=== PATIENT | male | born 1970 | race Caucasian/White ===

== ENCOUNTER → 2025-06-23 | Outpatient (CLI) | payer OTHER, SELFPAY ==
[2025-06-23 12:43] LABS: Hematocrit 46.0 % (40-54); Hemoglobin 15.1 g/dL (13.0-16.5); Immature Granulocytes Count 0.120 X10^3/uL (0.0-0.0); Mean Corp Hgb Conc 32.8 g/dL (32-36); Mean Corpuscular Volume 91.1 fL (80-94); Mean Platelet Vol. 10.9 fl (6.2-12.0); NRBC Flagged by Analyzer 0 % (0-5); Platelet Count 228 K/mm3 (150-450); RBC Distribution Width CV 12.7 % (11.6-14.6); RBC Distribution Width SD 42.3 fl (35.1-43.9); Red Blood Count 5.05 M/mm3 (4.6-6.2); White Blood Count 11.9 K/mm3 (4.4-11.0)
[2025-06-23 13:34] LABS: Lipase 99 U/L (13-75)
[2025-06-23 13:47] LABS: AST(SGOT) 32 U/L (<=37); Alanine Aminotransfer ALT/SGPT 51 U/L (<=46); Albumin, Serum 4.6 g/dL (3.5-5.0); Alkaline Phosphatase 62 U/L (40-129); Anion Gap 11 (5-15); BUN 22 mg/dL (4-19); BUN/Creat Ratio 20.3 RATIO (10-20); Calcium,Total 9.7 mg/dL (7.6-11.0); Carbon Dioxide 24.7 mmol/L (21.0-32.0); Chloride 102 mmol/L (98-108); Globulin 3.1 g/dL (2.2-4.2); Glucose 94 mg/dL (70-99); Potassium 4.6 mmol/L (3.3-5.1)
== END | disposition home or self-care (01) ==
PROVIDERS: PCP Physician Assistant; Referring Provider Student in an Organized Health Care Education/Training Program; Visit Provider Student in an Organized Health Care Education/Training Program
DX: K58.9 Irritable bowel syndrome, unspecified (principal); R10.9 Unspecified abdominal pain; R19.5 Other fecal abnormalities
CPT/HCPCS: 36415; 80053; 83690; 83993; 85025; 87177; 87209; 87329; 87493; 87506

== ENCOUNTER → 2025-07-01 | Outpatient (CLI) | payer OTHER, SELFPAY ==
--- NOTE | 2025-07-01 10:27 | US_ITS ---
PROCEDURE: ABDOMEN LIMITED 07/01/2025 REASON FOR EXAM: RUQ PAIN TECHNIQUE: Procedure Code: USABDL Modality: US Procedure: ABDOMEN LIMITED COMPARISON: None FINDINGS: Liver: Diffusely echogenic suggesting fatty infiltration. Hepatomegaly. The liver measures 20.1 cm. There is a 1.4 cm x 1.5 cm by 1 cm septated cyst in the left lobe of the liver. Gallbladder: Surgically absent. Common bile duct: Normal measuring 1.8 mm . Pancreas: Normal Other: Visualized portions of the right kidney are unremarkable. No right upper quadrant ascites. US/Abdomen Limited IMPRESSION: Hepatomegaly and diffuse fatty infiltration of the liver. 1.4 cm x 1.5 cm 1 cm septated cyst in the left lobe of the liver. Reading Location: [id number]
== END | disposition home or self-care (01) ==
PROVIDERS: PCP Physician Assistant; Referring Provider Student in an Organized Health Care Education/Training Program; Visit Provider Student in an Organized Health Care Education/Training Program
DX: R10.9 Unspecified abdominal pain (principal)
CPT/HCPCS: 76705

== ENCOUNTER 2025-07-15 06:22 | Day surgery (SDC) | payer OTHER, SELFPAY ==
--- OUTSIDE RECORDS SUMMARY | 2025-07-15 06:25 | XMS RPT_ITS | CCD ---
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 portions of the right kidney are unremarkable. No right upper quadrant ascites. US/Abdomen Limited IMPRESSION: Hepatomegaly and diffuse fatty infiltration of the liver. 1.4 cm x 1.5 cm 1 cm septated cyst in the left lobe of the liver. Reading Location: [id number] CC: IMA Cagle; MIA Henriquez [employer] Forming Machine Operator: Signed Normal [facility] Absolute lymphocyte countOrd ered By: Shruthi Ureña on 06-23-2025 Lymphocytes Auto (Unsp spec) [#/Vol] 2.42 10*3/uL 0.83-4.51 [facility] Absolute neutrophil countOrd ered By: Shruthi Ureña on 06-23-2025 Neutrophils (Bld) [#/Vol] 6.6 10*3/uL 2.0-7.7 [facility] Anion gap in Serum or Plasma Ordered By: Shruthi Ureña on 06-23-2025 Anion gap [Moles/Vol] 11 mmol/L - [facility] Automated lymphocyte count a s percentage of total leukocytesOrdered By: Shruthi Ureña on 06-23-2025 Lymphocytes/100 WBC Auto (Unsp spec) 20.4 % - [facility] BUN/creatinine ratioOrdered By: Shruthi Ureña on 06-23-2025 Urea nitrogen/Creatinine [Mass ratio] 20.3 mg/mg High - [facility] Basophil percentageOrdered B y: Shruthi Ureña on 06-23-2025 Basophils/100 WBC (Bld) 0.6 % 0-1 [facility] Bilirubin, totalOrdered By: Shruthi Ureña on 06-23-2025 Bilirubin [Mass/Vol] 0.25 mg/dL 0.00-1.30 [facility] CBC W/Diff, Automatedon 06-08 Absolute Lymph 2.42 X10 3/uL Normal 0.83-4.51 [facility] Comment on above: Performed By: #### L 100.0100, L500.4050, L501.2450 #### [facility] [address] [place], [address] Absolute Neut 6.6 X10 3/uL Normal 2.0-7.7 [facility] Comment on above: Performed By: #### L 100.0100, L500.4050, L501.2450 #### [facility] [address] [place], [address] Basophils/100 WBC (Bld) 0.6 % Normal 0-1 [facility] Comment on above: Performed By: #### L 100.0100, L500.4050, L501.2450 #### [facility] [address] [place], [address] Eosinophils/100 WBC (Bld) 13.6 % High 0-5 [facility] Comment on above: Performed By: #### L 100.0100, L500.4050, L501.2450 #### [facility] [address] [place], [address] Erythrocyte distribution width (RBC) [Ratio] 12.7 % Normal 11.6-14.6 [facility] Comment on above: Performed By: #### L 100.0100, L500.4050, L501.2450 #### [facility] [address] [place], [address] Hematocrit (Bld) [Volume fraction] 46.0 % Normal 40-54 [facility] Comment on above: Performed By: #### L 100.0100, L500.4050, L501.2450 #### [facility] [address] [place], [address] Hemoglobin (Bld) [Mass/Vol] 15.1 g/dL Normal 13.0-16.5 [facility] Comment on above: Performed By: #### L 100.0100, L500.4050, L501.2450 #### [facility] [address] [place], [address] IG% 1.000 High 0.0-0.9 [facility] Comment on above: Result Comment: IG% - Immature Granulocytes (promyelocytes, myelocytes and metamyelocytes) > 1% indicates that a LEFT SHIFT is Present. Performed By: #### L 100.0100, L500.4050, L501.2450 #### [facility] [address] [place], [address] Lymphocytes/100 WBC (Bld) 20.4 % Normal 19-41 [facility] Comment on above: Performed By: #### L 100.0100, L500.4050, L501.2450 #### [facility] [address] [place], [address] MCH (RBC) [Entitic mass] 29.9 pg Normal 27.0-32.0 [facility] Comment on above: Performed By: #### L 100.0100, L500.4050, L501.2450 #### [facility] [address] [place], [address] MCHC (RBC) [Mass/Vol] 32.8 g/dL Normal 32-36 [facility] Comment on above: Performed By: #### L 100.0100, L500.4050, L501.2450 #### [facility] [address] [place], [address] MCV (RBC) [Entitic vol] 91.1 fL Normal 80-94 [facility] Comment on above: Performed By: #### L 100.0100, L500.4050, L501.2450 #### [facility] [address] [place], [address] Monocytes/100 WBC (Bld) 9.3 % Normal 0-10 [facility] Comment on above: Performed By: #### L 100.0100, L500.4050, L501.2450 #### [facility] [address] [place], [address] Neutrophils/100 WBC (Bld) 55.1 % Normal 47-70 [facility] Comment on above: Performed By: #### L 100.0100, L500.4050, L501.2450 #### [facility] [address] [place], [address] Nucleated RBC (Bld) [#/Vol] 0 10*3/uL Normal 0-5 [facility] Comment on above: Performed By: #### L 100.0100, L500.4050, L501.2450 #### [facility] [address] [place], [address] Platelet mean volume (Bld) [Entitic vol] 10.9 fL Normal 6.2-12.0 [facility] Comment on above: Performed By: #### L 100.0100, L500.4050, L501.2450 #### [facility] [address] [place], [address] Platelets (Bld) [#/Vol] 228 10*3/uL Normal 150-450 [facility] Comment on above: Performed By: #### L 100.0100, L500.4050, L501.2450 #### [facility] [address] [place], [address] RBC (Bld) [#/Vol] 5.05 10*6/uL Normal 4.6-6.2 [facility] Comment on above: Performed By: #### L 100.0100, L500.4050, L501.2450 #### [facility] [address] [place], [address] RDW SD 42.3 fl Normal 35.1-43.9 [facility] Comment on above: Performed By: #### L 100.0100, L500.4050, L501.2450 #### [facility] [address] [place], [address] WBC (Bld) [#/Vol] 11.9 10*3/uL High 4.4-11.0 [facility] Comment on above: Performed By: #### L 100.0100, L500.4050, L501.2450 #### [facility] [address] [place], [address] CDIFF (PCR)on 06-23-2025 CDIFF Pending [phone] NAP1-B1 Presumptive Negative *for epidemiolologic???use C. Diff PCR Negative- No toxigenic C. Diff Detected Normal [facility] Comment on above: Performed By: #### M 600.5000, M7400.3302, M100.637, M100.6796 #### [facility] [address] [place], [address] Carbon dioxide, total [Moles /volume] in Central venous bloodOrdered By: Shruthi Ureña on 06-23-2025 CO2 [Moles/Vol] 24.7 mmol/L 21.0-32.0 [facility] Chloride assayOrdered By: Joana Ureña on 06-23-2025 Chloride [Moles/Vol] 102 mmol/L 98-108 [facility] Clostridium difficile detect ion by polymerase chain reactionOrdered By: Shruthi Ureña on 06-23-2025 C. difficile DNA ROGERS+probe Ql (Unsp spec) [facility] Comprehensive Metabolic Prof ilon 06-23-2025 Albumin [Mass/Vol] 4.6 g/dL Normal 3.5-5.0 [facility] Comment on above: Performed By: #### L 100.0100, L500.4050, L5.2450 #### [facility] [address] [place], [address] Albumin/Globulin [Mass ratio] 1.5 {ratio} Normal 0.9-2.4 [facility] Comment on above: Performed By: #### L 100.0100, L500.4050, L501.2450 #### [facility] [address] [place], [address] ALK PHOS 62 U/L Normal 40-129 [facility] Comment on above: Performed By: #### L 100.0100, L500.4050, L501.2450 #### [facility] [address] [place], [address] ALT [Catalytic activity/Vol] 51 U/L High <=46 [facility] Comment on above: Performed By: #### L 100.0100, L500.4050, L501.2450 #### [facility] [address] [place], [address] AST [Catalytic activity/Vol] 32 U/L Normal <=37 [facility] Comment on above: Performed By: #### L 100.0100, L500.4050, L501.2450 #### [facility] [address] [place], [address] Bilirubin [Mass/Vol] 0.25 mg/dL Normal 0.00-1.30 [facility] Comment on above: Performed By: #### L 100.0100, L500.4050, L501.2450 #### [facility] [address] [place], [address] BUN/CRE 20.3 RATIO High 10-20 [facility] Comment on above: Performed By: #### L 100.0100, L500.4050, L501.2450 #### [facility] [address] [place], [address] Calcium [Mass/Vol] 9.7 mg/dL Normal 7.6-11.0 [facility] Comment on above: Performed By: #### L 100.0100, L500.4050, L501.2450 #### [facility] [address] [place], [address] Chloride [Moles/Vol] 102 mmol/L Normal 98-108 [facility] Comment on above: Performed By: #### L 100.0100, L500.4050, L501.2450 #### [facility] [address] [place], [address] CO2 [Moles/Vol] 24.7 mmol/L Normal 21.0-32.0 [facility] Comment on above: Performed By: #### L 100.0100, L500.4050, L501.2450 #### [facility] [address] [place], [address] Creatinine [Mass/Vol] 1.07 mg/dL Normal 0.70-1.20 [facility] Comment on above: Performed By: #### L 100.0100, L500.4050, L501.2450 #### [facility] [address] [place], [address] GAP 11 Normal 5-15 [facility] Comment on above: Performed By: #### L 100.0100, L500.4050, L501.2450 #### [facility] [address] [place], [address] GFR/1.73 sq M.predicted among non-blacks MDRD (S/P/Bld) [Vol rate/Area] 82 mL/min/{1.73_m2} Normal >60 [facility] Comment on above: Result Comment: mL/m in/1.73m2 CKD-EPI Creatinine Equation (2020) Performed By: #### L 100.0100, L500.4050, L501.2450 #### [facility] [address] [place], [address] Globulin (S) [Mass/Vol] 3.1 g/dL Normal 2.2-4.2 [facility] Comment on above: Performed By: #### L 100.0100, L500.4050, L501.2450 #### [facility] [address] [place], [address] Glucose [Mass/Vol] 94 mg/dL Normal 70-99 [facility] Comment on above: Performed By: #### L 100.0100, L500.4050, L501.2450 #### [facility] [address] [place], [address] Potassium [Moles/Vol] 4.6 mmol/L Normal 3.3-5.1 [facility] Comment on above: Result Comment: Hemo lysis present, Results??could be affected. ?? Performed By: #### L 100.0100, L500.4050, L501.2450 #### [facility] [address] [place], [address] Sodium [Moles/Vol] 138 mmol/L Normal 133-145 [facility] Comment on above: Performed By: #### L 100.0100, L500.4050, L501.2450 #### [facility] [address] [place], [address] T PROT 7.7 g/dL Normal 5.9-8.4 [facility] Comment on above: Performed By: #### L 100.0100, L500.4050, L501.2450 #### [facility] [address] [place], [address] Urea nitrogen [Mass/Vol] 22 mg/dL High 4-19 [facility] Comment on above: Performed By: #### L 100.0100, L500.4050, L501.2450 #### [facility] [address] [place], [address] ENTERIC PATHOGEN PANEL STOOL on 06-23-2025 EP PANEL Normal Reference Ran ge = Not Detected Nucleic acid amplification test method Not detected for Campylobacter group, Salmonella species, Shigella species, Vibrio Group, Yersinia enterocolitica, EHEC (Shiga Toxin 1, Shiga Toxin 2), Norovirus Gl/Gll, and Rotavirus A. Other common stool pathogens are not detected on this panel include: Aeromonas/Plesiomonas or parasites. Order testing for these organisms separately if suspected. This is an amplified DNA test which makes it both specific and sensitive. CAMPYLOBACTER Not Detected Norovirus Not Detected Rotavirus Not Detected Salmonella Not Detected Shiga Toxin Not Detected Shigella sp. Not Detected VIBRIO Not Detected Yersinia Not Detected Normal [facility] Comment on above: Performed By: #### M 600.5000, M7400.4432, M100.637, M100.6796 #### [facility] [address] [place], [address] Eosinophil percentageOrdered By: Shruthi Ureña on 06-23-2025 Eosinophils/100 WBC (Bld) 13.6 % High 0-5 [facility] Erythrocyte distribution wid th ratioOrdered By: Shruthi Ureña on 06-23-2025 Erythrocyte distribution width (RBC) [Ratio] 12.7 % 11.6-14.6 [facility] Erythrocyte distribution wid th standard deviationOrdered By: Shruthi Ureña on 06-23-2025 Erythrocyte distribution width (RBC) [Ratio] 42.3 fl 35.1-43.9 [facility] Gastroenterology Visit Repor ton 06-23-2025 Gastroenterology Visit Report [facility] [address] [place] [address] OFFICE VISIT Date of Service: 06/23/25 MR#: [id number] Acct: [id number] Name: PEGGY CHAND Rep #: [id number] : [id number] Provider: MIA Cagle Age/Sex: 54/M Location: [facility] [email or web address] Status: Signed Intake Intake Visit Reasons: Abd Pain Chief Complaint: Right upper quadrant pain Allergies No Known Allergies Allergy (Verified 06/23/25 11:38) Medications ???Medication ???Instructions ???Recorded ???Confirmed ???Type dicyclomine 10 mg capsule 10 mg PO BID #30 caps 06/23/25 Rx pantoprazole 40 mg tablet,delayed 40 mg PO QDAY #30 tabs 06/23/25 1 Rx release PFSH Family History Father Cancer Hypertension Respiratory disease Brother Diabetes Mother Diabetes Hypertension Social History Smoking Status: Never smoker alcohol intake: never substance use type: does not use what type of physical activity do you participate in: other details: crossfit frequency: 5-6 times per week HPI HPI Chief Complaint: Right upper quadrant pain Details: PEGGY CHAND, is a 54 M who presents to the office today for establishment. Patient with right upper quadrant pain worsening over the past 3 months. Patient is status postcholecystectomy about 3 to 4 years ago due to gallstone pancreatitis. Patient's pain is constant and dull. He is having nausea and heartburn. Oral intake does not seem to exacerbate his symptoms. Workup thus far has included blood work and CT abdomen pelvis. He did have a mildly elevated lipase in the 120s. Patient's pain feels similar to when he had gallstone pancreatitis. He denies alcohol consumption. He did start an vbrf-fvf-arlbzrh PPI but has not noticed much benefit. He had an EGD in the past and was diagnosed with H. pylori which was treated with antibiotics. Patient also admits to loose stools over the past 3 months. It is shortly after eating. Last colonoscopy was a few years ago with no abnormalities. He denies family history of colon cancer. ROS Const Constitutional: Positive for weight change (weight gain); No fatigue or fever(s) ENT ENT: No difficulty swallowing Gastro GI: Positive for abdominal pain, bloating, change in bowel habits, diarrhea, heartburn, excessive flatus and nausea/dyspepsia; No belching, change in stool character, coffee ground emesis, constipation, cramping, difficulty swallowing, feeling full early, incontinent of stools, Vomiting blood/hematemesis, Blood in stool, loose stools, Black,tarry stools, pain with swallowing, vomiting or other Musc Musculoskeletal: No joint pain Skin Skin: No yellowing of the eye or itchy eyes Psych Psychiatric: No anxiety and No depression Endo Endocrine: Positive for weight change (weight gain); No fatigue Aller/Imm Allergy/Immunologic: No itchy eyes Donavan/Lymp Hematologic/Lymphatic: No easy bleeding or easy bruising Exam Const General: cooperative, healthy appearing and comfortable Orientation: alert [facility] Head: normal to inspection Ears: hearing grossly normal bilaterally Eyes General: appearance normal, both eyes and all related structures Neck Neck: normal visual inspection Chest Chest palpation inspection: normal inspection of the chest Resp Effort Inspection: normal respiratory effort Cardio Rate: regular rate Rhythm: regular rhythm GI Inspection: normal to inspection Auscultation: normal bowel sounds Palpation: soft and nontender Assessment and Plan Assessment and Plan (1) Abdominal pain: Status: Acute Plan: Peggy is a 54-year-old male patient here today for evaluation due to 3 months of right upper quadrant pain, nausea, heartburn and loose bowel movements. Patient's pain is a right sided constant and dull. It is not worse with oral intake. He did start an cmqt-tld-maatqly PPI but has not noticed any relief. He is status post cholecystectomy 3 to 4 years ago due to gallstone pancreatitis. Workup thus far has consisted of blood work and CT abdomen pelvis. Lipase was mildly elevated in the 120s but no other abnormalities. Will repeat lipase, CMP and CBC. I have also ordered a right upper quadrant ultrasound to evaluate his biliary system. We may consider MRCP pending results. EGD ordered for evaluation of his upper GI tract to rule out gastritis or duodenitis. I have prescribed pantoprazole 40 mg daily. He will also trial dicyclomine for his abdominal pain. Last colonoscopy was a few years ago without abnormalities. Will order stool testing to rule out infection or inflammation in his colon. - EGD - Start pantoprazole 40 mg daily - Dicyclomine 10 mg as needed - Stool testing for infection or inflammatio (more content not included)... Normal [facility] Glomerular filtration rate ( GFR) estimation/1.73 sq m using serum, plasma, or whole bOrdered By: Shruthi Ureña on 06-23-2025 GFR/1.73 sq M.predicted among non-blacks MDRD (S/P/Bld) [Vol rate/Area] 82 mL/min/{1.73_m2} >60 [facility] Comment on above: mL/min/1.73m2 CKD-EP I Creatinine Equation (2020) Hematocrit Auto (Bld) [Volum e fraction]Ordered By: Shruthi Ureña on 06-23-2025 Hematocrit (Bld) [Volume fraction] 46.0 % 40-54 [facility] Hemoglobin measurementOrdere d By: Shruthi Ureña on 06-23-2025 Hemoglobin (Bld) [Mass/Vol] 15.1 g/dL 13.0-16.5 [facility] Immature granulocytes/100 WB C Auto (Bld)Ordered By: Shruthi Ureña on 06-23-2025 Immature granulocytes/100 WBC (Bld) 1.000 % High 0.0-0.9 [facility] Comment on above: IG% - Immature Granu locytes (promyelocytes, myelocytes and metamyelocytes) > 1% indicates that a LEFT SHIFT is Present. Laboratory - Chemistry and C hemistry - challengeOrdered By: Shruthi Ureña on 06-23-2025 AST [Catalytic activity/Vol] 32 U/L <38 [facility] Lipaseon 06-23-2025 Lipase [Catalytic activity/Vol] 99 U/L High 13-75 [facility] Comment on above: Result Comment: Remy chan note: LIPASE revised reference range effective 22. New Lipase methodology. Expected to produce lower values than the previous assay method. NEW Reference Range: 13 - 75 U/L Performed By: #### L 100.0100, L500.4050, L501.2450 #### [facility] [address] [place] [address], [id number] Lipase measurementOrdered By : Shruthi Ureña on 06-23-2025 Lipase [Catalytic activity/Vol] 99 U/L High 13-75 [facility] Comment on above: Please note:LIPASE r evised reference range effective 22. New Lipase methodology. Expected to produce lower values than the previous assay method. NEW Reference Range: 13 - 75 U/L MCV (mean corpuscular volume ) determinationOrdered By: Shruthi Ureña on 06-23-2025 MCV (RBC) [Entitic vol] 91.1 fL 80-94 [facility] Mean corpuscular hemoglobin (MCH) determinationOrdered By: Shruthi Ureña on 06-23-2025 MCH (RBC) [Entitic mass] 29.9 pg 27.0-32.0 [facility] Mean corpuscular hemoglobin concentration (MCHC) determinationOrdered By: Shruthi Ureña on 06-23-2025 MCHC (RBC) [Mass/Vol] 32.8 g/dL 32-36 [facility] Mean platelet volume determi nationOrdered By: Shruthi Ureña on 06-23-2025 Platelet mean volume (Bld) [Entitic vol] 10.9 fL 6.2-12.0 [facility] Monocyte percentageOrdered B y: Shruthi Ureña on 06-23-2025 Monocytes/100 WBC (Bld) 9.3 % 0-10 [facility] Neutrophil percentageOrdered By: Shruthi Ureña on 06-23-2025 Neutrophils/100 WBC (Bld) 55.1 % 47-70 [facility] Nucleated red blood cell per centageOrdered By: Shruthi Ureña on 06-23-2025 Nucleated RBC/100 WBC (Bld) [Ratio] 0 % 0-5 [facility] Platelet countOrdered By: Joana Ureña on 06-23-2025 Platelets (Bld) [#/Vol] 228 10*3/uL 150-450 [facility] Potassium measurement (mass/ volume)Ordered By: Shruthi Ureña on 06-23-2025 Potassium (Unsp spec) [Mass/Vol] 4.6 mmol/L 3.3-5.1 [facility] Comment on above: Hemolysis present, R esults could be affected. RBC Auto (Bld) [#/Vol]Ordere d By: Shruthi Ureña on 06-23-2025 RBC (Bld) [#/Vol] 5.05 10*6/uL 4.6-6.2 [facility] Serum creatinine measurement (mass/volume)Ordered By: Shruthi Ureña on 06-23-2025 Creatinine [Mass/Vol] 1.07 mg/dL 0.70-1.20 [facility] Serum globulin measurementOr dered By: Shruthi Ureña on 06-23-2025 Globulin (S) [Mass/Vol] 3.1 g/dL 2.2-4.2 [facility] Serum glucose measurement (m ass/volume)Ordered By: Shruthi Ureña on 06-23-2025 Glucose [Mass/Vol] 94 mg/dL 70-99 [facility] Serum or plasma alanine murry otransferase (ALT) measurementOrdered By: Shruthi Ureña on 06-23-2025 ALT [Catalytic activity/Vol] 51 U/L High <47 [facility] Serum or plasma albumin sneha urement (mass/volume)Ordered By: Shruthi Ureña on 06-23-2025 Albumin [Mass/Vol] 4.6 g/dL 3.5-5.0 [facility] Serum or plasma albumin/glob ulin mass ratioOrdered By: Shruthi Ureña on 06-23-2025 Albumin/Globulin [Mass ratio] 1.5 {ratio} 0.9-2.4 [facility] Serum or plasma alkaline elisabeth sphatase measurementOrdered By: Shruthi Ureña on 06-23-2025 ALP [Catalytic activity/Vol] 62 U/L 40-129 [facility] Serum or plasma calcium sneha urement (mass/volume)Ordered By: Shruthi Ureña on 06-23-2025 Calcium [Mass/Vol] 9.7 mg/dL 7.6-11.0 [facility] Serum or plasma urea nitroge n measurement (mass/volume)Ordered By: Shruthi Ureña on 06-23-2025 Urea nitrogen [Mass/Vol] 22 mg/dL High 4-19 [facility] Sodium levelOrdered By: Christian Ureña on 06-23-2025 Sodium [Moles/Vol] 138 mmol/L 133-145 [facility] Total proteinOrdered By: Samantha Ureña on 06-23-2025 Protein [Mass/Vol] 7.7 g/dL 5.9-8.4 [facility] White blood cell (WBC) count Ordered By: Shruthi Ureña on 06-23-2025 WBC (Bld) [#/Vol] 11.9 10*3/uL High 4.4-11.0 [facility] INSULINon 06-20-2025 INSULIN 19.5 uIU/mL High [email or web address] Comment on above: Result Comment: Refe rence Range < or = 18.4 Risk: Optimal < or = 18.4 Moderate NA High >18.4 Adult cardiovascular event risk category cut points (optimal, moderate, high) are based on Insulin Reference Interval studies performed at [facility] in 2021. Performed By: #### 5 61 #### [facility] [place] [address] Nut Roaster Helper: Estuardo Chilel MD AMYLASEon 06-18-2025 Amylase [Catalytic activity/Vol] 52 U/L Normal 21-101 [facility] Comment on above: Performed By: #### 6 399, 606, [id number], 243 #### [facility] [place] [address] [employer] Roaster Helper: Estuardo Chilel MD C-PEPTIDEon 06-18-2025 C-PEPTIDE 3.50 ng/mL Normal 0.80-3.85 [facility] Comment on above: Performed By: #### 6 399, 606, 00211, 243 #### [facility] [place] [address] [employer] Roaster Helper: Estuardo Chilel MD CBC (INCLUDES DIFF/PLT)on Basophils (Bld) [#/Vol] 0.101 10*3/uL Normal 0-200 [facility] Comment on above: Performed By: #### 6 399, 606, 16988, 243 #### [facility] [place] [address] [employer] Roaster Helper: Estuardo Chilel MD Basophils/100 WBC (Bld) 1.0 % Normal [facility] Comment on above: Performed By: #### 6 399, 606, 20148, 243 #### [facility] [place] [address] [employer] Roaster Helper: Estuardo Chilel MD Eosinophils (Bld) [#/Vol] 1.394 10*3/uL High 15-500 [facility] Comment on above: Performed By: #### 6 399, 606, 87295, 243 #### [facility] [place] [address] [employer] Roaster Helper: Estuardo Chilel MD Eosinophils/100 WBC (Bld) 13.8 % Normal [facility] Comment on above: Performed By: #### 6 399, 606, 69700, 243 #### [facility] [place] [address] [employer] Roaster Helper: Estuardo Chilel MD Erythrocyte distribution width (RBC) [Ratio] 13.2 % Normal 11.0-15.0 [facility] Comment on above: Performed By: #### 6 399, 606, 30991, 243 #### [facility] [place] [address] [employer] Roaster Helper: Estuardo Chilel MD Hematocrit (Bld) [Volume fraction] 47.6 % Normal 38.5-50.0 [facility] Comment on above: Performed By: #### 6 399, 606, 16518, 243 #### [facility] [place] [address] [employer] Roaster Helper: Estuardo Chilel MD Hemoglobin (Bld) [Mass/Vol] 15.5 g/dL Normal 13.2-17.1 [facility] Comment on above: Performed By: #### 6 399, 606, 30246, 243 #### [facility] [place] [address] [employer]: Estuardo Chilel MD Lymphocytes (Bld) [#/Vol] 2.02 10*3/uL Normal 850-3900 [facility] Comment on above: Performed By: #### 6 399, 606, 23616, 243 #### [facility] [place] [address] [employer]: Estuardo Chilel MD Lymphocytes/100 WBC (Bld) 20.0 % Normal [facility] Comment on above: Performed By: #### 6 399, 606, 37229, 243 #### [facility] [place] [address] [employer]: Estuardo Chilel MD MCH (RBC) [Entitic mass] 30.5 pg Normal 27.0-33.0 [facility] Comment on above: Performed By: #### 6 399, 606, 27083, 243 #### [facility] [place] [address] [employer]: Estuardo Chilel MD MCHC (RBC) [Mass/Vol] 32.6 g/dL Normal 32.0-36.[address] [facility] Comment on above: Result Comment: For adults, a slight decrease in the calculated MCHC value (in the range of 30 to 32 g/dL) is most likely not clinically significant; however, it should be interpreted with caution in correlation with other red cell parameters and the patient's clinical condition. Performed By: #### 6 399, 606, 89176, 243 #### [facility] [place] [address] [employer]: Estuardo Chilel MD MCV (RBC) [Entitic vol] 93.5 fL Normal 80.0-100.0 [facility] Comment on above: Performed By: #### 6 399, 606, 72038, 243 #### [facility] [place] [address] [employer]: Estuardo Chilel MD Monocytes (Bld) [#/Vol] 0.808 10*3/uL Normal 200-950 [facility] Comment on above: Performed By: #### 6 399, 606, 72791, 243 #### [facility] [place] [address] [employer]: Estuardo Chilel MD Monocytes/100 WBC (Bld) 8.0 % Normal [facility] Comment on above: Performed By: #### 6 399, 606, 34768, 243 #### [facility] [place] [address] [employer]: Estuardo Chilel MD Neutrophils (Bld) [#/Vol] 5.777 10*3/uL Normal 0355-1958 [facility] Comment on above: Performed By: #### 6 399, 606, 90039, 243 #### [facility] [place] [address] [employer]: Estuardo Chilel MD Neutrophils/100 WBC (Bld) 57.2 % Normal [facility] Comment on above: Performed By: #### 6 399, 606, 58084, 243 #### [facility] [place] [address] [employer]: Estuardo Chilel MD Platelet mean volume (Bld) [Entitic vol] 11.1 fL Normal 7.5-12.5 [facility] Comment on above: Performed By: #### 6 399, 606, 73574, 243 #### [facility] [place] [address] [employer]: Estuardo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 CERVICAL W/O CONTRAST [address] [address] Patient: PEGGY CHAND Phone#: : 1970 Age: 53 Gender: M Pt. Type: ER Account: [id number] Location: 052 Ordering: DR. TAWANNA GUADARRAMA Exam Date: 09/06/2024/17:41 Family Phys: EZEKIEL PATEL Charge Code: [id number] Physician: Bath Order #: [id number] Dose#: 14.5 mGy PROCEDURE: CT CERVICAL WITHOUT CONTRAST COMPARISON: None. INDICATIONS: Trauma. TECHNIQUE: Multi-planar CT images were created without intravenous contrast. All CT scans at this facility use dose modulation, iterative reconstruction, and/or weight-based dosing when appropriate to reduce radiation dose to as low as reasonably achievable. IV CONTRAST: No IV contrast used,0ml TOTAL DOSE: 14.5 CTDIvol(mGy) FINDINGS: CRANIOCERVICAL AREA: Normal foramen magnum with no Chiari malformation. PARASPINAL AREA: Normal with no visible mass. BONES: Vertebral bodies are maintained in height and alignment. No appreciable fracture or subluxation. There is attenuation of the CT beam at the lower cervical spine somewhat limiting the evaluation. Dens is intact. Lateral masses are symmetric. OTHER: Atherosclerotic calcifications of the carotid bifurcations. CERVICAL DISC LEVELS: C2-C3: No significant disc/facet abnormality, spinal stenosis, or foraminal stenosis. C3-C4: Disc height loss and uncovertebral hypertrophy contributes to moderate bilateral foraminal narrowing C4-C5: Disc height loss contributes to mild bilateral osseous foraminal narrowing C5-C6: Disc height loss contributes to mild bilateral osseous foraminal narrowing C6-C7: Disc height loss and uncovertebral hypertrophy contributes to moderate left osseous foraminal narrowing C7-T1: No significant disc/facet abnormality, spinal stenosis, or foraminal stenosis. CONCLUSION: 1. No acute osseous abnormality Continued Report - Page 2 of 2 Patient: PEGGY CHAND Phone#: : 1970 Age: 53 Gender: M Pt. Type: ER Account: [id number] Location: [facility] Ordering: DR. TAWANNA GUADARRAMA Exam Date: 09/06/2024/17:41 Family Phys: EZEKIEL PATEL Charge Code: [id number] Physician: Bath Order #: [id number] Dose#: 14.5 mGy 2. Multilevel degenerative changes resulting in varying degrees of osseous foraminal narrowing. Dictated by: Alysa Graham MD on 09/06/2024 at 17:54 Approved by: Alysa Graham MD on 09/06/2024 at 18:00 Normal [facility] CT CHEST W/CONTRASTon 2023 CT CHEST W/CONTRAST [place] [address] Patient: JAGRUTI PEGGY Nguyen Phone#: : 1970 Age: 53 Gender: M Pt. Type: ER Account: [id number] Location: 052 Ordering: DR. TAWANNA GUADARRAMA Exam Date: 09/06/2024/18:53 Family Phys: EZEKIEL PATEL Charge Code: [id number] Physician: Bath Order #: [id number] Dose#: 16.5 mGy PROCEDURE: CT CHEST WITH CONTRAST COMPARISON: [facility], CT, ABDOMEN W W/O CONRAST, 11/20/2021, 11:18. INDICATIONS: Chest pain. TECHNIQUE: After obtaining the patient's consent, CT images were obtained with non-ionic intravenous contrast material. All CT scans at this facility use dose modulation, iterative reconstruction, and/or weight based dosing when appropriate to reduce radiation dose to as low as reasonably achievable. IV CONTRAST: Omnipaque 350,65ml TOTAL DOSE: 16.5 CTDIvol(mGy) FINDINGS: Study somewhat limited by artifact from patient's arms at his side during the exam. LUNGS: Right upper lobe pulmonary nodule measuring 0.5 cm, series 3, image 23. VASCULATURE: Unremarkable in size CAROLINE: Normal. No mass or adenopathy. MEDIASTINUM: Normal. No mass or adenopathy. CARDIAC: Normal. No enlargement, pericardial thickening, or significant calcification. AORTA: No aortic aneurysm. PLEURA: Normal. No mass or effusion. CHEST WALL: Normal. No mass or axillary adenopathy. LIMITED ABDOMEN: Left renal parenchymal calcification measuring 1.4 x 1.2 cm, similar prior. Surgical clips in the gallbladder fossa. BONES: Mild degenerative changes of the thoracic spine with disc height loss and anterior osteophyte formation. No acute osseous abnormality. OTHER: Negative. CONCLUSION: 1. No acute pulmonary parenchymal abnormality. Continued Report - Page 2 of 2 Patient: PEGGY CHAND Phone#: : 1970 Age: 53 Gender: M Pt. Type: ER Account: [id number] Location: 052 Ordering: DR. TAWANNA GUADARRAMA Exam Date: 09/06/2024/18:53 Family Phys: EZEKIEL PATEL Charge Code: [id number] Physician: Bath Order #: [id number] Dose#: 16.5 mGy 2. Right upper lobe pulmonary nodule. 2017 guidelines from the Fleischner Society recommend for <6mm solid nodules: In low risk patients, no follow-up required. In high risk patients, optional CT in 12 months. Dictated by: Alysa Graham MD on 09/06/2024 at 19:05 Approved by: Alysa Graham MD on 09/06/2024 at 19:11 Normal [facility] Final Surgical Pathology Rep jeff 06-23-2024 Final Surgical Pathology Report . Pathology Reports Accession: Collected Date/Time: Received Date/Time: Pathologist: [id number] 06/21/2024 09:54 EDT 06/22/2024 07:34 EDT JACI SEGURA MD Final Surgical Pathology Report DIAGNOSIS: SIGMOID COLON POLYP: - TUBULAR ADENOMA COMMENT: [facility] [id number] CLINICAL INFORMATION: SCREENING Procedure: COLONOSCOPY SPECIMEN: A SIGMOID POLYP GROSS DESCRIPTION: All parts labelled with patient name and [id number] Received in formalin labeled "sigmoid polyp" is 1 chino-brown tissue fragment measuring 0.5 x 0.3 cm greatest dimension. TS-1 Tricia Cartwright, Grossing Stereo Equipment Repairer/ Dr. Thanh Fitch, Pathologist Performed by Tricia Cartwright MICROSCOPIC DESCRIPTION: The microscopic examination is performed, except in the case of Gross Only. Electronically Signed by Pathology Report verified by [facility] JACI SEGURA Sign out Date: 06/23/2024 15:19 Performing Lab: [facility], [address] [place] [address] Pathology Dept Disclaimer If ancillary studies were utilized, the following Laboratory Developed Test (LDT) disclaimer will apply: Under CLIA requirements, [facility] is qualified to perform high complexity testing. For all ancillary stains, positive and negative controls stain appropriately. Performance characteristics of immunohistochemical and chromogenic in-situ hybridization tests have been determined by [facility]. These tests are used for clinical purposes, They should not be regarded as investigational or for research. Normal [facility] Laboratory - Chemistry and C hemistry - challengeon 05-20-2024 Albumin [Mass/Vol] 4.8 g/dL Normal 3.6 - 5.1 g/dL [facility]. Albumin/Globulin [Mass ratio] 1.7 {ratio} Normal 1.0 - 2.5 [facility], [facility].; [facility]. ALP [Catalytic activity/Vol] 52 U/L Normal 35 - 144 U/L [facility], [facility].; [facility]. ALT [Catalytic activity/Vol] 29 U/L Normal 9 - 46 U/L [facility].; [facility]. AST [Catalytic activity/Vol] 21 U/L Normal 10 - 35 U/L [facility], [facility].; [facility]. Bilirubin [Mass/Vol] 0.4 mg/dL Normal 0.2 - 1 .2 mg/dL [facility].; [facility]. Calcium [Mass/Vol] 10.0 mg/dL Normal 8.6 - 10. 3 mg/dL [facility], [facility].; [facility]. Chloride [Moles/Vol] 104 mmol/L Normal 98 - 11 0 mmol/L [facility].; [employer], [facility]. Cholesterol [Mass/Vol] 208 mg/dL Abnormal [facility].; [facility]. Cholesterol in HDL [Mass/Vol] 45 mg/dL Normal [facility], [facility].; [facility] Cholesterol in LDL [Mass/Vol] 133 mg/dL Abnormal [facility], [facility].; [employer] [facility], [facility]. CO2 [Moles/Vol] 27 mmol/L Normal 20 - 32 mmol/L [facility].; [employer] [facility], [facility]. Creatinine [Mass/Vol] 0.93 mg/dL Normal 0.70 - 1.30 mg/dL [facility].; [employer] [facility], [facility]. GFR/1.73 sq M.predicted among non-blacks MDRD (S/P/Bld) [Vol rate/Area] 98 mL/min/{1.73_m2} Normal [facility], [facility].; [employer] [employer] Glucose [Mass/Vol] 98 mg/dL Normal 65 - 99 mg/dL [facility], [facility].; [facility]. Potassium [Moles/Vol] 4.6 mmol/L Normal 3.5 - 5.3 mmol/L [facility].; [employer]. Protein [Mass/Vol] 7.6 g/dL Normal 6.1 - 8.1 g/dL [facility].; [employer]. Sodium [Moles/Vol] 140 mmol/L Normal 135 - 146 mmol/L [facility].; [employer]. Triglyceride [Mass/Vol] 164 mg/dL Abnormal [facility]; [employer] [facility] Urea nitrogen [Mass/Vol] 20 mg/dL Normal 7 - 25 mg/dL [facility] [employer]. No Panel Informationon 05-20 BUN/CREATININE RATIO SEE NOTE: Normal 6 - 22 [facility] [employer]. CHOL/HDLC RATIO 4.6 Normal [facility]; [employer]. GLOBULIN 2.8 Normal 1.9 - 3.7 [facility].; [employer]. NON HDL CHOLESTEROL [address] [facility].; [employer]. PSA, TOTAL 1.11 ng/mL Normal [facility].; [employer]. Laboratory - Microbiology an d Antimicrobial susceptibilityon 12-12-2023 FLUAV Ag IA Ql (Throat) Negative Normal [facility].; [employer] [facility] SARS-CoV-2 (COVID-19) RNA ROGERS+probe Ql (Unsp spec) Negative Normal [facility].; [employer]. CNOVon 08-06-2023 CNOV Office Visit (NENEFS ) PEGGY CHAND ([id number]) 1970 M Date Time Provider Department 08/06/23 10:00 AM JEY BIRCH During your visit today, we recorded the following information about you: Temperature Pulse Respiration Blood pressure 97.8 degrees 57/minute 15/minute 123/88 Weight 111.6 kg Jey Birch MD 08/06/2023 10:49 AM Signed [facility] New Patient Evaluation Consulting Provider: Dr. Wisam Foster [facility] Consultation requested by Dr. Foster for an opinion regarding muscle twitches. 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 Not a smoker - rare alcohol Has had muscle twitches x 1 year Getting worse Muscles affected - forelegs - more calves Not in thighs hamstrings arms trunk muscles face Cramps - no Loss of muscle - no Weakness - no Balance agility - good - no falls Bladder function - N Arm function - N No Bulbar symptoms Forgetful at times Feels inside and can see also - both equal Bothering because when tries to sleep draws attention irritating but not painful Has had ankle issues R side on outside ligament and tendon issues Does crossfit - cardio and weight training Comes in shorts today came right from workout Has a half marathon planned 08/09 in [place] Numbers on fitness training are stable Video: Of R and L medial legs showing what appear to be fascics in medial calf and well as lower forelegs above ankle. They did blood tests: CK was high (235). Lytes B12 folate were okay. BROTHER HAS THE SAME THING showed same video to patient. "He does not see doctors" Neurological disease - son with Epilepsy - father has hand tremors - no formal diagnosis of major disease. General Examination: BP 123/88 Pulse (!) 57 Temp 36.6 ?C (97.8 ?F) (Temporal Artery) Resp 15 Wt 111.6 kg (246 lb) SpO2 99% He is alone. General appearance: Awake, alert, interactive, no acute distress, good nutritional status, normal development, well-groomed Skin: Rash: absent Pigmentation: absent HEENT: Head: normocephalic, no dysmorphism Eyes: LEFT ENOPHTHALMOS Oropharynx: normal Neck: Movements: free Lymphadenopathy: absent Extremities: Deformity/contracture: absent Distal pulses: present Edema: absent Trophic change: absent Spine: Deformity: absent Heart: Regular Lungs: N effort Abdomen: Soft, nontender Neurological Exam Mental Status Alert, fully oriented, attentive, with normal cognition, memory, speech and affect. Cranial Nerves Visual medeiros intact. Pupils 3mm. 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 No diplopia. 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 No nystagmus. Facial sensation intact. Face symmetric and strong. Palate and tongue normal. XI normal. Motor Examination and Coordination Neuromuscular Examination Axial Muscles Ptosis: R: none L: mild L Cesar EOM: L Cesar syndrome Face-eye closure: normal Face-mouth closure: normal Palatal movement: normal Tongue: normal Tongue atrophy: no Sternomastoids: R: n L: n Neck flexion: 5 Neck extension: 5 Head drop: no Scapular winging: absent Accessory respiratory: absent Extremity Muscles Upper Extremity Right Left Shoulder abduction 5 5 Elbow flexion 5 5 Elbow extension 5 5 Wrist extension 5 5 Finger flexion/electrician control equipment 5 5 Finger extension 5 5 First dorsal interosseous 5 5 Abductor digiti minimi 5 5 Abductor pollicis brevis 5 5 Lower Extremity Right Left Hip flexion 5 5 Knee flexion 5 5 Knee extension 5 5 Ankle plantarflexion 5 5 Ankle dorsiflexion 5 5 Extensor hallucis longus 5 5 Flexor digitorum longus 5 5 Atrophy: ABSENT Fasciculations: rare during encounter legs. Profuse on video he showed. No upper body fascics - undressed exam. Myotonia: absent Contractures: No Tone (Ann spasticity) UE: Right: A0=normal (none) Left: A0=normal (none) LE: Right: A0=normal (none) Left: A0=normal (none) DAMIAN: N Tremor: No Coordination: N Reflexes Deep tendon reflexes graded by MRC Deep Tendon Reflexes Right Left Biceps 2+ 2+ Triceps 2+ 2+ Brachioradialis 2+ 2+ Patellar 2+ 2+ Achilles 2+ 2+ (more content not included)... Normal [facility] Priscila 08-06-2023 CNPN Telephone ([facility]) PEGGY CHAND ([id number]) 1970 M Date Time Provider Department 08/06/23 JEY BIRCH [facility] During your visit today, we recorded the following information about you: Norma Rojo 08/06/2023 8:37 AM Signed Spoke with patients outside providers office, they will be faxing clinical information prior to the patient appt today. Meagan Carmen MA 08/06/2023 9:27 AM Signed We have not yet received any documents here at the [facility]. Patient is here in the office now. Our fax number is [phone]. Will continue to wait for documents. Maybe in Care Everywhere ? Thank you. Meagan Carmen MA 08/06/23 9:27 AM Meagan Carmen MA 08/06/2023 11:45 AM Signed Scanned in [employer] under scanned documents. Thank you. Meagan Carmen MA 08/06/23 11:45 AM Allergies As of Date: 08/06/2023 (No Known Allergies) Date Reviewed: 08/06/2023 Reviewed by: Meagan Carmen MA - Fully Assessed Reason for Visit: Patient Update [1234] Prescriptions as of 08/06/2023 - meloxicam (MOBIC) 15 mg tablet - PEPCID AC 10 MG TAB Take one(1) tablet every other day. Problem List As Of Date: 08/06/2023 (None) Encounter Status:Closed by NORMA ROJO on 08/06/23 Normal [facility] Laboratory - Chemistry and C hemistry - challengeon 07-07-2023 Albumin [Mass/Vol] 4.7 g/dL Normal 3.6 - 5.1 g/dL [facility]. Albumin/Globulin [Mass ratio] 1.8 {ratio} Normal 1.0 - 2.5 [facility].; [facility], [facility] ALP [Catalytic activity/Vol] 49 U/L Normal 35 - 144 U/L [facility].; [facility]. ALT [Catalytic activity/Vol] 28 U/L Normal 9 - 46 U/L [facility].; [facility], [facility]. AST [Catalytic activity/Vol] 23 U/L Normal 10 - 35 U/L [facility]. Bilirubin [Mass/Vol] 0.5 mg/dL Normal 0.2 - 1 .2 mg/dL [facility].; [facility]. Calcium [Mass/Vol] 10.0 mg/dL Normal 8.6 - 10. 3 mg/dL [facility].; [facility]. Chloride [Moles/Vol] 104 mmol/L Normal 98 - 11 0 mmol/L [facility].; [facility]. CO2 [Moles/Vol] 30 mmol/L Normal 20 - 32 mmol/L [facility].; [facility]. Cobalamin (Vitamin B12) [Mass/Vol] 547 pg/mL Normal 200 - 1100 pg/mL [facility].; [employer] [facility]. Creatinine [Mass/Vol] 0.99 mg/dL Normal 0.70 - 1.30 mg/dL [facility].; [place] [employer] [facility], [facility]. Ferritin [Mass/Vol] 216 ng/mL Normal 38 - 380 ng/mL [facility].; [place] [employer] [facility], [employer]. Folate [Mass/Vol] 23.1 ng/mL Normal [facility].; [facility]. GFR/1.73 sq M.predicted among non-blacks MDRD (S/P/Bld) [Vol rate/Area] 91 mL/min/{1.73_m2} Normal [facility], [facility].; [facility]. Glucose [Mass/Vol] 78 mg/dL Normal 65 - 99 mg/dL [facility].; [facility]. Magnesium [Mass/Vol] 2.1 mg/dL Normal 1.5 - 2 .5 mg/dL [facility].; [facility]. Potassium [Moles/Vol] 4.7 mmol/L Normal 3.5 - 5.3 mmol/L [facility].; [facility]. Protein [Mass/Vol] 7.3 g/dL Normal 6.1 - 8.1 g/dL [facility].; [facility]. Sodium [Moles/Vol] 141 mmol/L Normal 135 - 146 mmol/L [facility].; [facility] [employer], [facility]. Urea nitrogen [Mass/Vol] 26 mg/dL Abnormal 7 - 25 mg/dL [facility].; [employer], [facility]. Urea nitrogen/Creatinine [Mass ratio] 26 mg/mg Abnormal 6 - 22 [facility].; [employer], [employer]. Laboratory - Hematology and Cell countson 07-07-2023 Basophils (Bld) [#/Vol] 0.036 10*3/uL Normal 0 - 200 {cells/uL} [facility].; [employer] Basophils/100 WBC (Bld) 0.4 % Normal [facility].; [facility]. Eosinophils (Bld) [#/Vol] 0.267 10*3/uL Normal 15 - 500 {cells/uL} [facility].; [employer], [facility]. Eosinophils/100 WBC (Bld) 3.0 % Normal [facility].; [employer], [facility]. Erythrocyte distribution width (RBC) [Ratio] 12.3 % Normal 11.0 - 15.0 % [facility].; [employer] Hematocrit (Bld) [Volume fraction] 43.6 % Normal 38.5 - 50.0 % [facility].; [facility] Hemoglobin (Bld) [Mass/Vol] 15.2 g/dL Normal 13.2 - 17.1 g/dL [facility].; [employer], [facility]. Lymphocytes (Bld) [#/Vol] 1.691 10*3/uL Normal 850 - 3900 {cells/uL} [facility].; [employer], [employer]. Lymphocytes/100 WBC (Bld) 19.0 % Normal [facility].; [employer], [facility]. MCH (RBC) [Entitic mass] 31.5 pg Normal 27.0 - 33.0 pg [facility].; [employer], [facility]. MCHC (RBC) [Mass/Vol] 34.9 g/dL Normal 32.0 - 36.0 g/dL [facility].; [employer], [employer]. MCV (RBC) [Entitic vol] 90.5 fL Normal 80.0 - 100.0 fL [facility].; [employer], [employer]. Monocytes (Bld) [#/Vol] 0.837 10*3/uL Normal 200 - 950 {cells/uL} [employer], [facility].; [employer], [employer]. Monocytes/100 WBC (Bld) 9.4 % Normal [facility].; [place] [employer] [facility], [facility]. Neutrophils (Bld) [#/Vol] 6.07 10*3/uL Normal 1500 - 7800 {cells/uL} [employer], [facility].; [employer], [facility]. Neutrophils/100 WBC (Bld) 68.2 % Normal [facility] [employer] [facility].; [employer], [facility]. Platelet mean volume (Bld) [Entitic vol] 11.7 fL Normal 7.5 - 12.5 fL [employer], [employer].; [employer], [facility]. Platelets (Bld) [#/Vol] 190 10*3/uL Normal 140 - 400 [employer], [employer].; [employer] RBC (Bld) [#/Vol] 4.82 10*6/uL Normal 4.20 - 5.8 0 {Million/uL} [employer].; [facility]. WBC (Bld) [#/Vol] 8.9 10*3/uL Normal 3.8 - 10.8 [facility]; [facility] No Panel Informationon 07-07 CREATINE KINASE, TOTAL 235 U/L Abnormal 44 - 196 U/L [facility]; [facility] GLOBULIN 2.6 Normal 1.9 - 3.7 [facility] Laboratory - Chemistry and C hemistry - challengeon 01-16-2022 Albumin [Mass/Vol] 4.6 g/dL Normal 3.6 - 5.1 g/dL [facility].; [facility] Albumin/Globulin [Mass ratio] 1.7 {ratio} Normal 1.0 - 2.5 [facility]; [facility] ALP [Catalytic activity/Vol] 53 U/L Normal 35 - 144 U/L [facility]. ALT [Catalytic activity/Vol] 39 U/L Normal 9 - 46 U/L [facility].; [facility]. AST [Catalytic activity/Vol] 26 U/L Normal 10 - 35 U/L [facility].; [facility]. Bilirubin [Mass/Vol] 0.5 mg/dL Normal 0.2 - 1 .2 mg/dL [facility].; [facility] Calcium [Mass/Vol] 9.9 mg/dL Normal 8.6 - 10. 3 mg/dL [facility].; [facility]. Chloride [Moles/Vol] 104 mmol/L Normal 98 - 11 0 mmol/L [facility].; [facility]. Cholesterol [Mass/Vol] 194 mg/dL Normal [facility]; [facility] Cholesterol in HDL [Mass/Vol] 49 mg/dL Normal [facility].; [facility] Cholesterol in LDL [Mass/Vol] 120 mg/dL Abnormal [facility].; [facility] CO2 [Moles/Vol] 23 mmol/L Normal 20 - 32 mmol/L [facility].; [facility] Creatinine [Mass/Vol] 1.18 mg/dL Normal 0.70 - 1.33 mg/dL [facility].; [facility]. GFR/1.73 sq M.predicted among blacks MDRD (S/P/Bld) [Vol rate/Area] 82 mL/min/{1.73_m2} Normal [facility].; [facility] Glucose [Mass/Vol] 92 mg/dL Normal 65 - 99 mg/dL [facility].; [facility] Potassium [Moles/Vol] 4.8 mmol/L Normal 3.5 - 5.3 mmol/L [facility]; [facility] Protein [Mass/Vol] 7.3 g/dL Normal 6.1 - 8.1 g/dL [facility].; [facility] Sodium [Moles/Vol] 140 mmol/L Normal 135 - 146 mmol/L [facility]. Triglyceride [Mass/Vol] 134 mg/dL Normal H [facility]; [facility] Urea nitrogen [Mass/Vol] 16 mg/dL Normal 7 - 25 mg/dL [facility]; [employer] [facility], [facility] No Panel Informationon 01-16 BUN/CREATININE RATIO NOT APPLICABLE Normal 6 - 22 [facility]; [facility] CHOL/HDLC RATIO 4.0 Normal [facility]; [facility]. eGFR NON-AFR. RWANDAN 71 Normal [facility]; [employer], [facility] GLOBULIN 2.7 Normal 1.9 - 3.7 [facility] NON HDL CHOLESTEROL [address] [facility].; [employer] [facility] PSA, TOTAL 1.00 ng/mL Normal [facility].; [employer] [facility] TESTOSTERONE, TOTAL, [place] 477 ng/dL Normal 250 - 1100 ng/dL [employer]. TSH W/REFLEX TO FT4 2.04 {mIU/L} Normal 0.40 - 4 .50 {mIU/L} [employer] Laboratory - Cytologyon 12-07 Pathologist Cyto stain Nom (Cvx/Vag) [ID] SEE NOTE Normal [employer] No Panel Informationon 12-20 A DIAGNOSIS SEE NOTE Normal [employer].; [employer]. A GROSS DESCRIPTION SEE NOTE Normal [employer]. A MICRO DESCRIPTION SEE NOTE Normal [employer]. A PROCEDURE BIOPSY Normal [employer].; [employer]. A SOURCE SEE NOTE Normal [employer].; [employer]. CLINICAL INFORMATION SEE NOTE Normal [employer]. Final Surgical Pathology Rep [facility] 11-27-2021 Final Surgical Pathology Report . Pathology Reports Accession: Collected Date/Time: Received Date/Time: Pathologist: [id number] 11/23/2021 09:38 EDT 11/26/2021 09:38 EDT DO YOGESH COFFMAN Final Surgical Pathology Report DIAGNOSIS: GALLBLADDER - PATCHY MILD CHRONIC CHOLECYSTITIS. COMMENT: Miguel [id number] CLINICAL INFORMATION: PANCREATITIS SPECIMEN: A GALLBLADDER GROSS DESCRIPTION: A. Received in formalin, labeled with the patients name, Case #[id number], and gallbladder Dimensions-9.5 x 4 x 3.5 cm Cystic duct/pericystic duct lymph node-patent, no lymph nodes Serosal surface-green, smooth Luminal contents-dark green liquid bile and no calculi Mucosal surface-green stained, velvety Wall thickness-0.1 cm RS- 1 Dictated by MARYAM MEDINA MICROSCOPIC DESCRIPTION: Slides reviewed. Electronically Signed by Pathology Report verified by [facility] Electronically signed by YOGESH COFFMAN DO Sign out Date: 11/27/2021 13:26 Performing Lab: [facility], [address] [place] [id number] [place] [address] Normal [facility] ([place]) Coronavirus 2019on 0 COVID 19 Result ORDER DESK CLERK Normal Negative for COVID19 (SARS CoV2) by PCR. [facility] Comment on above: Result Comment: Nega tive for This test was developed and its performance characteristics determined by [facility] [place]. This test has been authorized by FDA under an Emergency Use Authorization (EUA). This test has been validated in accordance with the FDA's Guidance Document "Policy for Diagnostics Testing in Laboratories Certified to Perform High Complexity Testing under CLIA prior to Emergency use Authorization for Coronavirus Disease 2019 during the Public Health Emergency" issued on November 06, 2019. COVID19 (SARS This test was developed and its performance characteristics determined by [facility] [place]. This test has been authorized by FDA under an Emergency Use Authorization (EUA). This test has been validated in accordance with the FDA's Guidance Document "Policy for Diagnostics Testing in Laboratories Certified to Perform High Complexity Testing under CLIA prior to Emergency use Authorization for Coronavirus Disease 2019 during the Public Health Emergency" issued on November 06, 2019. CoV2) by PCR. This test was developed and its performance characteristics determined by [facility]ology [facility] Laboratory [facility] [place]. This test has been authorized by FDA under an Emergency Use Authorization (EUA). This test has been validated in accordance with the FDA's Guidance Document "Policy for Diagnostics Testing in Laboratories Certified to Perform High Complexity Testing under CLIA prior to Emergency use Authorization for Coronavirus Disease 2019 during the Public Health Emergency" issued on November 06, 2019. Coronavirus 2019on 0 COVID 19 Source ORDER DESK CLERK Normal [facility] Reference Lab Comment on above: Result Comment: Naso pharyngeal Corrected on 07/28 AT 1013: Previously reported as ORDER DESK CLERK Swab Corrected on 07/28 AT 1013: Previously reported as ORDER DESK CLERK Laboratory - Chemistry and C hemistry - challengeon 02-12-2019 Albumin [Mass/Vol] 4.6 g/dL Normal 3.6 - 5.1 g/dL [facility].; [employer] [facility] Albumin/Globulin [Mass ratio] 2.3 {ratio} Normal 1.0 - 2.5 [facility].; [employer] [facility] ALP [Catalytic activity/Vol] 48 U/L Normal 40 - 115 U/L [facility].; [facility]. ALT [Catalytic activity/Vol] 25 U/L Normal 9 - 46 U/L [facility].; [facility]. AST [Catalytic activity/Vol] 23 U/L Normal 10 - 40 U/L [facility].; [facility]. Bilirubin [Mass/Vol] 0.5 mg/dL Normal 0.2 - 1 .2 mg/dL [facility].; [facility]. Calcium [Mass/Vol] 9.8 mg/dL Normal 8.6 - 10. 3 mg/dL [facility].; [facility]. Chloride [Moles/Vol] 106 mmol/L Normal 98 - 11 0 mmol/L [facility].; [facility]. CO2 [Moles/Vol] 28 mmol/L Normal 20 - 32 mmol/L [facility].; [facility]. Creatinine [Mass/Vol] 1.11 mg/dL Normal 0.60 - 1.35 mg/dL [facility].; [facility]. GFR/1.73 sq M.predicted among blacks MDRD (S/P/Bld) [Vol rate/Area] 90 {ML/MIN/1.73M2} Normal [facility].; [facility]. GFR/1.73 sq M.predicted MDRD (S/P/Bld) [Vol rate/Area] 78 {ML/MIN/1.73M2} Normal [facility].; [employer] [facility] Globulin (S) [Mass/Vol] 2.1 g/dL Normal 1.9 - 3.7 g/dL [facility].; [facility]. Glucose [Mass/Vol] 93 mg/dL Normal 65 - 99 mg/dL [facility].; [employer] [facility] Potassium [Moles/Vol] 4.9 mmol/L Normal 3.5 - 5.3 mmol/L [facility].; [facility] Protein [Mass/Vol] 6.7 g/dL Normal 6.1 - 8.1 g/dL [facility].; [employer] [facility], [facility]. Sodium [Moles/Vol] 140 mmol/L Normal 135 - 146 mmol/L [facility].; [facility]. Urea nitrogen [Mass/Vol] 22 mg/dL Normal 7 - 25 mg/dL [facility].; [employer] [facility], [facility] Urea nitrogen/Creatinine [Mass ratio] 19.5 mg/mg Normal 6 - 22 [facility].; [employer] [facility]. Laboratory - Hematology and Cell countson 02-12-2019 Basophils (Bld) [#/Vol] 30 {Cells}/uL Normal 0 - 200 {Cells}/uL [facility].; [facility]. Basophils/100 WBC (Bld) 0.5 % Normal 0 - 1 % H [facility].; [employer] [facility], [facility] Eosinophils (Bld) [#/Vol] 110 {Cells}/uL Normal 15 - 500 {Cells}/uL [facility].; [employer], [employer]. Eosinophils/100 WBC (Bld) 1.8 % Normal 0 - 4 % [facility].; [employer], [employer]. Erythrocyte distribution width (RBC) [Ratio] 12.4 % Normal 11.0 - 15.0 % [facility].; [employer], [employer]. Hematocrit (Bld) [Volume fraction] 42.9 % Normal 38.5 - 50.0 % [facility].; [employer], [employer]. Hemoglobin (Bld) [Mass/Vol] 14.3 g/dL Normal 13.2 - 17.1 g/dL [facility].; [employer], [facility]. Lymphocytes (Bld) [#/Vol] 1260 {Cells}/uL Normal 850 - 3900 {Cells}/uL [employer] [facility], [employer]. Lymphocytes/100 WBC (Bld) 20.7 % Normal 12 - 47 % [employer], [employer].; [employer], [employer]. MCH (RBC) [Entitic mass] 29.8 pg Normal 27.0 - 33.0 PG [facility] [employer] [facility].; [employer]. MCHC (RBC) [Mass/Vol] 33.3 g/dL Normal 32.0 - 36.0 g/dL [facility] [employer] [place] [employer]. MCV (RBC) [Entitic vol] 89.4 fL Normal 80.0 - 100.0 fL [place] [employer].; [employer], [employer]. Monocytes (Bld) [#/Vol] 580 {Cells}/uL Normal 20 0 - 950 {Cells}/uL [facility] [employer], [employer]. Monocytes/100 WBC (Bld) 9.5 % Normal 4 - 12 % H [facility] [employer], [employer]. Neutrophils (Bld) [#/Vol] 4110 {Cells}/uL Normal 1500 - 7800 {Cells}/uL [facility] [employer].; [employer], [employer]. Neutrophils/100 WBC (Bld) 67.5 % Normal 40 - 75 % [place] [employer].; [employer]. Platelet mean volume (Bld) [Entitic vol] 13.0 fL Abnormal 7.5 - 12.5 fL [employer].; [employer], [employer]. Platelets (Bld) [#/Vol] 145 10*3/uL Normal 140 - 400 10*3/uL [employer].; [employer], [employer]. RBC (Bld) [#/Vol] 4.80 10*6/uL Normal 4.20 - 5.8 0 10*6/uL [place] [employer].; [employer]. WBC (Bld) [#/Vol] 6.1 10*3/uL Normal 3.8 - 10.8 10*3/uL [employer].; [employer], [employer]. Laboratory - Chemistry and C hemistry - challengeon 01-21-2018 Cholesterol [Mass/Vol] 156 mg/dL Normal 0 - 2 00 mg/dL [facility] [employer], [employer]. Cholesterol in HDL [Mass or moles/Vol] 51 mg/dL Normal 40 - 60 mg/dL [place] [employer], [employer]. Cholesterol in LDL [Mass/Vol] 87 mg/dL Normal 0 - 129 mg/dL [facility] [employer] [facility], [facility]. Cholesterol.total/Tiff sterol in HDL [Mass ratio] 3.1 {ratio} Normal 0.0 - 5.0 [facility].; [employer], [employer]. Glucose [Mass/Vol] 92 mg/dL Normal 74 - 106 mg/dL [facility].; [employer], [facility]. Lipid [address] PROFILE Normal [facility].; [facility]. Triglyceride [Mass/Vol] 88 mg/dL Normal 0 - 150 mg/dL [facility].; [employer], [facility]. Laboratory - Chemistry and C hemistry - challengeon 01-22-2017 Cholesterol [Mass/Vol] 156 mg/dL Normal 0 - 2 00 mg/dL [facility].; [employer], [facility]. Cholesterol in HDL [Mass or moles/Vol] 41 mg/dL Normal 40 - 60 mg/dL [facility].; [employer], [employer]. Cholesterol in LDL [Mass/Vol] 98 mg/dL Normal 0 - 129 mg/dL [facility].; [employer], [employer]. Cholesterol.total/Tiff sterol in HDL [Mass ratio] 3.8 {ratio} Normal 0.0 - 5.0 [facility].; [employer], [employer]. Glucose [Mass/Vol] 90 mg/dL Normal 74 - 106 mg/dL [facility].; [employer], [facility]. Lipid [address] panel [address] PROFILE Normal [facility].; [employer] [facility], [facility]. Triglyceride [Mass/Vol] 87 mg/dL Normal 0 - 150 mg/dL [facility].; [employer], [employer]. Laboratory - Chemistry and C hemistry - challengeon 08-08-2016 Albumin [Mass/Vol] 4.7 g/dL Normal 3.4 - 4.8 g/dL [facility].; [employer], [employer]. Albumin [Mass/Vol] 1.7 g/dL Abnormal 0.9 - 1.6 [facility].; [employer], [employer]. ALP [Catalytic activity/Vol] 52 U/L Normal 38 - 126 U/L [facility].; [facility]. ALT [Catalytic activity/Vol] 61 U/L Abnormal 10 - 40 U/L [facility].; [facility] Anion gap [Moles/Vol] 11 mmol/L Normal 10 - 2 0 mmol/L [facility].; [facility]. AST [Catalytic activity/Vol] 30 U/L Normal 13 - 39 U/L [facility]; [facility] Bilirubin [Mass/Vol] 0.3 mg/dL Normal 0.0 - 1 .5 mg/dL [facility]; [facility] Calcium [Mass/Vol] 9.8 mg/dL Normal 8.6 - 10. 2 mg/dL [facility]; [facility] Chloride [Moles/Vol] 102 mmol/L Normal 98 - 10 7 mmol/L [facility]; [facility] Cholesterol [Mass/Vol] 179 mg/dL Normal 0 - 2 00 mg/dL [facility]; [facility]. Cholesterol in HDL [Mass or moles/Vol] 37 mg/dL Abnormal 40 - 60 mg/dL [facility]; [facility]. Cholesterol in LDL [Mass/Vol] 105 mg/dL Normal 0 - 129 mg/dL [facility].; [facility] Cholesterol.total/Tiff sterol in HDL [Mass ratio] 4.8 {ratio} Normal 0.0 - 5.0 [facility]; [facility] CO2 [Moles/Vol] 31.0 mmol/L Normal 21.0 - 31.0 mmol/L [facility]; [facility]. Comprehensive metabolic 2000 panel CMP with eGFR Normal [facility]; [facility] Creatinine [Mass/Vol] 0.9 mg/dL Normal 0.7 - 1.3 mg/dL [facility]; [facility] GFR/1.73 sq M.predicted among blacks MDRD (S/P/Bld) [Vol rate/Area] mL/min/{1.73_m2} Normal 60 - 999 {ML/MINUTE} [facility].; [place] [employer] [facility]. GFR/1.73 sq M.predicted MDRD (S/P/Bld) [Vol rate/Area] mL/min/{1.73_m2} Normal 60 - 999 {ML/MINUTE} [facility].; [place] [employer] [facility]. Globulin (S) [Mass/Vol] 2.7 g/dL Normal 1.5 - 3.8 g/dL [facility].; [place] [employer] [facility], [facility] Glucose [Mass/Vol] 103 mg/dL Normal 74 - 106 mg/dL [facility].; [place] [employer]. Lipid 1996 panel LIPID PROFILE Normal [facility].; [place] [employer], [facility] Potassium [Moles/Vol] 5.1 mmol/L Normal 3.5 - 5.1 mmol/L [facility].; [place] [employer] [facility]. Prostate specific Ag [Mass/Vol] 0.8 ng/mL Normal 0.0 - 4.0 ng/mL [facility].; [place] [employer], [employer]. Protein [Mass/Vol] 7.4 g/dL Normal 6.4 - 8.3 g/dL [place] [employer] [facility].; [employer], [employer]. Sodium [Moles/Vol] 139 mmol/L Normal 136 - 145 mmol/L [facility].; [place] [employer], [employer]. Triglyceride [Mass/Vol] 185 mg/dL Abnormal 0 - 150 mg/dL [place] [employer] [facility].; [employer], [employer]. Urea nitrogen [Mass/Vol] 14 mg/dL Normal 6 - 20 mg/dL [place] [employer] [facility].; [employer], [employer]. Urea nitrogen/Creatinine [Mass ratio] 16 {ratio} Normal 0 - 30 {ratio} [place] [employer] [facility].; [employer], [employer]. No Panel Informationon 08-08 AGE 45 {years} Normal [place] [employer] [facility].; [employer] [facility] - Hematology and Cell countson 2015 HbA1c (Bld) [Mass fraction] 5.5 % Normal 4.6 - 7.1 % [facility].; [facility] Laboratory - Chemistry and C hemistry - challengeon 07-11-2015 Albumin [Mass/Vol] 4.4 g/dL Normal 3.4 - 4.8 g/dL [facility].; [facility], [facility] Albumin [Mass/Vol] 1.4 g/dL Normal 0.9 - 1.6 [facility].; [facility]. ALP [Catalytic activity/Vol] 46 U/L Normal 38 - 126 U/L [facility].; [facility]. ALT [Catalytic activity/Vol] 40 U/L Normal 10 - 40 U/L [facility].; [place] [employer] [facility], [facility]. Anion gap [Moles/Vol] 10 mmol/L Normal 10 - 2 0 mmol/L [facility].; [facility], [facility]. AST [Catalytic activity/Vol] 21 U/L Normal 13 - 39 U/L [facility].; [place] [employer] [facility]. Bilirubin [Mass/Vol] 0.5 mg/dL Normal 0.0 - 1 .5 mg/dL [facility].; [facility]. Calcium [Mass/Vol] 9.8 mg/dL Normal 8.6 - 10. 2 mg/dL [facility].; [place] [employer] [facility], [facility]. Chloride [Moles/Vol] 103 mmol/L Normal 98 - 10 7 mmol/L [facility].; [place] [employer] [facility], [facility]. Cholesterol [Mass/Vol] 162 mg/dL Normal 0 - 2 00 mg/dL [facility].; [facility]. Cholesterol in HDL [Mass or moles/Vol] 34 mg/dL Abnormal 40 - 60 mg/dL [facility].; [facility]. Cholesterol in LDL [Mass/Vol] 89 mg/dL Normal 0 - 129 mg/dL [facility].; [place] [employer] [facility]. Cholesterol.total/Tiff sterol in HDL [Mass ratio] 4.8 {ratio} Normal 0.0 - 5.0 [facility].; [facility]. CO2 [Moles/Vol] 27.0 mmol/L Normal 13.0 - 29.0 mmol/L [facility].; [facility] Cobalamin (Vitamin B12) [Mass/Vol] 396 pg/mL Normal 180 - 914 pg/mL [facility].; [facility], [facility] Comprehensive metabolic 2000 panel CMP with eGFR Normal [facility]; [facility] Creatinine [Mass/Vol] 0.9 mg/dL Normal 0.7 - 1.3 mg/dL [facility]; [facility], [facility] Folate (RBC) [Mass/Vol] 23.4 ng/mL Abnormal 3.5 - 20.0 ng/mL [facility]; [facility]. GFR/1.73 sq M.predicted among blacks MDRD (S/P/Bld) [Vol rate/Area] mL/min/{1.73_m2} Normal 60 - 999 {ML/MINUTE} [facility].; [facility]. GFR/1.73 sq M.predicted MDRD (S/P/Bld) [Vol rate/Area] mL/min/{1.73_m2} Normal 60 - 999 {ML/MINUTE} [facility].; [facility]. Globulin (S) [Mass/Vol] 3.1 g/dL Normal 1.5 - 3.8 g/dL [facility].; [facility]. Glucose [Mass/Vol] 96 mg/dL Normal 74 - 106 mg/dL [facility].; [facility]. Lipid [address] panel [address]IPID PROFILE Normal [facility].; [facility], [facility] Potassium [Moles/Vol] 4.0 mmol/L Normal 3.5 - 5.1 mmol/L [facility].; [facility], [facility] Prostate specific Ag [Mass/Vol] 0.7 ng/mL Normal 0.0 - 4.0 ng/mL [facility].; [facility], [facility] Protein [Mass/Vol] 7.5 g/dL Normal 6.4 - 8.3 g/dL [facility].; [facility] Sodium [Moles/Vol] 136 mmol/L Normal 136 - 145 mmol/L [facility]; [facility], [facility] Triglyceride [Mass/Vol] 194 mg/dL Abnormal 0 - 150 mg/dL [facility]; [facility] TSH Qn 2.13 m[IU]/L Normal 0.34 - 5.60 {uIU/ml} [facility]; [facility], [facility] Urea nitrogen [Mass/Vol] 16 mg/dL Normal 6 - 20 mg/dL [facility]; [facility], [facility] Urea nitrogen/Creatinine [Mass ratio] 18 {ratio} Normal 0 - 30 {ratio} [facility].; [facility], [facility] Laboratory - Hematology and Cell countson 07-11-2015 Basophils (Bld) [#/Vol] 0.10 {3/UL} Normal 0.00 - 0.10 {3/UL} [facility]; [facility] Basophils/100 WBC (Bld) 0.4 % Normal 0.0 - 2.0 % [facility]; [facility], [facility] CBC W Auto Differential panel (Bld) CBC Normal [facility]; [facility], [facility] Eosinophils (Bld) [#/Vol] 0.20 {3/UL} Normal 0.00 - 0.50 {3/UL} [facility].; [facility], [facility] Eosinophils/100 WBC (Bld) 1.7 % Normal 0.0 - 7.0 % [facility]; [facility], [facility] Erythrocyte distribution width (RBC) [Ratio] 12.9 % Normal 12.0 - 15.6 % [facility].; [facility], [facility] Hematocrit (Bld) [Volume fraction] 45.8 % Normal 40.0 - 52.0 % [facility].; [facility], [facility] Hemoglobin (Bld) [Mass/Vol] 15.2 g/dL Normal 13.0 - 17.5 g/dL [facility]; [employer], [facility]. Lymphocytes (Bld) [#/Vol] 2.20 {3/UL} Normal 0.80 - 2.80 {3/UL} [employer] Lymphocytes/100 WBC (Bld) 19.3 % Abnormal 20.0 - 45.0 % [place] [employer] MCH (RBC) [Entitic mass] 29 pg Normal 27 - 33 pg [place] [employer], [facility].; [employer] MCHC (RBC) [Mass/Vol] 33 {X10_3} Normal 32 - 3 6 {X10_3} [place] [employer] MCV (RBC) [Entitic vol] 87 fL Normal 81 - 98 fL [facility], [employer].; [employer], [facility]. Monocytes (Bld) [#/Vol] 1.00 {3/UL} Normal 0.20 - 1.00 {3/UL} [employer] Monocytes/100 WBC (Bld) 8.8 % Normal 0.0 - 10.0 % [employer], [employer].; [employer], [employer]. Morphology Jesus Manuel (Bld) [Interp] N/A Normal [place] [employer] [facility].; [employer] Neutrophils (Bld) [#/Vol] 7.80 {3/UL} Abnormal 1.50 - 7.10 {3/UL} [employer] Neutrophils/100 WBC (Bld) 69.8 % Normal 46.0 - 76.0 % [employer], [employer].; [employer] Platelet mean volume (Bld) [Entitic vol] 10.2 fL Normal 6.4 - 10.5 fL [employer], [employer].; [employer] Platelets (Bld) [#/Vol] 189 {3/UL} Normal 150 - 450 {3/UL} [employer] RBC (Bld) [#/Vol] 5.25 {6/UL} Normal 4.50 - 6.0 0 {6/UL} [place] [employer].; [employer]. WBC (Bld) [#/Vol] 11.2 {3/UL} Abnormal 4.5 - 10.8 {3/UL} [place] [employer].; [employer], [employer]. No Panel Informationon 07-11 AGE 44 {years} Normal [place] [employer].; [employer]. MANUAL DIFF N/A Normal [place] [employer].; [employer]. Laboratory - Chemistry and C hemistry - challengeon 07-06-2015 Glucose Glucometer (BldC) [Moles/Vol] 91 Normal 60 - 120 [place] [employer].; [employer]. Laboratory - Chemistry and C hemistry - challengeon 05-06-2014 Albumin [Mass/Vol] 4.7 g/dL Normal 3.4 - 4.8 g/dL [place] [employer].; [employer], [employer]. Albumin [Mass/Vol] 1.6 g/dL Normal 0.9 - 1.6 [place] [employer].; [employer]. ALP [Catalytic activity/Vol] 46 U/L Normal 38 - 126 U/L [place] [employer].; [employer], [employer]. ALT [Catalytic activity/Vol] 59 U/L Abnormal 10 - 40 U/L [place] [employer].; [employer], [employer]. AST [Catalytic activity/Vol] 28 U/L Normal 13 - 39 U/L [employer], [employer].; [employer], [employer]. Bilirubin [Mass/Vol] 0.6 mg/dL Normal 0.0 - 1 .5 mg/dL [place] [employer].; [employer], [employer]. Calcium [Mass/Vol] 9.9 mg/dL Normal 8.6 - 10. 2 mg/dL [employer], [employer].; [employer], [employer]. Chloride [Moles/Vol] 103 mmol/L Normal 98 - 10 7 mmol/L [place] [employer], [employer].; [employer], [employer]. Cholesterol [Mass/Vol] 181 mg/dL Normal 0 - 2 00 mg/dL [place] [employer].; [employer], [employer]. Cholesterol in HDL [Mass or moles/Vol] 32 mg/dL Abnormal 40 - 60 mg/dL [facility].; [facility] Cholesterol in LDL [Mass/Vol] 108 mg/dL Normal 0 - 129 mg/dL [facility].; [facility], [facility] Cholesterol.total/Tiff sterol in HDL [Mass ratio] 5.7 {ratio} Abnormal 0.0 - 5.0 [facility].; [facility] CO2 [Moles/Vol] 30.0 mmol/L Abnormal 13.0 - 29.0 mmol/L [facility].; [facility], [facility] Comprehensive metabolic 2000 panel CMP with eGFR Normal [facility]; [facility], [facility] Creatinine [Mass/Vol] 0.9 mg/dL Normal 0.7 - 1.3 mg/dL [facility].; [facility]. GFR/1.73 sq M.predicted among blacks MDRD (S/P/Bld) [Vol rate/Area] mL/min/{1.73_m2} Normal 60 - 999 {ML/MINUTE} [facility].; [facility]. GFR/1.73 sq M.predicted MDRD (S/P/Bld) [Vol rate/Area] mL/min/{1.73_m2} Normal 60 - 999 {ML/MINUTE} [facility].; [facility]. Globulin (S) [Mass/Vol] 3.0 g/dL Normal 1.5 - 3.8 g/dL [facility].; [facility]. Glucose [Mass/Vol] 83 mg/dL Normal 74 - 106 mg/dL [facility].; [facility]. Lipid 1996 panel LIPID PROFILE Normal [facility].; [facility]. Potassium [Moles/Vol] 4.2 mmol/L Normal 3.5 - 5.1 mmol/L [facility].; [facility] Prostate specific Ag [Mass/Vol] 0.7 ng/mL Normal 0.0 - 4.0 ng/mL [facility].; [facility] Protein [Mass/Vol] 7.7 g/dL Normal 6.4 - 8.3 g/dL [employer], [employer]. Sodium [Moles/Vol] 136 mmol/L Normal 136 - 145 mmol/L [place] [employer].; [employer], [employer]. Triglyceride [Mass/Vol] 205 mg/dL Abnormal 0 - 150 mg/dL [place] [employer].; [employer], [employer]. Urea nitrogen [Mass/Vol] 13 mg/dL Normal 6 - 20 mg/dL [place] [employer] [facility].; [employer], [employer]. Urea nitrogen/Creatinine [Mass ratio] 14 {ratio} Normal 0 - 30 {ratio} [employer], [employer]. No Panel Informationon 05-06 AGE 43 {years} Normal [employer].; [employer], [employer]. Laboratory - Chemistry and C hemistry - challengeon 04-28-2013 Calcium [Mass/Vol] 9.9 mg/dL Normal 8.6 - 10. 3 mg/dL [employer].; [employer], [employer]. Chloride [Moles/Vol] 103 mmol/L Normal 98 - 11 0 mmol/L [employer].; [employer], [employer]. Cholesterol [Mass/Vol] 198 mg/dL Normal 125 - 200 mg/dL [employer], [employer].; [employer], [employer]. Cholesterol in HDL [Mass/Vol] 38 mg/dL Abnormal [employer].; [employer]. Cholesterol in LDL [Mass/Vol] 105 mg/dL Normal [employer].; [employer], [employer]. Cholesterol non HDL [Mass/Vol] 160 mg/dL Abnormal [employer].; [employer], [employer]. Cholesterol.total/Tiff sterol in HDL [Mass ratio] 5.2 {ratio} Abnormal [employer].; [employer] CO2 [Moles/Vol] 26 mmol/L Normal 19 - 30 mmol/L [employer], [employer].; [employer], [employer]. Creatinine [Mass/Vol] 0.92 mg/dL Normal 0.60 - 1.35 mg/dL [facility].; [facility]. GFR/1.73 sq M.predicted among blacks MDRD (S/P/Bld) [Vol rate/Area] 118 {ML/MIN/1.73M2} Normal [facility].; [facility], [facility] GFR/1.73 sq M.predicted MDRD (S/P/Bld) [Vol rate/Area] 102 {ML/MIN/1.73M2} Normal [facility].; [facility], [facility] Glucose [Mass/Vol] 88 mg/dL Normal 65 - 99 mg/dL [facility].; [facility]. Potassium [Moles/Vol] 4.6 mmol/L Normal 3.5 - 5.3 mmol/L [facility]; [facility] Prostate specific Ag [Mass/Vol] 0.6 ng/mL Normal 0.0 - 4.0 ng/mL [facility]; [facility] Sodium [Moles/Vol] 137 mmol/L Normal 135 - 146 mmol/L [facility].; [facility] Triglyceride [Mass/Vol] 274 mg/dL Abnormal [facility]; [facility] Urea nitrogen [Mass/Vol] 15 mg/dL Normal 7 - 25 mg/dL [facility]; [facility] Urea nitrogen/Creatinine [Mass ratio] 16.0 mg/mg Normal 6 - 22 [facility]; [facility] Laboratory - Microbiology an d Antimicrobial susceptibilityon 04-28-2013 H. pylori IgG IA Ql Positive Abnormal [facility]; [place] [employer] [facility] Vital Signs Date Time Vital Sign Value Performing Clinician Facility 02-18-2025 09:56-0400 Body height 177.8 cm David Lopes LPN [facility]; [place] [employer] [facility] 02-18-2025 09:56-0400 Body mass index (BMI) [Ratio] 38.88 kg/m2 David Lopes LPN [facility]; [place] [employer] [facility] 02-18-2025 09:56-0400 Body surface area Derived from formula 2.38 m2 David Mosesalondra ESCAMILLA [facility].; [facility]. 02-18-2025 09:56-0400 Body weight 122.93 kg David Lopes ANDI [facility].; [facility]. 02-18-2025 09:56-0400 Diastolic blood pressure 70 mm[Hg] David Lopes ANDI [facility].; [facility]. Comment on above: Patient Position: Sitting; Cuff Location : Left Arm; Cuff Size: Standard 02-18-2025 09:56-0400 Heart rate 65 /min David Wallalondra ESCAMILLA [facility].; [employer] [facility], [facility]. Comment on above: Pattern: Regular 02-18-2025 09:56-0400 Systolic blood pressure 131 mm[Hg] David Mosesalondra ESCAMILLA [facility].; [employer] [facility], [employer]. Comment on above: Patient Position: Sitting; Cuff Location : Left Arm; Cuff Size: Standard 01-11-2025 13:00-0400 Body height 177.8 cm Geno Bah RN [facility].; [facility]. 01-11-2025 13:00-0400 Body mass index (BMI) [Ratio] 39.17 kg/m2 Geno Bah RN [facility] [employer] [facility]. 01-11-2025 13:00-0400 Body surface area Derived from formula 2.38 m2 Geno Bah RN [facility].; [employer] [facility], [employer]. 01-11-2025 13:00-0400 Body temperature 98.2 [degF] Geno Bah RN [facility].; [employer], [employer]. Comment on above: Method: Tympanic 01-11-2025 13:00-0400 Body weight 123.83 kg Geno Bah RN [facility] [employer], [employer]. 01-11-2025 13:00-0400 Diastolic blood pressure 77 mm[Hg] Geno Bah RN [facility].; [facility]. Comment on above: Patient Position: Sitting; Cuff Location : Left Arm; Cuff Size: Large 01-11-2025 13:00-0400 Heart rate 64 /min Geno Bah RN [facility].; [facility], [employer]. Comment on above: Pattern: Regular 01-11-2025 13:00-0400 Systolic blood pressure 116 mm[Hg] Geno Bah RN [facility].; [facility]. Comment on above: Patient Position: Sitting; Cuff Location : Left Arm; Cuff Size: Large 11-01-2024 08:56-0500 Body height 177.8 cm Kanchan Reese LPN [facility].; [facility]. 11-01-2024 08:56-0500 Body mass index (BMI) [Ratio] 39.31 kg/m2 Kanchan Reese LPN [facility].; [facility]. 11-01-2024 08:56-0500 Body surface area Derived from formula 2.39 m2 Kanchan Reese LPN [facility].; [facility]. 11-01-2024 08:56-0500 Body temperature 97.7 [degF] Kanchan Reese LPN [facility], [facility].; [place] [employer], [employer]. Comment on above: Method: Tympanic 11-01-2024 08:56-0500 Body weight 124.29 kg Kanchan Reese LPN [facility].; [facility]. 11-01-2024 08:56-0500 Diastolic blood pressure 5 mm[Hg] Kanchan Reese LPN [facility].; [place] [employer], [employer]. Comment on above: Patient Position: Sitting; Cuff Location : Left Arm; Cuff Size: Standard 11-01-2024 08:56-0500 Heart rate 73 /min Kanchan Reese LPN [facility].; [place] [employer], [employer]. Comment on above: Pattern: Regular 11-01-2024 08:56-0500 Inhaled oxygen concentration 21 % Kanchan Reese LPN [facility].; [facility]. Comment on above: Room air 11-01-2024 08:56-0500 SaO2% (BldA) [Mass fraction] 97 % Kanchan Reese LPN [facility].; [facility]. 11-01-2024 08:56-0500 Systolic blood pressure 122 mm[Hg] Kanchan Reese LPN [facility].; [facility] [employer]. Comment on above: Patient Position: Sitting; Cuff Location : Left Arm; Cuff Size: Standard 09-28-2024 08:48-0500 Diastolic blood pressure 84 mm[Hg] Kanchan Reese LPN [facility].; [place] [employer] [facility], [employer]. Comment on above: Patient Position: Sitting; Cuff Location : Left Arm; Cuff Size: Standard 09-28-2024 08:48-0500 Heart rate 67 /min Kanchan Reese LPN [facility].; [place] [employer], [employer]. Comment on above: Pattern: Regular 09-28-2024 08:48-0500 Systolic blood pressure 122 mm[Hg] Kanchan Reese LPN [facility].; [place] [employer] [facility], [employer]. Comment on above: Patient Position: Sitting; Cuff Location : Left Arm; Cuff Size: Standard 09-28-2024 08:47-0500 Body height 177.8 cm Kanchan Reese LPN [facility].; [facility]. 09-28-2024 08:47-0500 Body mass index (BMI) [Ratio] 38.31 kg/m2 Kanchan Reese LPN [facility].; [facility] 09-28-2024 08:47-0500 Body surface area Derived from formula 2.36 m2 Kanchan Reese LPN [facility].; [facility]. 09-28-2024 08:47-0500 Body temperature 96.4 [degF] [facility].; [employer], [employer]. Comment on above: Method: Tympanic 09-28-2024 08:47-0500 Body weight 121.11 kg Kanchan Reese LPN [facility].; [place] [facility], [facility]. 09-28-2024 08:47-0500 Diastolic blood pressure 94 mm[Hg] Kanchan Hugh ESCAMILLA [facility].; [employer]. Comment on above: Patient Position: Sitting; Cuff Location : Left Arm; Cuff Size: Standard 09-28-2024 08:47-0500 Heart rate 71 /min Kanchan Reese LPN [facility] [employer]. Comment on above: Pattern: Regular 09-28-2024 08:47-0500 Systolic blood pressure 146 mm[Hg] Kanchanhood Reese ANDI [facility].; [employer], [employer] Communications. Comment on above: Patient Position: Sitting; Cuff Location : Left Arm; Cuff Size: Standard 09-17-2024 10:45-0500 Body height 177.8 cm [facility], [facility] [place] [employer], [facility]. 09-17-2024 10:45-0500 Body mass index (BMI) [Ratio] 38.17 kg/m2 [facility], [facility].; [employer], [facility]. 09-17-2024 10:45-0500 Body surface area Derived from formula 2.36 m2 [facility], [facility].; [employer], [facility]. 09-17-2024 10:45-0500 Body weight 120.66 kg [facility], [facility].; [employer], [facility]. 09-17-2024 10:45-0500 Diastolic blood pressure 82 mm[Hg] [facility], [facility].; [employer]. Comment on above: Patient Position: Sitting; Cuff Location : Left Arm; Cuff Size: Standard 09-17-2024 10:45-0500 Heart rate 80 /min [facility], [facility].; [employer]. Comment on above: Pattern: Regular 09-17-2024 10:45-0500 Systolic blood pressure 131 mm[Hg] [facility], [facility].; [employer]. Comment on above: Patient Position: Sitting; Cuff Location : Left Arm; Cuff Size: Standard 09-07-2024 11:18-0500 Body height 177.8 cm David Lopes ANDI [facility] 09-07-2024 11:18-0500 Body mass index (BMI) [Ratio] 38.45 kg/m2 David Lopes PATCHING MACHINE OPERATOR [facility] 09-07-2024 11:18-0500 Body surface area Derived from formula 2.36 m2 Davidpernell Lopes PATCHING MACHINE OPERATOR [facility], [facility]. 09-07-2024 11:18-0500 Body weight 121.56 kg David Lopes [facility], [facility].; [facility], [facility]. 09-07-2024 11:18-0500 Diastolic blood pressure 71 mm[Hg] David Lopes [facility], [facility].; [employer] [facility] Comment on above: Patient Position: Sitting; Cuff Location : Left Arm; Cuff Size: Standard 09-07-2024 11:18-0500 Heart rate 60 /min David Lopes PATCHING MACHINE OPERATOR [facility], [facility].; [employer] [facility], [facility] Comment on above: Pattern: Regular 09-07-2024 11:18-0500 Systolic blood pressure 110 mm[Hg] David Lopes [facility], [facility].; [place] [employer] [facility] Comment on above: Patient Position: Sitting; Cuff Location : Left Arm; Cuff Size: Standard 05-20-2024 08:15-0400 Body height 177.8 cm Radha Matias PATCHING MACHINE OPERATOR [facility], [facility].; [facility] 05-20-2024 08:15-0400 Body mass index (BMI) [Ratio] 38.17 kg/m2 Radha Matias PATCHING MACHINE OPERATOR [facility], [facility].; [place] [employer] [facility], [facility]. 05-20-2024 08:15-0400 Body surface area Derived from formula 2.36 m2 Radha Matias PATCHING MACHINE OPERATOR [facility], [facility].; [place] [employer] [facility] 05-20-2024 08:15-0400 Body weight 120.66 kg Radha Matias [facility], [facility].; [place] [employer] [facility], [facility]. 05-20-2024 08:15-0400 Diastolic blood pressure 79 mm[Hg] Radha Matias PATCHING MACHINE OPERATOR [facility], [facility].; [facility], [employer]. Comment on above: Patient Position: Sitting; Cuff Location : Left Arm; Cuff Size: Standard 05-20-2024 08:15-0400 Heart rate 64 /min Radhamaxwell Matias PATCHING MACHINE OPERATOR [facility], [facility].; [employer], [employer]. Comment on above: Pattern: Regular 05-20-2024 08:15-0400 Systolic blood pressure 112 mm[Hg] Radha Florencio [facility], [facility].; [employer], [employer]. Comment on above: Patient Position: Sitting; Cuff Location : Left Arm; Cuff Size: Standard 12-12-2023 09:18-0400 Body height 177.8 cm Nellie Solis MA [facility], [facility].; [facility], [facility]. 12-12-2023 09:18-0400 Body mass index (BMI) [Ratio] 37.88 kg/m2 Nellie Solis MA [facility], [facility].; [facility], [facility]. 12-12-2023 09:18-0400 Body surface area Derived from formula 2.35 m2 Nellie Solis MA [facility], [facility].; [facility], [facility]. 12-12-2023 09:18-0400 Body temperature 97.2 [degF] Nellie Solis MA [facility], [facility].; [place] [employer] [facility], [employer]. Comment on above: Method: Tympanic 12-12-2023 09:18040 Body weight 119.75 kg Nellie Solis MA [facility], [facility].; [place] [employer] [facility] [employer]. 12-12-2023 09:18-0400 Diastolic blood pressure 98 mm[Hg] Nellie Solis MA [facility], [facility].; [place] [employer]. Comment on above: Patient Position: Sitting; Cuff Location : Left Arm; Cuff Size: Standard 12-12-2023 09:18-0400 Heart rate 64 /min Nellie Solis MA [facility], [facility].; [employer]. Comment on above: Pattern: Regular 12-12-2023 09:18-0400 Inhaled oxygen concentration 21 % Nellie Solis MA [facility].; [facility] Comment on above: Room air 12-12-2023 09:18-0400 SaO2% (BldA) [Mass fraction] 95 % Nellie Solis MA [facility] 12-12-2023 09:18-0400 Systolic blood pressure 143 mm[Hg] Nellie [facility]is [facility] Comment on above: Patient Position: Sitting; Cuff Location : Left Arm; Cuff Size: Standard 08-06-2023 09:45-0500 Body temperature 97.81 [degF] Jey Birch MD Work Phone: [facility] 08-06-2023 09:45-0500 Body weight 111.58 kg Jey Birch MD Work Phone: [facility] 08-06-2023 09:45-0500 Diastolic blood pressure 88 mm[Hg] Jey Birch MD Work Phone: [facility] 08-06-2023 09:45-0500 Heart rate 57 /min Jey Birch MD Work Phone: [facility] 08-06-2023 09:45-0500 Respiratory rate 15 /min Jey Birch MD Work Phone: [facility] 08-06-2023 09:45-0500 SaO2% (BldA) [Mass fraction] 99 % Jey Birch MD Work Phone: [facility] 08-06-2023 09:45-0500 Systolic blood pressure 123 mm[Hg] Jey Birch MD Work Phone: [facility] 07-07-2023 14:19-0400 Body height 177.8 cm Nellie Solis MA [facility], [facility].; [facility] 07-07-2023 14:19-0400 Body mass index (BMI) [Ratio] 35.3 kg/m2 Nellie Solis [facility]. 07-07-2023 14:19-0400 Body surface area Derived from formula 2.28 m2 Nellie Solis MA [facility], [facility].; [employer] [facility], [facility]. 07-07-2023 14:040 Body weight 111.59 kg Nellie Solis MA [facility], [facility].; [place] [employer] [facility] 07-07-2023 14:0400 Diastolic blood pressure 77 mm[Hg] Nellie Solis MA [facility], [facility].; [employer], [employer]. Comment on above: Patient Position: Sitting; Cuff Location : Left Arm; Cuff Size: Standard 07-07-2023 14:0400 Heart rate 71 /min Nellie Solis MA [facility], [facility].; [employer], [employer]. Comment on above: Pattern: Regular 07-07-2023 14:040 Systolic blood pressure 128 mm[Hg] Nellie Solis MA [facility] [employer], [employer]. Comment on above: Patient Position: Sitting; Cuff Location : Left Arm; Cuff Size: Standard 06-17-2023 13:18040 Body weight 112.49 kg David Lopes LPN [facility] [employer], [employer]. 06-17-2023 13:040 Diastolic blood pressure 49 mm[Hg] David Lopes LPN [facility], [facility].; [employer], [employer]. Comment on above: Patient Position: Sitting; Cuff Location : Left Arm; Cuff Size: Standard 06-17-2023 13:180400 Heart rate 70 /min David Lopes LPN [facility] [employer], [employer]. Comment on above: Pattern: Regular 06-17-2023 13:18-0400 Systolic blood pressure 94 mm[Hg] David Lopes LPN [facility] [employer], [employer]. Comment on above: Patient Position: Sitting; Cuff Location : Left Arm; Cuff Size: Standard 01-14-2023 13:34040 Body height 177.8 cm Kanchan Miller MA [facility] [employer], [employer]. 01-14-2023 13:34-0400 Body mass index (BMI) [Ratio] 32.57 kg/m2 Kanchan Miller MA [facility].; [facility]. 01-14-2023 13:34-0400 Body surface area Derived from formula 2.2 m2 Kanchan Miller MA [facility].; [facility], [facility]. 01-14-2023 13:34-0400 Body weight 102.97 kg Kanchan Miller MA [facility].; [facility]. 01-14-2023 13:34-0400 Diastolic blood pressure 64 mm[Hg] Kanchan Miller MA [facility].; [facility], [facility]. Comment on above: Patient Position: Sitting; Cuff Location : Left Arm; Cuff Size: Standard 01-14-2023 13:34-0400 Heart rate 71 /min Kanchan Miller MA [facility].; [facility], [facility]. Comment on above: Pattern: Regular 01-14-2023 13:34-0400 Systolic blood pressure 98 mm[Hg] Kanchan Miller MA [facility].; [facility], [facility]. Comment on above: Patient Position: Sitting; Cuff Location : Left Arm; Cuff Size: Standard 11-07-2022 15:45-0500 Body height 177.8 cm Kanchan Miller MA [facility].; [facility]. 11-07-2022 15:45-0500 Body mass index (BMI) [Ratio] 32.28 kg/m2 Kanchan Miller MA [facility].; [facility], [facility]. 11-07-2022 15:45-0500 Body surface area Derived from formula 2.19 m2 Kanchan Miller MA [facility].; [facility], [facility]. 11-07-2022 15:45-0500 Body temperature 98.7 [degF] Kanchna Miller MA [facility].; [facility], [facility]. Comment on above: Method: Tympanic 11-07-2022 15:45-0500 Body weight 102.06 kg Kanchan Miller MA [facility].; [facility], [facility]. 11-07-2022 15:45-0500 Diastolic blood pressure 84 mm[Hg] Kanchan Miller MA [facility].; [facility]. Comment on above: Patient Position: Sitting; Cuff Location : Left Arm; Cuff Size: Standard 11-07-2022 15:45-0500 Heart rate 67 /min Kanchan Miller MA [facility].; [facility]. Comment on above: Pattern: Regular 11-07-2022 15:45-0500 Inhaled oxygen concentration 21 % Kanchan Miller MA [facility].; [facility]. Comment on above: Room air 11-07-2022 15:45-0500 SaO2% (BldA) [Mass fraction] 95 % Kanchan Miller MA [facility].; [facility] 11-07-2022 15:45-0500 Systolic blood pressure 125 mm[Hg] Kanchan Miller MA [facility].; [facility]. Comment on above: Patient Position: Sitting; Cuff Location : Left Arm; Cuff Size: Standard 01-04-2022 10:16-040 Body height 177.8 cm [facility]. 01-04-2022 10:16-0400 Body mass index (BMI) [Ratio] 34.01 kg/m2 Madeline Jiménez [facility].; [place] [employer] [facility]. 01-04-2022 10:16-0400 Body surface area Derived from formula 2.24 m2 Madeline Jiménez LPN [facility].; [facility]. 01-04-2022 10:16-0400 Body temperature 99.1 [degF] Madeline Jiménez [facility].; [place] [employer] [facility]. Comment on above: Method: Tympanic 01-04-2022 10:16-0400 Body weight 107.5 kg Madeline Jiménez LPN [facility].; [facility]. 01-04-2022 10:16-0400 Diastolic blood pressure 89 mm[Hg] Madeline Jiménez LPN [facility].; [place] [employer] [facility]. Comment on above: Patient Position: Sitting; Cuff Location : Left Arm; Cuff Size: Standard 01-04-2022 10:16-0400 Heart rate 75 /min Madeline Jiménez LPN [facility], [facility].; [employer] [facility]. Comment on above: Pattern: Regular 01-04-2022 10:16-0400 Inhaled oxygen concentration 21 % Madeline Jiménez LPN [facility], [facility].; [employer]. Comment on above: Room air 01-04-2022 10:16-0400 SaO2% (BldA) [Mass fraction] 97 % Madeline Jiménez LPN [facility], [facility].; [employer], [employer]. 01-04-2022 10:16-0400 Systolic blood pressure 134 mm[Hg] Madeline Jiménez LPN [facility], [facility].; [employer]. Comment on above: Patient Position: Sitting; Cuff Location : Left Arm; Cuff Size: Standard 12-20-2021 09:02-0400 Body height 177.8 cm Carlyn Claudio LPN [facility], [facility].; [employer], [employer]. 12-20-2021 09:02-0400 Body mass index (BMI) [Ratio] 34.01 kg/m2 [facility], [facility].; [employer] [facility], [facility]. 12-20-2021 09:02-0400 Body surface area Derived from formula 2.24 m2 Carlyn Claudio LPN [facility], [facility].; [employer], [facility]. 12-20-2021 09:02-0400 Body weight 107.5 kg Carlyn Claudio LPN [facility], [facility].; [employer]. 12-20-2021 09:02-0400 Diastolic blood pressure 84 mm[Hg] Carlyn Claudio LPN [place] [employer] [facility], [facility].; [employer]. Comment on above: Patient Position: Sitting; Cuff Location : Left Arm; Cuff Size: Standard 12-20-2021 09:02-0400 Heart rate 71 /min Carlyn Claudio LPN [place] [employer] [facility], [employer].; [employer]. Comment on above: Pattern: Regular 12-20-2021 09:02-0400 Systolic blood pressure 132 mm[Hg] Carlyn Claudio LPN [facility].; [employer]. Comment on above: Patient Position: Sitting; Cuff Location : Left Arm; Cuff Size: Standard 12-17-2021 11:09-0400 Body height 177.8 cm Carlyn Brownlabach [facility] [employer]. 12-17-2021 11:09-0400 Body mass index (BMI) [Ratio] 34.44 kg/m2 Carlyn Brownlabach [facility], [employer].; [employer]. 12-17-2021 11:09-0400 Body surface area Derived from formula 2.26 m2 Carlyn Moon González [facility].; [employer]. 12-17-2021 11:09-0400 Body temperature 98.1 [degF] Carlyn Moon González [facility].; [employer]. Comment on above: Method: Tympanic 12-17-2021 11:09-0400 Body weight 108.86 kg Carlyn Brownlabach [facility].; [employer]. 12-17-2021 11:09-0400 Diastolic blood pressure 86 mm[Hg] Carlyn Brownlabach [facility].; [employer]. Comment on above: Patient Position: Sitting; Cuff Location : Left Arm; Cuff Size: Standard 12-17-2021 11:09-0400 Heart rate 69 /min Carlyn Moon González PATCHING MACHINE OPERATOR [facility], [facility].; [employer]. Comment on above: Pattern: Regular 12-17-2021 11:09-0400 Inhaled oxygen concentration 21 % Carlyn Red BrownGonzález [facility] [employer] [facility].; [employer]. Comment on above: Room air 12-17-2021 11:09-0400 SaO2% (BldA) [Mass fraction] 98 % Carlyn Claudio PATCHING MACHINE OPERATOR [place] [employer] [facility], [employer].; [employer]. 12-17-2021 11:09-0400 Systolic blood pressure 133 mm[Hg] Carlyn Claudio LPN [employer].; [employer]. Comment on above: Patient Position: Sitting; Cuff Location : Left Arm; Cuff Size: Standard 02-12-2019 07:20-0400 Body height 177.8 cm Geno Bah RN [place] [employer].; [employer]. 02-12-2019 07:20-0400 Body mass index (BMI) [Ratio] 30.56 kg/m2 Geno Bah RN [place] [employer].; [employer]. 02-12-2019 07:20-0400 Body surface area Derived from formula 2.14 m2 Geno Bah RN [employer].; [employer]. 02-12-2019 07:20-0400 Body weight 96.62 kg Geno Bah RN [place] [employer].; [employer]. 02-12-2019 07:20-0400 Diastolic blood pressure 75 mm[Hg] Geno Bah RN [employer].; [employer]. Comment on above: Patient Position: Sitting; Cuff Location : Right Arm; Cuff Size: Standard 02-12-2019 07:20-0400 Heart rate 63 /min Geno Bah RN [place] [employer].; [employer]. Comment on above: Pattern: Regular 02-12-2019 07:20-0400 Systolic blood pressure 112 mm[Hg] Geno Bah RN [place] [employer].; [employer]. Comment on above: Patient Position: Sitting; Cuff Location : Right Arm; Cuff Size: Standard 01-21-2018 08:03-0400 Body height 177.8 cm Carlyn Claudio LPN [employer].; [employer]. 01-21-2018 08:03-0400 Body mass index (BMI) [Ratio] 29.47 kg/m2 Carlyn Claudio LPN [employer].; [employer]. 01-21-2018 08:03-0400 Body surface area Derived from formula 2.11 m2 Carlyn Claudio LPN [employer].; [employer]. 01-21-2018 08:03-0400 Body weight 93.17 kg Carlyn Moon Gonz[facility]lez [facility].; [employer]. 01-21-2018 08:03-0400 Diastolic blood pressure 77 mm[Hg] Carlyn Moon González [employer]. Comment on above: Patient Position: Sitting; Cuff Location : Right Arm; Cuff Size: Standard 01-21-2018 08:03-0400 Heart rate 68 /min Carlyn Moon González [facility] Center[facility]ph[facility] Inc.; [employer]. Comment on above: Pattern: Regular 01-21-2018 08:03-0400 Systolic blood pressure 123 mm[Hg] Carlyn Moon González [facility].; [employer]. Comment on above: Patient Position: Sitting; Cuff Location : Right Arm; Cuff Size: Standard 10-22-2017 08:09-0500 Body height 177.8 cm Maryam Stratton MD Work Phone: [employer].; [employer] 10-22-2017 08:09-0500 Body mass index (BMI) [Ratio] 29.54 kg/m2 Maryam Stratton MD Work Phone: [employer].; [employer]. 10-22-2017 08:09-0500 Body surface area Derived from formula 2.11 m2 Maryam Stratton MD Work Phone: [employer].; [employer]. 10-22-2017 08:09-0500 Body weight 93.4 kg Maryam Stratton MD Work Phone: [employer].; [employer] 10-22-2017 08:09-0500 Diastolic blood pressure 64 mm[Hg] Maryam Stratton MD Work Phone: [employer].; [employer]. Comment on above: Patient Position: Sitting; Cuff Location : Left Arm; Cuff Size: Standard 10-22-2017 08:09-0500 Heart rate 72 /min Maryam Stratton MD Work Phone: [employer].; [employer]. Comment on above: Pattern: Regular 10-22-2017 08:09-0500 Systolic blood pressure 117 mm[Hg] Maryam Stratton MD Work Phone: [employer]. Comment on above: Patient Position: Sitting; Cuff Location : Left Arm; Cuff Size: Standard 09-22-2017 08:20-0500 Body height 177.8 cm Juanjo Robles (Scribe) [employer].; [employer]. 09-22-2017 08:20-0500 Body mass index (BMI) [Ratio] 29.56 kg/m2 Juanjonick Robles (Scribe) [employer].; [employer]. 09-22-2017 08:20-0500 Body surface area Derived from formula 2.11 m2 Juanjo Travis (Scribe) [employer].; [employer]. 09-22-2017 08:20-0500 Body temperature 97.8 [degF] Juanjonick Robles (Scribe) [employer].; [employer]. Comment on above: Method: Tympanic 09-22-2017 08:20-0500 Body weight 93.44 kg Juanjonick Robles (Scribe) [employer].; [employer]. 09-22-2017 08:20-0500 Diastolic blood pressure 70 mm[Hg] Juanjo Robles (Scribe) [employer].; [employer]. Comment on above: Patient Position: Sitting; Cuff Location : Left Arm; Cuff Size: Standard 09-22-2017 08:20-0500 Heart rate 59 /min Juanjonick Robles (Scribe) [employer].; [employer]. Comment on above: Pattern: Regular 09-22-2017 08:20-0500 Inhaled oxygen concentration 21 % Juanjo Travis (Scribe) [employer].; [employer]. Comment on above: Room air 09-22-2017 08:20-0500 SaO2% (BldA) [Mass fraction] 99 % Juanjo Travis (Berylibe) [facility] [employer]. 09-22-2017 08:20-0500 Systolic blood pressure 118 mm[Hg] Juanjo Robles (He) [facility], [employer]. Comment on above: Patient Position: Sitting; Cuff Location : Left Arm; Cuff Size: Standard 07-23-2017 09:03-0500 Body height 177.8 cm Carlyn Red Claudio PATCHING MACHINE OPERATOR [place] [employer] [facility] [employer]. 07-23-2017 09:03-0500 Body mass index (BMI) [Ratio] 28.27 kg/m2 Carlyn Red Gonz[facility]lez [facility].; [employer]. 07-23-2017 09:03-0500 Body surface area Derived from formula 2.07 m2 Carlyn Moon González PATCHING MACHINE OPERATOR [employer].; [employer]. 07-23-2017 09:03-0500 Body weight 89.36 kg Carlyn Red Claudio PATCHING MACHINE OPERATOR [employer].; [employer]. 07-23-2017 09:03-0500 Diastolic blood pressure 69 mm[Hg] Carlyn Red Claudio PATCHING MACHINE OPERATOR [employer].; [employer]. Comment on above: Patient Position: Sitting; Cuff Location : Left Arm; Cuff Size: Standard 07-23-2017 09:03-0500 Heart rate 57 /min Carlyn Claudio PATCHING MACHINE OPERATOR [employer].; [employer]. Comment on above: Pattern: Regular 07-23-2017 09:03-0500 Systolic blood pressure 116 mm[Hg] Carlyn Moon González PATCHING MACHINE OPERATOR [employer].; [employer]. Comment on above: Patient Position: Sitting; Cuff Location : Left Arm; Cuff Size: Standard 04-30-2017 09:07-0400 Body height 177.8 cm Carlyn Moon González PATCHING MACHINE OPERATOR [employer].; [employer]. 04-30-2017 09:07-0400 Body mass index (BMI) [Ratio] 29.24 kg/m2 Carlyn Moon González ESCAM[employer] [facility] [employer], [facility]. 04-30-2017 09:07-0400 Body surface area Derived from formula 2.1 m2 Calryn Moon González PATCHING MACHINE OPERATOR [facility] [employer] 04-30-2017 09:07-0400 Body weight 92.44 kg Carlyn Moon González [facility] [employer]. 04-30-2017 09:07-0400 Diastolic blood pressure 65 mm[Hg] Carlyn Moon González [employer] [place] [employer] [facility], [facility].; [employer], [employer]. Comment on above: Patient Position: Sitting; Cuff Location : Left Arm; Cuff Size: Standard 04-30-2017 09:07-0400 Heart rate 66 /min Carlyn Moon González ESCAMILLA [facility] [employer], [employer]. Comment on above: Pattern: Regular 04-30-2017 09:07-0400 Systolic blood pressure 109 mm[Hg] Carlyn Moon González [employer] [place] [employer] [facility].; [employer]. Comment on above: Patient Position: Sitting; Cuff Location : Left Arm; Cuff Size: Standard 04-08-2017 11:18-0400 Body height 177.8 cm Kelly Kristi Brina [employer] [place] [employer] [facility] [employer], [employer]. 04-08-2017 11:18-0400 Body mass index (BMI) [Ratio] 29.13 kg/m2 Kelly Kristi Bellersbaugh PATCHING MACHINE OPERATOR [place] [employer] [facility] [employer], [employer]. 04-08-2017 11:18-0400 Body surface area Derived from formula 2.1 m2 Kelly Kristi Mutersbaugh PATCHING MACHINE OPERATOR [employer] 04-08-2017 11:18-0400 Body weight 92.08 kg Kelly Kristi Mutersbaugh PATCHING MACHINE OPERATOR [employer]. 04-08-2017 11:18-0400 Diastolic blood pressure 69 mm[Hg] Kelly K Mutersbaugh PATCHING MACHINE OPERATOR [employer]. Comment on above: Patient Position: Sitting; Cuff Location : Left Arm; Cuff Size: Standard 04-08-2017 11:18-0400 Heart rate 65 /min Kelly Kristi Velascoaimeugh PATCHING MACHINE OPERATOR [employer]. Comment on above: Pattern: Regular 04-08-2017 11:18-0400 Systolic blood pressure 120 mm[Hg] Kelly Kristi Bellersbaugh PATCHING MACHINE OPERATOR [employer] [facility] [employer] Comment on above: Patient Position: Sitting; Cuff Location : Left Arm; Cuff Size: Standard 03-05-2017 08:06-0400 Body height 177.8 cm [facility]arlyn Moon [facility] [employer]. 03-05-2017 08:06-0400 Body mass index (BMI) [Ratio] 29.13 kg/m2 Carlyn Red Gonz[facility]lez [facility] [employer] 03-05-2017 08:06-0400 Body surface area Derived from formula 2.1 m2 Carlyn Red HubbardGonzález [facility], [employer]. 03-05-2017 08:06-0400 Body weight 92.08 kg Carlyn M [facility]lez [facility] [employer]. 03-05-2017 08:06-0400 Diastolic blood pressure 70 mm[Hg] Carlyn Moon González PATCHING MACHINE OPERATOR [employer]. Comment on above: Patient Position: Sitting; Cuff Location : Right Arm; Cuff Size: Standard 03-05-2017 08:06-0400 Heart rate 76 /min Carlyn Moon González PATCHING MACHINE OPERATOR [employer]. Comment on above: Pattern: Regular 03-05-2017 08:06-0400 Systolic blood pressure 114 mm[Hg] Carlyn Red BrownGonzález PATCHING MACHINE OPERATOR [employer]. Comment on above: Patient Position: Sitting; Cuff Location : Right Arm; Cuff Size: Standard 01-22-2017 08:53-0400 Body height 177.8 cm Carlyn Brownlabach [facility] [employer]. 01-22-2017 08:53-0400 Body mass index (BMI) [Ratio] 30.5 kg/m2 Carlyn Moon Gonz[facility]lez [facility].; [facility] 01-22-2017 08:53-0400 Body surface area Derived from formula 2.14 m2 Carlyn Red Claudio PATCHING MACHINE OPERATOR [employer] [facility] [employer] 01-22-2017 08:53-0400 Body weight 96.44 kg Carlyn Moon [facility]lez [facility] [employer]. 01-22-2017 08:53-0400 Diastolic blood pressure 72 mm[Hg] Carlyn Moon [facility]lez [facility] [employer]. Comment on above: Patient Position: Sitting; Cuff Location : Right Arm; Cuff Size: Standard 01-22-2017 08:53-0400 Heart rate 71 /min Carlyn Claudio LPN [employer]. Comment on above: Pattern: Regular 01-22-2017 08:53-0400 Systolic blood pressure 123 mm[Hg] Carlyn Red Claudio LPN [employer]. Comment on above: Patient Position: Sitting; Cuff Location : Right Arm; Cuff Size: Standard 12-11-2016 08:58-0400 Body height 177.8 cm Corinne Farr RN Work Phone: [employer] [facility] [employer] 12-11-2016 08:58-0400 Body mass index (BMI) [Ratio] 32.57 kg/m2 Corinne Farr RN Work Phone: [employer] 12-11-2016 08:58-0400 Body surface area Derived from formula 2.2 m2 Corinne Farr RN Work Phone: [employer]. 12-11-2016 08:58-0400 Body weight 102.97 kg Corinne Farr RN Work Phone: [employer]. 12-11-2016 08:58-0400 Diastolic blood pressure 74 mm[Hg] Corinne Farr RN Work Phone: [place] [employer] [facility]. Comment on above: Patient Position: Sitting; Cuff Location : Right Arm; Cuff Size: Large 12-11-2016 08:58-0400 Heart rate 58 /min Corinne Farr RN Work Phone: [place] [employer]. Comment on above: Pattern: Regular 12-11-2016 08:58-0400 Systolic blood pressure 119 mm[Hg] Corinne Farr RN Work Phone: [place] [employer]. Comment on above: Patient Position: Sitting; Cuff Location : Right Arm; Cuff Size: Large 11-13-2016 09:06-0500 Body height 177.8 cm Carlyn Claudio LPN [place] [employer] [facility], [employer] [facility] 11-13-2016 09:06-0500 Body mass index (BMI) [Ratio] 34.64 kg/m2 Carlyn Claudio LPN [place] [employer] [facility], [employer] 11-13-2016 09:06-0500 Body surface area Derived from formula 2.26 m2 Carlyn Claudio LPN [place] [employer] [facility], [employer] 11-13-2016 09:06-0500 Body temperature 98 [degF] Carlyn Claudio LPN [place] [employer] [facility]. Comment on above: Method: Tympanic 11-13-2016 09:06-0500 Body weight 109.5 kg Carlyn Claudio LPN [place] [employer] [facility], [employer].; [facility] 11-13-2016 09:06-0500 Diastolic blood pressure 72 mm[Hg] Carlyn Claudio LPN [place] [employer] [facility], [employer]. Comment on above: Patient Position: Sitting; Cuff Location : Left Arm; Cuff Size: Standard 11-13-2016 09:06-0500 Heart rate 64 /min Carlyn Claudio LPN [facility], Inc.; [employer] [facility]. Comment on above: Pattern: Regular 11-13-2016 09:06-0500 Systolic blood pressure 107 mm[Hg] Carlyn Claudio PATCHING MACHINE OPERATOR [facility], [employer]. Comment on above: Patient Position: Sitting; Cuff Location : Left Arm; Cuff Size: Standard 10-16-2016 10:54-0500 Body height 177.8 cm Carlyn Moon González [facility], Inc.; [employer] 10-16-2016 10:54-0500 Body mass index (BMI) [Ratio] 36.79 kg/m2 Carlyn Moon González [facility], Inc.; [employer] [facility] [employer]. 10-16-2016 10:54-0500 Body surface area Derived from formula 2.32 m2 Carlyn Moon González [facility] [facility], [employer]. 10-16-2016 10:54-0500 Body weight 116.3 kg Carlyn Brownlabach [facility].; [employer]. 10-16-2016 10:54-0500 Diastolic blood pressure 80 mm[Hg] Carlyn Claudio [facility], [employer]. Comment on above: Patient Position: Sitting; Cuff Location : Left Arm; Cuff Size: Standard 10-16-2016 10:54-0500 Heart rate 60 /min Carlyn Moon González PATCHING MACHINE OPERATOR [facility], [employer]. Comment on above: Pattern: Regular 10-16-2016 10:54-0500 Systolic blood pressure 131 mm[Hg] Carlyn Brownlabach PATCHING MACHINE OPERATOR [place] [employer] [facility] [employer]. Comment on above: Patient Position: Sitting; Cuff Location : Left Arm; Cuff Size: Standard 08-28-2016 10:57-0500 Body height 177.8 cm Elvia Merlos LPN [place] [employer] [facility], [employer]. 08-28-2016 10:57-0500 Body mass index (BMI) [Ratio] 41.28 kg/m2 Elvialenny Merlos LPN [facility], [facility].; [employer] [facility], [employer]. 08-28-2016 10:57-0500 Body surface area Derived from formula 2.44 m2 Elvia Merlos PATCHING MACHINE OPERATOR [facility], [facility].; [employer] 08-28-2016 10:57-0500 Body weight 130.5 kg Elvia Merlos PATCHING MACHINE OPERATOR [facility], Inc.; [employer]. 08-28-2016 10:57-0500 Diastolic blood pressure 87 mm[Hg] Elvia Merlos PATCHING MACHINE OPERATOR [facility], [facility].; [employer]. Comment on above: Patient Position: Sitting; Cuff Location : Right Arm; Cuff Size: Large 08-28-2016 10:57-0500 Heart rate 65 /min Elvia Merlos PATCHING MACHINE OPERATOR [facility], [facility].; [employer]. Comment on above: Pattern: Regular 08-28-2016 10:57-0500 Systolic blood pressure 131 mm[Hg] Elvia Merlos PATCHING MACHINE OPERATOR [facility], [employer].; [employer]. Comment on above: Patient Position: Sitting; Cuff Location : Right Arm; Cuff Size: Large 08-21-2016 11:03-0500 Body height 177.8 cm Maryam Stratton MD Work Phone: [employer]. 08-21-2016 11:03-0500 Body mass index (BMI) [Ratio] 41.73 kg/m2 Maryam Stratton MD Work Phone: [employer] [facility] [employer]. 08-21-2016 11:03-0500 Body surface area Derived from formula 2.45 m2 Maryam Stratton MD Work Phone: [employer]. 08-21-2016 11:03-0500 Body weight 131.91 kg Maryam Stratton MD Work Phone: [employer]. 08-21-2016 11:03-0500 Diastolic blood pressure 91 mm[Hg] Maryam Stratton MD Work Phone: [employer]. Comment on above: Patient Position: Sitting; Cuff Location : Right Arm; Cuff Size: Standard 08-21-2016 11:03-0500 Heart rate 61 /min Maryam Stratton MD Work Phone: [employer]. Comment on above: Pattern: Regular 08-21-2016 11:03-0500 Systolic blood pressure 143 mm[Hg] Maryam Stratton MD Work Phone: [employer]. Comment on above: Patient Position: Sitting; Cuff Location : Right Arm; Cuff Size: Standard 08-16-2016 08:55-0500 Body height 177.8 cm Geno Bah RN [employer]. 08-16-2016 08:55-0500 Body mass index (BMI) [Ratio] 41.61 kg/m2 Geno Bah RN [place] [employer]. 08-16-2016 08:55-0500 Body surface area Derived from formula 2.44 m2 Geno Bah RN [employer]. 08-16-2016 08:55-0500 Body weight 131.54 kg Geno Bah RN [employer]. 08-16-2016 08:55-0500 Diastolic blood pressure 81 mm[Hg] Geno Bah RN [employer]. Comment on above: Patient Position: Sitting; Cuff Location : Right Arm; Cuff Size: Large 08-16-2016 08:55-0500 Heart rate 75 /min Geno Bah RN [employer]. Comment on above: Pattern: Regular 08-16-2016 08:55-0500 Inhaled oxygen concentration 21 % Geno Bah RN [employer]. Comment on above: Room air 08-16-2016 08:55-0500 SaO2% (BldA) [Mass fraction] 95 % Geno Bah RN [employer]. 08-16-2016 08:55-0500 Systolic blood pressure 124 mm[Hg] Geno Bah RN [employer]. Comment on above: Patient Position: Sitting; Cuff Location : Right Arm; Cuff Size: Large 03-21-2016 13:31-0400 Body temperature 97 [degF] Luke Maynor PA-C Work Phone: [employer]. Comment on above: Method: Tympanic 03-21-2016 13:31-0400 Body weight 125.65 kg Luke Maynor PA-C Work Phone: [employer]. 03-21-2016 13:31-0400 Diastolic blood pressure 82 mm[Hg] Luke Maynor PA-C Work Phone: [employer]. Comment on above: Patient Position: Sitting; Cuff Location : Right Arm; Cuff Size: Standard 03-21-2016 13:31-0400 Heart rate 72 /min Luke Maynor PA-C Work Phone: [employer]. Comment on above: Pattern: Regular 03-21-2016 13:31-0400 Systolic blood pressure 128 mm[Hg] Luke Maynor PA-C Work Phone: [employer]. Comment on above: Patient Position: Sitting; Cuff Location : Right Arm; Cuff Size: Standard 2015 08:44-0500 Body height 177.8 cm Geno Bah RN [employer]. 2015 08:44-0500 Body mass index (BMI) [Ratio] 39.17 kg/m2 Geno Bah RN [employer]. 2015 08:44-0500 Body surface area Derived from formula 2.38 m2 Geno Bah RN [place] [employer] [facility] [employer]. 2015 08:44-0500 Body weight 123.83 kg Geno Bah RN [facility] [employer]. 2015 08:44-0500 Diastolic blood pressure 86 mm[Hg] Geno Bah RN [place] [employer]. Comment on above: Patient Position: Sitting; Cuff Location : Left Arm; Cuff Size: Large 2015 08:44-0500 Heart rate 71 /min Geno Bah RN [place] [employer]. Comment on above: Pattern: Regular 2015 08:44-0500 Systolic blood pressure 141 mm[Hg] Geno Bah RN [place] [employer]. Comment on above: Patient Position: Sitting; Cuff Location : Left Arm; Cuff Size: Large 08-15-2015 15:09-0500 Body height 177.8 cm [employer] PATCHING MACHINE OPERATOR Work Phone: [employer]. 08-15-2015 15:09-0500 Body mass index (BMI) [Ratio] 39.31 kg/m2 [employer] PATCHING MACHINE OPERATOR Work Phone: [employer]. 08-15-2015 15:09-0500 Body surface area Derived from formula 2.39 m2 [employer] PATCHING MACHINE OPERATOR Work Phone: [employer]. 08-15-2015 15:09-0500 Body weight 124.29 kg Trumaker PATCHING MACHINE OPERATOR Work Phone: [employer]. 08-15-2015 15:09-0500 Diastolic blood pressure 82 mm[Hg] [employer] PATCHING MACHINE OPERATOR Work Phone: [employer]. Comment on above: Patient Position: Sitting; Cuff Location : Left Arm; Cuff Size: Large 08-15-2015 15:09-0500 Heart rate 80 /min Charley Hardwick LPN Work Phone: [facility] [employer]. Comment on above: Pattern: Regular 08-15-2015 15:09-0500 Systolic blood pressure 132 mm[Hg] Charley Hardwick PATCHING MACHINE OPERATOR Work Phone: [place] [employer]. Comment on above: Patient Position: Sitting; Cuff Location : Left Arm; Cuff Size: Large 07-06-2015 11:50-0400 Body height 177.8 cm Carlyn Maddox MD Work Phone: [place] [employer]. 07-06-2015 11:50-0400 Body mass index (BMI) [Ratio] 39.6 kg/m2 Carlyn Maddox MD Work Phone: [place] [employer]. 07-06-2015 11:50-0400 Body surface area Derived from formula 2.39 m2 Carlyn Maddox MD Work Phone: [employer]. 07-06-2015 11:50-0400 Body temperature 97.8 [degF] Carlyn Maddox MD Work Phone: [employer]. Comment on above: Method: Tympanic 07-06-2015 11:50-0400 Body weight 125.19 kg Carlyn Maddox MD Work Phone: [employer]. 07-06-2015 11:50-0400 Diastolic blood pressure 95 mm[Hg] Carlyn Maddox MD Work Phone: [employer]. Comment on above: Patient Position: Sitting; Cuff Location : Right Arm; Cuff Size: Standard 07-06-2015 11:50-0400 Heart rate 66 /min Carlyn Maddox MD Work Phone: [employer]. Comment on above: Pattern: Regular 07-06-2015 11:50-0400 Systolic blood pressure 138 mm[Hg] Carlyn Maddox MD Work Phone: [employer]. Comment on above: Patient Position: Sitting; Cuff Location : Right Arm; Cuff Size: Standard 05-13-2014 09:50-0400 Body height 177.8 cm Corinne Farr RN Work Phone: [employer]. 05-13-2014 09:50-0400 Body mass index (BMI) [Ratio] 39.74 kg/m2 Corinne Farr RN Work Phone: [employer]. 05-13-2014 09:50-0400 Body surface area Derived from formula 2.4 m2 Corinne Farr RN Work Phone: [employer]. 05-13-2014 09:50-0400 Body weight 125.65 kg Corinne Farr RN Work Phone: [employer]. 05-13-2014 09:50-0400 Diastolic blood pressure 75 mm[Hg] Corinne Farr RN Work Phone: [employer]. Comment on above: Patient Position: Sitting; Cuff Location : Left Arm; Cuff Size: Large 05-13-2014 09:50-0400 Heart rate 78 /min Corinne Farr RN Work Phone: [employer]. Comment on above: Pattern: Regular 05-13-2014 09:50-0400 Systolic blood pressure 136 mm[Hg] Corinne Farr RN Work Phone: [employer]. Comment on above: Patient Position: Sitting; Cuff Location : Left Arm; Cuff Size: Large 02-02-2014 11:00-0400 Body weight 123.83 kg Luke Maynor PA-C Work Phone: [employer]. 02-02-2014 11:00-0400 Diastolic blood pressure 87 mm[Hg] Luke Maynor PA-C Work Phone: [employer]. Comment on above: Patient Position: Sitting; Cuff Location : Left Arm; Cuff Size: Large 02-02-2014 11:00-0400 Heart rate 75 /min Luke Maynor PA-C Work Phone: [employer]. Comment on above: Pattern: Regular 02-02-2014 11:00-0400 Systolic blood pressure 133 mm[Hg] Luke Maynor PA-C Work Phone: [employer]. Comment on above: Patient Position: Sitting; Cuff Location : Left Arm; Cuff Size: Large 10-22-2013 13:28-0500 Body height 177.8 cm Corinne Farr RN Work Phone: [employer]. 10-22-2013 13:28-0500 Body mass index (BMI) [Ratio] 39.17 kg/m2 Corinne Farr RN Work Phone: [employer]. 10-22-2013 13:28-0500 Body surface area Derived from formula 2.38 m2 Corinne Farr RN Work Phone: [employer]. 10-22-2013 13:28-0500 Body temperature 97 [degF] Corinne Farr RN Work Phone: [employer]. Comment on above: Method: Tympanic 10-22-2013 13:28-0500 Body weight 123.83 kg Corinne Farr RN Work Phone: [employer]. 10-22-2013 13:28-0500 Diastolic blood pressure 89 mm[Hg] Corinne Farr RN Work Phone: [place] [employer]. Comment on above: Patient Position: Sitting; Cuff Location : Left Arm; Cuff Size: Large 10-22-2013 13:28-0500 Heart rate 68 /min Corinne Farr RN Work Phone: [place] [employer]. Comment on above: Pattern: Regular 10-22-2013 13:28-0500 Systolic blood pressure 136 mm[Hg] Corinne Farr RN Work Phone: [employer]. Comment on above: Patient Position: Sitting; Cuff Location : Left Arm; Cuff Size: Large 10-04-2013 14:20-0500 Body height 177.8 cm Carlyn Maddox MD Work Phone: [employer]. 10-04-2013 14:20-0500 Body mass index (BMI) [Ratio] 38.74 kg/m2 Carlyn Maddox MD Work Phone: [employer] 10-04-2013 14:20-0500 Body surface area Derived from formula 2.37 m2 Carlyn Maddox MD Work Phone: [employer]. 10-04-2013 14:20-0500 Body temperature 97.8 [degF] Carlyn Maddox MD Work Phone: [employer]. Comment on above: Method: Tympanic 10-04-2013 14:20-0500 Body weight 122.47 kg Carlyn Maddox MD Work Phone: [employer]. 10-04-2013 14:20-0500 Diastolic blood pressure 82 mm[Hg] Carlyn Maddox MD Work Phone: [employer]. Comment on above: Patient Position: Sitting; Cuff Location : Left Arm; Cuff Size: Standard 10-04-2013 14:20-0500 Heart rate 73 /min Carlyn Maddox MD Work Phone: [facility] [employer]. Comment on above: Pattern: Regular 10-04-2013 14:20-0500 Systolic blood pressure 135 mm[Hg] Carlyn Maddox MD Work Phone: [place] [employer]. Comment on above: Patient Position: Sitting; Cuff Location : Left Arm; Cuff Size: Standard 06-23-2013 10:51-0400 Body height 177.8 cm Luke Maynor PA-C Work Phone: [employer]. 06-23-2013 10:51-0400 Body mass index (BMI) [Ratio] 38.31 kg/m2 Luke Maynor PA-C Work Phone: [employer] 06-23-2013 10:51-0400 Body surface area Derived from formula 2.36 m2 Luke Maynor PA-C Work Phone: [employer]. 06-23-2013 10:51-0400 Body weight 121.11 kg Luke Maynor PA-C Work Phone: [employer]. 06-23-2013 10:51-0400 Diastolic blood pressure 87 mm[Hg] Luke Maynor PA-C Work Phone: [employer]. Comment on above: Patient Position: Sitting; Cuff Location : Left Arm; Cuff Size: Large 06-23-2013 10:51-0400 Heart rate 65 /min Luke Maynor PA-C Work Phone: [employer]. Comment on above: Pattern: Regular 06-23-2013 10:51-0400 Systolic blood pressure 121 mm[Hg] Wisam Mcguire PA-C Work Phone: [employer]. Comment on above: Patient Position: Sitting; Cuff Location : Left Arm; Cuff Size: Large 06-01-2013 15:19-0400 Body height 177.8 cm Corinne Farr RN Work Phone: [employer] 04-30-2013 10:48-0400 Body height 177.8 cm Corinne Farr RN Work Phone: [employer]. 04-30-2013 10:48-0400 Body mass index (BMI) [Ratio] 38.6 kg/m2 Corinne Farr RN Work Phone: [employer]. 04-30-2013 10:48-0400 Body surface area Derived from formula 2.37 m2 Corinne Farr RN Work Phone: [employer]. 04-30-2013 10:48-0400 Body weight 122.02 kg Corinne Farr RN Work Phone: [employer]. 04-30-2013 10:48-0400 Diastolic blood pressure 82 mm[Hg] Corinne Farr RN Work Phone: [employer]. Comment on above: Patient Position: Sitting; Cuff Location : Right Arm; Cuff Size: Large 04-30-2013 10:48-0400 Heart rate 70 /min Corinne Farr RN Work Phone: [employer]. Comment on above: Pattern: Regular 04-30-2013 10:48-0400 Systolic blood pressure 116 mm[Hg] Corinne Farr RN Work Phone: [employer]. Comment on above: Patient Position: Sitting; Cuff Location : Right Arm; Cuff Size: Large Encounters Encounter Date Encounter Type Care Provider Facility Start: 07-20-2025 ambulatory Shruthi Contreras ty:[facility] Start: 07-15-2025 ambulatory Wisam Greenfieldi ty:[facility] Start: 07-01-2025 ambulatory Shruthi iNranjan Facili ty:[facility] Start: 06-23-2025 Patient encounter procedure Shruthi Ureña PA -Laboratory Work Phone: Start: 06-23-2025 End: 06-23-2025 Patient encounter procedure Shruthi BELLAMY -[facility] Work Phone: Start: 06-23-2025 End: 06-23-2025 ambulatory Wisam BELLAMY Work Phone: -[facility] Start: 06-23-2025 End: 06-23-2025 ambulatory Shruthi Ureña Facility:[facility] Start: 05-23-2025 ambulatory ZARINA PARito [facility] Start: 05-20-2025 End: 05-20-2025 ambulatory WISAM MCGUIRE Lui [facility] Start: 02-18-2025 End: 02-18-2025 Patient encounter status Wisam Mcguire PA-C Work Phone: [employer] [facility] [employer] Start: 02-18-2025 End: 02-18-2025 Periodic preventive med est patient 40-64yrs Wisam Mcguire PA-C Work Phone: [facility] Start: 01-11-2025 End: 01-11-2025 Office outpatient visit 15 minutes Wisam Mcguire PA-C Work Phone: [employer] Start: 01-11-2025 Review Wisam cooper PA-C Work Phone: [employer] [facility] Start: 11-01-2024 End: 11-01-2024 Office outpatient visit 15 minutes Luke Maynor PA-C Work Phone: [employer]. Start: 11-01-2024 Review Tankdina Mcdowell er PA-C Work Phone: [employer]. Start: 09-28-2024 End: 09-28-2024 Office outpatient visit 15 minutes Luke Maynor PA-C Work Phone: [employer]. Start: 09-28-2024 Evaluation and management of inpatient Luke Maynor PA-C Work Phone: [employer] Start: 09-17-2024 End: 09-17-2024 Office outpatient visit 15 minutes Luke Maynor PA-C Work Phone: [employer] Start: 09-09-2024 End: 09-09-2024 Telephone follow-up Wisam Maynor PA-C Work Phone: [employer] Start: 09-07-2024 End: 09-07-2024 Office outpatient visit 25 minutes Luke Maynor PA-C Work Phone: [employer]. Start: 09-06-2024 End: 09-06-2024 Emergency department patient visit [facility] Start: 06-21-2024 End: 06-21-2024 ambulatory [facility] Start: 05-20-2024 End: 05-20-2024 Patient encounter status Wisam Atkinsonetler PA-C Work Phone: [employer]; [employer]. Start: 05-20-2024 End: 05-20-2024 Periodic preventive med est patient 40-64yrs Ludina CosmeMaynor PA-C Work Phone: [employer] Start: 12-12-2023 End: 12-12-2023 Office outpatient visit 15 minutes Luke Maynor PA-C Work Phone: [employer] Start: 12-12-2023 Review Wisam Mcdowell er PA-C Work Phone: [employer]. Start: 09-05-2023 End: 09-06-2023 ambulatory JEY BIRCH Facility:[facility] Start: 08-06-2023 Telephone encounter Jey hansen MD Work Phone: Neurology Comment on above: Patient Update Start: 08-06-2023 End: 08-06-2023 ambulatory GINO SARGENTUTZMAN Facility:[facility] Start: 08-06-2023 End: 08-06-2023 Patient encounter procedure Jey Birch MD Work Phone: NEROLOGY Comment on above: Benign fasciculation s (Primary Dx); Cesar syndrome of left eye Start: 07-10-2023 End: 07-10-2023 Orders Wisam CosmeMaynor PA-C Work Phone: [employer] Start: 07-07-2023 End: 07-07-2023 Office outpatient visit 15 minutes Luke Maynor PA-C Work Phone: [facility] Start: 06-17-2023 End: 06-17-2023 Office outpatient visit 15 minutes Luke Maynor PA-C Work Phone: [employer]. Start: 01-14-2023 End: 01-14-2023 Procedure Luke Maynor PA-C Work Phone: [facility] Start: 11-07-2022 End: 11-07-2022 Office outpatient visit 15 minutes Luke Maynor PA-C Work Phone: [facility] Start: 04-09-2022 End: 04-09-2022 Telephone follow-up Luke Maynor PA-C Work Phone: [facility] Start: 01-16-2022 End: 01-16-2022 Orders Luke Maynor PA-C Work Phone: [facility]. Start: 01-07-2022 End: 01-07-2022 Orders Luke Maynor PA-C Work Phone: [facility]. Start: 01-04-2022 End: 01-04-2022 Office outpatient visit 15 minutes Luke Maynor PA-C Work Phone: [employer]. Start: 12-20-2021 End: 12-20-2021 Office outpatient visit 15 minutes Luke Maynor PA-C Work Phone: [facility]. Start: 12-17-2021 End: 12-17-2021 Office outpatient visit 15 minutes Luke Maynor PA-C Work Phone: [facility] Start: 05-18-2021 End: 05-18-2021 Patient encounter procedure Luke Maynor PA-C Work Phone: [facility]. Start: 02-12-2019 End: 02-12-2019 Office outpatient visit 15 minutes Luke Maynor PA-C Work Phone: [employer]. Start: 01-21-2018 End: 01-23-2018 Office outpatient visit 15 minutes Luke Maynor PA-C Work Phone: [facility]. Start: 01-21-2018 End: 01-23-2018 Patient encounter status Maryam Stratton MD Work Phone: [employer] Start: 12-15-2017 End: 12-15-2017 Medication Luke Maynor PA-C Work Phone: [facility]. Start: 10-22-2017 End: 10-23-2017 Office outpatient visit 15 minutes Luke Maynor PA-C Work Phone: [employer]. Start: 09-22-2017 End: 09-22-2017 Office outpatient visit 15 minutes Luke Maynor PA-C Work Phone: [facility]. Start: 07-23-2017 End: 07-24-2017 Patient encounter procedure Luke Maynor PA-C Work Phone: [facility]. Start: 04-30-2017 End: 05-01-2017 Office outpatient visit 15 minutes Luke Maynor PA-C Work Phone: [employer]. Start: 04-08-2017 End: 04-08-2017 Office outpatient visit 15 minutes Luke Maynor PA-C Work Phone: [employer]. Start: 03-05-2017 End: 03-05-2017 Office outpatient visit 15 minutes Luke Maynor PA-C Work Phone: [facility]. Start: 01-22-2017 End: 01-22-2017 Office outpatient visit 15 minutes Luke Maynor PA-C Work Phone: [facility]. Start: 12-11-2016 End: 12-12-2016 Patient encounter procedure Luke Maynor PA-C Work Phone: [employer]. Start: 11-13-2016 End: 11-13-2016 Office outpatient visit 15 minutes Luke Maynor PA-C Work Phone: [facility]. Start: 10-16-2016 End: 10-17-2016 Patient encounter procedure Luke Maynor PA-C Work Phone: [employer]. Start: 08-28-2016 End: 08-28-2016 Patient encounter procedure Luke Maynor PA-C Work Phone: [facility]. Start: 08-21-2016 End: 08-22-2016 Patient encounter procedure Luke Maynor PA-C Work Phone: [facility]. Start: 08-16-2016 End: 08-16-2016 Patient encounter procedure Luke Maynor PA-C Work Phone: [facility]. Start: 08-16-2016 End: 08-16-2016 Patient encounter status Luke Maynor PA-C Work Phone: [employer] [employer]. Work Phone: Start: 08-08-2016 End: 08-08-2016 Orders Luke Maynor PA-C Work Phone: [employer]. Start: 07-03-2016 End: 07-03-2016 Orders Luke Maynor PA-C Work Phone: [employer]. Start: 03-21-2016 End: 03-21-2016 Patient encounter procedure Luke Maynor PA-C Work Phone: [facility]. Start: 01-25-2016 End: 01-25-2016 Medication Luke Maynor PA-C Work Phone: [employer]. Start: 10-23-2015 End: 10-23-2015 Orders Luke Maynor PA-C Work Phone: [facility]. Start: 2015 End: 2015 Office outpatient visit 25 minutes Luke Maynor PA-C Work Phone: [employer]. Start: 10-05-2015 End: 10-05-2015 Historical Summary Luke Maynor PA-C Work Phone: [facility]. Start: 08-15-2015 End: 08-15-2015 Patient encounter status Luke Maynor PA-C Work Phone: [employer] [employer] Start: 08-15-2015 End: 08-15-2015 Periodic preventive med est patient 40-64yrs Luke Maynor PA-C Work Phone: [facility]. Start: 07-10-2015 End: 07-10-2015 Orders Luke Maynor PA-C Work Phone: [facility]. Start: 07-10-2015 End: 07-10-2015 Orders Luke Maynor PA-C Work Phone: [facility]. Start: 07-06-2015 End: 07-06-2015 Office outpatient visit 25 minutes Luke Maynor PA-C Work Phone: [facility]. Start: 06-29-2014 End: 06-29-2014 Nursing evaluation of patient and report Luke Maynor PA-C Work Phone: [facility]. Start: 05-13-2014 End: 05-13-2014 Patient encounter status Luke Maynor PA-C Work Phone: [employer] Start: 05-13-2014 End: 05-13-2014 Periodic preventive med est patient 40-64yrs Luke Maynor PA-C Work Phone: [facility]. Start: 05-12-2014 End: 05-12-2014 Historical Summary Luke Maynor PA-C Work Phone: [employer]. Start: 04-13-2014 End: 04-13-2014 Orders Luke Maynor PA-C Work Phone: [facility]. Start: 02-02-2014 End: 02-02-2014 Patient encounter procedure Luke Maynor PA-C Work Phone: [facility]. Start: 10-22-2013 End: 10-22-2013 Patient encounter procedure Luke Maynor PA-C Work Phone: [facility] Start: 10-04-2013 End: 10-04-2013 Patient encounter procedure Luke Maynor PA-C Work Phone: [facility] Start: 06-23-2013 End: 06-23-2013 Patient encounter procedure Wisam Leungler PA-C Work Phone: [facility]. Start: 06-01-2013 End: 06-01-2013 Patient encounter procedure Wisam Mcguire PA-C Work Phone: [facility] Start: 05-03-2013 End: 05-04-2013 Medication Tankdina Maynor PA-C Work Phone: [facility]. Start: 04-30-2013 End: 04-30-2013 Patient encounter procedure Wisam Leungler PA-C Work Phone: [facility]. Start: 04-30-2013 End: 04-30-2013 Patient encounter status Wisam Mcguire PA-C Work Phone: [facility]; [facility]. Start: 04-28-2013 End: 04-28-2013 Orders Wisam Maynor PA-C Work Phone: [facility] Start: 03-17-2013 End: 03-17-2013 Orders Wisam Mcguire PA-C Work Phone: [employer] Procedures Date Procedure Procedure Detail Performing Clinician Start: 06-23-2025 Clostridium difficile detection Wisam BELLAMY Work Phone: Start: 06-23-2025 Nucleic acid assay Wisam BELLAMY Work Phone: Start: 06-23-2025 Iadna-dna/rna gi pthgn multiplex probe tq 6-11 Wisam BELLAMY Work Phone: Start: 02-18-2025 End: 02-17-2025 Scr dep neg, no plan reqd Wisam gibbs PA-C Work Phone: Start: 01-11-2025 End: 01-11-2025 Dexamethasone sodium phos Myriam J Ott PA-C Work Phone: Start: 06-21-2024 End: 06-21-2024 Screening for malignant neoplasm of large intestine Radha Florencio ESCAMILLA Comment on above: Sigmoid polyp x1. Recommendation will be based off pathology report. Start: 05-20-2024 End: 05-20-2024 Depression screening Wisam BELLAMY[employer] Work Phone: Start: 05-20-2024 End: 05-20-2024 Scr dep neg, no plan reqd Wisam Fraser tler [employer] Work Phone: Start: 01-14-2023 End: 01-14-2023 Simple repair scalp/neck/ax/genit/trunk 2.5cm/< Wisam Corbett Maynor [employer] Partner Work Phone: Start: 12-20-2021 End: 12-20-2021 Exc b9 lesion mrgn xcp sk tg t/a/l 0.5 cm/< Wisam BELLAMYApp Partner Work Phone: Start: 09-22-2017 End: 09-22-2017 Body mass index documented Maryam Stratton MD Work Phone: Start: 08-08-2016 End: 08-08-2016 Lab findings surveillance Madeline Garza Comment on above: Results:. 103 in CMP Start: 08-08-2016 End: 08-08-2016 Lipid panel results documented & reviewed Madeline Jiménez LPN Comment on above: Abnormal. Trig-185, chol-179, HDL-37, LD L-105 Start: 08-08-2016 End: 08-08-2016 Prostate specific antigen measurement Madeline Jiménez LPN Comment on above: Normal. Results:. 0.8 Start: 03-21-2016 End: 03-21-2016 Chest x-ray Manuel aSpp MD Work Phone: Start: 03-21-2016 End: 03-21-2016 Destruction premalignant lesion 1st Manuel Sapp MD Work Phone: Start: 2015 End: 10-23-2015 Polysom 6/>yrs sleep 4/> addl judi attnd Carlyn Maddox MD Work Phone: Start: 08-15-2015 End: 01-09-2016 Pure tone audiometry air only Carlyn whitten MD Work Phone: Start: 07-10-2015 End: 07-15-2015 Myocardial spect multiple studies Carlyn Maddox MD Work Phone: Comment on above: patient has had recent episodes of atypi darrel chest pain; he also notes some lightheadedhess and did have one report of left arm pain; was seen in ER last week for same sx and had a negative evaluation Start: 07-09-2015 End: 07-09-2015 Echocardiography Maryam Stratton MD Work Phone: Comment on above: Normal. Start: 07-09-2015 End: 07-09-2015 exercise cardiolite stress test Maryam Stratton MD Work Phone: Comment on above: Normal. Start: 07-06-2015 End: 08-04-2015 Ecg routine ecg w/least 12 lds i&r only Carlyn Maddox MD Work Phone: Start: 02-02-2014 End: 02-04-2014 Ecg routine ecg w/least 12 lds i&r only Ezekiel Patel MD Work Phone: Start: 07-13-2013 End: 07-13-2013 Esophagogastroduodenoscopy Maryam Stratton MD Work Phone: Comment on above: esophagitis, hiatal hernia, gastric poly p (benign) Start: 07-13-2013 End: 07-13-2013 Screening for malignant neoplasm of large intestine Madeline Jiménez LPN Comment on above: Normal. negative colonoscopy Start: 06-01-2013 End: 06-01-2013 Dexamethasone sodium phos Carlyn Reece Work Phone: Start: 09-08-2010 End: 09-08-2010 Hernia repair Geno Bha RN Comment on above: ventral; hand inguinal hernia repair age 17 Plan of Treatment Date Care Activity Detail Author Start: 04-05-2032 Urine microalbumin profile DTaP,Tdap,Td Vaccine (4 - Td or Tdap) [facility] Start: 07-01-2025 Ultrasonography of abdomen Abdomen Limited [facility] Start: 07-01-2025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 Jey Birch MD ASSESSMENT Leg fasciculations calves and distal forelegs x 1 year more frequent now. Examination is benign without atrophy, weakness, or UMN change. He is physically very fit and does extensive Crossfit exercises. He has not seen any decline. Suspect benign fasciculations. Cannot exclude chronic lumbosacral radiculopathies. Reassured Interestingly, his brother has similar. Cesar syndrome, L side. Denies diplopia. PLAN EMG R side Results by Mychart or phone FU 1 year Discussed no practical medication to suppress fasciculations Jey Birch MD Encounter Diagnosis ICD-10-CM 1. 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 = Data Review Objective Current Outpatient Medications Medication Sig meloxicam (MOBIC) 15 mg tablet PEPCID AC 10 MG TAB Take one(1) tablet every other day. No current facility-administered medications for this visit. There is no problem list on file for this patient. No past medical history on file. No past surgical history on file. Social History Tobacco Use Smoking status: Never Smokeless tobacco: Former Types: Chew No family history on file. Review of Systems Lab and Test Review: General Medical Labs: Last 3 sets of CBC, CMP, Lipids, HBA1C, TSH No flowsheet data found.No flowsheet data found.No flowsheet data found.No flowsheet data found.No flowsheet data found. Common Neurology Labs: Last 3 sets of ESR, CRP, CK, Vitamin B12, MMA, Folate, Vitamin D, Copper No flowsheet data found.No flowsheet data found.No flowsheet data found.No flowsheet data found.No flowsheet data found.No flowsheet data found.No flowsheet data found.No flowsheet data found. Rheumatologic Labs: Last 3 sets of NORAH, SHABANA(including SSA and SSB), dsDNA, RF, CCP, ANCA, Cryoglobulin, C3, C4, Uric Acid No flowsheet data found.No flowsheet data found.No flowsheet data found.No flowsheet data found.No flowsheet data found.No flowsheet data found.No flowsheet data found.No flowsheet data found.No flowsheet data found.No flowsheet data found. Neuropathy Labs: Last 3 sets of Thiamine, Vitamin B6, Vitamin E, SPEP, DESTINY, Monoclonal Protein Analysis, [place]/Lambda, MAG/SGPG Ab, GM1, VEGF, Heavy Metals, Celiac Panel, SANDRITA, PTH No flowsheet data found.No flowsheet data found.No flowsheet data found.No flowsheet data found.No flowsheet data found.No flowsheet data found.No flowsheet data found.No flowsheet data found.No flowsheet data found.No flowsheet data found.No flowsheet data found.No flowsheet data found.No flowsheet data found.No flowsheet data found. Toxicology: Last 3 sets of Alcohol and Toxicology Screens No flowsheet data found.No flowsheet data found. Infection-Related Labs: Last 3 sets of Syphilis, HIV, Lyme Ab, Lyme Western Blot, Hepatitis Screen, TB Screen, HSV Ab, VZV Ab, JCV No flowsheet data found.No flowsheet data found.No flowsheet data found.No flowsheet data found.No flowsheet data found.No flowsheet data found.No flowsheet data found.No flowsheet data found. MRI Head/Brain - Last 2 Impressions No resulted procedures found. Recent EMG's No resulted procedures found. Recent Imaging and Surgeries No events since 08/06/23. Outside Data/Labs: Outside laboratory tests from 07/08/2023 reviewed -CBC normal -CMP creatinine 0.99 Ca 10.0 Mg 2.1 glucose 78 potassium 4.7 sodium 141 LFT normal -CK 235, slight elevated -Ferritin 216, folate 23.1, B12 547 CT foot 04/30/2023 CONCLUSION: 1. Findings consistent with tendinitis of the peroneus brevis and peroneus longus tendons. Possibility of calcific tendinitis of the peroneus longus is raised. Subjective Patient-Entered Data: NM Treatment and Fall Risk No flowsheet data found. PROMIS-10 No flowsheet data found. PHQ-9 No flowsheet data found.(0-4) minimal depression (5-9) mild depression (10-14) moderate depression (15-19) moderately severe depression (20-27) severe depression Sleep No flowsheet data found. No flowsheet data found. I spent a total of 45 minutes on the date of the service which included preparing to see the patient, [id number] patient care, completing clinical documentation, obtaining and/or reviewing separately obtained history, performing a medically appropriate examination, counseling and educating the patient/family/caregiver, ordering medications, tests, or procedures, communicating with other HCPs (not separately reported), independently interpreting results (not separately reported), communicating results to the patient/family/caregiver, and care coordination (not separately reported). Jey Birch MD documented in this encounter [facility] Evaluation note Diagnosis Benign fasciculations- Primary Abnormal involuntary movements Cesar syndrome of left eye [facility] Diagnosis Onset Date Resolution Status Admit Date Abdominal pain acute June 232024 11:24am Heartburn acute June 23, 2025 11:24am Loose stools acute June 11:24am Nausea acute June 23, 2025 11:24am [facility] Work Phone: Progress note Author Shruthi Ureña [facility] Note Date/Time June 23, 2025 1 2:14pm [facility] [address] [place] [address] OFFICE VISIT Date of Service: 06/23/25 MR#: [id number] Acct: [id number] Name: PEGGY CHAND Rep #: [id number] : 1970 Provider: MIA Cagle Age/Sex: 54/M Location: [facility] [email or web address] Status: Signed Intake Intake Visit Reasons: Abd Pain Chief Complaint: Right upper quadrant pain Allergies No Known Allergies Allergy (Verified 06/23/25 11:38) Medications ?Medication ?Instructions ?Recorded ?Confirmed ?Type dicyclomine 10 mg capsule 10 mg PO BID #30 caps 06/23/25 Rx pantoprazole 40 mg tablet,delayed 40 mg PO QDAY #30 ta bs 06/23/25 06/23/25 Rx release PFSH Family History Father Cancer Hypertension Respiratory disease Brother Diabetes Mother Diabetes Hypertension Social History Smoking Status: Never smoker alcohol intake: never substance use type: does not use what type of physical activity do you participate in: other details: crossfit frequency: 5-6 times per week HPI HPI Chief Complaint: Right upper quadrant pain Details: PEGGY CHAND, is a 54 M who presents to the office today for establishment. Patient with right upper quadrant pain worsening over the past 3 months. Patient is status postcholecystectomy about 3 to 4 years ago due to gallstone pancreatitis. Patient's pain is constant and dull. He is having nausea and heartburn. Oral intake does not seem to exacerbate his symptoms. Workup thus far has included blood work and CT abdomen pelvis. He did have a mildly elevated lipase in the 120s. Patient's pain feels similar to when he had gallstone pancreatitis. He denies alcohol consumption. He did start an obok-kla-uhtheue PPI but has not noticed much benefit. He had an EGD in the past and was diagnosed with H. pylori which was treated with antibiotics. Patient also admits to loose stools over the past 3 months. It is shortly aftereating. Last colonoscopy was a few years ago with no abnormalities. He denies family history of colon cancer. ROS Const Constitutional: Positive for weight change (weight gain); No fatigue or fever(s) ENT ENT: No difficulty swallowing Gastro GI: Positive for abdominal pain, bloating, change in bowel habits, diarrhea, heartburn, excessive flatus and nausea/dyspepsia; No belching, change in stool character, coffee ground emesis, constipation, cramping, difficulty swallowing, feeling full early, incontinent of stools, Vomiting blood/hematemesis, Blood in stool, loose stools, Black,tarry stools, pain with swallowing, vomiting or other Musc Musculoskeletal: No joint pain Skin Skin: No yellowing of the eye or itchy eyes Psych Psychiatric: No anxiety and No depression Endo Endocrine: Positive for weight change (weight gain); No fatigue Aller/Imm Allergy/Immunologic: No itchy eyes [place]/Lymp Hematologic/Lymphatic: No easy bleeding or easy bruising Exam Const General: cooperative, healthy appearing and comfortable Orientation: alert HENMO Head: normal to inspection Ears: hearing grossly normal bilaterally Eyes General: appearance normal, both eyes and all related structures Neck Neck: normal visual inspection Chest Chest palpation & inspection: normal inspection of the chest Resp Effort & Inspection: normal respiratory effort Cardio Rate: regular rate Rhythm: regular rhythm GI Inspection: normal to inspection Auscultation: normal bowel sounds Palpation: soft and nontender Assessment and Plan Assessment and Plan (1) Abdominal pain: Status: Acute Plan: Peggy is a 54-year-old male patient here today for evaluation due to 3 months of right upper quadrant pain, nausea, heartburn and loose bowel movements. Patient's pain is a right sided constant and dull. It is not worse with oral intake. He did start an nxxj-beu-ooghpks PPI but has not noticed any relief. He is status post cholecystectomy 3 to 4 years ago due to gallstone pancreatitis. Workup thus far has consisted of blood work and CT abdomen pelvis. Lipase was mildly elevated in the 120s but no other abnormalities. Will repeat lipase, CMP and CBC. I have also ordered a right upper quadrant ultrasound to evaluate his biliary system. We may consider MRCP pending results. EGD ordered for evaluation of his upper GI tract to rule out gastritisor duodenitis. I have prescribed pantoprazole 40 mg daily. He will also trial dicyclomine for his abdominal pain. Last colonoscopy was a few years ago without abnormalities. Will order stool testing to rule out infection or inflammation in his colon. - EGD - Start pantoprazole 40 mg daily - Dicyclomine 10 mg as needed - Stool testing for infection or inflammation - Right upper quadrant ultrasound - Consider MRCP - Follow-up after testing (2) Loose stools: Status: Acute (3) Heartburn: Status: Acute (4) Nausea: Status: Acute Orders: Orders Abdomen Limited Today R10.9 - Unspecified abdominal pain ENTERIC PATHOGEN PANEL STOOL Today K58.9 - Irritable bowel syndrome, unspecified, R10.9 - Unspecified abdominal pain, R19.5 - Other fecal abnormalities Ova and Parasites 8623 Today K58.9 - Irritable bowel syndrome, unspecified, R10.9 - Unspecified abdominal pain, R19.5 - Other fecal abnormalities Giardia Lamblia, Stool EIA Today R10.9 - Unspecified abdominal pain, R19.5 - Other fecal abnormalities Calprotectin, Stool Today R10.9 - Unspecified abdominal pain, R19.5 - Other fecal abnormalities CDIFF (PCR) Today R10.9 - Unspecified abdominal pain, R19.5 - Other fecal abnormalities Lipase Today R10.9 - Unspecified abdominal pain, R19.5 - Other fecal abnormalities Comprehensive Metabolic Profil Today R10.9 - Unspecified abdominal pain, R19.5 - Other fecal abnormalities CBC W/Diff, Automated Today R10.9 - Unspecified abdominal pain, R19.5 - Other fecal abnormalities Medications: New pantoprazole 40 mg PO QDAY 30 tabs 3RF dicyclomine 10 mg PO BID 30 caps 1RF Coding Level of Care Code Off vis,new,level 4 Diagnoses Abdominal pain R10.9 Loose stools R19.5 Heartburn R12 Nausea R11.0 Clinical Quality Measures Smoking Screening Smoking Status: Unknown if ever smoked 06/23/25 1234 <Electronically signed by Shruthi BELLAMY> Date _ Shruthi BELLAMY Cosigner Signature: Date (if applicable) CC: ~ [facility] [employer] Work Phone: Reason for referral (narrative)* Outpatient Procedure (Routine) - Authorized Specialty Diagnoses / Procedures Referred By Jorge A angel Referred To [facility] Diagnoses Benign fasciculations Procedures EMG(NEURO/NI) NERVE CONDUCTION STUDIES 9-10 STUDIES Jey Birch MD [id number] [place] [address] Neu[place] [address] Referral ID Status Reason Start Date Expiration Date Visits Requested Visits Authorized [id number] Authorized Auto-Generat ed Referral 3 08/06/2024 1 1 [facility] for referral (narrative)No reason for referral information [facility] Work Phone: Summary Purpose Family History No Family History Records Found Young's Esophagus Status:Active Comments:Fat her. Colon Polyps Status:Active Comments:Father. age 69 had tubular adenoma and family members were encouraged to be screened; just one polyp Coronary Artery Disease Status:Active Comments :Paternal Grandfather. Maternal Grandfather. Diabetes Mellitus Type II Status:Active Commen ts:Brother. Heart Valve Replacement Status:Active Comments :Mother. Hypertension Status:Active Comments:Mother. Father. Obesity Status:Active Comments:Father. Mother. Prostate Cancer Status:Active Comments:Materna l Uncle. metastatic, dx 55 yo Young's Esophagus Status:Active Comments:Fat her. Colon Polyps Status:Active Comments:Father. age 69 had tubular adenoma and family members were encouraged to be screened; just one polyp Coronary Artery Disease Status:Active Comments :Paternal Grandfather. Maternal Grandfather. Diabetes Mellitus Type II Status:Active Commen ts:Brother. Heart Valve Replacement Status:Active Comments :Mother. Hypertension Status:Active Comments:Mother. Father. Obesity Status:Active Comments:Father. Mother. Prostate Cancer Status:Active Comments:Materna l Uncle. metastatic, dx 55 yo Young's Esophagus Status:Active Comments:Fat her. Colon Polyps Status:Active Comments:Father. age 69 had tubular adenoma and family members were encouraged to be screened; just one polyp Coronary Artery Disease Status:Active Comments :Paternal Grandfather. Maternal Grandfather. Diabetes Mellitus Type II Status:Active Commen ts:Brother. Heart Valve Replacement Status:Active Comments :Mother. Hypertension Status:Active Comments:Mother. Father. Obesity Status:Active Comments:Father. Mother. Prostate Cancer Status:Active Comments:Materna l Uncle. metastatic, dx 55 yo Young's Esophagus Status:Active Comments:Fat her. Colon Polyps Status:Active Comments:Father. age 69 had tubular adenoma and family members were encouraged to be screened; just one polyp Coronary Artery Disease Status:Active Comments :Paternal Grandfather. Maternal Grandfather. Diabetes Mellitus Type II Status:Active Commen ts:Brother. Heart Valve Replacement Status:Active Comments :Mother. Hypertension Status:Active Comments:Mother. Father. Obesity Status:Active Comments:Father. Mother. Prostate Cancer Status:Active Comments:Materna l Uncle. metastatic, dx 55 yo Young's Esophagus Status:Active Comments:Fat her. Colon Polyps Status:Active Comments:Father. age 69 had tubular adenoma and family members were encouraged to be screened; just one polyp Coronary Artery Disease Status:Active Comments :Paternal Grandfather. Maternal Grandfather. Diabetes Mellitus Type II Status:Active Commen ts:Brother. Heart Valve Replacement Status:Active Comments :Mother. Hypertension Status:Active Comments:Mother. Father. Obesity Status:Active Comments:Father. Mother. Prostate Cancer Status:Active Comments:Materna l Uncle. metastatic, dx 55 yo Young's Esophagus Status:Active Comments:Fat her. Colon Polyps Status:Active Comments:Father. age 69 had tubular adenoma and family members were encouraged to be screened; just one polyp Coronary Artery Disease Status:Active Comments :Paternal Grandfather. Maternal Grandfather. Diabetes Mellitus Type II Status:Active Commen ts:Brother. Heart Valve Replacement Status:Active Comments :Mother. Hypertension Status:Active Comments:Mother. Father. Obesity Status:Active Comments:Father. Mother. Prostate Cancer Status:Active Comments:Materna l Uncle. metastatic, dx 55 yo Young's Esophagus Status:Active Comments:Fat her. Colon Polyps Status:Active Comments:Father. age 69 had tubular adenoma and family members were encouraged to be screened; just one polyp Coronary Artery Disease Status:Active Comments :Paternal Grandfather. Maternal Grandfather. Diabetes Mellitus Type II Status:Active Commen ts:Brother. Heart Valve Replacement Status:Active Comments :Mother. Hypertension Status:Active Comments:Mother. Father. Obesity Status:Active Comments:Father. Mother. Prostate Cancer Status:Active Comments:Materna l Uncle. metastatic, dx 55 yo Young's Esophagus Status:Active Comments:Fat her. Colon Polyps Status:Active Comments:Father. age 69 had tubular adenoma and family members were encouraged to be screened; just one polyp Coronary Artery Disease Status:Active Comments :Paternal Grandfather. Maternal Grandfather. Diabetes Mellitus Type II Status:Active Commen ts:Brother. Heart Valve Replacement Status:Active Comments :Mother. Hypertension Status:Active Comments:Mother. Father. Obesity Status:Active Comments:Father. Mother. Prostate Cancer Status:Active Comments:Materna l Uncle. metastatic, dx 55 yo Young's Esophagus Status:Active Comments:Fat her. Colon Polyps Status:Active Comments:Father. age 69 had tubular adenoma and family members were encouraged to be screened; just one polyp Coronary Artery Disease Status:Active Comments :Paternal Grandfather. Maternal Grandfather. Diabetes Mellitus Type II Status:Active Commen ts:Brother. Heart Valve Replacement Status:Active Comments :Mother. Hypertension Status:Active Comments:Mother. Father. Obesity Status:Active Comments:Father. Mother. Prostate Cancer Status:Active Comments:Materna l Uncle. metastatic, dx 55 yo Young's Esophagus Status:Active Comments:Fat her. Colon Polyps Status:Active Comments:Father. age 69 had tubular adenoma and family members were encouraged to be screened; just one polyp Coronary Artery Disease Status:Active Comments :Paternal Grandfather. Maternal Grandfather. Diabetes Mellitus Type II Status:Active Commen ts:Brother. Heart Valve Replacement Status:Active Comments :Mother. Hypertension Status:Active Comments:Mother. Father. Obesity Status:Active Comments:Father. Mother. Prostate Cancer Status:Active Comments:Materna l Uncle. metastatic, dx 55 yo Young's Esophagus Status:Active Comments:Fat her. Colon Polyps Status:Active Comments:Father. age 69 had tubular adenoma and family members were encouraged to be screened; just one polyp Coronary Artery Disease Status:Active Comments :Paternal Grandfather. Maternal Grandfather. Diabetes Mellitus Type II Status:Active Commen ts:Brother. Heart Valve Replacement Status:Active Comments :Mother. Hypertension Status:Active Comments:Mother. Father. Obesity Status:Active Comments:Father. Mother. Prostate Cancer Status:Active Comments:Materna l Uncle. metastatic, dx 55 yo Young's Esophagus Status:Active Comments:Fat her. Colon Polyps Status:Active Comments:Father. age 69 had tubular adenoma and family members were encouraged to be screened; just one polyp Coronary Artery Disease Status:Active Comments :Paternal Grandfather. Maternal Grandfather. Diabetes Mellitus Type II Status:Active Commen ts:Brother. Heart Valve Replacement Status:Active Comments :Mother. Hypertension Status:Active Comments:Mother. Father. Obesity Status:Active Comments:Father. Mother. Prostate Cancer Status:Active Comments:Materna l Uncle. metastatic, dx 55 yo Young's Esophagus Status:Active Comments:Fat her. Colon Polyps Status:Active Comments:Father. age 69 had tubular adenoma and family members were encouraged to be screened; just one polyp Coronary Artery Disease Status:Active Comments :Paternal Grandfather. Maternal Grandfather. Diabetes Mellitus Type II Status:Active Commen ts:Brother. Heart Valve Replacement Status:Active Comments :Mother. Hypertension Status:Active Comments:Mother. Father. Obesity Status:Active Comments:Father. Mother. Prostate Cancer Status:Active Comments:Materna l Uncle. metastatic, dx 55 yo Young's Esophagus Status:Active Comments:Fat her. Colon Polyps Status:Active Comments:Father. age 69 had tubular adenoma and family members were encouraged to be screened; just one polyp Coronary Artery Disease Status:Active Comments :Paternal Grandfather. Maternal Grandfather. Diabetes Mellitus Type II Status:Active Commen ts:Brother. Heart Valve Replacement Status:Active Comments :Mother. Hypertension Status:Active Comments:Mother. Father. Obesity Status:Active Comments:Father. Mother. Prostate Cancer Status:Active Comments:Materna l Uncle. metastatic, dx 55 yo Young's Esophagus Status:Active Comments:Fat her. Colon Polyps Status:Active Comments:Father. age 69 had tubular adenoma and family members were encouraged to be screened; just one polyp Coronary Artery Disease Status:Active Comments :Paternal Grandfather. Maternal Grandfather. Diabetes Mellitus Type II Status:Active Commen ts:Brother. Heart Valve Replacement Status:Active Comments :Mother. Hypertension Status:Active Comments:Mother. Father. Obesity Status:Active Comments:Father. Mother. Prostate Cancer Status:Active Comments:Materna l Uncle. metastatic, dx 55 yo Young's Esophagus Status:Active Comments:Fat her. Colon Polyps Status:Active Comments:Father. age 69 had tubular adenoma and family members were encouraged to be screened; just one polyp Coronary Artery Disease Status:Active Comments :Paternal Grandfather. Maternal Grandfather. Diabetes Mellitus Type II Status:Active Commen ts:Brother. Heart Valve Replacement Status:Active Comments :Mother. Hypertension Status:Active Comments:Mother. Father. Obesity Status:Active Comments:Father. Mother. Prostate Cancer Status:Active Comments:Materna l Uncle. metastatic, dx 55 yo Young's Esophagus Status:Active Comments:Fat her. Colon Polyps Status:Active Comments:Father. age 69 had tubular adenoma and family members were encouraged to be screened; just one polyp Coronary Artery Disease Status:Active Comments :Paternal Grandfather. Maternal Grandfather. Diabetes Mellitus Type II Status:Active Commen ts:Brother. Heart Valve Replacement Status:Active Comments :Mother. Hypertension Status:Active Comments:Mother. Father. Obesity Status:Active Comments:Father. Mother. Prostate Cancer Status:Active Comments:Materna l Uncle. metastatic, dx 55 yo Young's Esophagus Status:Active Comments:Fat her. Colon Polyps Status:Active Comments:Father. age 69 had tubular adenoma and family members were encouraged to be screened; just one polyp Coronary Artery Disease Status:Active Comments :Paternal Grandfather. Maternal Grandfather. Diabetes Mellitus Type II Status:Active Commen ts:Brother. Heart Valve Replacement Status:Active Comments :Mother. Hypertension Status:Active Comments:Mother. Father. Obesity Status:Active Comments:Father. Mother. Prostate Cancer Status:Active Comments:Materna l Uncle. metastatic, dx 55 yo Young's Esophagus Status:Active Comments:Fat her. Colon Polyps Status:Active Comments:Father. age 69 had tubular adenoma and family members were encouraged to be screened; just one polyp Coronary Artery Disease Status:Active Comments :Paternal Grandfather. Maternal Grandfather. Diabetes Mellitus Type II Status:Active Commen ts:Brother. Heart Valve Replacement Status:Active Comments :Mother. Hypertension Status:Active Comments:Mother. Father. Obesity Status:Active Comments:Father. Mother. Prostate Cancer Status:Active Comments:Materna marquez Uncle. metastatic, dx 55 yo Young's Esophagus Status:Active Comments:Fat her. Colon Polyps Status:Active Comments:Father. age 69 had tubular adenoma and family members were encouraged to be screened; just one polyp Coronary Artery Disease Status:Active Comments :Paternal Grandfather. Maternal Grandfather. Diabetes Mellitus Type II Status:Active Commen ts:Brother. Heart Valve Replacement Status:Active Comments :Mother. Hypertension Status:Active Comments:Mother. Father. Obesity Status:Active Comments:Father. Mother. Prostate Cancer Status:Active Comments:Materna l Uncle. metastatic, dx 55 yo Young's Esophagus Status:Active Comments:Fat her. Colon Polyps Status:Active Comments:Father. age 69 had tubular adenoma and family members were encouraged to be screened; just one polyp Coronary Artery Disease Status:Active Comments :Paternal Grandfather. Maternal Grandfather. Diabetes Mellitus Type II Status:Active Commen ts:Brother. Heart Valve Replacement Status:Active Comments :Mother. Hypertension Status:Active Comments:Mother. Father. Obesity Status:Active Comments:Father. Mother. Prostate Cancer Status:Active Comments:Materna l Uncle. metastatic, dx 55 yo Young's Esophagus Status:Active Comments:Fat her. Colon Polyps Status:Active Comments:Father. age 69 had tubular adenoma and family members were encouraged to be screened; just one polyp Coronary Artery Disease Status:Active Comments :Paternal Grandfather. Maternal Grandfather. Diabetes Mellitus Type II Status:Active Commen ts:Brother. Heart Valve Replacement Status:Active Comments :Mother. Hypertension Status:Active Comments:Mother. Father. Obesity Status:Active Comments:Father. Mother. Prostate Cancer Status:Active Comments:Materna l Uncle. metastatic, dx 55 yo Relationship Condition Age at Onset Recorded Date/T abraham father Malignant neoplasm Unknown Hypertension Unknown Disorder of respiratory system Unknown brother Diabetes mellitus Unknown mother Diabetes mellitus Unknown Advance Directives No Advanced Directives Records FoundNo Advanced Directives Records FoundNo Advanced Directives Records FoundNo Advanced Directives Records FoundNo Advanced Directives Records FoundNo Advanced Directives Records FoundNo Advanced Directives Records Found Chief Complaint and Reason for Visit Chief Complaint Admit Date Abd Pain June 23, 2025 1 1:24am INT LAB ORDERS June 23, 2025 1 2:25pm RUQ PAIN July 01, 2025 1 0:19am Reason for Visit Admit Date Abdominal pain June 23, 2025 1 1:24am Heartburn June 23, 2025 1 1:24am Loose stools June 23, 2025 1 1:24am Nausea June 23, 2025 1 1:24am Additional Source Comments (unrecognized sect ion and content) No Status Records FoundNo Status Records FoundNo Status Records FoundNo Status Records FoundNo Status Records FoundNo Status Records FoundNo Status Records Found INFORMATION SOURCE (unrecogn ized section and content) DATE CREATED AUTHOR 07/29/2020 [facility] DATE CREATED AUTHOR AUTHOR'S ORGANIZ ATION 11/28/2021 [facility] ([place]) DATE CREATED AUTHOR AUTHOR'S ORGANIZ ATION 09/09/2023 [facility] DATE CREATED AUTHOR AUTHOR'S ORGANIZ ATION 06/26/2024 [facility] DATE CREATED AUTHOR AUTHOR'S ORGANIZ ATION 05/24/2025 [facility] DATE CREATED AUTHOR AUTHOR'S ORGANIZ ATION 06/20/2025 [facility] DATE CREATED AUTHOR AUTHOR'S ORGANIZ ATION 07/14/2025 [facility] Source Comments (unrecognize d section and content) In the event this informatio n is protected by the Federal Confidentiality of Alcohol and Drug Abuse Patient Records regulations: The Federal rules restrict any use of the information to criminally investigate or prosecute any alcohol or drug abuse patient.[facility] the event this information is protected by the Federal Confidentiality of Alcohol and Drug Abuse Patient Records regulations: The Federal rules restrict any use of the information to criminally investigate or prosecute any alcohol or drug abuse patient.[facility] Reason for Visit (unrecogniz ed section and content) Reason Comments Patient Update Reason Comments Muscle Twitching Care Teams (unrecognized sec tion and content) Sales Correspondent Relationship Specialty Start Date End Date Gino Borja MD [phone] [address] PCP - General 07/26/04 Sales Correspondent Relationship Specialty Start Date End Date Gino Borja MD [address] [address] PCP - General 07/26/04 Team Status: Active Member Role/Relationship Status Dates MIA Henriquez Primary care physician Active Team Status: Inactive Member Role/Relationship Status Dates MIA Cagle Attending physician Active Start: June 23, 2025 End: June 23, 2025 Team Status: Active Member Role/Relationship Status Dates MIA Henriquez Primary care physician Active Start: June 23, 2025 MIA Cagle Attending physician Active Start: June 23, 2025 MIA Cagle Referring Provider Active Start: June 23, 2025 Team Status: Active Member Role/Relationship Status Dates MIA Henriquez Primary care physician Active Start: July 01, 2025 MIA Cagle Attending physician Active Start: July 01, 2025 MIA Cagle Referring Provider Active Start: July 01, 2025 Goals (unrecognized section and content) Goals may be documented in a n alternate section FOR RECORDS PERTAINING TO PATIENTS WHO ARE OR HAVE BEEN ENROLLED IN A CHEMICAL DEPENDENCY/SUBSTANCEABUSE PROGRAM, SOME INFORMATION MAY BE OMITTED. This clinical summary was aggregated from multiple sources. Caution should be exercised in using it in the provision of clinical care. This summary normalizes information from multiple sources, and as a consequence, information in this document may materially change the coding, format and clinical context of patient data. In addition, data may be omitted in some cases. CLINICAL DECISIONS SHOULD BE BASED ON THE PRIMARY CLINICAL RECORDS. [employer] provides no warranty or guarantee of the accuracy or completeness of information in this document.
--- NOTE | 2025-07-15 06:39 | HP.PCM_ITS ---
[facility] - General General Date of Admission: 07/15/25 Date of Service: 07/15/25 Chief Complaint: Right upper quadrant pain and nausea [facility] Narrative PEGGY CHAND, is a 54 M who presents [Chief Complaint: Right upper quadrant pain Patient with right upper quadrant pain worsening over the past 3 months. Patient is status postcholecystectomy about 3 to 4 years ago due to gallstone pancreatitis. Patient's pain is constant and dull. He is having nausea and heartburn. Oral intake does not seem to exacerbate his symptoms. Workup thus far has included blood work and CT abdomen pelvis. He did have a mildly elevated lipase in the 120s. Patient's pain feels similar to when he had gallstone pancreatitis. He denies alcohol consumption. He did start an [id number] PPI but has not noticed much benefit. He had an EGD in the past and was diagnosed with H. pylori which was treated with antibiotics. Patient also admits to loose stools over the past 3 months. It is shortly after eating. Last colonoscopy was a few years ago with no abnormalities. He denies family history of colon cancer. [facility] Medical History Fatty liver Non-smoker Home Medications Medication Instructions Recorded Last Taken Type NK 07/13/25 Unknown History Allergy/AdvReac Type Severity Reaction Status Date / Time No Known Allergies Allergy Verified 07/15/25 06:57 Family History Father Cancer Hypertension Respiratory disease Brother Diabetes Mother Diabetes Hypertension Surgical History History of colonoscopy History of esophagogastroduodenoscopy (EGD) History of tonsillectomy History of hernia repair History of cholecystectomy Social History Smoking Status: Never smoker alcohol intake: never substance use type: does not use what type of physical activity do you participate in: other details: crossfit frequency: 5-6 times per week ROS Constitutional Constitutional: Denies fatigue, fever(s), poor appetite, weight gain or weight loss Gastrointestinal Gastrointestinal: Denies belching, bloating, change in bowel habits, change in stool character, chewing difficulty, coffee ground emesis, constipation, cramping, diarrhea, dyspepsia, dysphagia, early satiety, excessive flatus, fecal incontinence, heartburn, hematemesis, hematochezia, hemorrhoids, loose stools, melena, nausea, odynophagia, rectal bleeding, tenesmus, vomiting or weight changes Physical Exam Const alert, oriented x3, no apparent distress and healthy appearing General Appearance: cooperative GI normal to inspection, nondistended, normoactive bowel sounds, soft to palpation, non-tender and non-distended Percussion: normal to percussion Rectal Exam: deferred Assessment & Plan Assessment/Plan (1) Nausea: (2) Heartburn: (3) Loose stools: (4) Abdominal pain: PLAN: Assessment and Plan Assessment and Plan (1) Abdominal pain: Status: Acute Plan: Peggy is a 54-year-old male patient here today for evaluation due to 3 months of right upper quadrant pain, nausea, heartburn and loose bowel movements. Patient's pain is a right sided constant and dull. It is not worse with oral intake. He did start an [id number] PPI but has not noticed any relief. He is status post cholecystectomy 3 to 4 years ago due to gallstone pancreatitis. Workup thus far has consisted of blood work and CT abdomen pelvis. Lipase was mildly elevated in the 120s but no other abnormalities. Will repeat lipase, CMP and CBC. I have also ordered a right upper quadrant ultrasound to evaluate his biliary system. We may consider MRCP pending results. EGD ordered for evaluation of his upper GI tract to rule out gastritis or duodenitis. I have prescribed pantoprazole 40 mg daily. He will also trial dicyclomine for his abdominal pain. Last colonoscopy was a few years ago without abnormalities. Will order stool testing to rule out infection or inflammation in his colon. - EGD - Start pantoprazole 40 mg daily - Dicyclomine 10 mg as needed - Stool testing for infection or inflammation - Right upper quadrant ultrasound - Consider MRCP - Follow-up after testing (2) Loose stools: Status: Acute (3) Heartburn: Status: Acute (4) Nausea: Status: Acute Orders: Orders Abdomen Limited Today R10.9 - Unspecified abdominal pain ENTERIC PATHOGEN PANEL STOOL Today K58.9 - Irritable bowel syndrome, unspecified, R10.9 - Unspecified abdominal pain, R19.5 - Other fecal abnormalities Ova and Parasites [id number] Today K58.9 - Irritable bowel syndrome, unspecified, R10.9 - Unspecified abdominal pain, R19.5 - Other fecal abnormalities Giardia Lamblia, Stool EIA Today R10.9 - Unspecified abdominal pain, R19.5 - Other fecal abnormalities Calprotectin, Stool Today R10.9 - Unspecified abdominal pain, R19.5 - Other fecal abnormalities CDIFF (PCR) Today R10.9 - Unspecified abdominal pain, R19.5 - Other fecal abnormalities Lipase Today R10.9 - Unspecified abdominal pain, R19.5 - Other fecal abnormalities Comprehensive Metabolic Profil Today R10.9 - Unspecified abdominal pain, R19.5 - Other fecal abnormalities CBC W/Diff, Automated Today R10.9 - Unspecified abdominal pain, R19.5 - Other fecal abnormalities Medications: ]
[2025-07-15] MEDS: Lactated Ringers 1,000 ML 15 ML IV (06:45)
[2025-07-15 06:57] VITALS: BP 147/93; PULSE 59; RESP 17; TEMP 36.4; O2SAT 96; BMI 38.7
--- NOTE | 2025-07-15 07:30 | EGD_PTH ---
PATIENT: PEGGY CHAND LOC: EN U#:[id number] AGE/SX: 54/M ROOM: RE07/15/[address]: Dr. Malik Bryson DO : 1970 BED: DIS: 07/15/2025 SPEC #: [id number] RECD: 07/15/25 08:13 STATUS: MINDY DARCY #: [id number] JEWEL: 07/15/25 07:[address]: Malik Bryson DEPT: SURGICAL PATHOLOGY RECD BY: Jose Christy ENTERED: 07/15/25 09:51 SP TYPE: EGD BIOPSY HARDY DR: MIA Henriquez Tissues: A - Duodenum, NOS B - Gastric mucous membrane Procedures: Immunohistochemical Stains Surgery Specimen Level IV HEADER OPERATION: EGD with biopsy PRE-OP DIAGNOSIS: Nausea, heartburn, loose stools, abdominal pain TISSUE SUBMITTED: A- Duodenum biopsy, B- Gastric body biopsy MICROSCOPIC DIAGNOSIS A. Duodenum, biopsy: - Liz gland hyperplasia. - Negative for increased intraepithelial lymphocytes. B. Gastric body, biopsy: - Oxyntic mucosa with features of reactive gastropathy. - IHC negative for H. pylori organisms. MICROSCOPIC DESCRIPTION Slides are reviewed. All matched controls reacted appropriately. These tests were developed and their performance characteristics determined by [facility]. They may not have been cleared or approved by the U.[place]. Food and Drug Administration. The FDA has determined that such clearance or approval is not necessary. The above immunohistochemical markers are viewed by the Pathologist. GROSS DESCRIPTION A. Received in fixative is one container labeled with the patient's name and designated "Duodenum biopsy." The specimen consists of two irregular fragments of chino tissue, each measuring 0.5 cm. The specimen is totally submitted in one cassette. B. Received in fixative is one container labeled with the patient's name and designated "Gastric body biopsy." The specimen consists of two irregular fragments of chino tissue that measure 0.6 and 0.8 cm. The specimen is totally submitted in one cassette. CA 07/15/2025 CPT:[id number]
--- NOTE | 2025-07-15 07:34 | PCM.PRE.AN2 ---
ASA Classification* ASA Classification ASA Classification: 2 Assessment & Plan Anesthesia* Anesthesia Assessment Anesthesia Assessment: Discussed sedation and/or anesthesia options, risks, benefits, and alternatives with patient/parents/legal guardian/POA. Questions invited. The patient/parents/legal guardian/POA seems to understand and agrees to proceed with anesthesia plan. Reviewed the physical assessment, medical history, allergy history and patient home medications list prior to surgery/procedure/anesthetic and documented any changes. Performed airway and anesthesia risk assessments. Anesthesia Type Anesthesia Type: MAC History Source History Obtained from:: Patient and Chart Anesthesia Focused Assessment* Temperature: 97.6 F Pulse Rate: 59 Blood Pressure: 147/93 Respiratory Rate: 17 Pulse Ox: 96 Oxygen Delivery Method: Room Air Airway Assessment Mouth opens: >3 cm Mallampati Score: IV Teeth Condition: Intact Neck Range of motion (ROM): Limited ROM (Slight Decrease) Labs Anesthesia Preop lab: CBC WBC, (4.4-11.0) 11.9 K/mm3 H 06/23/25, 12:30 RBC, (4.6-6.2) 5.05 M/mm3 06/23/25, 12:30 Hgb, (13.0-16.5) 15.1 g/dL 06/23/25, 12:30 Hct, (40-54) 46.0 % 06/23/25, 12:30 Plt Count, (150-450) 228 K/mm3 06/23/25, 12:30 CHEMISTRY Potassium, (3.3-5.1) 4.6 mmol/L 06/23/25, 12:30 Sodium, (133-145) 138 mmol/L 06/23/25, 12:30 BUN, (4-19) 22 mg/dL H 06/23/25, 12:30 Creatinine, (0.70-1.20) 1.07 mg/dL 06/23/25, 12:30 Glucose, (70-99) 94 mg/dL 06/23/25, 12:30 COAG Pre-Assessment Diagnosis/Proposed Procedure Planned Operative Procedure(s): EGD Anesthesia History Anesthesia History - marketing operations associate: Anesthesia History - marketing operations associate Hx Hospitalization No 07/13/25 08:42 Any Problems With Anesthesia No 07/13/25 08:42 Cholinesterase deficiency No 07/13/25 08:42 You/Your Family Experience No 07/13/25 08:42 fever (hyperthermia) with Relationship Recent Exposure to Contagious No 07/15/25 06:57 Disease Does patient have nerve No 07/13/25 08:42 stimulator Patient instructed to have device shut off --Does patient have Pacemaker No 07/15/25 06:57 or ICD? When Was Last Pacemaker Check QUESTION #4 FULL TEXT: You/Your Family Experience fever (hyperthermia) with Anesthesia Last Oral Intake Last Oral intake: Last Oral Intake NPO since 00:00 07/15/25 06:57 Meds taken in AM with sips of No 07/15/25 06:57 water? Meds patient instructed to take am of surgery PONV PONV - marketing operations associate: PONV - marketing operations associate Female No 07/13/25 08:42 HX of Motion Sickness No 07/13/25 08:42 HX of N/V After Surgery No 07/13/25 08:42 Non-Smoker Yes 07/13/25 08:42 Duration of Surgery greater No 07/13/25 08:42 than 60 minutes Number of Risk Factors 1 07/13/25 08:42 PONV Score Low Risk 07/13/25 08:42 Height & Weight Height & Weight: Anesthesia: Height & Weight Height 5 ft 10 in 07/15/25 06:57 Weight: 122.4 kg 07/15/25 06:57 Body Mass Index (BMI) 38.7 07/15/25 06:57 Respiratory Assessment Respiratory Assessment - marketing operations associate: Respiratory Tract Infection Hx - marketing operations associate Hx Respiratory Tract Infection No 07/13/25 08:42 STOP Sleep Apnea STOP Sleep Apnea - marketing operations associate: STOP Sleep Apnea - marketing operations associate Hx Hypertension No 07/13/25 08:42 Hx Sleep Apnea No 07/13/25 08:42 CPAP BIPAP Do you snore loudly (louder No 07/13/25 08:42 than talking or can be heard Do you often feel tired/ No 07/13/25 08:42 fatigued/ sleepy during daytime? Has anyone observed you stop No 07/13/25 08:42 breathing during sleep? STOP Results Negative 07/13/25 08:42 QUESTION #5 FULL TEXT : Do you snore loudly (louder than talking or can be heard through closed doors)? Tobacco Use History Tobacco Use History - marketing operations associate: Tobacco Use History - marketing operations associate Tobacco Use Smoking Status Never smoker 07/13/25 08:42 Hx Tobacco Use No 07/13/25 08:42 Years Smoking Packs Smoked per Day Smoking Cessation Date was within the last 15 years Hx Smoking Cessation Date Hx Smoking Cessation Counseling Hematologic Medial History Hematologic Hx - marketing operations associate: Hematologic Medical Hx - [employer] so[employer] architect Hx of Blood Transfusion No 07/13/25 08:42 Hx of Transfusion in last 3 No 07/13/25 08:42 Months Date of Last Transfusion (if within last 3 months) Ever experience any problems No 07/13/25 08:42 with transfusion(s)? Specify any problems Hx of Preganancy in last 3 N/A 07/13/25 08:42 Months Nurse Filling Out Transfusion NBUCHER 07/13/25 08:42 & Questions: Date: 07/13/25 07/13/25 08:42 Time: 08:43 07/13/25 08:42 Patient unable to answer at this time (ie. confused, unrespo /Reproduction History /Reproductive History - marketing operations associate: /Reproductive Hx- marketing operations associate Hx Now No 07/13/25 08:42 Gestational Age (in weeks): EDC: Hx Hx Para Hx Section SAB No 07/13/25 08:42 Does the father of the baby or his family experience fever w Father of the baby Malignant Hypertension history comment Active Medications Active Medications: Current Medications Generic Name Dose Route Start Last Admin Trade Name Freq PRN Reason Stop Dose Admin Lactated Ringer's 1,000 mls @ 15 mls/hr 07/15/25 06:45 07/15/25 06:45 IV 15 mls/hr .Q48H JULI Administration PFSH Medical History Fatty liver Non-smoker Home Medications Medication Instructions Recorded Last Taken Type NK 07/13/25 Unknown History Allergy/AdvReac Type Severity Reaction Status Date / Time No Known Allergies Allergy Verified 07/15/25 06:57 Family History Father Cancer Hypertension Respiratory disease Brother Diabetes Mother Diabetes Hypertension Surgical History History of colonoscopy History of esophagogastroduodenoscopy (EGD) History of tonsillectomy History of hernia repair History of cholecystectomy Social History Smoking Status: Never smoker alcohol intake: never substance use type: does not use what type of physical activity do you participate in: other details: crossfit frequency: 5-6 times per week Review of Systems (Anesthesia) ROS Narrative System reviewed and no additional complaints, except as documented.
[2025-07-15 07:38] VITALS: BP 147/93; PULSE 59; RESP 17; TEMP 36.4; O2SAT 96
--- NOTE | 2025-07-15 07:57 | OP.EGD_ITS ---
Patient Name: Cornelio Hutchison Procedure Date: 07/15/2025 7:35 AM Date of : 1970 Age: 54 Procedure: Upper GI endoscopy Indications: Epigastric abdominal pain, Abdominal pain in the right upper quadrant, Functional Dyspepsia Providers: Malik Bryson DO Referring MD: Lloyd Henriquez Medicines: Monitored Anesthesia Care Patient Profile: This is a 54 year old male. Refer to note in patient chart for documentation of history and physical. Patient has symptoms of acute abdominal cramping, acute right upper quadrant abdominal pain and acute dyspepsia. Complications: No immediate complications. Procedure: Pre-Anesthesia Assessment: - Prior to the procedure, a History and Physical was performed, and patient medications and allergies were reviewed. The patient is competent. The risks and benefits of the procedure and the sedation options and risks were discussed with the patient. All questions were answered and informed consent was obtained. Patient identification and proposed procedure were verified by the physician in the pre-procedure area. Mental Status Examination: alert and oriented. Airway Examination: normal oropharyngeal airway and neck mobility. Respiratory Examination: clear to auscultation. CV Examination: normal. Prophylactic Antibiotics: The patient does not require prophylactic antibiotics. Prior Anticoagulants: The patient has taken no anticoagulant or antiplatelet agents except for NSAID medication. ASA Grade Assessment: II - A patient with mild systemic disease. After reviewing the risks and benefits, the patient was deemed in satisfactory condition to undergo the procedure. The anesthesia plan was to use monitored anesthesia care (MAC). Immediately prior to administration of medications, the patient was re-assessed for adequacy to receive sedatives. The heart rate, respiratory rate, oxygen saturations, blood pressure, adequacy of pulmonary ventilation, and response to care were monitored throughout the procedure. The physical status of the patient was re-assessed after the procedure. After obtaining informed consent, the endoscope was passed under direct vision. Throughout the procedure, the patient's blood pressure, pulse, and oxygen saturations were monitored continuously. The gastroscope was introduced through the mouth, and advanced to the third part of the duodenum. Small bowel enteroscopy was deemed necessary. The upper GI endoscopy was accomplished without difficulty. The patient tolerated the procedure well. Scope In: 7:49:08 AM Scope Out: 7:52:59 AM Total Procedure Duration Time 0 hours 3 minutes 51 seconds Findings: The examined esophagus was normal. Patchy mildly erythematous mucosa without bleeding was found in the gastric body. Biopsies were taken with a cold forceps for histology. Biopsies were taken with a cold forceps for Helicobacter pylori testing. Verification of patient identification for the specimen was done. Estimated blood loss was minimal. Patchy mildly erythematous mucosa without active bleeding and with no stigmata of bleeding was found in the duodenal bulb. Impression: - Normal esophagus. - Erythematous mucosa in the gastric body. Biopsied. - Erythematous duodenopathy. Recommendation: - Discharge patient to home. - Resume previous diet. - Continue present medications. - Await pathology results. Procedure Code(s): --- Professional --- 44169, Small intestinal endoscopy, enteroscopy beyond second portion of duodenum, not including ileum; with biopsy, single or multiple CPT copyright 2021 [employer]. All rights reserved. The codes documented in this report are preliminary and upon warehouse operations manager review may be revised to meet current compliance requirements. Malik Bryson DO 07/15/2025 7:56:55 AM This report has been signed electronically. Number of Addenda: 0 Note Initiated On: 07/15/2025 7:35 AM
--- NOTE | 2025-07-15 07:57 | OP.PROVAT_ITS ---
07/15/2025 Lloyd Henriquez Re : Upper GI endoscopy procedure for Cornelio Hutchison Dear Steven This procedure was performed on Tuesday, July 15, 2025. My impressions and recommendations are as follows: Impressions : - Normal esophagus. - Erythematous mucosa in the gastric body. Biopsied. - Erythematous duodenopathy. Recommendations : - Discharge patient to home. - Resume previous diet. - Continue present medications. - Await pathology results. My findings are described in the full procedure note, which is enclosed. If I can be of further assistance, please feel free to contact me at . Sincerely, Malik Bryson, 07/15/2025 7:56:55 AM This report has been signed electronically.
[2025-07-15 08:00] VITALS: BP 133/101; BP 147/93; PULSE 75; RESP 16; TEMP 36.9; O2SAT 96
--- NOTE | 2025-07-15 08:04 | PCM.POST.ANE ---
Anesthesia: Postop Eval I Current Vital Signs Temperature: 98.4 F Pulse Rate: 77 Blood Pressure: 133/101 Respiratory Rate: 16 Pulse Ox: 97 Oxygen Delivery Method: Room Air Assessment Airway patent: Yes Spontaneous unlabored respirations: Yes Mental status: Awake nausea: No Vomiting: No Anesthesia Complication: No Fluid Hydration Crystalloid volume administer (ml): 400 Total IV fluid infused: 400 Progress Note Anesthesia document: Postop Eval 1 completed: Yes
[2025-07-15 08:05] VITALS: BP 128/84; BP 133/101; BP 147/93; PULSE 70; PULSE 77; RESP 16; TEMP 36.9; O2SAT 91; O2SAT 97
[2025-07-15 08:10] VITALS: BP 132/84; BP 147/93; PULSE 62; RESP 16; TEMP 36.4; O2SAT 93
[2025-07-15 08:15] VITALS: BP 147/93
--- NOTE | 2025-07-15 12:26 | PCM.POSTANE2 ---
Anesthesia Postop Eval I Sum Postop Eval Completion status Anesthesia document: Postop Eval 1 completed: Yes Anesthesia Postop Eval I Summary Anesthesia Postop Eval I Summary: Anesthesia Postop Eval I: Assessment Summary Airway patent Yes 07/15/25 08:05 [email or web address] Spontaneous unlabored Yes 07/15/25 08:05 [email or web address] respirations Mental status Awake 07/15/25 08:05 [email or web address] nausea No 07/15/25 08:05 [email or web address] Vomiting No 07/15/25 08:05 [email or web address] Anesthesia Postop Eval I: Fluid Summary Crystalloid volume administer 400 07/15/25 08:05 [email or web address] (ml) Colloids volume administered ( ml) Blood Product volume administered (ml) Total IV fluid infused 400 07/15/25 08:05 [email or web address] Anesthesia Postop Eval I: Summary Notes Anesthesia Complication No 07/15/25 08:05 [email or web address] Anesthesia Complication Comment: Post-operative progress note Anesthesia: Postop Eval II Evaluation Mental status: Awake Pain Level: 0 nausea: No Vomiting: No Complications Anesthesia Complication: No
== END 2025-07-15 08:34 | disposition home or self-care (01) ==
LOC: EN 06:22 → AC 06:24
PROVIDERS: PCP Physician Assistant; Referring Provider Physician Assistant; Visit Provider Internal Medicine Gastroenterology
DX: R10.11 Right upper quadrant pain (principal); R11.0 Nausea; R19.7 Diarrhea, unspecified; R12 Heartburn; Z90.49 Acquired absence of other specified parts of digestive tract; K31.89 Other diseases of stomach and duodenum
CPT/HCPCS: 44361; 88305; 88342; J2405

== ENCOUNTER → 2025-07-20 | Outpatient (CLI) | payer OTHER, SELFPAY ==
--- NOTE | 2025-07-20 11:08 | MRI_ITS ---
PROCEDURE: MRI ABD WITH AND W/O CONTRAST 07/20/2025 REASON FOR EXAM: SEPTATED LIVER CYST TECHNIQUE: Procedure Code: MRIABDWW Modality: MR Procedure: MRI ABD WITH AND W/O CONTRAST Multiplanar and multisequence images were obtained. CONTRAST: Clariscan VOLUME: 27 mL COMPARISON: Limited abdominal ultrasound, 07/01/2025. FINDINGS: Liver: There is loss of hepatic signal on the out of phase images consistent with fatty liver infiltration. The liver is mildly enlarged, measuring 16.4 cm in vertical dimension in the midclavicular line. There is a 16 x 8 mm subcapsular nodule in the medial segment of the left hepatic lobe, demonstrating signal characteristics consistent with a cyst. There is an 11 x 8 mm subcapsular nodule in the lateral segment of the left hepatic lobe, demonstrating signal characteristics consistent with a cyst. There is no contrast enhancement associated with either nodule. Biliary: The gallbladder is surgically absent. There is no intra or extrahepatic biliary ductal dilatation. Pancreas: Normal. Spleen: Normal. Adrenals: Normal. Kidneys: There is an 11 x 11 mm partially exophytic cortical nodule in the interpolar region of the left kidney. The nodule does not demonstrate contrast enhancement and demonstrates decreased signal on all pulse sequences. The nodule demonstrates an apparent central focus of increased signal on the ADC images. Peritoneum / Retroperitoneum: There are no abnormal intra or retroperitoneal masses or fluid collections. Lymph Nodes: There is no significant mesenteric or retroperitoneal lymphadenopathy. Major Vessels: No significant abnormality. Bones: There is heterogeneous signal in the visualized thoracolumbar spine not felt to be clinically significant. There are foci of fat signal in the T5, T11 and L1 vertebral bodies, consistent with benign hemangiomas. There is no abnormal vertebral contrast enhancement. MRI/MRI Abd WITH and W/O Contrast IMPRESSION: 1. Mildly enlarged fatty liver. 2. Nodules consistent with cysts in the medial and lateral segments of the lef t hepatic lobe. 3. Indeterminate cortical nodule in the interpolar cortex of the left kidney. 4. Other findings as noted. Recommendation: CT renal mass protocol attention left kidney. Reading Location: [place] [id number]
== END | disposition home or self-care (01) ==
LOC: OPMRI 11:07
PROVIDERS: PCP Physician Assistant; Referring Provider Student in an Organized Health Care Education/Training Program; Visit Provider Student in an Organized Health Care Education/Training Program
DX: K76.89 Other specified diseases of liver (principal)
CPT/HCPCS: 74183; A9575; A4216

== ENCOUNTER → 2025-08-02 | Outpatient (CLI) | payer OTHER, SELFPAY ==
--- NOTE | 2025-08-02 12:15 | CT_ITS ---
PROCEDURE: CT ABD/PELVIS W/WO CONTRAST 08/02/2025 REASON FOR EXAM: LIVER CYST TECHNIQUE: Procedure Code: [id number] Modality: CT Procedure: CT ABD/PELVIS W/WO CONTRAST Coronal and Sagittal reconstruction series were provided. CONTRAST: Isovue 370 VOLUME: 75 mL One or more dose reduction techniques were used (e.g., Automated exposure control, adjustment of the mA and/or kV according to patient size, use of iterative reconstruction technique. RADIATION DOSE SUMMARY: CTDlvol: 29.93 mGy DLP: 4452.25 mGycm COMPARISON: MRI abdomen and pelvis 07/20/2025. FINDINGS: Lung bases: Clear. Liver: Fatty infiltration of the liver. A 1x 0.8 cm simple cyst in the left hepatic lobe. Gallbladder: Cholecystectomy. No biliary dilation. Spleen: Unremarkable. Pancreas: Unremarkable. Adrenals: Unremarkable. Kidneys: Calcified cyst at the midpole of the left kidney. No hydronephrosis. No nephrolithiasis. Bladder: Unremarkable. Reproductive system: Unremarkable. Bowel: No bowel wall thickening. No bowel obstruction. Appendix: Unremarkable. Lymph nodes: No lymphadenopathy. Vasculature: No aneurysm. Peritoneum / Retroperitoneum: No free air or free fluid. Bones: No acute bony abnormalities. CT/CT Abd/Pelvis W/WO Contrast IMPRESSION: A 1 cm simple cyst in the left hepatic lobe. Liver steatosis. Otherwise, unre markable. Reading Location: [facility]
--- NOTE | 2025-08-02 12:15 | CT_ITS ---
PROCEDURE: CT chest with contrast 08/02/2025 REASON FOR EXAM: PULMONARY NODULE TECHNIQUE: Procedure Code: CTCHW Modality: CT Procedure: CHEST WITH CONTRAST Coronal and Sagittal reconstruction series were provided. CONTRAST: Isovue 370 VOLUME: 100 mL One or more dose reduction techniques were used (e.g., Automated exposure control, adjustment of the mA and/or kV according to patient size, use of iterative reconstruction technique). RADIATION DOSE SUMMARY: CTDlvol: 29.93 mGy DLP: 1680.32 mGycm COMPARISON: None FINDINGS: Lung windows show the lungs to be normally expanded. There is a noncalcified 3 mm right upper lobe nodule on axial image 37. There is a 4 mm noncalcified nodule in the left lower lobe on axial image 60. No organized infiltrate or effusion. Soft tissue windows show a normal-appearing thyroid gland. No suspicious axillary, mediastinal or perihilar adenopathy. The thoracic aorta tapers normally. No calcified coronary vessels are noted. Limited cuts of the upper abdomen show diffuse fatty infiltration of the liver without a discrete lesion. Bony structures show degenerative change CT/Chest WITH Contrast IMPRESSION: Coronary artery calcification (CAC) is is absent Noncalcified right upper lobe and left lower lobe nodules, six-month follow-up recommended to assess stability. No organized infiltrate or effusion No suspicious adenopathy Degenerative bony changes Reading Location: [place] [id number]
== END | disposition home or self-care (01) ==
LOC: CT 11:50
PROVIDERS: PCP Physician Assistant; Referring Provider Physician Assistant; Visit Provider Physician Assistant
DX: R91.1 Solitary pulmonary nodule (principal)
CPT/HCPCS: 71260; 74178; Q9967

== ENCOUNTER → 2025-08-05 | Outpatient (CLI) | payer OTHER, SELFPAY ==
--- OUTSIDE RECORDS SUMMARY | 2025-08-05 07:41 | XMS RPT_ITS | CCD ---
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 By: #### L 100.0100, L500.4050, L501.2450 #### [facility] [address] [place], [address] CDIFF (PCR)on 06-23-2025 CDIFF Pending [phone] [id number] Presumptive Negative *for epidemiolologic???use C. Diff PCR Negative- No toxigenic C. Diff Detected Normal [facility] Comment on above: Performed By: #### M 600.5000, M7400.3302, M100.637, M100.6796 #### [facility] [address] [place], [address] Carbon dioxide, total [Moles /volume] in Central venous bloodOrdered By: Shruthi Ureña on 06-23-2025 CO2 [Moles/Vol] 24.7 mmol/L 21.0-32.0 [facility] Chloride assayOrdered By: Joana Ureña on 06-23-2025 Chloride [Moles/Vol] 102 mmol/L 98-108 [facility] Clostridium difficile detect ion by polymerase chain reactionOrdered By: Shruthi Ureña on 06-23-2025 C. difficile DNA ROGERS+probe Ql (Unsp spec) [facility] Comprehensive Metabolic Prof ilon 06-23-2025 Albumin [Mass/Vol] 4.6 g/dL Normal 3.5-5.0 [facility] Comment on above: Performed By: #### L 100.0100, L500.4050, L501.2450 ####[facility] [address] [place], [address] Albumin/Globulin [Mass ratio] 1.5 {ratio} Normal 0.9-2.4 [facility] Comment on above: Performed By: #### L 100.0100, L500.4050, L501.2450 ####[facility] [address] [place], [address] ALK PHOS 62 U/L Normal 40-129 [facility] Comment on above: Performed By: #### L 100.0100, L500.4050, L501.2450 ####[facility] [address] [place], [address] ALT [Catalytic activity/Vol] 51 U/L High <=46 [facility] Comment on above: Performed By: #### L 100.0100, L500.4050, L501.2450 ####[facility] [address] [place], [address] AST [Catalytic activity/Vol] 32 U/L Normal <=37 [facility] Comment on above: Performed By: #### L 100.0100, L500.4050, L501.2450 ####[facility] [address] [place], [address] Bilirubin [Mass/Vol] 0.25 mg/dL Normal 0.00-1.30 [facility] Comment on above: Performed By: #### L 100.0100, L500.4050, L501.2450 ####[facility] [address] [place], [address] BUN/CRE 20.3 RATIO High 10-20 [facility] Comment on above: Performed By: #### L 100.0100, L500.4050, L501.2450 ####[facility] [address] [place], [address] Calcium [Mass/Vol] 9.7 mg/dL Normal 7.6-11.0 [facility] Comment on above: Performed By: #### L 100.0100, L500.4050, L501.2450 ####[facility] [address] [place], [address] Chloride [Moles/Vol] 102 mmol/L Normal 98-108 [facility] Comment on above: Performed By: #### L 100.0100, L500.4050, L501.2450 ####[facility] [address] [place], [address] CO2 [Moles/Vol] 24.7 mmol/L Normal 21.0-32.0 [facility] Comment on above: Performed By: #### L 100.0100, L500.4050, L501.2450 ####[facility] [address] [place], [address] Creatinine [Mass/Vol] 1.07 mg/dL Normal 0.70-1.20 [facility] Comment on above: Performed By: #### L 100.0100, L500.4050, L501.2450 ####[facility] [address] [place], [address] GAP 11 Normal 5-15 [facility] Comment on above: Performed By: #### L 100.0100, L500.4050, L501.2450 ####[facility] [address] [place], [address] GFR/1.73 sq M.predicted among non-blacks MDRD (S/P/Bld) [Vol rate/Area] 82 mL/min/{1.73_m2} Normal >60 [facility] Comment on above: Result Comment: mL/m in/1.73m2 CKD-EPI Creatinine Equation (2020) Performed By: #### L 100.0100, L500.4050, L501.2450 ####[facility] [address] [place], [address] Globulin (S) [Mass/Vol] 3.1 g/dL Normal 2.2-4.2 [facility] Comment on above: Performed By: #### L 100.0100, L500.4050, L501.2450 ####[facility] [address] [place], [address] Glucose [Mass/Vol] 94 mg/dL Normal 70-99 [facility] Comment on above: Performed By: #### L 100.0100, L500.4050, L501.2450 ####[facility] [address] [place], [address] Potassium [Moles/Vol] 4.6 mmol/L Normal 3.3-5.1 [facility] Comment on above: Result Comment: Hemo lysis present, Results??could be affected. ?? Performed By: #### L 100.0100, L500.4050, L501.2450 ####[facility] [address] [place], [address] Sodium [Moles/Vol] 138 mmol/L Normal 133-145 [facility] Comment on above: Performed By: #### L 100.0100, L500.4050, L501.2450 ####[facility] [address] [place], [address] T PROT 7.7 g/dL Normal 5.9-8.4 [facility] Comment on above: Performed By: #### L 100.0100, L500.4050, L501.2450 ####[facility] [address] [place], [address] Urea nitrogen [Mass/Vol] 22 mg/dL High 4-19 [facility] Comment on above: Performed By: #### L 100.0100, L500.4050, L501.2450 ####[facility] [address] [place], [address] ENTERIC PATHOGEN PANEL STOOL on 06-23-2025 EP [...] VIBRIO Not Detected Yersinia Not Detected Normal [facility] Comment on above: Performed By: #### M 600.5000, M7400.3302, M100.637, M100.6796 #### [facility] [address] [place], [address] Eosinophil percentageOrdered By: Shruthi Niranjan on 06-23-2025 Eosinophils/100 WBC (Bld) 13.6 % High 0-5 [facility] Erythrocyte distribution wid th ratioOrdered By: Shruthi Niranjan on 06-23-2025 Erythrocyte distribution width (RBC) [Ratio] 12.7 % 11.6-14.6 [facility] Erythrocyte distribution wid th standard deviationOrdered By: Shruthi Mcfaddensteveneloisa on 06-23-2025 Erythrocyte distribution width (RBC) [Ratio] 42.3 fl 35.1-43.9 [facility] Gastroenterology Visit Repor ton 06-23-2025 Gastroenterology Visit Report [facility] [address] [place] [address] OFFICE VISIT Date of Service: 06/23/25 MR#: [id number] Acct: [id number] Name: PEGGY CHAND Rep #: [id number] : [id number] Provider: MIA Cagle Age/Sex: 54/M [place] [facility] [place] Status: Signed Intake Intake Visit Reasons: Abd [...] denies alcohol consumption. He did start an sgts-hdf-yylvuez PPI but has not noticed much benefit. [...] cooperative, healthy appearing and comfortable Orientation: alert [facility] Head: normal to inspection Ears: [...] with oral intake. He did start an wezs-qpj-phvxojf PPI but has not noticed any relief. [...] or inflammatio (more content not included)... Normal [facility] Glomerular filtration rate ( GFR) estimation/1.73 sq m using serum, plasma, or whole bOrdered By: Shruthi Ureña on 06-23-2025 GFR/1.73 sq M.predicted among non-blacks MDRD (S/P/Bld) [Vol rate/Area] 82 mL/min/{1.73_m2} >60 [facility] Comment on above: mL/min/1.73m2 CKD-EP I Creatinine Equation (2020) Hematocrit Auto (Bld) [Volum e fraction]Ordered By: Shruthi Ureña on 06-23-2025 Hematocrit (Bld) [Volume fraction] 46.0 % 40-54 [facility] Hemoglobin measurementOrdere d By: Shruthi Ureña on 06-23-2025 Hemoglobin (Bld) [Mass/Vol] 15.1 g/dL 13.0-16.5 [facility] Immature granulocytes/100 WB C Auto (Bld)Ordered By: Shruthi Ureña on 06-23-2025 Immature granulocytes/100 WBC (Bld) 1.000 % High 0.0-0.9 [facility] Comment on above: IG% - Immature Granu locytes (promyelocytes, myelocytes and metamyelocytes) > 1% indicates that a LEFT SHIFT is Present. Laboratory - Chemistry and C hemistry - challengeOrdered By: Shruthi Ureña on 06-23-2025 AST [Catalytic activity/Vol] 32 U/L <38 [facility] Lipaseon 06-23-2025 Lipase [Catalytic activity/Vol] 99 U/L High 13-75 [facility] Comment on above: Result Comment: Remy chan note: LIPASE revised reference range effective 22. New Lipase methodology. Expected to produce lower values than the previous assay method. NEW Reference Range: 13 - 75 U/L Performed By: #### L 100.0100, L500.4050, L501.2450 #### [facility] [address] [place], [address] Lipase measurementOrdered By : Shruthi Ureña on 06-23-2025 Lipase [Catalytic activity/Vol] 99 U/L High 13-75 [facility] Comment on above: Please note:LIPASE r evised reference range effective 22. New Lipase methodology. Expected to produce lower values than the previous assay method. NEW Reference Range: 13 - 75 U/L MCV (mean corpuscular volume ) determinationOrdered By: Shruthi Ureña on 06-23-2025 MCV (RBC) [Entitic vol] 91.1 fL 80-94 [facility] Mean corpuscular hemoglobin (MCH) determinationOrdered By: Shruthi Ureña on 06-23-2025 MCH (RBC) [Entitic mass] 29.9 pg 27.0-32.0 [facility] Mean corpuscular hemoglobin concentration (MCHC) determinationOrdered By: Shruthi Ureña on 06-23-2025 MCHC (RBC) [Mass/Vol] 32.8 g/dL 32-36 [facility] Mean platelet volume determi nationOrdered By: Shruthi Ureña on 06-23-2025 Platelet mean volume (Bld) [Entitic vol] 10.9 fL 6.2-12.0 [facility] Monocyte percentageOrdered B y: Shruthi Ureña on 06-23-2025 Monocytes/100 WBC (Bld) 9.3 % 0-10 [facility] Neutrophil percentageOrdered By: Shruthi Ureña on 06-23-2025 Neutrophils/100 WBC (Bld) 55.1 % 47-70 [facility] Nucleated red blood cell per centageOrdered By: Shruthi Ureña on 06-23-2025 Nucleated RBC/100 WBC (Bld) [Ratio] 0 % 0-5 [facility] Platelet countOrdered By: Joana Ureña on 06-23-2025 Platelets (Bld) [#/Vol] 228 10*3/uL 150-450 [facility] Potassium measurement (mass/ volume)Ordered By: Shruthi Ureña on 06-23-2025 Potassium (Unsp spec) [Mass/Vol] 4.6 mmol/L 3.3-5.1 [facility] Comment on above: Hemolysis present, R esults could be affected. RBC Auto (Bld) [#/Vol]Ordere d By: Shruthi Ureña on 06-23-2025 RBC (Bld) [#/Vol] 5.05 10*6/uL 4.6-6.2 [facility] Serum creatinine measurement (mass/volume)Ordered By: Shruthi Ureña on 06-23-2025 Creatinine [Mass/Vol] 1.07 mg/dL 0.70-1.20 [facility] Serum globulin measurementOr dered By: Shruthi Ureña on 06-23-2025 Globulin (S) [Mass/Vol] 3.1 g/dL 2.2-4.2 [facility] Serum glucose measurement (m ass/volume)Ordered By: Shruthi Ureña on 06-23-2025 Glucose [Mass/Vol] 94 mg/dL 70-99 [facility] Serum or plasma alanine murry otransferase (ALT) measurementOrdered By: Shruthi Ureña on 06-23-2025 ALT [Catalytic activity/Vol] 51 U/L High <47 [facility] Serum or plasma albumin sneha urement (mass/volume)Ordered By: Shruthi Ureña on 06-23-2025 Albumin [Mass/Vol] 4.6 g/dL 3.5-5.0 [facility] Serum or plasma albumin/glob ulin mass ratioOrdered By: Shruthi Ureña on 06-23-2025 Albumin/Globulin [Mass ratio] 1.5 {ratio} 0.9-2.4 [facility] Serum or plasma alkaline elisabeth sphatase measurementOrdered By: Shruthi Ureña on 06-23-2025 ALP [Catalytic activity/Vol] 62 U/L 40-129 [facility] Serum or plasma calcium sneha urement (mass/volume)Ordered By: Shruthi Ureña on 06-23-2025 Calcium [Mass/Vol] 9.7 mg/dL 7.6-11.0 [facility] Serum or plasma urea nitroge n measurement (mass/volume)Ordered By: Shruthi Ureña on 06-23-2025 Urea nitrogen [Mass/Vol] 22 mg/dL High 4-19 [facility] Sodium levelOrdered By: Christian Ureña on 06-23-2025 Sodium [Moles/Vol] 138 mmol/L 133-145 [facility] Total proteinOrdered By: Samantha Ureña on 06-23-2025 Protein [Mass/Vol] 7.7 g/dL 5.9-8.4 [facility] White blood cell (WBC) count Ordered By: Shruthi Ureña on 06-23-2025 WBC (Bld) [#/Vol] 11.9 10*3/uL High 4.4-11.0 [facility] INSULINon 06-20-2025 INSULIN 19.5 uIU/mL High [facility] Comment on above: Result Comment: Refe rence Range < or = 18.4 Risk: Optimal < or = 18.4 Moderate NA High >18.4 Adult cardiovascular event risk category cut points (optimal, moderate, high) are based on Insulin Reference Interval studies performed at [facility] in 2021. Performed By: #### 5 61 #### [facility] [address], [address] [place] [phone] Pecan Picker: Estuardo Chilel MD AMYLASEon 06-18-2025 Amylase [Catalytic activity/Vol] 52 U/L Normal 21-101 [facility] Comment on above: Performed By: #### 6 399, 606, 41107, 243 #### [facility] [address], [address] [place] [id number] Pecan Picker: Estuardo Chilel MD C-PEPTIDEon 06-18-2025 C-PEPTIDE 3.50 ng/mL Normal 0.80-3.85 [facility] Comment on above: Performed By: #### 6 399, 606, 63648, 243 #### [facility] [place] [address] Pecan Picker: Estuardo Chilel MD CBC (INCLUDES DIFF/PLT)on Basophils (Bld) [#/Vol] 0.101 10*3/uL Normal 0-200 [facility] Comment on above: Performed By: #### 6 399, 606, [address]70, 243 #### [facility] [place] [address] Pecan Picker: Estuardo Chilel MD Basophils/100 WBC (Bld) 1.0 % Normal [facility] Comment on above: Performed By: #### 6 399, 606, 84624, 243 #### [facility] [place] [address] Pecan Picker: Estuardo Chilel MD Eosinophils (Bld) [#/Vol] 1.394 10*3/uL High 15-500 [facility] Comment on above: Performed By: #### 6 399, 606, [address]38[address], 243 #### [facility] [place] [address] Pecan Picker: Estuardo Chilel MD Eosinophils/100 WBC (Bld) 13.8 % Normal [facility] Comment on above: Performed By: #### 6 399, 606, 65547, 243 #### [facility] [place] [address] Pecan Picker: Estuardo Chilel MD Erythrocyte distribution width (RBC) [Ratio] 13.2 % Normal 11.0-15.0 [facility] Comment on above: Performed By: #### 6 399, 606, 13813, 243 #### [facility] [place] [address] Pecan Picker: Estuardo Chilel MD Hematocrit (Bld) [Volume fraction] 47.6 % Normal 38.5-50.0 [facility] Comment on above: Performed By: #### 6 399, 606, [address]200, 243 #### [facility] [place] [address] Pecan Picker: Estuardo Chilel MD Hemoglobin (Bld) [Mass/Vol] 15.5 g/dL Normal 13.2-17.1 [facility] Comment on above: Performed By: #### 6 399, 606, 59442, 243 #### [facility] [place] [address] Pecan Picker: Estuardo Chilel MD Lymphocytes (Bld) [#/Vol] 2.02 10*3/uL Normal 850-3900 [facility] Comment on above: Performed By: #### 6 399, 606, 57214, 243 #### [facility] [place] [address] Pecan Picker: Estuardo Chilel MD Lymphocytes/100 WBC (Bld) 20.0 % Normal [facility] Comment on above: Performed By: #### 6 399, 606, 41661, 243 #### [facility] [place] [address] Pecan Picker: Estuardo Chilel MD MCH (RBC) [Entitic mass] 30.5 pg Normal 27.0-33.0 [facility] Comment on above: Performed By: #### 6 399, 606, 13206, 243 #### [facility] [place] [address] Pecan Picker: Estuardo Chilel MD MCHC (RBC) [Mass/Vol] 32.6 g/dL Normal 32.0-36.[address] [facility] Comment on above: Result Comment: For adults, a slight decrease in the calculated MCHC value (in the range of 30 to 32 g/dL) is most likely not clinically significant; however, it should be interpreted with caution in correlation with other red cell parameters and the patient's clinical condition. Performed By: #### 6 399, 606, 02073, 243 #### [facility] [place] [address] Pecan Picker: Estuardo Chilel MD MCV (RBC) [Entitic vol] 93.5 fL Normal 80.0-100.0 [facility] Comment on above: Performed By: #### 6 399, 606, 81472, 243 #### [facility] [place] [address] Pecan Picker: Estuardo Chilel MD Monocytes (Bld) [#/Vol] 0.808 10*3/uL Normal 200-950 [facility] Comment on above: Performed By: #### 6 399, 606, 92192, 243 #### [facility] [place] [address] Pecan Picker: Estuardo Chilel MD Monocytes/100 WBC (Bld) 8.0 % Normal [facility] Comment on above: Performed By: #### 6 399, 606, 09689, 243 #### [facility] [place] [address] Pecan Picker: Estuardo Chilel MD Neutrophils (Bld) [#/Vol] 5.777 10*3/uL Normal 6248-9615 [facility] Comment on above: Performed By: #### 6 399, 606, 68664, 243 #### [facility] [place] [address] Pecan Picker: Estuardo Chilel MD Neutrophils/100 WBC (Bld) 57.2 % Normal [facility] Comment on above: Performed By: #### 6 399, 606, 38324, 243 #### [facility] [place] [address] Pecan Picker: Estuardo Chilel MD Platelet mean volume (Bld) [Entitic vol] 11.1 fL Normal 7.5-12.5 [facility] Comment on above: Performed By: #### 6 399, 606, 57859, 243 #### [facility] [place] [address] Pecan Picker: Estuardo Chilel MD Platelets (Bld) [#/Vol] 210 10*3/uL Normal 140-400 [facility] Comment on above: Performed By: #### 6 399, 606, 62636, 243 #### [facility] [place] [address] Pecan Picker: Estuardo Chilel MD RBC (Bld) [#/Vol] 5.09 10*6/uL Normal 4.20-5.80 [facility] Comment on above: Performed By: #### 6 399, 606, 95626, 243 #### [facility] [place] [address] Pecan Picker: Esturado Chilel MD WBC (Bld) [#/Vol] 10.1 10*3/uL Normal 3.8-10.8 [facility] Comment on above: Performed By: #### 6 399, 606, 06848, 243 #### [facility] [place] [address] Pecan Picker: Estuardo Chilel MD [facility] 06-18-2025 Albumin [Mass/Vol] 4.5 g/dL Normal 3.6-5.1 [facility] Comment on above: Performed By: #### 6 399, 606, 13536, 243 #### [facility] [place] [address] Pecan Picker: Estuardo Chilel MD Albumin/Globulin [Mass ratio] 1.7 {ratio} Normal 1.0-2.5 [facility] Comment on above: Performed By: #### 6 399, 606, 73346, 243 #### [facility] [place] [address] Pecan Picker: Estuardo Chilel MD ALP [Catalytic activity/Vol] 53 U/L Normal 35-144 [facility] Comment on above: Performed By: #### 6 399, 606, 18835, 243 #### [facility] of [address], [address] [place] [address] Pecan Picker: Estuardo Chilel MD ALT [Catalytic activity/Vol] 40 U/L Normal 9-46 [facility] Comment on above: Performed By: #### 6 399, 606, 17452, 243 #### [facility] of [address], [address] [place] [address] Pecan Picker: Estuardo Chilel MD AST [Catalytic activity/Vol] 24 U/L Normal 10-35 [facility] Comment on above: Performed By: #### 6 399, 606, 80290, 243 #### [facility] [place] [address] Pecan Picker: Estuardo Chilel MD Bilirubin [Mass/Vol] 0.4 mg/dL Normal 0.2-1.2 [facility] Comment on above: Performed By: #### 6 399, 606, 74006, 243 #### [facility] [place] [address] Pecan Picker: Estuardo Chilel MD BUN/CREATININE RATIO SEE NOTE: Normal 6-22 [facility] Comment on above: Result Comment: Not Reported: BUN and Creatinine are within reference range. Performed By: #### 6 399, 606, 69322, 243 #### [facility] [address], [address] [place] [address] Pecan Picker: Estuardo Chilel MD Calcium [Mass/Vol] 9.5 mg/dL Normal 8.6-10.3 [facility] Comment on above: Performed By: #### 6 399, 606, 89901, 243 #### [facility] [place] [address] Pecan Picker: Estuardo Chilel MD Chloride [Moles/Vol] 103 mmol/L Normal 98-110 [facility] Comment on above: Performed By: #### 6 399, 606, 65813, 243 #### [facility] of [address], [address] [place] [address] Pecan Picker: Estuardo Chilel MD CO2 [Moles/Vol] 26 mmol/L Normal 20-32 [facility] Comment on above: Performed By: #### 6 399, 606, 62788, 243 #### [facility] [place] [address] Pecan Picker: Estuardo Chilel MD Creatinine [Mass/Vol] 0.88 mg/dL Normal 0.70-1.[address] [facility] Comment on above: Performed By: #### 6 399, 606, 77625, 243 #### [facility] [place] [address] Pecan Picker: Estuardo Chilel MD GFR/1.73 sq M.predicted among non-blacks MDRD (S/P/Bld) [Vol rate/Area] 102 mL/min/{1.73_m2} Normal > OR = 60 [facility] Comment on above: Performed By: #### 6 399, 606, [address], 243 #### [facility] [place] [address] Pecan Picker: Estuardo Chilel MD Globulin (S) [Mass/Vol] 2.7 g/dL Normal 1.9-3.7 [facility] Comment on above: Performed By: #### 6 399, 606, 69071, 243 #### [facility] [place] [address] Pecan Picker: Estuardo Chilel MD Glucose [Mass/Vol] 98 mg/dL Normal 65-99 [facility] Comment on above: Result Comment: Fasting reference interval Performed By: #### 6 399, 606, 51512, 243 #### [facility] of [place] [address] Pecan Picker: Estuardo Chilel MD Potassium [Moles/Vol] 4.7 mmol/L Normal 3.5-5.[address] [facility] Comment on above: Performed By: #### 6 399, 606, 11410, 243 #### [facility] of [address], [address] [place] [address] Pecan Picker: Estuardo Chilel MD Protein [Mass/Vol] 7.2 g/dL Normal 6.1-8.1 [facility] Comment on above: Performed By: #### 6 399, 606, 76106, 243 #### [facility] of [address], [address] [place] [address] Pecan Picker: Estuardo Chilel MD Sodium [Moles/Vol] 137 mmol/L Normal 135-146 [facility] Comment on above: Performed By: #### 6 399, 606, 72702, 243 #### [facility] of [place] [address] Pecan Picker: Estuardo Chilel MD Urea nitrogen [Mass/Vol] 16 mg/dL Normal 7-25 [facility] Comment on above: Performed By: #### 6 399, 606, 56428, 243 #### [facility] [place] [address] Pecan Picker: Estuardo Chilel MD LIPASEon 06-18-2025 Lipase [Catalytic activity/Vol] 65 U/L High 7-60 [facility] Comment on above: Performed By: #### 6 399, 606, 83591, 243 #### [facility] of [place] [address] Pecan Picker: Estuardo Chilel MD CT ABDOMEN/PELVIS WO 05-20 CT ABDOMEN/PELVIS [place] [address] Patient: PEGGY CHAND Phone#: : 1970 Age: 54 Gender: M Pt. Type: Out Account: [id number] Location: [facility] Ordering: WISAM MCGUIRE Exam Date: 05/20/2025/13:08 Family Phys: Charge Code: 175857 Physician: [place] Order #: [id number] Dose#: 21.40 PROCEDURE: CT ABDOMEN/PELVIS WITHOUT CONTRAST COMPARISON: [facility], CT, ABDOMEN W W/O CONRAST, 11/20/2021, 11:18. [...] 54 Gender: M Pt. Type: Out Account: [id number] Location: 052 Ordering: WISAM MCGUIRE Exam Date: 05/20/2025/13:08 Family Phys: Charge Code: [id number] Physician: [place] Order #: [id number] Dose#: 21.40 CONCLUSION: 1. There is no evidence of acute abdominal or pelvic abnormality. Dictated by: Vivian Parra MD on 05/20/2025 at 14:32 Approved by: Vivian Parra MD on 05/20/2025 at 14:33 Normal [facility] AMYLASEon 05-18-2025 Amylase [Catalytic activity/Vol] 83 U/L Normal 21-101 [facility] Comment on above: Performed By: #### 6 399, 606, 05304, 243 #### [facility] of [place] [address] Pecan Picker: Estuardo Chilel MD CBC (INCLUDES DIFF/PLT)on Basophils (Bld) [#/Vol] 0.046 10*3/uL Normal 0-200 [facility] Comment on above: Performed By: #### 6 399, 606, 25172, 243 #### [facility] [place] [address] Pecan Picker: Estuardo Chilel MD Basophils/100 WBC (Bld) 0.4 % Normal [facility] Comment on above: Performed By: #### 6 399, 606, 13093, 243 #### [facility] [place] [address] Pecan Picker: Estuardo Chilel MD Eosinophils (Bld) [#/Vol] 0.125 10*3/uL Normal 15-500 [facility] Comment on above: Performed By: #### 6 399, 606, 70362, 243 #### [facility] [place] [address] Pecan Picker: Estuardo Chilel MD Eosinophils/100 WBC (Bld) 1.1 % Normal [facility] Comment on above: Performed By: #### 6 399, 606, 60385, 243 #### [facility] [place] [address] Pecan Picker: Estuardo Chilel MD Erythrocyte distribution width (RBC) [Ratio] 12.9 % Normal 11.0-15.0 [facility] Comment on above: Performed By: #### 6 399, 606, 84293, 243 #### [facility] of [address] [address] Pecan Picker: Esturado Chilel MD Hematocrit (Bld) [Volume fraction] 48.0 % Normal 38.5-50.0 [facility] Comment on above: Performed By: #### 6 399, 606, 75913, 243 #### [facility] [place] [address] Pecan Picker: Estuardo Chilel MD Hemoglobin (Bld) [Mass/Vol] 16.0 g/dL Normal 13.2-17.1 [facility] Comment on above: Performed By: #### 6 399, 606, 92935, 243 #### [facility] [place] [address] Pecan Picker: Estuardo Chilel MD Lymphocytes (Bld) [#/Vol] 2.394 10*3/uL Normal 850-3900 [facility] Comment on above: Performed By: #### 6 399, 606, 86502, 243 #### [facility] [place] [address] Pecan Picker: Estuardo Chilel MD Lymphocytes/100 WBC (Bld) 21.0 % Normal [facility] Comment on above: Performed By: #### 6 399, 606, 43920, 243 #### [facility] [place] [address] Pecan Picker: Estuardo Chilel MD MCH (RBC) [Entitic mass] 30.5 pg Normal 27.0-33.0 [facility] Comment on above: Performed By: #### 6 399, 606, 94843, 243 #### [facility] [place] [address] Pecan Picker: Estuardo Chilel MD MCHC (RBC) [Mass/Vol] 33.3 [...] condition. Performed By: #### 6 399, 606, 69108, 243 #### [facility] [place] [address] Pecan Picker: Estuardo Chilel MD MCV (RBC) [Entitic vol] 91.6 fL Normal 80.0-100.0 [facility] Comment on above: Performed By: #### 6 399, 606, 24166, 243 #### [facility] [place] [address] Pecan Picker: Estuardo Chilel MD Monocytes (Bld) [#/Vol] 1.14 10*3/uL High 200-950 [facility] Comment on above: Performed By: #### 6 399, 606, 22828, 243 #### [facility] [place] [address] Pecan Picker: Estuardo Chilel MD Monocytes/100 WBC (Bld) 10.0 % Normal [facility] Comment on above: Performed By: #### 6 399, 606, 83973, 243 #### [facility] [place] [address] Pecan Picker: Estuardo Chilel MD Neutrophils (Bld) [#/Vol] 7.695 10*3/uL Normal 0227-1494 [facility] Comment on above: Performed By: #### 6 399, 606, 25905, 243 #### [facility] [place] [address] Pecan Picker: Estuardo Chilel MD Neutrophils/100 WBC (Bld) 67.5 % Normal [facility] Comment on above: Performed By: #### 6 399, 606, 50641, 243 #### [facility] [place] [address] Pecan Picker: Estuardo Chilel MD Platelet mean volume (Bld) [Entitic vol] 12.1 fL Normal 7.5-12.5 [facility] Comment on above: Performed By: #### 6 399, 606, 70585, 243 #### [facility] [place] [address] Pecan Picker: Estuardo Chilel MD Platelets (Bld) [#/Vol] 248 10*3/uL Normal 140-400 [facility] Comment on above: Performed By: #### 6 399, 606, 55030, 243 #### [facility] [place] [address] Pecan Picker: Estuardo Chilel MD RBC (Bld) [#/Vol] 5.24 10*6/uL Normal 4.20-5.80 [facility] Comment on above: Performed By: #### 6 399, 606, 46579, 243 #### [facility] [place] [address] Pecan Picker: Estuardo Chilel MD WBC (Bld) [#/Vol] 11.4 10*3/uL High 3.8-10.8 [facility] Comment on above: Performed By: #### 6 399, 606, 24383, 243 #### [facility] [place] [address] Pecan Picker: Estuardo Chilel MD [facility] METABOLIC [facility] 05-18-2025 Albumin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 19:04 Normal [facility] CT CERVICAL W/O CONTRASTon 1 CT CERVICAL W/O CONTRAST [place] [address] Patient: PEGGY CHAND Phone#: : 1970 Age: 53 Gender: M Pt. Type: ER Account: [id number] Location: [facility] Ordering: DR. TAWANNA GUADARRAMA Exam Date: 09/06/2024/17:41 Family Phys: EZEKIEL PATEL Charge Code: [id number] Physician: [place] Order #: [id number] Dose#: 14.5 mGy PROCEDURE: CT CERVICAL WITHOUT [...] 53 Gender: M Pt. Type: ER Account: [id number] Location: 052 Ordering: DR. TAWANNA GUADARRAMA Exam Date: 09/06/2024/17:41 Family Phys: EZEKIEL PATEL Charge Code: [id number] Physician: [place] Order #: [id number] Dose#: 14.5 mGy 2. Multilevel degenerative changes resulting in varying degrees of osseous foraminal narrowing. Dictated by: Alysa Graham MD on 09/06/2024 at 17:54 Approved by: Alysa Graham MD on 09/06/2024 at 18:00 Normal [facility] CT CHEST W/CONTRASTon 2023 CT CHEST W/CONTRAST [place] [address] Patient: PEGGY CHAND Phone#: : 1970 Age: 53 Gender: M Pt. Type: ER Account: [id number] Location: 052 Ordering: DR. TAWANNA GUADARRAMA Exam Date: 09/06/2024/18:53 Family Phys: EZEKIEL PATEL Charge Code: [id number] Physician: [place] Order #: [id number] Dose#: 16.5 mGy PROCEDURE: CT CHEST WITH CONTRAST COMPARISON: [facility], CT, ABDOMEN W W/O CONRAST, 11/20/2021, 11:18. [...] 53 Gender: M Pt. Type: ER Account: [id number] Location: 052 Ordering: DR. TAWANNA GUADARRAMA Exam Date: 09/06/2024/18:53 Family Phys: EZEKIEL PATEL Charge Code: [id number] Physician: [place] Order #: [id number] Dose#: 16.5 mGy 2. Right upper lobe pulmonary nodule. 2017 guidelines from the Fleischner Society recommend for <6mm solid nodules: In low risk patients, no follow-up required. In high risk patients, optional CT in 12 months. Dictated by: Alysa Graham MD on 09/06/2024 at 19:05 Approved by: Alysa Graham MD on 09/06/2024 at 19:11 Normal [facility] Final Surgical Pathology Rep [facility] 06-23-2024 Final Surgical Pathology Report . Pathology Reports Accession: Collected Date/Time: Received Date/Time: Pathologist: [id number] 06/21/2024 09:54 EDT 06/22/2024 07:34 EDT JACI SEGURA MD Final Surgical Pathology Report DIAGNOSIS: SIGMOID COLON POLYP: - TUBULAR ADENOMA COMMENT: [facility] [id number] CLINICAL INFORMATION: SCREENING Procedure: COLONOSCOPY SPECIMEN: A SIGMOID POLYP GROSS DESCRIPTION: All parts labelled with patient name and [id number] Received in formalin labeled sigmoid polyp is 1 chino-brown tissue fragment measuring 0.5 x 0.3 cm greatest dimension. TS-1 Tricia Cartwright, Grossing Frame And Scrap Crusher/ Dr. Thanh Fitch, Pathologist Performed by Tricia Cartwright MICROSCOPIC DESCRIPTION: The microscopic examination is performed, except in the case of Gross Only. Electronically Signed by Pathology Report verified by [facility] JACI SEGURA Sign out Date: 06/23/2024 15:19 Performing Lab: [facility], [address] [place] [address] Pathology Dept Disclaimer If ancillary studies were utilized, the following Laboratory Developed Test (LDT) disclaimer will apply: Under CLIA requirements, [facility] is qualified to perform high complexity testing. For all ancillary stains, positive and negative controls stain appropriately. Performance characteristics of immunohistochemical and chromogenic in-situ hybridization tests have been determined by [facility]. These tests are used for clinical purposes, They should not be regarded as investigational or for research. Normal [facility] Laboratory - Chemistry and C hemistry - challengeon 05-20-2024 Albumin [Mass/Vol] 4.8 g/dL Normal 3.6 - 5.1 g/dL [employer]. Albumin/Globulin [Mass ratio] 1.7 {ratio} Normal 1.0 - 2.5 [employer], [employer]. ALP [Catalytic activity/Vol] 52 U/L Normal 35 - 144 U/L [employer]. ALT [Catalytic activity/Vol] 29 U/L Normal 9 - 46 U/L [employer], [employer]. AST [Catalytic activity/Vol] 21 U/L Normal 10 - 35 U/L [employer], [employer]. Bilirubin [Mass/Vol] 0.4 mg/dL Normal 0.2 - 1 .2 mg/dL [employer]. Calcium [Mass/Vol] 10.0 mg/dL Normal 8.6 - 10. 3 mg/dL [facility], [facility].; [facility], [facility]. Chloride [Moles/Vol] 104 mmol/L Normal 98 - 11 0 mmol/L [facility], [facility].; [employer] [employer] [facility] Cholesterol [Mass/Vol] 208 mg/dL Abnormal [facility], [facility] Cholesterol in HDL [Mass/Vol] 45 mg/dL Normal [facility], [facility].; [facility] Cholesterol in LDL [Mass/Vol] 133 mg/dL Abnormal [facility], [facility].; [employer] [facility], [facility]. CO2 [Moles/Vol] 27 mmol/L Normal 20 - 32 mmol/L [facility], [facility].; [employer] [facility], [facility]. Creatinine [Mass/Vol] 0.93 mg/dL Normal 0.70 - 1.30 mg/dL [facility], [facility].; [employer] [facility], [facility]. GFR/1.73 sq M.predicted among non-blacks MDRD (S/P/Bld) [Vol rate/Area] 98 mL/min/{1.73_m2} Normal [facility], [facility].; [employer] [facility] Glucose [Mass/Vol] 98 mg/dL Normal 65 - 99 mg/dL [facility], [facility].; [employer] [facility] Potassium [Moles/Vol] 4.6 mmol/L Normal 3.5 - 5.3 mmol/L [facility], [facility].; [employer] [facility] Protein [Mass/Vol] 7.6 g/dL Normal 6.1 - 8.1 g/dL [employer] [facility], [facility].; [place] [employer] Sodium [Moles/Vol] 140 mmol/L Normal 135 - 146 mmol/L [facility], [facility].; [place] [employer] Triglyceride [Mass/Vol] 164 mg/dL Abnormal [facility], [facility].; [place] [employer] Urea nitrogen [Mass/Vol] 20 mg/dL Normal 7 - 25 mg/dL [facility], [facility].; [place] [employer], [facility] No Panel Informationon 05-20 BUN/CREATININE RATIO SEE NOTE: Normal 6 - 22 [facility].; [facility]. CHOL/HDLC RATIO 4.6 Normal [facility].; [facility]. GLOBULIN 2.8 Normal 1.9 - 3.7 [facility]. NON HDL CHOLESTEROL 163 Abnormal [facility]; [facility]. PSA, TOTAL 1.11 ng/mL Normal [facility]; [facility]. Laboratory - Microbiology an d Antimicrobial susceptibilityon 12-12-2023 FLUAV Ag IA Ql (Throat) Negative Normal [facility]; [facility]. SARS-CoV-2 (COVID-19) RNA ROGERS+probe Ql (Unsp spec) Negative Normal [facility]; [facility]. CNOVon 08-06-2023 CNOV Office Visit (NENEFS ) PEGGY CHAND ([id number]) 1970 M Date Time Provider Department 08/06/23 10:00 AM JEY BIRCH During your visit today, we recorded the following information about you: Temperature Pulse Respiration Blood pressure 97.8 degrees 57/minute 15/minute 123/88 Weight 111.6 kg Jey Birch MD 08/06/2023 10:49 AM Signed [facility] New Patient Evaluation Consulting Provider: Dr. Wisam Foster [facility] Consultation requested by Dr. Foster for an opinion regarding muscle twitches. 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 No nystagmus. Facial sensation intact. Face [...] 5 5 Wrist extension 5 5 Finger flexion/child care attendant 5 5 Finger extension 5 5 First [...] 2+ 2+ (more content not included)... [facility]) PEGGY CHAND ([id number]) 1970 M Date Time Provider Department 08/06/23 JEY BIRCH [facility] During your visit today, we recorded the following information about you: Norma Rojo 08/06/2023 8:37 AM Signed Spoke with patients outside providers office, they will be faxing clinical information prior to the patient appt today. Meagan Carmen MA 08/06/2023 9:27 AM Signed We have not yet received any documents here at the [facility]. Patient is here in the office now. Our fax number is [phone]. Will continue to wait for documents. Maybe in Care Everywhere ? Thank you. Meagan Carmen MA 08/06/23 9:27 AM Meagan Carmen MA 08/06/2023 11:45 AM Signed Scanned in [employer] under scanned documents. Thank you. Meagan Carmen [...] Status:Closed by NORMA ROJO on 08/06/[address] [facility] Laboratory - Chemistry and C hemistry - challengeon 07-07-2023 Albumin [Mass/Vol] 4.7 g/dL Normal 3.6 - 5.1 g/dL [employer]. Albumin/Globulin [Mass ratio] 1.8 {ratio} Normal 1.0 - 2.5 [employer], [employer]. ALP [Catalytic activity/Vol] 49 U/L Normal 35 - 144 U/L [employer], [employer]. ALT [Catalytic activity/Vol] 28 U/L Normal 9 - 46 U/L [employer], [employer]. AST [Catalytic activity/Vol] 23 U/L Normal 10 - 35 U/L [employer] Bilirubin [Mass/Vol] 0.5 mg/dL Normal 0.2 - 1 .2 mg/dL [facility].; [facility], [facility]. Calcium [Mass/Vol] 10.0 mg/dL Normal 8.6 - 10. 3 mg/dL [facility], [facility].; [facility], [facility]. Chloride [Moles/Vol] 104 mmol/L Normal 98 - 11 0 mmol/L [facility].; [facility], [facility]. CO2 [Moles/Vol] 30 mmol/L Normal 20 - 32 mmol/L [facility].; [facility], [facility]. Cobalamin (Vitamin B12) [Mass/Vol] 547 pg/mL Normal 200 - 1100 pg/mL [facility].; [facility], [facility]. Creatinine [Mass/Vol] 0.99 mg/dL Normal 0.70 - 1.30 mg/dL [facility], [facility].; [facility], [facility]. Ferritin [Mass/Vol] 216 ng/mL Normal 38 - 380 ng/mL [facility].; [facility], [facility]. Folate [Mass/Vol] 23.1 ng/mL Normal [facility].; [facility], [facility]. GFR/1.73 sq M.predicted among non-blacks MDRD (S/P/Bld) [Vol rate/Area] 91 mL/min/{1.73_m2} Normal [facility], [facility].; [facility], [facility]. Glucose [Mass/Vol] 78 mg/dL Normal 65 - 99 mg/dL [facility].; [facility], [facility]. Magnesium [Mass/Vol] 2.1 mg/dL Normal 1.5 - 2 .5 mg/dL [facility], [facility].; [facility], [facility]. Potassium [Moles/Vol] 4.7 mmol/L Normal 3.5 - 5.3 mmol/L [facility], [facility].; [employer] [facility] Protein [Mass/Vol] 7.3 g/dL Normal 6.1 - 8.1 g/dL [facility], [facility].; [facility], [facility]. Sodium [Moles/Vol] 141 mmol/L Normal 135 - 146 mmol/L [facility].; [facility], [facility]. Urea nitrogen [Mass/Vol] 26 mg/dL Abnormal 7 - 25 mg/dL [facility].; [facility], [facility]. Urea nitrogen/Creatinine [Mass ratio] 26 mg/mg Abnormal 6 - 22 [facility], [facility].; [place] [employer] [facility], [facility]. Laboratory - Hematology and Cell countson 07-07-2023 Basophils (Bld) [#/Vol] 0.036 10*3/uL Normal 0 - 200 {cells/uL} [facility], [facility].; [facility], [facility]. Basophils/100 WBC (Bld) 0.4 % [facility].; [facility], [facility] Eosinophils (Bld) [#/Vol] 0.267 10*3/uL Normal 15 - 500 {cells/uL} [facility], [facility].; [place] [employer] [facility], [facility] Eosinophils/100 WBC (Bld) 3.0 % Normal [facility].; [place] [employer], [facility] Erythrocyte distribution width (RBC) [Ratio] 12.3 % Normal 11.0 - 15.0 % [facility], [facility].; [place] [employer] [facility], [facility]. Hematocrit (Bld) [Volume fraction] 43.6 % Normal 38.5 - 50.0 % [facility], [facility].; [place] [employer] [facility], [facility]. Hemoglobin (Bld) [Mass/Vol] 15.2 g/dL Normal 13.2 - 17.1 g/dL [facility], [facility].; [place] [employer] [facility], [facility]. Lymphocytes (Bld) [#/Vol] 1.691 10*3/uL Normal 850 - 3900 {cells/uL} [facility].; [place] [employer] [facility], [facility]. Lymphocytes/100 WBC (Bld) 19.0 % Normal [facility].; [place] [employer], [facility]. MCH (RBC) [Entitic mass] 31.5 pg Normal 27.0 - 33.0 pg [facility], [facility].; [place] [employer], [facility]. MCHC (RBC) [Mass/Vol] 34.9 g/dL Normal 32.0 - 36.0 g/dL [facility], [facility].; [facility], [facility]. MCV (RBC) [Entitic vol] 90.5 fL Normal 80.0 - 100.0 fL [facility], [facility].; [place] [employer] [facility], [facility]. Monocytes (Bld) [#/Vol] 0.837 10*3/uL Normal 200 - 950 {cells/uL} [facility], [facility].; [place] [employer], [employer]. Monocytes/100 WBC (Bld) 9.4 % Normal [facility].; [facility], [facility]. Neutrophils (Bld) [#/Vol] 6.07 10*3/uL Normal 1500 - 7800 {cells/uL} [facility], [facility].; [place] [employer], [facility]. Neutrophils/100 WBC (Bld) 68.2 % Normal [place] [employer] [facility].; [place] [employer], [employer] Platelet mean volume (Bld) [Entitic vol] 11.7 fL Normal 7.5 - 12.5 fL [facility], [facility].; [employer], [facility]. Platelets (Bld) [#/Vol] 190 10*3/uL Normal 140 - 400 [place] [employer] [facility].; [place] [employer], [employer]. RBC (Bld) [#/Vol] 4.82 10*6/uL Normal 4.20 - 5.8 0 {Million/uL} [place] [employer] [facility].; [place] [employer], [employer]. WBC (Bld) [#/Vol] 8.9 10*3/uL Normal 3.8 - 10.8 [place] [employer] [facility].; [employer] [facility] No Panel Informationon 07-07 CREATINE KINASE, TOTAL 235 U/L Abnormal 44 - 196 U/L [place] [employer] [facility].; [employer], [facility]. GLOBULIN 2.6 Normal 1.9 - 3.7 [place] [employer], [employer].; [employer], [employer]. Laboratory - Chemistry and C hemistry - challengeon 01-16-2022 Albumin [Mass/Vol] 4.6 g/dL Normal 3.6 - 5.1 g/dL [facility], [facility].; [employer], [employer]. Albumin/Globulin [Mass ratio] 1.7 {ratio} Normal 1.0 - 2.5 [place] [employer] [facility].; [facility], [facility]. ALP [Catalytic activity/Vol] 53 U/L Normal 35 - 144 U/L [facility], [facility].; [facility], [facility]. ALT [Catalytic activity/Vol] 39 U/L Normal 9 - 46 U/L [facility], [facility].; [facility], [facility]. AST [Catalytic activity/Vol] 26 U/L Normal 10 - 35 U/L [facility], [facility].; [facility], [facility] Bilirubin [Mass/Vol] 0.5 mg/dL Normal 0.2 - 1 .2 mg/dL [facility], [facility].; [facility], [facility]. Calcium [Mass/Vol] 9.9 mg/dL Normal 8.6 - 10. 3 mg/dL [facility], [facility].; [facility], [facility]. Chloride [Moles/Vol] 104 mmol/L Normal 98 - 11 0 mmol/L [facility], [facility].; [facility], [facility]. Cholesterol [Mass/Vol] 194 mg/dL Normal [facility], [facility] Cholesterol in HDL [Mass/Vol] 49 mg/dL Normal [facility], [facility].; [facility], [facility]. Cholesterol in LDL [Mass/Vol] 120 mg/dL Abnormal [facility], [facility].; [facility], [facility]. CO2 [Moles/Vol] 23 mmol/L Normal 20 - 32 mmol/L [facility], [facility].; [place] [employer] [facility], [facility]. Creatinine [Mass/Vol] 1.18 mg/dL Normal 0.70 - 1.33 mg/dL [facility], [facility].; [facility], [facility]. GFR/1.73 sq M.predicted among blacks MDRD (S/P/Bld) [Vol rate/Area] 82 mL/min/{1.73_m2} Normal [facility], [facility].; [place] [employer] [facility], [employer] Glucose [Mass/Vol] 92 mg/dL Normal 65 - 99 mg/dL [facility], [facility].; [place] [employer] [facility], [employer] Potassium [Moles/Vol] 4.8 mmol/L Normal 3.5 - 5.3 mmol/L [facility], [facility].; [facility], [facility]. Protein [Mass/Vol] 7.3 g/dL Normal 6.1 - 8.1 g/dL [facility]; [facility] Sodium [Moles/Vol] 140 mmol/L Normal 135 - 146 mmol/L [facility]; [facility] Triglyceride [Mass/Vol] 134 mg/dL Normal H [facility]; [facility] Urea nitrogen [Mass/Vol] 16 mg/dL Normal 7 - 25 mg/dL [facility]; [facility] No Panel Informationon 01-16 BUN/CREATININE RATIO NOT APPLICABLE Normal 6 - 22 [facility]; [facility] CHOL/HDLC RATIO 4.0 Normal [facility]; [facility] eGFR NON-AFR. BAHAMIAN 71 Normal [facility]; [facility] GLOBULIN 2.7 Normal 1.9 - 3.7 [facility]; [facility] NON HDL CHOLESTEROL 145 Abnormal [facility]; [place] [employer] [facility] PSA, TOTAL 1.00 ng/mL Normal [facility]; [place] [employer] [facility] TESTOSTERONE, TOTAL, MS 477 ng/dL Normal 250 - 1100 ng/dL [facility]; [place] [employer] [facility] TSH W/REFLEX TO FT4 2.04 {mIU/L} Normal 0.40 - 4 .50 {mIU/L} [facility]; [place] [employer] [facility] Laboratory - Cytologyon 12-07 Pathologist Cyto stain Nom (Cvx/Vag) [ID] SEE NOTE Normal [facility]; [place] [employer] [facility] No Panel Informationon 12-20 A DIAGNOSIS SEE NOTE Normal [facility]; [place] [employer] [facility] A GROSS DESCRIPTION SEE NOTE Normal [facility]; [place] [employer] [facility] A MICRO DESCRIPTION SEE NOTE Normal [facility]; [place] [employer] [facility] A PROCEDURE BIOPSY Normal [facility]; [place] [employer] [facility] A SOURCE SEE NOTE Normal [employer] CLINICAL INFORMATION SEE NOTE Normal [employer] [facility] Final Surgical Pathology Rep jeff 11-27-2021 Final Surgical Pathology Report . Pathology Reports Accession: Collected Date/Time: Received Date/Time: Pathologist: [id number] 11/23/2021 09:38 EDT 11/26/2021 09:38 EDT DO YOGESH COFFMAN Final Surgical Pathology Report DIAGNOSIS: GALLBLADDER - PATCHY MILD CHRONIC CHOLECYSTITIS. COMMENT: [id number] CLINICAL INFORMATION: PANCREATITIS SPECIMEN: A GALLBLADDER GROSS [...] Electronically Signed by Pathology Report verified by [facility] Electronically signed by YOGESH COFFMAN DO Sign out Date: 11/27/2021 13:26 Performing Lab: [facility], [address] [place] [address] ([place]) Coronavirus 2019 0 COVID 19 Result [employer] Normal Negative for COVID19 (SARS CoV2) by PCR. [facility] Comment on above: Result Comment: Nega tive for This test was developed and its performance characteristics determined by [facility]'s [facility] [place]. This test has been authorized by FDA under an Emergency Use Authorization (EUA). This test has been validated in accordance with the FDA's Guidance Document Policy for Diagnostics Testing in Laboratories Certified to Perform High Complexity Testing under CLIA prior to Emergency use Authorization for Coronavirus Disease 2019 during the Public Health Emergency issued on November 06, 2019. COVID19 (SARS This test was developed and its performance characteristics determined by [facility] [place]. This test has been authorized by FDA under an Emergency Use Authorization (EUA). This test has been validated in accordance with the FDA's Guidance Document Policy for Diagnostics Testing in Laboratories Certified to Perform High Complexity Testing under CLIA prior to Emergency use Authorization for Coronavirus Disease 2019 during the Public Health Emergency issued on November 06, 2019. CoV2) by PCR. This test was developed and its performance characteristics determined by [facility]'s [facility]ology and Laboratory Medicine [place]. This test has been authorized by FDA under an Emergency Use Authorization (EUA). This test has been validated in accordance with the FDA's Guidance Document Policy for Diagnostics Testing in Laboratories Certified to Perform High Complexity Testing under CLIA prior to Emergency use Authorization for Coronavirus Disease 2019 during the Public Health Emergency issued on November 06, 2019. Coronavirus 2019on 0 COVID 19 Source [employer] Normal [facility] Comment on above: Result Comment: Naso pharyngeal Corrected on 07/28 AT 1013: Previously reported as [employer] Swab Corrected on 07/28 AT 1013: Previously reported as [employer] Laboratory - Chemistry and C hemistry - challengeon 02-12-2019 Albumin [Mass/Vol] 4.6 g/dL Normal 3.6 - 5.1 g/dL [employer], [employer]. Albumin/Globulin [Mass ratio] 2.3 {ratio} Normal 1.0 - 2.5 [employer], [employer] ALP [Catalytic activity/Vol] 48 U/L Normal 40 - 115 U/L [employer], [employer].; [employer] ALT [Catalytic activity/Vol] 25 U/L Normal 9 - 46 U/L [employer], [employer].; [employer] AST [Catalytic activity/Vol] 23 U/L Normal 10 - 40 U/L [employer], [employer].; [employer], [employer]. Bilirubin [Mass/Vol] 0.5 mg/dL Normal 0.2 - 1 .2 mg/dL [employer], [employer].; [employer] Calcium [Mass/Vol] 9.8 mg/dL Normal 8.6 - 10. 3 mg/dL [employer], [employer].; [employer] Chloride [Moles/Vol] 106 mmol/L Normal 98 - 11 0 mmol/L [employer], [employer].; [employer], [employer]. CO2 [Moles/Vol] 28 mmol/L Normal 20 - 32 mmol/L [facility].; [place] [employer], [facility]. Creatinine [Mass/Vol] 1.11 mg/dL Normal 0.60 - 1.35 mg/dL [facility], [facility].; [place] [employer] [facility], [employer]. GFR/1.73 sq M.predicted among blacks MDRD (S/P/Bld) [Vol rate/Area] 90 {ML/MIN/1.73M2} Normal [facility], [facility].; [place] [employer] [facility], [facility]. GFR/1.73 sq M.predicted MDRD (S/P/Bld) [Vol rate/Area] 78 {ML/MIN/1.73M2} Normal [facility], [facility].; [place] [employer], [employer]. Globulin (S) [Mass/Vol] 2.1 g/dL Normal 1.9 - 3.7 g/dL [facility], [facility].; [place] [employer], [employer]. Glucose [Mass/Vol] 93 mg/dL Normal 65 - 99 mg/dL [facility], [facility].; [place] [employer], [employer]. Potassium [Moles/Vol] 4.9 mmol/L Normal 3.5 - 5.3 mmol/L [facility], [facility].; [employer], [employer]. Protein [Mass/Vol] 6.7 g/dL Normal 6.1 - 8.1 g/dL [facility], [facility].; [place] [employer], [facility]. Sodium [Moles/Vol] 140 mmol/L Normal 135 - 146 mmol/L [facility], [facility].; [place] [employer], [employer]. Urea nitrogen [Mass/Vol] 22 mg/dL Normal 7 - 25 mg/dL [facility], [facility].; [place] [employer], [facility]. Urea nitrogen/Creatinine [Mass ratio] 19.5 mg/mg Normal 6 - 22 [facility].; [place] [employer], [employer]. Laboratory - Hematology and Cell countson 02-12-2019 Basophils (Bld) [#/Vol] 30 {Cells}/uL Normal 0 - 200 {Cells}/uL [facility], [facility].; [place] [employer], [employer]. Basophils/100 WBC (Bld) 0.5 % Normal 0 - 1 % [facility].; [facility]. Eosinophils (Bld) [#/Vol] 110 {Cells}/uL Normal 15 - 500 {Cells}/uL [facility] [employer] [facility].; [place] [employer] [facility]. Eosinophils/100 WBC (Bld) 1.8 % Normal 0 - 4 % [facility].; [place] [employer], [facility]. Erythrocyte distribution width (RBC) [Ratio] 12.4 % Normal 11.0 - 15.0 % [facility] [employer] [facility].; [place] [employer] [facility]. Hematocrit (Bld) [Volume fraction] 42.9 % Normal 38.5 - 50.0 % [facility] [employer] [facility].; [place] [employer], [facility]. Hemoglobin (Bld) [Mass/Vol] 14.3 g/dL Normal 13.2 - 17.1 g/dL [facility].; [place] [employer], [facility]. Lymphocytes (Bld) [#/Vol] 1260 {Cells}/uL Normal 850 - 3900 {Cells}/uL [facility] [employer] [facility].; [place] [employer] [facility]. Lymphocytes/100 WBC (Bld) 20.7 % Normal 12 - 47 % [place] [employer] [facility].; [place] [employer], [facility]. MCH (RBC) [Entitic mass] 29.8 pg Normal 27.0 - 33.0 PG [place] [employer] [facility].; [place] [employer], [facility]. MCHC (RBC) [Mass/Vol] 33.3 g/dL Normal 32.0 - 36.0 g/dL [place] [employer] [facility].; [place] [employer], [facility]. MCV (RBC) [Entitic vol] 89.4 fL Normal 80.0 - 100.0 fL [place] [employer] [facility].; [employer], [facility]. Monocytes (Bld) [#/Vol] 580 {Cells}/uL Normal 20 0 - 950 {Cells}/uL [place] [employer] [place] [employer], [employer]. Monocytes/100 WBC (Bld) 9.5 % Normal 4 - 12 % [facility].; [place] [employer], [facility]. Neutrophils (Bld) [#/Vol] 4110 {Cells}/uL Normal 1500 - 7800 {Cells}/uL [place] [employer] [facility], [facility]. Neutrophils/100 WBC (Bld) 67.5 % Normal 40 - 75 % [facility].; [place] [employer] [facility], [facility]. Platelet mean volume (Bld) [Entitic vol] 13.0 fL Abnormal 7.5 - 12.5 fL [facility].; [facility], [facility]. Platelets (Bld) [#/Vol] 145 10*3/uL Normal 140 - 400 10*3/uL [facility].; [place] [employer] [facility], [facility]. RBC (Bld) [#/Vol] 4.80 10*6/uL Normal 4.20 - 5.8 0 10*6/uL [facility].; [place] [employer] [facility], [facility]. WBC (Bld) [#/Vol] 6.1 10*3/uL Normal 3.8 - 10.8 10*3/uL [facility], [facility].; [place] [employer], [facility]. Laboratory - Chemistry and C hemistry - challengeon 01-21-2018 Cholesterol [Mass/Vol] 156 mg/dL Normal 0 - 2 00 mg/dL [facility].; [place] [employer], [facility]. Cholesterol in HDL [Mass or moles/Vol] 51 mg/dL Normal 40 - 60 mg/dL [facility].; [place] [employer], [facility]. Cholesterol in LDL [Mass/Vol] 87 mg/dL Normal 0 - 129 mg/dL [facility], [facility].; [place] [employer], [facility]. Cholesterol.total/Tiff sterol in HDL [Mass ratio] 3.1 {ratio} Normal 0.0 - 5.0 [facility].; [place] [employer], [employer]. Glucose [Mass/Vol] 92 mg/dL Normal 74 - 106 mg/dL [facility], [facility].; [place] [employer], [facility]. Lipid 1996 panel LIPID PROFILE Normal [facility].; [place] [employer], [facility]. Triglyceride [Mass/Vol] 88 mg/dL Normal 0 - 150 mg/dL [facility], [facility].; [place] [employer], [facility]. Laboratory - Chemistry and C hemistry - challengeon 01-22-2017 Cholesterol [Mass/Vol] 156 mg/dL Normal 0 - 2 00 mg/dL [facility].; [facility], [facility]. Cholesterol in HDL [Mass or moles/Vol] 41 mg/dL Normal 40 - 60 mg/dL [facility].; [facility] Cholesterol in LDL [Mass/Vol] 98 mg/dL Normal 0 - 129 mg/dL [facility].; [facility], [facility] Cholesterol.total/Tiff sterol in HDL [Mass ratio] 3.8 {ratio} Normal 0.0 - 5.0 [facility].; [facility], [facility] Glucose [Mass/Vol] 90 mg/dL Normal 74 - 106 mg/dL [facility].; [facility] Lipid 1996 panel LIPID PROFILE Normal [facility]; [facility], [facility] Triglyceride [Mass/Vol] 87 mg/dL Normal 0 - 150 mg/dL [facility].; [facility], [facility] Laboratory - Chemistry and C hemistry - challengeon 08-08-2016 Albumin [Mass/Vol] 4.7 g/dL Normal 3.4 - 4.8 g/dL [facility].; [facility], [facility]. Albumin [Mass/Vol] 1.7 g/dL Abnormal 0.9 - 1.6 [facility].; [facility], [facility]. ALP [Catalytic activity/Vol] 52 U/L Normal 38 - 126 U/L [facility].; [facility], [facility]. ALT [Catalytic activity/Vol] 61 U/L Abnormal 10 - 40 U/L [facility].; [facility], [facility]. Anion gap [Moles/Vol] 11 mmol/L Normal 10 - 2 0 mmol/L [facility].; [facility], [facility]. AST [Catalytic activity/Vol] 30 U/L Normal 13 - 39 U/L [facility].; [facility], [facility]. Bilirubin [Mass/Vol] 0.3 mg/dL Normal 0.0 - 1 .5 mg/dL [facility], [facility].; [facility], [facility]. Calcium [Mass/Vol] 9.8 mg/dL Normal 8.6 - 10. 2 mg/dL [facility].; [facility], [employer] Chloride [Moles/Vol] 102 mmol/L Normal 98 - 10 7 mmol/L [facility].; [facility], [facility]. Cholesterol [Mass/Vol] 179 mg/dL Normal 0 - 2 00 mg/dL [facility], [facility]. Cholesterol in HDL [Mass or moles/Vol] 37 mg/dL Abnormal 40 - 60 mg/dL [facility], [facility] Cholesterol in LDL [Mass/Vol] 105 mg/dL Normal 0 - 129 mg/dL [facility], [facility] Cholesterol.total/Tiff sterol in HDL [Mass ratio] 4.8 {ratio} Normal 0.0 - 5.0 [facility]; [facility], [facility] CO2 [Moles/Vol] 31.0 mmol/L Normal 21.0 - 31.0 mmol/L [facility], [facility].; [facility], [facility] Comprehensive metabolic 2000 panel CMP with eGFR Normal [facility]; [facility], [facility] Creatinine [Mass/Vol] 0.9 mg/dL Normal 0.7 - 1.3 mg/dL [facility], [facility].; [facility], [facility]. GFR/1.73 sq M.predicted among blacks MDRD (S/P/Bld) [Vol rate/Area] mL/min/{1.73_m2} Normal 60 - 999 {ML/MINUTE} [facility], [facility].; [facility], [facility]. GFR/1.73 sq M.predicted MDRD (S/P/Bld) [Vol rate/Area] mL/min/{1.73_m2} Normal 60 - 999 {ML/MINUTE} [facility], [facility].; [facility], [facility]. Globulin (S) [Mass/Vol] 2.7 g/dL Normal 1.5 - 3.8 g/dL [facility], [facility].; [facility] Glucose [Mass/Vol] 103 mg/dL Normal 74 - 106 mg/dL [facility], [facility].; [facility], [facility] Lipid 1996 panel LIPID PROFILE Normal [facility], [facility].; [facility]. Potassium [Moles/Vol] 5.1 mmol/L Normal 3.5 - 5.1 mmol/L [facility].; [place] [employer] [facility] Prostate specific Ag [Mass/Vol] 0.8 ng/mL Normal 0.0 - 4.0 ng/mL [facility].; [place] [employer] [facility] Protein [Mass/Vol] 7.4 g/dL Normal 6.4 - 8.3 g/dL [facility].; [place] [employer] [facility]. Sodium [Moles/Vol] 139 mmol/L Normal 136 - 145 mmol/L [facility].; [place] [employer] [facility]. Triglyceride [Mass/Vol] 185 mg/dL Abnormal 0 - 150 mg/dL [facility].; [place] [employer] [facility]. Urea nitrogen [Mass/Vol] 14 mg/dL Normal 6 - 20 mg/dL [facility].; [place] [employer] Urea nitrogen/Creatinine [Mass ratio] 16 {ratio} Normal 0 - 30 {ratio} [place] [employer] [facility].; [employer]. No Panel Informationon 08-08 AGE 45 {years} Normal [place] [employer] [facility]; [employer] Laboratory - Hematology and Cell countson 2015 HbA1c (Bld) [Mass fraction] 5.5 % Normal 4.6 - 7.1 % [facility].; [employer] Laboratory - Chemistry and C hemistry - challengeon 07-11-2015 Albumin [Mass/Vol] 4.4 g/dL Normal 3.4 - 4.8 g/dL [facility].; [place] [employer], [facility]. Albumin [Mass/Vol] 1.4 g/dL Normal 0.9 - 1.6 [place] [employer] [facility].; [place] [employer]. ALP [Catalytic activity/Vol] 46 U/L Normal 38 - 126 U/L [facility].; [place] [employer], [employer]. ALT [Catalytic activity/Vol] 40 U/L Normal 10 - 40 U/L [facility].; [place] [employer] Anion gap [Moles/Vol] 10 mmol/L Normal 10 - 2 0 mmol/L [facility]. AST [Catalytic activity/Vol] 21 U/L Normal 13 - 39 U/L [facility]; [facility]. Bilirubin [Mass/Vol] 0.5 mg/dL Normal 0.0 - 1 .5 mg/dL [facility]; [facility] Calcium [Mass/Vol] 9.8 mg/dL Normal 8.6 - 10. 2 mg/dL [facility]; [facility] Chloride [Moles/Vol] 103 mmol/L Normal 98 - 10 7 mmol/L [facility]; [facility] Cholesterol [Mass/Vol] 162 mg/dL Normal 0 - 2 00 mg/dL [facility]; [facility]. Cholesterol in HDL [Mass or moles/Vol] 34 mg/dL Abnormal 40 - 60 mg/dL [facility]; [facility] Cholesterol in LDL [Mass/Vol] 89 mg/dL Normal 0 - 129 mg/dL [facility].; [facility], [facility] Cholesterol.total/Tiff sterol in HDL [Mass ratio] 4.8 {ratio} Normal 0.0 - 5.0 [facility]; [facility], [facility] CO2 [Moles/Vol] 27.0 mmol/L Normal 13.0 - 29.0 mmol/L [facility]; [facility], [facility] Cobalamin (Vitamin B12) [Mass/Vol] 396 pg/mL Normal 180 - 914 pg/mL [facility], [facility]. Comprehensive metabolic 2000 panel CMP with eGFR Normal [facility]; [facility], [facility] Creatinine [Mass/Vol] 0.9 mg/dL Normal 0.7 - 1.3 mg/dL [facility], [facility]. Folate (RBC) [Mass/Vol] 23.4 ng/mL Abnormal 3.5 - 20.0 ng/mL [facility], [facility] GFR/1.73 sq M.predicted among blacks MDRD (S/P/Bld) [Vol rate/Area] mL/min/{1.73_m2} Normal 60 - 999 {ML/MINUTE} [facility].; [facility], [facility]. GFR/1.73 sq M.predicted MDRD (S/P/Bld) [Vol rate/Area] mL/min/{1.73_m2} Normal 60 - 999 {ML/MINUTE} [facility], [facility].; [facility]. Globulin (S) [Mass/Vol] 3.1 g/dL Normal 1.5 - 3.8 g/dL [facility].; [facility], [facility] Glucose [Mass/Vol] 96 mg/dL Normal 74 - 106 mg/dL [facility].; [facility] Lipid 1996 panel LIPID PROFILE Normal [facility].; [facility], [facility] Potassium [Moles/Vol] 4.0 mmol/L Normal 3.5 - 5.1 mmol/L [facility].; [facility]. Prostate specific Ag [Mass/Vol] 0.7 ng/mL Normal 0.0 - 4.0 ng/mL [facility].; [facility], [facility]. Protein [Mass/Vol] 7.5 g/dL Normal 6.4 - 8.3 g/dL [facility], [facility].; [place] [employer] [facility], [facility]. Sodium [Moles/Vol] 136 mmol/L Normal 136 - 145 mmol/L [facility], [facility].; [facility], [facility]. Triglyceride [Mass/Vol] 194 mg/dL Abnormal 0 - 150 mg/dL [facility].; [place] [employer] [facility], [facility]. TSH Qn 2.13 m[IU]/L Normal 0.34 - 5.60 {uIU/ml} [facility].; [place] [employer] [facility], [facility]. Urea nitrogen [Mass/Vol] 16 mg/dL Normal 6 - 20 mg/dL [facility], [facility].; [place] [employer] [facility], [facility]. Urea nitrogen/Creatinine [Mass ratio] 18 {ratio} Normal 0 - 30 {ratio} [facility].; [place] [employer] [facility]. Laboratory - Hematology and Cell countson 07-11-2015 Basophils (Bld) [#/Vol] 0.10 {3/UL} Normal 0.00 - 0.10 {3/UL} [facility].; [place] [employer] [facility]. Basophils/100 WBC (Bld) 0.4 % Normal 0.0 - 2.0 % [facility], [facility].; [employer], [facility]. CBC W Auto Differential panel (Bld) CBC Normal [facility].; [place] [employer] [facility], [facility]. Eosinophils (Bld) [#/Vol] 0.20 {3/UL} Normal 0.00 - 0.50 {3/UL} [facility], [facility].; [place] [employer], [facility]. Eosinophils/100 WBC (Bld) 1.7 % Normal 0.0 - 7.0 % [facility].; [employer], [facility]. Erythrocyte distribution width (RBC) [Ratio] 12.9 % Normal 12.0 - 15.6 % [facility].; [employer], [facility]. Hematocrit (Bld) [Volume fraction] 45.8 % Normal 40.0 - 52.0 % [place] [employer] [facility].; [employer], [facility]. Hemoglobin (Bld) [Mass/Vol] 15.2 g/dL Normal 13.0 - 17.5 g/dL [place] [employer] [facility].; [place] [employer], [facility]. Lymphocytes (Bld) [#/Vol] 2.20 {3/UL} Normal 0.80 - 2.80 {3/UL} [place] [employer], [facility].; [employer], [facility]. Lymphocytes/100 WBC (Bld) 19.3 % Abnormal 20.0 - 45.0 % [place] [employer] [facility].; [employer], [facility]. MCH (RBC) [Entitic mass] 29 pg Normal 27 - 33 pg [place] [employer] [facility].; [employer] MCHC (RBC) [Mass/Vol] 33 {X10_3} Normal 32 - 3 6 {X10_3} [place] [employer], [facility].; [employer] MCV (RBC) [Entitic vol] 87 fL Normal 81 - 98 [facility]L [facility].; [employer], [employer]. Monocytes (Bld) [#/Vol] 1.00 {3/UL} Normal 0.20 - 1.00 {3/UL} [employer].; [employer]. Monocytes/100 WBC (Bld) 8.8 % Normal 0.0 - 10.0 % [employer].; [employer]. Morphology Jesus Manuel (Bld) [Interp] N/A Normal [employer].; [employer]. Neutrophils (Bld) [#/Vol] 7.80 {3/UL} Abnormal 1.50 - 7.10 {3/UL} [employer].; [employer]. Neutrophils/100 WBC (Bld) 69.8 % Normal 46.0 - 76.0 % [employer].; [employer]. Platelet mean volume (Bld) [Entitic vol] 10.2 fL Normal 6.4 - 10.5 fL [employer].; [employer], [employer]. Platelets (Bld) [#/Vol] 189 {3/UL} Normal 150 - 450 {3/UL} [employer].; [employer]. RBC (Bld) [#/Vol] 5.25 {6/UL} Normal 4.50 - 6.0 0 {6/UL} [employer].; [employer]. WBC (Bld) [#/Vol] 11.2 {3/UL} Abnormal 4.5 - 10.8 {3/UL} [employer].; [employer]. No Panel Informationon 07-11 AGE 44 {years} Normal [employer].; [employer]. MANUAL DIFF N/A Normal [employer].; [employer]. Laboratory - Chemistry and C hemistry - challengeon 07-06-2015 Glucose Glucometer (BldC) [Moles/Vol] 91 Normal 60 - 120 [employer].; [employer]. Laboratory - Chemistry and C hemistry - challengeon 05-06-2014 Albumin [Mass/Vol] 4.7 g/dL Normal 3.4 - 4.8 g/dL [facility], [facility]. Albumin [Mass/Vol] 1.6 g/dL Normal 0.9 - 1.6 [facility], [facility]. ALP [Catalytic activity/Vol] 46 U/L Normal 38 - 126 U/L [facility], [facility]. ALT [Catalytic activity/Vol] 59 U/L Abnormal 10 - 40 U/L [facility], [facility]. AST [Catalytic activity/Vol] 28 U/L Normal 13 - 39 U/L [facility].; [facility], [facility]. Bilirubin [Mass/Vol] 0.6 mg/dL Normal 0.0 - 1 .5 mg/dL [facility]; [facility], [facility]. Calcium [Mass/Vol] 9.9 mg/dL Normal 8.6 - 10. 2 mg/dL [facility]; [facility], [facility]. Chloride [Moles/Vol] 103 mmol/L Normal 98 - 10 7 mmol/L [facility], [facility]. Cholesterol [Mass/Vol] 181 mg/dL Normal 0 - 2 00 mg/dL [facility]; [facility], [facility]. Cholesterol in HDL [Mass or moles/Vol] 32 mg/dL Abnormal 40 - 60 mg/dL [facility], [facility]. Cholesterol in LDL [Mass/Vol] 108 mg/dL Normal 0 - 129 mg/dL [facility], [facility]. Cholesterol.total/Tiff sterol in HDL [Mass ratio] 5.7 {ratio} Abnormal 0.0 - 5.0 [facility].; [facility], [facility] CO2 [Moles/Vol] 30.0 mmol/L Abnormal 13.0 - 29.0 mmol/L [facility], [facility]. Comprehensive metabolic 2000 panel CMP with eGFR Normal [facility]; [facility], [facility] Creatinine [Mass/Vol] 0.9 mg/dL Normal 0.7 - 1.3 mg/dL [facility]; [facility] [employer]. GFR/1.73 sq M.predicted among blacks MDRD (S/P/Bld) [Vol rate/Area] mL/min/{1.73_m2} Normal 60 - 999 {ML/MINUTE} [facility].; [place] [employer] [facility], [facility]. GFR/1.73 sq M.predicted MDRD (S/P/Bld) [Vol rate/Area] mL/min/{1.73_m2} Normal 60 - 999 {ML/MINUTE} [facility].; [place] [employer], [employer]. Globulin (S) [Mass/Vol] 3.0 g/dL Normal 1.5 - 3.8 g/dL [facility].; [place] [employer], [employer]. Glucose [Mass/Vol] 83 mg/dL Normal 74 - 106 mg/dL [facility].; [employer], [employer]. Lipid 1996 panel LIPID PROFILE Normal [facility].; [place] [employer] [facility] Potassium [Moles/Vol] 4.2 mmol/L Normal 3.5 - 5.1 mmol/L [facility].; [place] [employer], [facility]. Prostate specific Ag [Mass/Vol] 0.7 ng/mL Normal 0.0 - 4.0 ng/mL [place] [employer] [facility].; [place] [employer], [employer]. Protein [Mass/Vol] 7.7 g/dL Normal 6.4 - 8.3 g/dL [place] [employer] [facility], [facility].; [employer], [employer]. Sodium [Moles/Vol] 136 mmol/L Normal 136 - 145 mmol/L [facility].; [place] [employer], [employer]. Triglyceride [Mass/Vol] 205 mg/dL Abnormal 0 - 150 mg/dL [facility].; [employer], [employer]. Urea nitrogen [Mass/Vol] 13 mg/dL Normal 6 - 20 mg/dL [place] [employer] [facility].; [employer] Urea nitrogen/Creatinine [Mass ratio] 14 {ratio} Normal 0 - 30 {ratio} [place] [employer] [facility].; [place] [employer], [employer]. No Panel Informationon 05-06 AGE 43 {years} Normal [place] [employer] [facility].; [place] [employer]. Laboratory - Chemistry and C hemistry - challengeon 04-28-2013 Calcium [Mass/Vol] 9.9 mg/dL Normal 8.6 - 10. 3 mg/dL [facility], [facility].; [place] [employer] [facility], [employer]. Chloride [Moles/Vol] 103 mmol/L Normal 98 - 11 0 mmol/L [facility], [facility].; [place] [employer] Cholesterol [Mass/Vol] 198 mg/dL Normal 125 - 200 mg/dL [facility].; [place] [employer] Cholesterol in HDL [Mass/Vol] 38 mg/dL Abnormal [place] [employer], [facility].; [place] [employer], [employer]. Cholesterol in LDL [Mass/Vol] 105 mg/dL Normal [place] [employer] [facility].; [place] [employer], [employer]. Cholesterol non HDL [Mass/Vol] 160 mg/dL Abnormal [place] [employer] [facility], [facility].; [place] [employer], [employer]. Cholesterol.total/Tiff sterol in HDL [Mass ratio] 5.2 {ratio} Abnormal [place] [employer] [facility].; [place] [employer] CO2 [Moles/Vol] 26 mmol/L Normal 19 - 30 mmol/L [place] [employer], [facility].; [employer], [employer]. Creatinine [Mass/Vol] 0.92 mg/dL Normal 0.60 - 1.35 mg/dL [place] [employer] [facility], [facility].; [place] [employer] GFR/1.73 sq M.predicted among blacks MDRD (S/P/Bld) [Vol rate/Area] 118 {ML/MIN/1.73M2} Normal [place] [employer], [facility].; [place] [employer] GFR/1.73 sq M.predicted MDRD (S/P/Bld) [Vol rate/Area] 102 {ML/MIN/1.73M2} Normal [employer] Glucose [Mass/Vol] 88 mg/dL Normal 65 - 99 mg/dL [place] [employer], [facility].; [employer] Potassium [Moles/Vol] 4.6 mmol/L Normal 3.5 - 5.3 mmol/L [place] [employer] [facility], [facility].; [employer] Prostate specific Ag [Mass/Vol] 0.6 ng/mL Normal 0.0 - 4.0 ng/mL [facility]; [facility] Sodium [Moles/Vol] 137 mmol/L Normal 135 - 146 mmol/L [facility]; [facility] Triglyceride [Mass/Vol] 274 mg/dL Abnormal [facility]; [facility] Urea nitrogen [Mass/Vol] 15 mg/dL Normal 7 - 25 mg/dL [facility]; [facility] Urea nitrogen/Creatinine [Mass ratio] 16.0 mg/mg Normal 6 - 22 [facility]; [facility] Laboratory - Microbiology an d Antimicrobial susceptibilityon 04-28-2013 H. pylori IgG IA Ql Positive Abnormal [facility]; [facility], [facility] Vital Signs Date Time Vital Sign Value Performing Clinician Facility 02-18-2025 09:56-0400 Body height 177.8 cm David Lopes LPN [facility]; [facility] 02-18-2025 09:56-0400 Body mass index (BMI) [Ratio] 38.88 kg/m2 David Lopes LPN [facility]; [facility] 02-18-2025 09:56-0400 Body surface area Derived from formula 2.38 m2 David Lopes LPN [facility]; [facility] 02-18-2025 09:56-0400 Body weight 122.93 kg David Lopes LPN [facility] 02-18-2025 09:56-0400 Diastolic blood pressure 70 mm[Hg] David Lopes LPN [facility]. Comment on above: Patient Position: Sitting; Cuff Location : Left Arm; Cuff Size: Standard 02-18-2025 09:56-0400 Heart rate 65 /min David Lopes LPN [facility]; [facility], [facility]. Comment on above: Pattern: Regular 02-18-2025 09:56-0400 Systolic blood pressure 131 mm[Hg] David Lopes LPN [facility].; [employer] [facility]. Comment on above: Patient Position: Sitting; Cuff Location : Left Arm; Cuff Size: Standard 01-11-2025 13:00-0400 Body height 177.8 cm Geno Bah RN [facility].; [employer]. 01-11-2025 13:00-0400 Body mass index (BMI) [Ratio] 39.17 kg/m2 Geno Bah RN [facility].; [employer]. 01-11-2025 13:00-0400 Body surface area Derived from formula 2.38 m2 Geno Bah RN [facility].; [place] [employer] [facility]. 01-11-2025 13:00-0400 Body temperature 98.2 [degF] Geno Bah RN [facility].; [employer]. Comment on above: Method: Tympanic 01-11-2025 13:00-0400 Body weight 123.83 kg Geno Bah RN [facility].; [employer]. 01-11-2025 13:00-0400 Diastolic blood pressure 77 mm[Hg] Geno Bah RN [facility].; [employer]. Comment on above: Patient Position: Sitting; Cuff Location : Left Arm; Cuff Size: Large 01-11-2025 13:00-0400 Heart rate 64 /min Geno Bah RN [facility].; [employer]. Comment on above: Pattern: Regular 01-11-2025 13:00-0400 Systolic blood pressure 116 mm[Hg] Geno Bah RN [place] [employer] [facility].; [employer]. Comment on above: Patient Position: Sitting; Cuff Location : Left Arm; Cuff Size: Large 11-01-2024 08:56-0500 Body height 177.8 cm Kanchan Reese LPN [facility].; [employer]. 11-01-2024 08:56-0500 Body mass index (BMI) [Ratio] 39.31 kg/m2 Kanchan Reese LPN [facility], [facility].; [facility], [facility]. 11-01-2024 08:56-0500 Body surface area Derived from formula 2.39 m2 Kanchan Reese LPN [facility].; [facility] [employer] 11-01-2024 08:56-0500 Body temperature 97.7 [degF] Kanchan Reese LPN [facility].; [facility], [facility]. Comment on above: Method: Tympanic 11-01-2024 08:56-0500 Body weight 124.29 kg Kanchan Reese LPN [facility], [facility].; [facility], [facility]. 11-01-2024 08:56-0500 Diastolic blood pressure 5 mm[Hg] Kanchan Reese LPN [facility].; [facility], [facility]. Comment on above: Patient Position: Sitting; Cuff Location : Left Arm; Cuff Size: Standard 11-01-2024 08:56-0500 Heart rate 73 /min Kanchan Reese LPN [facility].; [facility], [facility]. Comment on above: Pattern: Regular 11-01-2024 08:56-0500 Inhaled oxygen concentration 21 % Kanchan Reese LPN [facility], [facility].; [facility], [facility]. Comment on above: Room air 11-01-2024 08:56-0500 SaO2% (BldA) [Mass fraction] 97 % Kanchan Reese LPN [facility], [facility].; [facility], [facility]. 11-01-2024 08:56-0500 Systolic blood pressure 122 mm[Hg] Kanchan Reese LPN [facility].; [facility], [facility]. Comment on above: Patient Position: Sitting; Cuff Location : Left Arm; Cuff Size: Standard 09-28-2024 08:48-0500 Diastolic blood pressure 84 mm[Hg] Kanchan Reese LPN [facility], [facility].; [facility], [facility]. Comment on above: Patient Position: Sitting; Cuff Location : Left Arm; Cuff Size: Standard 09-28-2024 08:48-0500 Heart rate 67 /min Kanchan Reese LPN [facility], [facility].; [facility], [facility]. Comment on above: Pattern: Regular 09-28-2024 08:48-0500 Systolic blood pressure 122 mm[Hg] Kanchan Reese LPN [facility], [facility].; [facility], [employer]. Comment on above: Patient Position: Sitting; Cuff Location : Left Arm; Cuff Size: Standard 09-28-2024 08:47-0500 Body height 177.8 cm Kanchan Reese LPN [facility], [facility].; [facility], [facility]. 09-28-2024 08:47-0500 Body mass index (BMI) [Ratio] 38.31 kg/m2 Kanchan Reese LPN [facility], [facility].; [facility], [facility]. 09-28-2024 08:47-0500 Body surface area Derived from formula 2.36 m2 Kanchan Reese LPN [facility], [facility].; [place] [employer] [facility], [facility]. 09-28-2024 08:47-0500 Body temperature 96.4 [degF] Kanchan Reese LPN [facility], [facility].; [place] [employer] [facility], [employer]. Comment on above: Method: Tympanic 09-28-2024 08:47-0500 Body weight 121.11 kg Kanchan Reese LPN [facility], [facility].; [facility], [facility]. 09-28-2024 08:47-0500 Diastolic blood pressure 94 mm[Hg] Kanchan Reese LPN [facility], [facility].; [employer], [employer]. Comment on above: Patient Position: Sitting; Cuff Location : Left Arm; Cuff Size: Standard 09-28-2024 08:47-0500 Heart rate 71 /min Kanchan Reese LPN [facility], [facility].; [place] [employer], [employer]. Comment on above: Pattern: Regular 09-28-2024 08:47-0500 Systolic blood pressure 146 mm[Hg] Kanchan Reese LPN [facility], [facility].; [place] [employer], [employer]. Comment on above: Patient Position: Sitting; Cuff Location : Left Arm; Cuff Size: Standard 09-17-2024 10:45-0500 Body height 177.8 cm Debbie Dickey [facility], [facility].; [facility], [facility]. 09-17-2024 10:45-0500 Body mass index (BMI) [Ratio] 38.17 kg/m2 Debbie Noble [facility], [facility].; [employer] [facility], [facility] 09-17-2024 10:45-0500 Body surface area Derived from formula 2.36 m2 Debbie Njolivia [facility], [facility] [employer] [facility], [facility] 09-17-2024 10:45-0500 Body weight 120.66 kg [facility].; [employer], [facility]. 09-17-2024 10:45-0500 Diastolic blood pressure 82 mm[Hg] [facility], [facility].; [employer], [employer]. Comment on above: Patient Position: Sitting; Cuff Location : Left Arm; Cuff Size: Standard 09-17-2024 10:45-0500 Heart rate 80 /min [facility], [facility].; [employer]. Comment on above: Pattern: Regular 09-17-2024 10:45-0500 Systolic blood pressure 131 mm[Hg] [facility], [facility].; [employer]. Comment on above: Patient Position: Sitting; Cuff Location : Left Arm; Cuff Size: Standard 09-07-2024 11:18-0500 Body height 177.8 cm David Lopes LPN [facility], [facility] [employer], [employer]. 09-07-2024 11:18-0500 Body mass index (BMI) [Ratio] 38.45 kg/m2 David Lopes LPN [facility], [facility].; [employer], [employer]. 09-07-2024 11:18-0500 Body surface area Derived from formula 2.36 m2 David Lopes LPN [facility], [facility].; [employer], [employer]. 09-07-2024 11:18-0500 Body weight 121.56 kg David Lopes LPN [facility], [facility] [employer], [employer]. 09-07-2024 11:18-0500 Diastolic blood pressure 71 mm[Hg] David Lopes LPN [facility], [facility] [employer]. Comment on above: Patient Position: Sitting; Cuff Location : Left Arm; Cuff Size: Standard 09-07-2024 11:18-0500 Heart rate 60 /min David Lopes LPN [facility], [facility].; [facility], [employer]. Comment on above: Pattern: Regular 09-07-2024 11:18-0500 Systolic blood pressure 110 mm[Hg] David Moses [facility], [facility].; [place] [employer] [facility] Comment on above: Patient Position: Sitting; Cuff Location : Left Arm; Cuff Size: Standard 05-20-2024 08:15-0400 Body height 177.8 cm Radha Matias [facility], [facility].; [facility], [facility]. 05-20-2024 08:15-0400 Body mass index (BMI) [Ratio] 38.17 kg/m2 Radha Matias DENTAL INSURANCE COORDINATOR [facility], [facility].; [place] [employer] [facility], [facility]. 05-20-2024 08:15-0400 Body surface area Derived from formula 2.36 m2 [facility], [facility].; [facility], [facility]. 05-20-2024 08:15-0400 Body weight 120.66 kg Radha Matias [facility], [facility].; [place] [employer] [facility], [facility]. 05-20-2024 08:15-0400 Diastolic blood pressure 79 mm[Hg] Radhamaxwell Matias DENTAL INSURANCE COORDINATOR [facility], [facility].; [employer] [facility], [employer]. Comment on above: Patient Position: Sitting; Cuff Location : Left Arm; Cuff Size: Standard 05-20-2024 08:15-0400 Heart rate 64 /min Radha Matias DENTAL INSURANCE COORDINATOR [facility], [facility].; [place] [employer], [employer]. Comment on above: Pattern: Regular 05-20-2024 08:15-0400 Systolic blood pressure 112 mm[Hg] [facility], [facility].; [place] [employer] [facility], [employer]. Comment on above: Patient Position: Sitting; Cuff Location : Left Arm; Cuff Size: Standard 12-12-2023 09:18-0400 Body height 177.8 cm Nellie Solis MA [facility], [facility].; [place] [employer] [facility], [facility]. 12-12-2023 09:18-0400 Body mass index (BMI) [Ratio] 37.88 kg/m2 Nellie Solis MA [facility].; [facility]. 12-12-2023 09:18-0400 Body surface area Derived from formula 2.35 m2 Nellie Solis MA [facility].; [facility]. 12-12-2023 09:18-0400 Body temperature 97.2 [degF] Nellie Solis MA [facility].; [facility]. Comment on above: Method: Tympanic 12-12-2023 09:18040 Body weight 119.75 kg Nellie Solis MA [facility].; [facility]. 12-12-2023 09:18-0400 Diastolic blood pressure 98 mm[Hg] Nellie Solis MA [facility].; [facility] Comment on above: Patient Position: Sitting; Cuff Location : Left Arm; Cuff Size: Standard 12-12-2023 09:18-0400 Heart rate 64 /min Nellie Solis [facility].; [facility]. Comment on above: Pattern: Regular 12-12-2023 09:18-0400 Inhaled oxygen concentration 21 % Nellie Solis MA [facility]; [facility]. Comment on above: Room air 12-12-2023 09:18-0400 SaO2% (BldA) [Mass fraction] 95 % Nellie Solis MA [facility].; [facility]. 12-12-2023 09:18-0400 Systolic blood pressure 143 mm[Hg] Nellie Solis MA [facility].; [facility]. Comment on above: Patient Position: Sitting; Cuff Location : Left Arm; Cuff Size: Standard 08-06-2023 09:45-0500 Body temperature 97.81 [degF] Jey Birch MD Work Phone: [facility] 08-06-2023 09:45-0500 Body weight 111.58 kg Jey Birch MD Work Phone: [facility] 08-06-2023 09:45-0500 Diastolic blood pressure 88 mm[Hg] Jey Birch MD Work Phone: [facility] 08-06-2023 09:45-0500 Heart rate 57 /min Jey Birch MD Work Phone: [facility] 08-06-2023 09:45-0500 Respiratory rate 15 /min Jey Birch MD Work Phone: [facility] 08-06-2023 09:45-0500 SaO2% (BldA) [Mass fraction] 99 % Jey Birch MD Work Phone: [facility] 08-06-2023 09:45-0500 Systolic blood pressure 123 mm[Hg] Jey iBrch MD Work Phone: [facility] 07-07-2023 14:19-0400 Body height 177.8 cm Nellie Solis MA [facility], [facility].; [employer] [facility], [facility]. 07-07-2023 14:19-0400 Body mass index (BMI) [Ratio] 35.3 kg/m2 Nellie Solis MA [facility], [facility].; [employer] [facility], [facility]. 07-07-2023 14:19-0400 Body surface area Derived from formula 2.28 m2 Nellie Solis MA [facility], [facility].; [employer] [facility], [facility]. 07-07-2023 14:190400 Body weight 111.59 kg Nellie Solis MA [facility], [facility].; [employer], [facility]. 07-07-2023 14:19-0400 Diastolic blood pressure 77 mm[Hg] Nellie Solis MA [facility], [facility].; [employer] [facility], [employer]. Comment on above: Patient Position: Sitting; Cuff Location : Left Arm; Cuff Size: Standard 07-07-2023 14:19-0400 Heart rate 71 /min Nellie Solis MA [facility], [facility].; [employer], [employer]. Comment on above: Pattern: Regular 07-07-2023 14:19-0400 Systolic blood pressure 128 mm[Hg] Nellie Solis MA [facility], [facility].; [facility], [facility]. Comment on above: Patient Position: Sitting; Cuff Location : Left Arm; Cuff Size: Standard 06-17-2023 13:18-0400 Body weight 112.49 kg David Lopes ANDI [facility], [facility].; [place] [employer] [facility], [facility] 06-17-2023 13:18-0400 Diastolic blood pressure 49 mm[Hg] David Lopes ANDI [facility], [facility].; [place] [employer] [facility], [employer]. Comment on above: Patient Position: Sitting; Cuff Location : Left Arm; Cuff Size: Standard 06-17-2023 13:18-0400 Heart rate 70 /min David Lopes DENTAL INSURANCE COORDINATOR [facility], [facility].; [place] [employer] [facility], [employer]. Comment on above: Pattern: Regular 06-17-2023 13:18-0400 Systolic blood pressure 94 mm[Hg] David Lopes ANDI [facility], [facility].; [place] [employer] [facility], [employer]. Comment on above: Patient Position: Sitting; Cuff Location : Left Arm; Cuff Size: Standard 01-14-2023 13:34-0400 Body height 177.8 cm Kanchan Miller MA [facility], [facility].; [facility], [facility]. 01-14-2023 13:34-0400 Body mass index (BMI) [Ratio] 32.57 kg/m2 Kanchan Miller MA [facility], [facility].; [place] [employer] [facility], [facility]. 01-14-2023 13:34-0400 Body surface area Derived from formula 2.2 m2 Kanchan Miller MA [facility], [facility].; [facility], [facility]. 01-14-2023 13:34-0400 Body weight 102.97 kg Kanchan Miller MA [facility], [facility].; [place] [employer] [facility], [facility]. 01-14-2023 13:34-0400 Diastolic blood pressure 64 mm[Hg] Kanchan Miller MA [facility], [facility].; [place] [employer] [facility], [facility]. Comment on above: Patient Position: Sitting; Cuff Location : Left Arm; Cuff Size: Standard 01-14-2023 13:34-0400 Heart rate 71 /min Kanchan Miller MA [facility], [facility].; [place] [employer] [facility], [employer]. Comment on above: Pattern: Regular 01-14-2023 13:34-0400 Systolic blood pressure 98 mm[Hg] Kanchan Miller [facility].; [facility]. Comment on above: Patient Position: Sitting; Cuff Location : Left Arm; Cuff Size: Standard 11-07-2022 15:45-0500 Body height 177.8 cm Kanchan Miller MA [facility].; [facility]. 11-07-2022 15:45-0500 Body mass index (BMI) [Ratio] 32.28 kg/m2 Kanchan Miller MA [facility].; [facility]. 11-07-2022 15:45-0500 Body surface area Derived from formula 2.19 m2 Kanchan Miller MA [facility].; [facility]. 11-07-2022 15:45-0500 Body temperature 98.7 [degF] Kan[facility].; [place] [employer]. Comment on above: Method: Tympanic 11-07-2022 15:45-0500 Body weight 102.06 kg Kanchan Miller MA [facility].; [place] [employer]. 11-07-2022 15:45-0500 Diastolic blood pressure 84 mm[Hg] Kanchan Miller MA [facility].; [place] [employer]. Comment on above: Patient Position: Sitting; Cuff Location : Left Arm; Cuff Size: Standard 11-07-2022 15:45-0500 Heart rate 67 /min Kanchan Miller MA [facility].; [place] [employer]. Comment on above: Pattern: Regular 11-07-2022 15:45-0500 Inhaled oxygen concentration 21 % Kanchan Miller MA [facility].; [place] [employer]. Comment on above: Room air 11-07-2022 15:45-0500 SaO2% (BldA) [Mass fraction] 95 % Kanchan Miller MA [facility].; [place] [employer]. 11-07-2022 15:45-0500 Systolic blood pressure 125 mm[Hg] Kanchan [facility] [place] [employer]. Comment on above: Patient Position: Sitting; Cuff Location : Left Arm; Cuff Size: Standard 01-04-2022 10:16040 Body height 177.8 cm [facility]. 01-04-2022 10:16-0400 Body mass index (BMI) [Ratio] 34.01 kg/m2 Madeline Jiménez [facility].; [place] [employer] [facility]. 01-04-2022 10:160400 Body surface area Derived from formula 2.24 m2 Madeline Jiménez LPN [facility].; [place] [employer] [facility]. 01-04-2022 10:16040 Body temperature 99.1 [degF] Madeline Jiménez [facility].; [employer]. Comment on above: Method: Tympanic 01-04-2022 10:16040 Body weight 107.5 kg Madeline [facility].; [place] [employer] [facility]. 01-04-2022 10:16-0400 Diastolic blood pressure 89 mm[Hg] Madeline Jiménez [facility].; [employer] [facility]. Comment on above: Patient Position: Sitting; Cuff Location : Left Arm; Cuff Size: Standard 01-04-2022 10:16040 Heart rate 75 /min Madeline [facility].; [employer]. Comment on above: Pattern: Regular 01-04-2022 10:160400 Inhaled oxygen concentration 21 % Madeline [facility].; [employer]. Comment on above: Room air 01-04-2022 10:16-0400 SaO2% (BldA) [Mass fraction] 97 % Madeline Jiménez [facility].; [place] [employer] [facility]. 01-04-2022 10:16-0400 Systolic blood pressure 134 mm[Hg] Madeline Jiménez LPN [facility].; [employer]. Comment on above: Patient Position: Sitting; Cuff Location : Left Arm; Cuff Size: Standard 12-20-2021 09:02-0400 Body height 177.8 cm Carlyn Claudio [facility] [employer] [facility]. 12-20-2021 09:02-0400 Body mass index (BMI) [Ratio] 34.01 kg/m2 Carlyn Claudio [facility].; [place] [employer] [facility], [facility]. 12-20-2021 09:02-0400 Body surface area Derived from formula 2.24 m2 Carlyn Brownlabach [facility] [employer] [facility].; [employer] [facility]. 12-20-2021 09:02-0400 Body weight 107.5 kg Carlyn Claudio [facility], [facility].; [employer] [facility]. 12-20-2021 09:02-0400 Diastolic blood pressure 84 mm[Hg] Carlyn Claudio [facility] [employer]. Comment on above: Patient Position: Sitting; Cuff Location : Left Arm; Cuff Size: Standard 12-20-2021 09:02-0400 Heart rate 71 /min Carlyn Claudio [facility] [employer]. Comment on above: Pattern: Regular 12-20-2021 09:02-0400 Systolic blood pressure 132 mm[Hg] Carlyn Claudio [facility], [facility].; [employer]. Comment on above: Patient Position: Sitting; Cuff Location : Left Arm; Cuff Size: Standard 12-17-2021 11:09-0400 Body height 177.8 cm Carlyn Hubbardach [facility].; [employer]. 12-17-2021 11:09-0400 Body mass index (BMI) [Ratio] 34.44 kg/m2 Carlyn Claudio [facility] [employer] [facility].; [employer]. 12-17-2021 11:09-0400 Body surface area Derived from formula 2.26 m2 Carlyn Brownlabach [facility] [employer] [facility], [facility].; [employer]. 12-17-2021 11:09-0400 Body temperature 98.1 [degF] Carlynfranklyn Claudio LPN [facility], [employer].; [employer]. Comment on above: Method: Tympanic 12-17-2021 11:090400 Body weight 108.86 kg Carlyn Claudio LPN [facility], [facility] [employer] 12-17-2021 11:09-0400 Diastolic blood pressure 86 mm[Hg] Carlyn Claudio LPN [facility], [facility].; [employer]. Comment on above: Patient Position: Sitting; Cuff Location : Left Arm; Cuff Size: Standard 12-17-2021 11:090400 Heart rate 69 /min Carlyn Claudio LPN [facility], [facility] [employer]. Comment on above: Pattern: Regular 12-17-2021 11:090400 Inhaled oxygen concentration 21 % Carlyn Claudio LPN [facility], [facility] [employer]. Comment on above: Room air 12-17-2021 11:090400 SaO2% (BldA) [Mass fraction] 98 % Carlyn Claudio LPN [facility], [facility].; [employer]. 12-17-2021 11:09-0400 Systolic blood pressure 133 mm[Hg] Carlyn Claudio LPN [facility], [employer].; [employer]. Comment on above: Patient Position: Sitting; Cuff Location : Left Arm; Cuff Size: Standard 02-12-2019 07:20-0400 Body height 177.8 cm Geno Bah RN [facility].; [employer]. 02-12-2019 07:20-0400 Body mass index (BMI) [Ratio] 30.56 kg/m2 Geno Bah RN [place] [employer] [facility].; [employer]. 02-12-2019 07:20-0400 Body surface area Derived from formula 2.14 m2 Geno Bah RN [place] [employer] [facility].; [employer]. 02-12-2019 07:20-0400 Body weight 96.62 kg Geno Bah RN [place] [employer] [facility].; [employer]. 02-12-2019 07:20-0400 Diastolic blood pressure 75 mm[Hg] Geno Bah RN [place] [employer] [facility].; [employer]. Comment on above: Patient Position: Sitting; Cuff Location : Right Arm; Cuff Size: Standard 02-12-2019 07:20-0400 Heart rate 63 /min Geno Bah RN [facility].; [employer]. Comment on above: Pattern: Regular 02-12-2019 07:20-0400 Systolic blood pressure 112 mm[Hg] Geno Bah RN [place] [employer].; [employer]. Comment on above: Patient Position: Sitting; Cuff Location : Right Arm; Cuff Size: Standard 01-21-2018 08:03-0400 Body height 177.8 cm Carlyn Claudio LPN [place] [employer] [employer] [facility], Inc.; [employer]. 01-21-2018 08:03-0400 Body mass index (BMI) [Ratio] 29.47 kg/m2 Carlyn Claudio LPN [place] [employer] [facility].; [employer]. 01-21-2018 08:03-0400 Body surface area Derived from formula 2.11 m2 Carlyn Claudio LPN [place] [employer] [facility], [employer]. 01-21-2018 08:03-0400 Body weight 93.17 kg Carlyn Claudio LPN [place] [facility] [employer] [facility], [employer].; [employer]. 01-21-2018 08:03-0400 Diastolic blood pressure 77 mm[Hg] Carlyn Claudio LPN [place] [facility] [employer] [facility].; [employer]. Comment on above: Patient Position: Sitting; Cuff Location : Right Arm; Cuff Size: Standard 01-21-2018 08:03-0400 Heart rate 68 /min Carlyn Claudio LPN [place] [facility] [employer] [facility].; [employer]. Comment on above: Pattern: Regular 01-21-2018 08:03-0400 Systolic blood pressure 123 mm[Hg] Carlyn Claudio LPN [place] [employer]. Comment on above: Patient Position: Sitting; Cuff Location : Right Arm; Cuff Size: Standard 10-22-2017 08:09-0500 Body height 177.8 cm Maryam Stratton MD Work Phone: [employer]; [employer]. 10-22-2017 08:09-0500 Body mass index (BMI) [Ratio] 29.54 kg/m2 Maryam Stratton MD Work Phone: [employer]; [employer]. 10-22-2017 08:09-0500 Body surface area Derived from formula 2.11 m2 Maryam Stratton MD Work Phone: [employer]; [employer]. 10-22-2017 08:09-0500 Body weight 93.4 kg Maryam Stratton MD Work Phone: [employer]; [employer]. 10-22-2017 08:09-0500 Diastolic blood pressure 64 mm[Hg] Maryam Stratton MD Work Phone: [employer]; [employer]. Comment on above: Patient Position: Sitting; Cuff Location : Left Arm; Cuff Size: Standard 10-22-2017 08:09-0500 Heart rate 72 /min Maryam Stratton MD Work Phone: [employer]; [employer]. Comment on above: Pattern: Regular 10-22-2017 08:09-0500 Systolic blood pressure 117 mm[Hg] Maryam Stratton MD Work Phone: [employer].; [employer]. Comment on above: Patient Position: Sitting; Cuff Location : Left Arm; Cuff Size: Standard 09-22-2017 08:20-0500 Body height 177.8 cm Juanjo Velasquez) [employer].; [employer]. 09-22-2017 08:20-0500 Body mass index (BMI) [Ratio] 29.56 kg/m2 Juanjo Velasquez) [employer]. 09-22-2017 08:20-0500 Body surface area Derived from formula 2.11 m2 Juanjonick Robles (Scribe) [facility] [employer]. 09-22-2017 08:20-0500 Body temperature 97.8 [degF] Juanjonick Robles (Scribe) [facility].; [employer]. Comment on above: Method: Tympanic 09-22-2017 08:20-0500 Body weight 93.44 kg Juanjonick Robles (Scribe) [facility].; [employer]. 09-22-2017 08:20-0500 Diastolic blood pressure 70 mm[Hg] Juanjonick Robles (Scribe) [facility].; [employer]. Comment on above: Patient Position: Sitting; Cuff Location : Left Arm; Cuff Size: Standard 09-22-2017 08:20-0500 Heart rate 59 /min Juanjo Travis ([employer]) [facility].; [employer]. Comment on above: Pattern: Regular 09-22-2017 08:20-0500 Inhaled oxygen concentration 21 % [facility] ([employer]) [place] [facility] [employer] [facility].; [employer]. Comment on above: Room air 09-22-2017 08:20-0500 SaO2% (BldA) [Mass fraction] 99 % [facility] ([employer]) [facility].; [employer]. 09-22-2017 08:20-0500 Systolic blood pressure 118 mm[Hg] Juanjonick Robles (Scribe) [place] [facility] [employer] [facility].; [employer]. Comment on above: Patient Position: Sitting; Cuff Location : Left Arm; Cuff Size: Standard 07-23-2017 09:03-0500 Body height 177.8 cm Carlyn Claudio LPN [place] [facility] [employer] [facility].; [employer]. 07-23-2017 09:03-0500 Body mass index (BMI) [Ratio] 28.27 kg/m2 Carlyn Claudio LPN [place] [employer]. 07-23-2017 09:03-0500 Body surface area Derived from formula 2.07 m2 Carlyn Claudio LPN [employer] 07-23-2017 09:03-0500 Body weight 89.36 kg Carlyn Claudio DENTAL INSURANCE COORDINATOR [employer] 07-23-2017 09:03-0500 Diastolic blood pressure 69 mm[Hg] Carlyn Hubbardach DENTAL INSURANCE COORDINATOR [employer] Comment on above: Patient Position: Sitting; Cuff Location : Left Arm; Cuff Size: Standard 07-23-2017 09:03-0500 Heart rate 57 /min Carlyn Hubbardach DENTAL INSURANCE COORDINATOR [employer] Comment on above: Pattern: Regular 07-23-2017 09:03-0500 Systolic blood pressure 116 mm[Hg] Carlyn Hubbardach DENTAL INSURANCE COORDINATOR [employer] Comment on above: Patient Position: Sitting; Cuff Location : Left Arm; Cuff Size: Standard 04-30-2017 09:07-0400 Body height 177.8 cm Carlyn Claudio DENTAL INSURANCE COORDINATOR [employer] 04-30-2017 09:07-0400 Body mass index (BMI) [Ratio] 29.24 kg/m2 [facility] [employer] 04-30-2017 09:07-0400 Body surface area Derived from formula 2.1 m2 Carlyn Brownlabach DENTAL INSURANCE COORDINATOR [employer] 04-30-2017 09:07-0400 Body weight 92.44 kg Carlyn Claudio DENTAL INSURANCE COORDINATOR [employer], [employer].; [employer], [employer]. 04-30-2017 09:07-0400 Diastolic blood pressure 65 mm[Hg] Carlyn Hubbardach DENTAL INSURANCE COORDINATOR [employer] Comment on above: Patient Position: Sitting; Cuff Location : Left Arm; Cuff Size: Standard 04-30-2017 09:07-0400 Heart rate 66 /min Carlyn Brownlabach DENTAL INSURANCE COORDINATOR [employer]. Comment on above: Pattern: Regular 04-30-2017 09:07-0400 Systolic blood pressure 109 mm[Hg] Carlyn Red Claudio LPN [employer], [employer]. Comment on above: Patient Position: Sitting; Cuff Location : Left Arm; Cuff Size: Standard 04-08-2017 11:18-0400 Body height 177.8 cm Kelly K Mutersbaugh DENTAL INSURANCE COORDINATOR [employer]. 04-08-2017 11:18-0400 Body mass index (BMI) [Ratio] 29.13 kg/m2 Kelly K Mutersbaugh DENTAL INSURANCE COORDINATOR [employer], [employer].; [employer]. 04-08-2017 11:18-0400 Body surface area Derived from formula 2.1 m2 Kelly K Mutersbaugh DENTAL INSURANCE COORDINATOR [employer], [employer].; [employer]ials, [employer]. 04-08-2017 11:18-0400 Body weight 92.08 kg Kelly K Mutersbaugh DENTAL INSURANCE COORDINATOR [employer], [employer].; [employer]. 04-08-2017 11:18-0400 Diastolic blood pressure 69 mm[Hg] Kelly K Mutersbaugh DENTAL INSURANCE COORDINATOR [employer], [employer].; [employer]. Comment on above: Patient Position: Sitting; Cuff Location : Left Arm; Cuff Size: Standard 04-08-2017 11:18-0400 Heart rate 65 /min Kelly K Mutersbaugh DENTAL INSURANCE COORDINATOR [employer], [employer].; [employer]. Comment on above: Pattern: Regular 04-08-2017 11:18-0400 Systolic blood pressure 120 mm[Hg] Kelly K Mutersbaugh DENTAL INSURANCE COORDINATOR [employer], [employer].; [employer]. Comment on above: Patient Position: Sitting; Cuff Location : Left Arm; Cuff Size: Standard 03-05-2017 08:06-0400 Body height 177.8 cm Carlyn Claudio LPN [employer], [employer].; [employer]. 03-05-2017 08:06-0400 Body mass index (BMI) [Ratio] 29.13 kg/m2 Carlyn Claudio DENTAL INSURANCE COORDINATOR [employer].; [employer]. 03-05-2017 08:06-0400 Body surface area Derived from formula 2.1 m2 Carlyn Brownlabach [facility], Inc.; [employer], [employer] 03-05-2017 08:06-0400 Body weight 92.08 kg Carlyn Claudio DENTAL INSURANCE COORDINATOR [facility], Inc.; [employer], [employer]. 03-05-2017 08:06-0400 Diastolic blood pressure 70 mm[Hg] Carlyn Claudio [facility] [employer] [facility].; [employer]. Comment on above: Patient Position: Sitting; Cuff Location : Right Arm; Cuff Size: Standard 03-05-2017 08:06-0400 Heart rate 76 /min Carlyn Hubbardach [facility] [employer] [facility], Inc.; [employer] Comment on above: Pattern: Regular 03-05-2017 08:06-0400 Systolic blood pressure 114 mm[Hg] Carlyn Claudio DENTAL INSURANCE COORDINATOR [place] [employer] [facility], Inc.; [employer]. Comment on above: Patient Position: Sitting; Cuff Location : Right Arm; Cuff Size: Standard 01-22-2017 08:53-0400 Body height 177.8 cm Carlyn Claudio DENTAL INSURANCE COORDINATOR [place] [employer] [facility], Inc.; [employer], [employer] 01-22-2017 08:53-0400 Body mass index (BMI) [Ratio] 30.5 kg/m2 Carlyn Brownlabach DENTAL INSURANCE COORDINATOR [place] [employer] [facility], Inc.; [employer], [employer] 01-22-2017 08:53-0400 Body surface area Derived from formula 2.14 m2 Carlyn Hubbardach DENTAL INSURANCE COORDINATOR [place] [employer] [facility], Inc.; [employer], [employer]. 01-22-2017 08:53-0400 Body weight 96.44 kg Carlyn Claudio [facility] [employer], [employer].; [employer]. 01-22-2017 08:53-0400 Diastolic blood pressure 72 mm[Hg] Carlyn Claudio DENTAL INSURANCE COORDINATOR [place] [employer]. Comment on above: Patient Position: Sitting; Cuff Location : Right Arm; Cuff Size: Standard 01-22-2017 08:53-0400 Heart rate 71 /min Carlyn Claudio LPN [employer]. Comment on above: Pattern: Regular 01-22-2017 08:53-0400 Systolic blood pressure 123 mm[Hg] Carlyn M González ESCAMILLA [employer] Comment on above: Patient Position: Sitting; Cuff Location : Right Arm; Cuff Size: Standard 12-11-2016 08:58-0400 Body height 177.8 cm Corinne Farr RN Work Phone: [employer].; [employer]. 12-11-2016 08:58-0400 Body mass index (BMI) [Ratio] 32.57 kg/m2 Corinne Farr RN Work Phone: [employer].; [employer] 12-11-2016 08:58-0400 Body surface area Derived from formula 2.2 m2 Corinne Farr RN Work Phone: [employer].; [employer] 12-11-2016 08:58-0400 Body weight 102.97 kg Corinne Farr RN Work Phone: [employer].; [employer] 12-11-2016 08:58-0400 Diastolic blood pressure 74 mm[Hg] Corinne Farr RN Work Phone: [employer].; [employer]. Comment on above: Patient Position: Sitting; Cuff Location : Right Arm; Cuff Size: Large 12-11-2016 08:58-0400 Heart rate 58 /min Corinne Farr RN Work Phone: [employer].; [employer]. Comment on above: Pattern: Regular 12-11-2016 08:58-0400 Systolic blood pressure 119 mm[Hg] Corinne Farr RN Work Phone: [employer].; [employer]. Comment on above: Patient Position: Sitting; Cuff Location : Right Arm; Cuff Size: Large 11-13-2016 09:06-0500 Body height 177.8 cm Carlyn Claudio [facility], Inc.; [employer]. 11-13-2016 09:06-0500 Body mass index (BMI) [Ratio] 34.64 kg/m2 Carlyn Claudio [facility], Inc.; [employer] 11-13-2016 09:06-0500 Body surface area Derived from formula 2.26 m2 Carlyn Claudio [facility] [employer] [facility], Inc.; [employer]. 11-13-2016 09:06-0500 Body temperature 98 [degF] Carlyn Moon González [facility].; [employer]. Comment on above: Method: Tympanic 11-13-2016 09:06-0500 Body weight 109.5 kg Carlyn Claudio [facility] [employer], [employer]. 11-13-2016 09:06-0500 Diastolic blood pressure 72 mm[Hg] Carlyn Claudio [facility] [employer].; [employer]. Comment on above: Patient Position: Sitting; Cuff Location : Left Arm; Cuff Size: Standard 11-13-2016 09:06-0500 Heart rate 64 /min Carlyn Claudio [facility] [employer] [facility].; [employer]. Comment on above: Pattern: Regular 11-13-2016 09:06-0500 Systolic blood pressure 107 mm[Hg] Carlyn Claudio [facility] [employer] [facility], [employer].; [employer]. Comment on above: Patient Position: Sitting; Cuff Location : Left Arm; Cuff Size: Standard 10-16-2016 10:54-0500 Body height 177.8 cm Carlyn Claudio [facility] [employer], [employer].; [employer]. 10-16-2016 10:54-0500 Body mass index (BMI) [Ratio] 36.79 kg/m2 Carlyn [facility], [employer].; [employer]. 10-16-2016 10:54-0500 Body surface area Derived from formula 2.32 m2 Carlyn Claudio [facility], Inc.; [employer] 10-16-2016 10:54-0500 Body weight 116.3 kg Carlyn Moon González ESCAMILLA [employer], [employer]. 10-16-2016 10:54-0500 Diastolic blood pressure 80 mm[Hg] Carlyn Moon González JONESN [employer] [facility], Inc.; [employer]. Comment on above: Patient Position: Sitting; Cuff Location : Left Arm; Cuff Size: Standard 10-16-2016 10:54-0500 Heart rate 60 /min Carlyn Moon González ESCAMILLA [employer]. Comment on above: Pattern: Regular 10-16-2016 10:54-0500 Systolic blood pressure 131 mm[Hg] Carlyn Moon González ESCAMILL[employer]. Comment on above: Patient Position: Sitting; Cuff Location : Left Arm; Cuff Size: Standard 08-28-2016 10:57-0500 Body height 177.8 cm Elvia Merlos LPN [employer], [employer]. 08-28-2016 10:57-0500 Body mass index (BMI) [Ratio] 41.28 kg/m2 Elvia Merlos LPN [employer] 08-28-2016 10:57-0500 Body surface area Derived from formula 2.44 m2 Elvia Merlos LPN [employer], [employer]. 08-28-2016 10:57-0500 Body weight 130.5 kg Elvia Merlos LPN [employer]. 08-28-2016 10:57-0500 Diastolic blood pressure 87 mm[Hg] Elvia Merlos LPN [employer], [employer]. Comment on above: Patient Position: Sitting; Cuff Location : Right Arm; Cuff Size: Large 08-28-2016 10:57-0500 Heart rate 65 /min Elvia Merlos LPN [employer]. Comment on above: Pattern: Regular 08-28-2016 10:57-0500 Systolic blood pressure 131 mm[Hg] Elvia Merlos LPN [employer].; [employer]. Comment on above: Patient Position: Sitting; Cuff Location : Right Arm; Cuff Size: Large 08-21-2016 11:03-0500 Body height 177.8 cm Maryam Stratton MD Work Phone: [employer]; [employer]. 08-21-2016 11:03-0500 Body mass index (BMI) [Ratio] 41.73 kg/m2 Maryam Stratton MD Work Phone: [employer]; [employer]. 08-21-2016 11:03-0500 Body surface area Derived from formula 2.45 m2 Maryam Stratton MD Work Phone: [employer]; [employer] 08-21-2016 11:03-0500 Body weight 131.91 kg Maryam Stratton MD Work Phone: [employer]; [employer] 08-21-2016 11:03-0500 Diastolic blood pressure 91 mm[Hg] Maryam Stratton MD Work Phone: [employer]; [employer]. Comment on above: Patient Position: Sitting; Cuff Location : Right Arm; Cuff Size: Standard 08-21-2016 11:03-0500 Heart rate 61 /min Maryam Stratton MD Work Phone: [employer]; [employer] Comment on above: Pattern: Regular 08-21-2016 11:03-0500 Systolic blood pressure 143 mm[Hg] Maryam Stratton MD Work Phone: [employer]; [employer]. Comment on above: Patient Position: Sitting; Cuff Location : Right Arm; Cuff Size: Standard 08-16-2016 08:55-0500 Body height 177.8 cm Geno Bah RN [employer].; [employer]. 08-16-2016 08:55-0500 Body mass index (BMI) [Ratio] 41.61 kg/m2 Geno Bah RN [employer].; [employer]. 08-16-2016 08:55-0500 Body surface area Derived from formula 2.44 m2 Geno Bah RN [employer].; [employer]. 08-16-2016 08:55-0500 Body weight 131.54 kg Geno Bah RN [employer].; [employer]. 08-16-2016 08:55-0500 Diastolic blood pressure 81 mm[Hg] Geno Bah RN [employer].; [employer]. Comment on above: Patient Position: Sitting; Cuff Location : Right Arm; Cuff Size: Large 08-16-2016 08:55-0500 Heart rate 75 /min Geno Bah RN [employer].; [employer]. Comment on above: Pattern: Regular 08-16-2016 08:55-0500 Inhaled oxygen concentration 21 % Geno Bah RN [employer].; [employer]. Comment on above: Room air 08-16-2016 08:55-0500 SaO2% (BldA) [Mass fraction] 95 % Geno Bah RN [employer].; [employer]. 08-16-2016 08:55-0500 Systolic blood pressure 124 mm[Hg] Geno Bah RN [employer].; [employer]. Comment on above: Patient Position: Sitting; Cuff Location : Right Arm; Cuff Size: Large 03-21-2016 13:31-0400 Body temperature 97 [degF] Wisam Mcguire PA-C Work Phone: [employer]; [employer]. Comment on above: Method: Tympanic 03-21-2016 13:31-0400 Body weight 125.65 kg Wisam Maynor PA-C Work Phone: [employer]; [employer]. 03-21-2016 13:31-0400 Diastolic blood pressure 82 mm[Hg] Luke Maynor PA-C Work Phone: [employer].; [employer]. Comment on above: Patient Position: Sitting; Cuff Location : Right Arm; Cuff Size: Standard 03-21-2016 13:31-0400 Heart rate 72 /min Luke Maynor PA-C Work Phone: [employer].; [employer]. Comment on above: Pattern: Regular 03-21-2016 13:31-0400 Systolic blood pressure 128 mm[Hg] Luke Maynor PA-C Work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
[2025-08-08 17:08] LABS: Pancreatic Elastase, Fecal > 800 (>200)
[2025-08-09 17:07] LABS: Calprotectin, Stool 31 ug/g (0-120)
== END | disposition home or self-care (01) ==
LOC: LABSPEC 07:34
PROVIDERS: PCP Physician Assistant; Referring Provider Student in an Organized Health Care Education/Training Program; Visit Provider Student in an Organized Health Care Education/Training Program
DX: R19.5 Other fecal abnormalities (principal)
CPT/HCPCS: 82653; 83993

== ENCOUNTER → 2025-09-05 | Outpatient (CLI) | payer OTHER, SELFPAY ==
--- NOTE | 2025-09-05 06:57 | US_ITS ---
PROCEDURE: ABD LIMITED W/ ELASTOGRAPHY, 09/05/2025 REASON FOR EXAM: FATTY LIVER COMPARISON: 08/02/2025 TECHNIQUE: Grayscale and color Doppler imaging of the right upper quadrant was performed. Elastography was performed for non-invasive assessment of liver tissue stiffness utilizing a [place] S-shear wave imaging unit. FINDINGS: Liver: Echogenic. 19.3 cm in length. 11 x 10 x 9 mm subcapsular LEFT lobe probable cyst, difficult to definitively characterize due to tiny size, presumably correlating with the previous CT/MR findings. Gallbladder: Cholecystectomy. Biliary tree: Unremarkable. CBD measures 2 mm. Pancreas: Partially obscured by shadowing bowel gas, grossly unremarkable as visualized. Right kidney: Unremarkable. 12.5 cm in length. Other: No visualized free fluid. Hepatic elastography: Number of measurements: 6. US probe: CA1-7A. EQI median: 4.9 kPa EQI median velocity: 1.28 m/s IQR/Med: 12.2% (kPa) and 5.7% (m/s). If the IQR/Med is IQR/median >30% (for kPa) or >15% in m/s, the variance in the measurements is a large and the accuracy of the measurement may be in question. US/ABD Limited w/ Elastography IMPRESSION: 1. Hepatomegaly with apperance of the hepatic parenchyma which is most frequent ly suggestive of hepatocellular disease such as steatosis. Correlate for clinical and laboratory evidence of chronic liver dise ase. 2. Liver stiffness is 4.9 kPa. Per the below 2020 SRU criteria, this indicates a high probability of being normal. 3. Additional description as above. Assessment is per the Update to the SRU Liver Elastography Consensus Statement (2020) Note that the above assessment of liver fibrosis is vendor-neutral and intended for use in fibrosis related to viral etiologies and non-alcoholic fatty-liver disease (NAFLD); in causes other than viral hepat itis and NAFLD, the cutoff values are currently not well established. In some patients with NAFLD, the cutoff values for cACLD may be lower (7-9 kPa). Note also that in the setting of elevated LFTs, nonfasting or vascular congestion, the stage of lifer fibrosis may be overestimated. Previous SRU reference values: <1.37 m/s (5.7kPa): No to mild fibrosis 1.37 m/s - 2.2 m/s: Moderate to severe fibrosis >2.2 m/s (15kPa): Significant fibrosis / cirrhosis Reading Location: [id number]
--- OUTSIDE RECORDS SUMMARY | 2025-09-05 07:10 | XMS RPT_ITS | CCD ---
Author Organization [facility] Care Team Providers Care Secretary To Board Of Commissioners Name Role Phone Gino Borja MD Primary Care Provider [phone] JYE BIRCH Referring Unavailable GINO BORJA Primary Care Unavailable GINO BORJA Primary Care Unavailable JEY BIRCH Attending Unavailable Maynor MCDANIEL, Wisam Corbett Unavailable Neurology Provider Unavailable Unavailable Podiatry Provider Unavailable Unavailable Yordan CHOI, Dr. Fernandez Unavailable [phone] Carlyn Maddox MD Unavailable Mulu JONESN, Charley Unavailable Myriam Ott PA-C Unavailable Turner CHOI, Ezekiel Hilton Unavailable Nellie Solis MA Unavailable Unavailable Maryam Stratton MD Unavailable Aide Mcguire Unavailable Unavailable King EDI-C, Boris Kong Unavailable [phone] Olvin WALKER, Geno Rivera Unavailable Unavaila ble Moses [employer], David Unavailable Unavailable Corinne Farr RN Unavailable Radha WALKER, Claire Ortiz Unavailable Unavailable Tino JONESN, Madeline Unavailable Unavailable Brina JONESN, Kelly K Unavailable Aurelio Robles (Scribe), Juanjo Unavailable Unavailab mandeep González [employer], Carlyn Moon Unavailable Unavailab Kanchan Dorado MA Unavailable Unavailable Senait CHOI, Manuel Rivera Unavailable Gaurang JONESN, Elvia Garza Unavailable Unavaila ble Unavailable Unavailable Pomerene Surgeons Unavailable Radha Matias LPN Unavailable Unavailabl e Debbie Dickey Unavailable Unavailable Kanchan Reese LPN Unavailable Unavailable Noble CCMA, Debbie Unavailable Unavailable EZEKIEL PAETL Consulting Unavailable KIRT CROWDER Admitting Unavailable KIRT [...] Primary Care Physician Shruthi Márquez Referring Provider [phone] Shruthi Ureña Attending Unavailable Shruthi Ureña Referring [...] Drug Class(es) Dates Sig (Normalized) Sig (Original) [id number] 200 actuat albuterol 0.09 mg/actuat metered dose [...] Is forgetful. reports that they were at [email or web address]. He told her that he was not [...] Current treatment includes non-prescription cold medication (Jessica Anmoore) and an oral decongestant (mucinex). Risk factors [...] The patient keeps a food diary on [employer]. The patient does not take any weight [...] eats out almost every single day. Uses [employer]. or patient does cooking. No food allergies [...] up[place]).Had remote episode of chest pain in [place] that was deemed to be GERD (he notes that protonix has helped those sx). He also notes that he had a stress test at in the last 4-5 years that was normal. 10-29-2015 Unclassified (20 sources) Well adult male - [...] and had colonosocpy.He was in ER in [place] at least 5-6 years ago for CP [...] from hospital stay - Name of Hospital: [facility]. Date of Admission: 09/06/24. 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 The patient has a balanced diet. The patient exercises daily. The patient sleeps 8 hours per night. 02-18-2025 Results Test Name Value Interpretation Reference Range Facility EGD Reporton 07-15-2025 EGD Report [facility] Medical Records Department [address] [place] [address] EGD Report MR#: [id number] Acct: [id number] Name: PEGGY CHAND Rep #: [id number] : 1970 54 From: Malik Friend DO PCP: MIA Henriquez Status:REG [facility] Patient Name: Peggy Chand Procedure Date: 07/15/2025 [...] pathology results. Procedure Code(s): --- Professional --- 04465, Small intestinal endoscopy, enteroscopy beyond second portion of duodenum, not including ileum; with biopsy, single or multiple CPT copyright 2021 [employer]. All rights reserved. The codes documented in this report are preliminary and upon grievance and appeals coordinator review may be revised to meet current compliance requirements. Malik Bryson DO 07/15/2025 7:56:55 AM This report has been signed electronically. Number of Addenda: 0 Note Initiated On: 07/15/2025 7:35 AM 07/15/25 0757 Date Malik Cleaning Signature: Date (if indicated) CC: MAI Henriquez; Malik Bryson DO Date Dictated: 07/15/25 0735 Date Transcribed: Tree Deadener: MARY ANNE Signed [facility] MR/OP.[place] 07-15-2025 MR/OP.[facility] Medical Records Department [address] [place] [address] Provation Physician Letter MR#: [id number] Acct: [id number] Name: PEGGY CHAND Rep #: [id number] : 1970 54 From: Malik Bryson DO PCP: MIA Henriquez Status:REG [facility] 07/15/2025 Mia Henriquez Re : Upper GI [...] MIA Henriquez; Malik Bryson DO Date Dictated: 07/15/25734 Date Transcribed: Tree Deadener: MARY ANNE Signed [facility] MR/POSTOP.[facility] 07-15-2025 MR/POSTOP.[facility] Medical Records Department [address] [place] [address] Anesthesia Postop Eval I 07/15/25 0804 MR#: [id number] Acct: [id number] Name: PEGGY CHAND Rep #: [id number] : 1970 54 From: Trevon Arias PCP: MIA Henriquez Status:REG SDC Y Race: C Location: [place] [address] Anesthesia: Postop Eval I Current Vital Signs [...] Anesthesia document: Postop Eval 1 completed: Yes 07/15/25 0808 Date Trevon Doe Signature: Date CC: Signed [facility] MR/JELXWNFC1uq 07-15-2025 [facility] Medical Records Department [address] [place] [address] Anesthesia Postop Eval II 07/15/25 1226 MR#: [id number] Acct: [id number] Name: PEGGY CHAND Rep #: [id number] : 1970 54 From: Xiao Singleton CRNA PCP: MIA Henriquez Status:[facility] Y Race: C Location: EN Anesthesia Postop [...] Anesthesia Complication: No 07/15/25 1227 Date Xiao Gordillooremadai LEATHER FITTER Cosigner Signature: Date CC: Signed [facility] M7400.3302on 07-06-2025 M7400.3302 __ TESTING PERFORMED AT [facility]. ORIGINAL REPORT ON FILE IN LAB CONTAINS ADDITIONAL TEST SITE INFORMATION. Giardia Lamblia EIA NEGATIVE [facility] Comment on above: Performed By: #### M 600.5000, M7400.3302, M100.637, M100.6796 #### [facility] [address] [facility] [place], [address] Ova and Parasites 8623on OP OVA AND PARASITES EXAM, ROUTINE These results were obtained using wet preparation(s) and trichrome stained smear. This test does not include testing for Crytosporidium parvum, Cyclospora, or Microsporidia. One negative specimen does not rule out the possibility of a parasitic infection. TESTING PERFORMED AT [facility]. ORIGINAL REPORT ON FILE IN LAB CONTAINS ADDITIONAL TEST SITE INFORMATION. Ova/Parasite Exam NO OVA, CYSTS, OR PARASITES FOUND. Normal [facility] Comment on above: Performed By: #### M 600.5000, M7400.3302, M100.637, M100.6796 #### [facility] [address] [facility]. [place], [place], [id number] Abdomen Limitedon 07-01-2025 Abdomen Limited [facility] Imaging Services [address] [place], [place] [id number] Abdomen Limited MR#: [id number] Acct: [id number] Name: PEGGY CHAND Rep #: [id number] : 1970 M 54 From: Edward bloom MD PCP: MIA Henriquez Status: REG CLI Study: Abdomen Limited Date of Exam: 07/01/25 Exam# [id number] Ordering Dr: Shruthi Ureña PROCEDURE: ABDOMEN LIMITED [...] left lobe of the liver. Reading Location: [id number] CC: MIA Cagle; MIA Henriquez Tree Deadener: Signed [facility] Absolute lymphocyte countOrd ered By: Shruthi Ureña on 06-23-2025 Lymphocytes Auto (Unsp spec) [#/Vol] 2.42 10*3/uL 0.83-4.51 [facility] Absolute neutrophil countOrd ered By: Shruthi Ureña on 06-23-2025 Neutrophils (Bld) [#/Vol] 6.6 10*3/uL 2.0-7.7 [facility] Anion gap in Serum or Plasma Ordered By: Shruthi Ureña on 06-23-2025 Anion gap [Moles/Vol] 11 mmol/L - [facility] Automated lymphocyte count a s percentage of total leukocytesOrdered By: Shruthi Ureña on 06-23-2025 Lymphocytes/100 WBC Auto (Unsp spec) 20.4 % - [facility] BUN/creatinine ratioOrdered By: Shruthi Ureña on 06-23-2025 Urea nitrogen/Creatinine [Mass ratio] 20.3 mg/mg High - [facility] Basophil percentageOrdered B y: Shruthi Ureña on 06-23-2025 Basophils/100 WBC (Bld) 0.6 % 0-1 [facility] Bilirubin, totalOrdered By: Shruthi Ureña on 06-23-2025 Bilirubin [Mass/Vol] 0.25 mg/dL 0.00-1.30 [facility] CBC W/Diff, Automatedon 06-08 Absolute Lymph 2.42 X10 3/uL Normal 0.83-4.51 [facility] Comment on above: Performed By: #### L 100.0100, L500.4050, L501.2450 #### [facility] [address] [place], [address] Absolute Neut 6.6 X10 3/uL Normal 2.0-7.7 [facility] Comment on above: Performed By: #### L 100.0100, L500.4050, L501.2450 #### [facility] [address] [place], [address] Basophils/100 WBC (Bld) 0.6 % Normal 0-1 [facility] Comment on above: Performed By: #### L 100.0100, L500.4050, L501.2450 #### [facility] [address] [place], [address] Eosinophils/100 WBC (Bld) 13.6 % High 0-5 [facility] Comment on above: Performed By: #### L 100.0100, L500.4050, L501.2450 #### [facility] [address] [place], [address] Erythrocyte distribution width (RBC) [Ratio] 12.7 % Normal 11.6-14.6 [facility] Comment on above: Performed By: #### L 100.0100, L500.4050, L501.2450 #### [facility] [address] [place], [address] Hematocrit (Bld) [Volume fraction] 46.0 % Normal 40-54 [facility] Comment on above: Performed By: #### L 100.0100, L500.4050, L501.2450 #### [facility] [address] [place], [address] Hemoglobin (Bld) [Mass/Vol] 15.1 g/dL Normal 13.0-16.5 [facility] Comment on above: Performed By: #### L 100.0100, L500.4050, L501.2450 #### [facility] [address] [place], [address] IG% 1.000 High 0.0-0.9 [facility] Comment on above: Result Comment: IG% - Immature Granulocytes (promyelocytes, myelocytes and metamyelocytes) > 1% indicates that a LEFT SHIFT is Present. Performed By: #### L 100.0100, L500.4050, L501.2450 #### [facility] [address] [place], [address] Lymphocytes/100 WBC (Bld) 20.4 % Normal 19-41 [facility] Comment on above: Performed By: #### L 100.0100, L500.4050, L501.2450 #### [facility] [address] [place], [address] MCH (RBC) [Entitic mass] 29.9 pg Normal 27.0-32.0 [facility] Comment on above: Performed By: #### L 100.0100, L500.4050, L501.2450 #### [facility] [address] [place], [address] MCHC (RBC) [Mass/Vol] 32.8 g/dL Normal 32-36 [facility] Comment on above: Performed By: #### L 100.0100, L500.4050, L501.2450 #### [facility] [address] [place], [address] MCV (RBC) [Entitic vol] 91.1 fL Normal 80-94 [facility] Comment on above: Performed By: #### L 100.0100, L500.4050, L501.2450 #### [facility] [address] [place], [address] Monocytes/100 WBC (Bld) 9.3 % Normal 0-10 [facility] Comment on above: Performed By: #### L 100.0100, L500.4050, L501.2450 #### [facility] [address] [place], [address] Neutrophils/100 WBC (Bld) 55.1 % Normal 47-70 [facility] Comment on above: Performed By: #### L 100.0100, L500.4050, L501.2450 #### [facility] [address] [place], [address] Nucleated RBC (Bld) [#/Vol] 0 10*3/uL Normal 0-5 [facility] Comment on above: Performed By: #### L 100.0100, L500.4050, L501.2450 #### [facility] [address] [place], [address] Platelet mean volume (Bld) [Entitic vol] 10.9 fL Normal 6.2-12.0 [facility] Comment on above: Performed By: #### L 100.0100, L500.4050, L501.2450 #### [facility] [address] [place], [address] Platelets (Bld) [#/Vol] 228 10*3/uL Normal 150-450 [facility] Comment on above: Performed By: #### L 100.0100, L500.4050, L501.2450 #### [facility] [address] [place], [address] RBC (Bld) [#/Vol] 5.05 10*6/uL Normal 4.6-6.2 [facility] Comment on above: Performed By: #### L 100.0100, L500.4050, L501.2450 #### [facility] [address] [place], [address] RDW SD 42.3 fl Normal 35.1-43.9 [facility] Comment on above: Performed By: #### L 100.0100, L500.4050, L501.2450 #### [facility] [address] [place], [address] WBC (Bld) [#/Vol] 11.9 10*3/uL High 4.4-11.0 [facility] Comment on above: Performed By: #### L 100.0100, L500.4050, L501.2450 #### [facility] [address] [place], [address] CDIFF (PCR)on 06-23-2025 CDIFF Pending [phone] NAP1-B1 Presumptive Negative *for epidemiolologic???use C. Diff PCR Negative- No toxigenic C. Diff Detected [facility] Comment on above: Performed By: #### M 600.5000, M7400.3302, M100.637, M100.6796 #### [facility] [address] [place], [address] Carbon dioxide, total [Moles /volume] in Central venous bloodOrdered By: Shruthi Ureña on 06-23-2025 CO2 [Moles/Vol] 24.7 mmol/L 21.0-32.0 [facility] Chloride assayOrdered By: Joana Ureña on 06-23-2025 Chloride [Moles/Vol] 102 mmol/L 98-108 [facility] Clostridium difficile detect ion by polymerase chain reactionOrdered By: Shruthi Ureña on 06-23-2025 C. difficile DNA ROGERS+probe Ql (Unsp spec) [facility] Comprehensive Metabolic Prof ilon 06-23-2025 Albumin [Mass/Vol] 4.6 g/dL Normal 3.5-5.0 [facility] Comment on above: Performed By: #### L 100.0100, L500.4050, L501.2450 ####[facility] [address] [place], [address] Albumin/Globulin [Mass ratio] 1.5 {ratio} Normal 0.9-2.4 [facility] Comment on above: Performed By: #### L 100.0100, L500.4050, L501.2450 ####[facility] [address] [place], [address] ALK PHOS 62 U/L Normal 40-129 [facility] Comment on above: Performed By: #### L 100.0100, L500.4050, L501.2450 ####[facility] [address] [place], [address] ALT [Catalytic activity/Vol] 51 U/L High <=46 [facility] Comment on above: Performed By: #### L 100.0100, L500.4050, L501.2450 ####[facility] [address] [place], [address] AST [Catalytic activity/Vol] 32 U/L Normal <=37 [facility] Comment on above: Performed By: #### L 100.0100, L500.4050, L501.2450 ####[facility] [address] [place], [address] Bilirubin [Mass/Vol] 0.25 mg/dL Normal 0.00-1.30 [facility] Comment on above: Performed By: #### L 100.0100, L500.4050, L501.2450 ####[facility] [address] [place], [address] BUN/CRE 20.3 RATIO High 10-20 [facility] Comment on above: Performed By: #### L 100.0100, L500.4050, L501.2450 ####[facility] [address] [place], [address] Calcium [Mass/Vol] 9.7 mg/dL Normal 7.6-11.0 [facility] Comment on above: Performed By: #### L 100.0100, L500.4050, L501.2450 ####[facility] [address] [place], [address] Chloride [Moles/Vol] 102 mmol/L Normal 98-108 [facility] Comment on above: Performed By: #### L 100.0100, L500.4050, L501.2450 ####[facility] [address] [place], [address] CO2 [Moles/Vol] 24.7 mmol/L Normal 21.0-32.0 [facility] Comment on above: Performed By: #### L 100.0100, L500.4050, L501.2450 ####[facility] [address] [place], [address] Creatinine [Mass/Vol] 1.07 mg/dL Normal 0.70-1.20 [facility] Comment on above: Performed By: #### L 100.0100, L500.4050, L501.2450 ####[facility] [address] [place], [address] GAP 11 Normal 5-15 [facility] Comment on above: Performed By: #### L 100.0100, L500.4050, L501.2450 ####[facility] [address] [place], [address] GFR/1.73 sq M.predicted among non-blacks MDRD (S/P/Bld) [Vol rate/Area] 82 mL/min/{1.73_m2} Normal >60 [facility] Comment on above: Result Comment: mL/m in/1.73m2 CKD-EPI Creatinine Equation (2020) Performed By: #### L 100.0100, L500.4050, L501.2450 ####[facility] [address] [place], [address] Globulin (S) [Mass/Vol] 3.1 g/dL Normal 2.2-4.2 [facility] Comment on above: Performed By: #### L 100.0100, L500.4050, L501.2450 ####[facility] [address] [place], [address] Glucose [Mass/Vol] 94 mg/dL Normal 70-99 [facility] Comment on above: Performed By: #### L 100.0100, L500.4050, L501.2450 ####[facility] [address] [place], [address] Potassium [Moles/Vol] 4.6 mmol/L Normal 3.3-5.1 [facility] Comment on above: Result Comment: Hemo lysis present, Results??could be affected. ?? Performed By: #### L 100.0100, L500.4050, L501.2450 ####[facility] [address] [place], [address] Sodium [Moles/Vol] 138 mmol/L Normal 133-145 [facility] Comment on above: Performed By: #### L 100.0100, L500.4050, L501.2450 ####[facility] [address] [place], [address] T PROT 7.7 g/dL Normal 5.9-8.4 [facility] Comment on above: Performed By: #### L 100.0100, L500.4050, L501.2450 ####[facility] [address] [place], [address] Urea nitrogen [Mass/Vol] 22 mg/dL High 4-19 [facility] Comment on above: Performed By: #### L 100.0100, L500.4050, L501.2450 ####[facility] [address] [place], [address] ENTERIC PATHOGEN PANEL STOOL on 06-23-2025 EP [...] VIBRIO Not Detected Yersinia Not Detected [facility] Comment on above: Performed By: #### M 600.7198, M7400.6475, M100.507, M100.1230 #### [facility] [address] [place], [address] Eosinophil percentageOrdered By: Shruthi Ureña on 06-23-2025 Eosinophils/100 WBC (Bld) 13.6 % High 0-5 [facility] Erythrocyte distribution wid th ratioOrdered By: Shruthi Ureña on 06-23-2025 Erythrocyte distribution width (RBC) [Ratio] 12.7 % 11.6-14.6 [facility] Erythrocyte distribution wid th standard deviationOrdered By: Shruthisherrie Ureña on 06-23-2025 Erythrocyte distribution width (RBC) [Ratio] 42.3 fl 35.1-43.9 [facility] Gastroenterology Visit Repor ton 06-23-2025 Gastroenterology Visit Report [facility] [address] [place] [address] OFFICE VISIT Date of Service: 06/23/25 MR#: [id number] Acct: [id number] Name: PEGGY CHAND Rep #: [id number] : 1970 Provider: MIA Cagle Age/Sex: 54/M Location: [facility] Status: Signed Intake Intake Visit Reasons: Abd [...] denies alcohol consumption. He did start an vraj-trz-bukyuhn PPI but has not noticed much benefit. [...] cooperative, healthy appearing and comfortable Orientation: alert [facility] Head: normal to inspection Ears: hearing grossly [...] with oral intake. He did start an mgxj-ooa-qkztnvl PPI but has not noticed any relief. [...] or inflammatio (more content not included)... [facility] Glomerular filtration rate ( GFR) estimation/1.73 sq m using serum, plasma, or whole bOrdered By: Shruthi Ureña on 06-23-2025 GFR/1.73 sq M.predicted among non-blacks MDRD (S/P/Bld) [Vol rate/Area] 82 mL/min/{1.73_m2} >60 [facility] Comment on above: mL/min/1.73m2 CKD-EP I Creatinine Equation (2020) Hematocrit Auto (Bld) [Volum e fraction]Ordered By: Shruthi Ureña on 06-23-2025 Hematocrit (Bld) [Volume fraction] 46.0 % 40-54 [facility] Hemoglobin measurementOrdere d By: Shruthi Ureña on 06-23-2025 Hemoglobin (Bld) [Mass/Vol] 15.1 g/dL 13.0-16.5 [facility] Immature granulocytes/100 WB C Auto (Bld)Ordered By: Shruthi Ureña on 06-23-2025 Immature granulocytes/100 WBC (Bld) 1.000 % High 0.0-0.9 [facility] Comment on above: IG% - Immature Granu locytes (promyelocytes, myelocytes and metamyelocytes) > 1% indicates that a LEFT SHIFT is Present. Laboratory - Chemistry and C hemistry - challengeOrdered By: Shruthi Ureña on 06-23-2025 AST [Catalytic activity/Vol] 32 U/L <38 [facility] Lipaseon 06-23-2025 Lipase [Catalytic activity/Vol] 99 U/L High 13-75 [facility] Comment on above: Result Comment: Remy chan note: LIPASE revised reference range effective 22. New Lipase methodology. Expected to produce lower values than the previous assay method. NEW Reference Range: 13 - 75 U/L Performed By: #### L 100.0100, L500.4050, L501.2450 #### [facility] [address] [place] [address], [address] Lipase measurementOrdered By : Shruthi Ureña on 06-23-2025 Lipase [Catalytic activity/Vol] 99 U/L High 13-75 [facility] Comment on above: Please note:LIPASE r evised reference range effective 22. New Lipase methodology. Expected to produce lower values than the previous assay method. NEW Reference Range: 13 - 75 U/L MCV (mean corpuscular volume ) determinationOrdered By: Shruthi Ureña on 06-23-2025 MCV (RBC) [Entitic vol] 91.1 fL 80-94 [facility] Mean corpuscular hemoglobin (MCH) determinationOrdered By: Shruthi Ureña on 06-23-2025 MCH (RBC) [Entitic mass] 29.9 pg 27.0-32.0 [facility] Mean corpuscular hemoglobin concentration (MCHC) determinationOrdered By: Shruthi Ureña on 06-23-2025 MCHC (RBC) [Mass/Vol] 32.8 g/dL 32-36 [facility] Mean platelet volume determi nationOrdered By: Shruthi Ureña on 06-23-2025 Platelet mean volume (Bld) [Entitic vol] 10.9 fL 6.2-12.0 [facility] Monocyte percentageOrdered B y: Shruthi Ureña on 06-23-2025 Monocytes/100 WBC (Bld) 9.3 % 0-10 [facility] Neutrophil percentageOrdered By: Shruthi Ureña on 06-23-2025 Neutrophils/100 WBC (Bld) 55.1 % 47-70 [facility] Nucleated red blood cell per centageOrdered By: Shruthi Ureña on 06-23-2025 Nucleated RBC/100 WBC (Bld) [Ratio] 0 % 0-5 [facility] Platelet countOrdered By: Joana Ureña on 06-23-2025 Platelets (Bld) [#/Vol] 228 10*3/uL 150-450 [facility] Potassium measurement (mass/ volume)Ordered By: Shruthi Ureña on 06-23-2025 Potassium (Unsp spec) [Mass/Vol] 4.6 mmol/L 3.3-5.1 [facility] Comment on above: Hemolysis present, R esults could be affected. RBC Auto (Bld) [#/Vol]Ordere d By: Shruthi Ureña on 06-23-2025 RBC (Bld) [#/Vol] 5.05 10*6/uL 4.6-6.2 [facility] Serum creatinine measurement (mass/volume)Ordered By: Shruthi Ureña on 06-23-2025 Creatinine [Mass/Vol] 1.07 mg/dL 0.70-1.20 [facility] Serum globulin measurementOr dered By: Shruthi Ureña on 06-23-2025 Globulin (S) [Mass/Vol] 3.1 g/dL 2.2-4.2 [facility] Serum glucose measurement (m ass/volume)Ordered By: Shruthi Ureña on 06-23-2025 Glucose [Mass/Vol] 94 mg/dL 70-99 [facility] Serum or plasma alanine murry otransferase (ALT) measurementOrdered By: Shruthi Ureña on 06-23-2025 ALT [Catalytic activity/Vol] 51 U/L High <47 [facility] Serum or plasma albumin sneha urement (mass/volume)Ordered By: Shruthi Ureña on 06-23-2025 Albumin [Mass/Vol] 4.6 g/dL 3.5-5.0 [facility] Serum or plasma albumin/glob ulin mass ratioOrdered By: Shruthi Ureña on 06-23-2025 Albumin/Globulin [Mass ratio] 1.5 {ratio} 0.9-2.4 [facility] Serum or plasma alkaline elisabeth sphatase measurementOrdered By: Shruthi Ureña on 06-23-2025 ALP [Catalytic activity/Vol] 62 U/L 40-129 [facility] Serum or plasma calcium sneha urement (mass/volume)Ordered By: Shruthi Ureña on 06-23-2025 Calcium [Mass/Vol] 9.7 mg/dL 7.6-11.0 [facility] Serum or plasma urea nitroge n measurement (mass/volume)Ordered By: Shruthi Ureña on 06-23-2025 Urea nitrogen [Mass/Vol] 22 mg/dL High 4-19 [facility] Sodium levelOrdered By: Christian Ureña on 06-23-2025 Sodium [Moles/Vol] 138 mmol/L 133-145 [facility] Total proteinOrdered By: Samantha Ureña on 06-23-2025 Protein [Mass/Vol] 7.7 g/dL 5.9-8.4 [facility] White blood cell (WBC) count Ordered By: Shruthi Ureña on 06-23-2025 WBC (Bld) [#/Vol] 11.9 10*3/uL High 4.4-11.0 [facility] INSULINon 06-20-2025 INSULIN 19.5 uIU/mL High [facility] Comment on above: Result Comment: Refe rence Range < or = 18.4 Risk: Optimal < or = 18.4 Moderate NA High >18.4 Adult cardiovascular event risk category cut points (optimal, moderate, high) are based on Insulin Reference Interval studies performed at [facility] in 2021. Performed By: #### 5 61 #### [facility] [address], [address] [place] [id number] [employer]: Estuardo Chilel MD AMYLASEon 06-18-2025 Amylase [Catalytic activity/Vol] 52 U/L Normal 21-101 [facility] Comment on above: Performed By: #### 6 399, 606, 64735, 243 #### [facility] [place] [address] [employer]: Estuardo Chilel MD C-PEPTIDEon 06-18-2025 C-PEPTIDE 3.50 ng/mL Normal 0.80-3.85 [facility] Comment on above: Performed By: #### 6 399, 606, 24004, 243 #### [facility] [place] [address] [employer]: Estuardo Chilel MD CBC (INCLUDES DIFF/PLT)on Basophils (Bld) [#/Vol] 0.101 10*3/uL Normal 0-200 [facility] Comment on above: Performed By: #### 6 399, 606, 51641, 243 #### [facility] [place] [address] [employer]: Estuardo Chilel MD Basophils/100 WBC (Bld) 1.0 % Normal [facility] Comment on above: Performed By: #### 6 399, 606, 88581, 243 #### [facility] [place] [address] [employer]: Estuardo Chilel MD Eosinophils (Bld) [#/Vol] 1.394 10*3/uL High 15-500 [facility] Comment on above: Performed By: #### 6 399, 606, 80724, 243 #### [facility] [place] [address] [employer]: Estuardo Chilel MD Eosinophils/100 WBC (Bld) 13.8 % Normal [facility] Comment on above: Performed By: #### 6 399, 606, 99028, 243 #### [facility] [place] [address] [employer]: Estuardo Chilel MD Erythrocyte distribution width (RBC) [Ratio] 13.2 % Normal 11.0-15.0 [facility] Comment on above: Performed By: #### 6 399, 606, 71923, 243 #### [facility] [place] [address] [employer]: Estuardo Chilel MD Hematocrit (Bld) [Volume fraction] 47.6 % Normal 38.5-50.0 [facility] Comment on above: Performed By: #### 6 399, 606, 25693, 243 #### [facility] [place] [address] [employer]: Estuardo Chilel MD Hemoglobin (Bld) [Mass/Vol] 15.5 g/dL Normal 13.2-17.1 [facility] Comment on above: Performed By: #### 6 399, 606, 77728, 243 #### [facility] [place] [address] [employer]: Estuardo Chilel MD Lymphocytes (Bld) [#/Vol] 2.02 10*3/uL Normal 850-3900 [facility] Comment on above: Performed By: #### 6 399, 606, 89806, 243 #### [facility] [place]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 mmol/L Normal 135 - 146 mmol/L [facility]; [facility] Triglyceride [Mass/Vol] 134 mg/dL Normal H [facility]; [place] [employer].To [employer] [facility] Urea nitrogen [Mass/Vol] 16 mg/dL Normal 7 - 25 mg/dL [facility]; [place] [employer] [facility] No Panel Informationon 01-16 BUN/CREATININE RATIO NOT APPLICABLE Normal 6 - 22 [facility]; [place] [employer].To [employer] [facility] CHOL/HDLC RATIO 4.0 Normal [facility]; [facility] eGFR NON-AFR. SERBIAN 71 Normal [facility]; [facility] GLOBULIN 2.7 Normal 1.9 - 3.7 [facility]; [facility] NON HDL CHOLESTEROL 145 Abnormal [facility]; [place] [employer].To [employer] Pages [facility] PSA, TOTAL 1.00 ng/mL Normal [facility]; [place] [employer] [facility] TESTOSTERONE, TOTAL, MS 477 ng/dL Normal 250 - 1100 ng/dL [facility]; [place] [employer] [facility] TSH W/REFLEX TO FT4 2.04 {mIU/L} Normal 0.40 - 4 .50 {mIU/L} [facility]; [place] [employer] [facility] Laboratory - Cytologyon 12-07 Pathologist Cyto stain Nom (Cvx/Vag) [ID] SEE NOTE Normal [facility]; [place] [employer] [facility] No Panel Informationon 12-20 A DIAGNOSIS SEE NOTE Normal [employer].; [employer] A GROSS DESCRIPTION SEE NOTE Normal [employer].; [employer], [employer] A MICRO DESCRIPTION SEE NOTE Normal [employer].; [employer] A PROCEDURE BIOPSY Normal [employer].; [employer] A SOURCE SEE NOTE Normal [employer].; [employer], [employer]. CLINICAL INFORMATION SEE NOTE Normal [employer].; [employer] Final Surgical Pathology Rep jeff 11-27-2021 Final Surgical Pathology Report . Pathology Reports Accession: Collected Date/Time: Received Date/Time: Pathologist: [id number] 11/23/2021 09:38 EDT 11/26/2021 09:38 EDT DO YOGESH COFFMAN Final Surgical Pathology Report DIAGNOSIS: GALLBLADDER - PATCHY MILD CHRONIC CHOLECYSTITIS. 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 [facility] Comment on above: Result Comment: Nega tive for This test was developed and its performance characteristics determined by [facility]'s [facility] [place]. This test has been authorized by FDA [...] developed and its performance characteristics determined by [facility]'s [facility] [place]. This test has been authorized by FDA [...] developed and its performance characteristics determined by [facility] [place]. This test has been authorized by FDA [...] 2019. 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 Albumin/Globulin [Mass ratio] 2.3 {ratio} Normal 1.0 - 2.5 [employer], [facility].; [employer], [employer] ALP [Catalytic activity/Vol] 48 U/L Normal 40 - 115 U/L [employer], [facility].; [employer], [employer]. ALT [Catalytic activity/Vol] 25 U/L Normal 9 - 46 U/L [employer], [facility].; [employer], [employer]. AST [Catalytic activity/Vol] 23 U/L Normal 10 - 40 U/L [employer], [facility].; [employer], [employer]. Bilirubin [Mass/Vol] 0.5 mg/dL Normal 0.2 - 1 .2 mg/dL [facility], [facility].; [facility], [facility]. Calcium [Mass/Vol] 9.8 mg/dL Normal 8.6 - 10. 3 mg/dL [facility], [facility].; [facility], [facility]. Chloride [Moles/Vol] 106 mmol/L Normal 98 - 11 0 mmol/L [facility], [facility].; [facility], [facility]. CO2 [Moles/Vol] 28 mmol/L Normal 20 - 32 mmol/L [facility], [facility].; [facility], [facility]. Creatinine [Mass/Vol] 1.11 mg/dL Normal 0.60 - 1.35 mg/dL [facility], [facility].; [facility], [facility]. GFR/1.73 sq M.predicted among blacks MDRD (S/P/Bld) [Vol rate/Area] 90 {ML/MIN/1.73M2} Normal [facility], [facility].; [facility], [facility]. GFR/1.73 sq M.predicted MDRD (S/P/Bld) [Vol rate/Area] 78 {ML/MIN/1.73M2} Normal [facility], [facility].; [place] [employer] [facility], [facility]. Globulin (S) [Mass/Vol] 2.1 g/dL Normal 1.9 - 3.7 g/dL [facility], [facility].; [place] [employer] [facility], Inc. Glucose [Mass/Vol] 93 mg/dL Normal 65 - 99 mg/dL [facility], [facility].; [place] [employer] [facility], [facility]. Potassium [Moles/Vol] 4.9 mmol/L Normal 3.5 - 5.3 mmol/L [facility], [facility].; [place] [employer] Protein [Mass/Vol] 6.7 g/dL Normal 6.1 - 8.1 g/dL [facility], [facility].; [place] [employer] [facility], Inc. Sodium [Moles/Vol] 140 mmol/L Normal 135 - 146 mmol/L [facility], [facility].; [place] [employer] [facility], Inc. Urea nitrogen [Mass/Vol] 22 mg/dL Normal 7 - 25 mg/dL [facility], [facility].; [place] [employer], [facility]. Urea nitrogen/Creatinine [Mass ratio] 19.5 mg/mg Normal 6 - 22 [facility].; [employer]. Laboratory - Hematology and Cell countson 02-12-2019 Basophils (Bld) [#/Vol] 30 {Cells}/uL Normal 0 - 200 {Cells}/uL [facility].; [place] [employer], [employer]. Basophils/100 WBC (Bld) 0.5 % Normal 0 - 1 % H [facility].; [place] [employer], [facility] Eosinophils (Bld) [#/Vol] 110 {Cells}/uL Normal 15 - 500 {Cells}/uL [facility] [employer] [facility].; [place] [employer] Eosinophils/100 WBC (Bld) 1.8 % Normal 0 - 4 % [place] [employer].; [employer]. Erythrocyte distribution width (RBC) [Ratio] 12.4 % Normal 11.0 - 15.0 % [place] [employer].; [employer], [employer]. Hematocrit (Bld) [Volume fraction] 42.9 % Normal 38.5 - 50.0 % [place] [employer].; [employer], [employer]. Hemoglobin (Bld) [Mass/Vol] 14.3 g/dL Normal 13.2 - 17.1 g/dL [place] [employer].; [employer], [employer]. Lymphocytes (Bld) [#/Vol] 1260 {Cells}/uL Normal 850 - 3900 {Cells}/uL [place] [employer].; [employer], [employer]. Lymphocytes/100 WBC (Bld) 20.7 % Normal 12 - 47 % [place] [employer].; [employer], [employer]. MCH (RBC) [Entitic mass] 29.8 pg Normal 27.0 - 33.0 PG [place] [employer].; [employer], [employer]. MCHC (RBC) [Mass/Vol] 33.3 g/dL Normal 32.0 - 36.0 g/dL [place] [employer].; [place] [employer], [employer]. MCV (RBC) [Entitic vol] 89.4 fL Normal 80.0 - 100.0 fL [place] [employer].; [employer], [employer]. Monocytes (Bld) [#/Vol] 580 {Cells}/uL Normal 20 0 - 950 {Cells}/uL [facility].; [place] [employer]. Monocytes/100 WBC (Bld) 9.5 % Normal 4 - 12 % H [facility].; [facility], [facility]. Neutrophils (Bld) [#/Vol] 4110 {Cells}/uL Normal 1500 - 7800 {Cells}/uL [facility], [employer].; [place] [employer], [employer]. Neutrophils/100 WBC (Bld) 67.5 % Normal 40 - 75 % [facility].; [employer]. Platelet mean volume (Bld) [Entitic vol] 13.0 fL Abnormal 7.5 - 12.5 fL [facility].; [place] [employer], [employer]. Platelets (Bld) [#/Vol] 145 10*3/uL Normal 140 - 400 10*3/uL [facility].; [employer], [employer]. RBC (Bld) [#/Vol] 4.80 10*6/uL Normal 4.20 - 5.8 0 10*6/uL [facility].; [employer], [employer]. WBC (Bld) [#/Vol] 6.1 10*3/uL Normal 3.8 - 10.8 10*3/uL [place] [employer].; [place] [employer]. Laboratory - Chemistry and C hemistry - challengeon 01-21-2018 Cholesterol [Mass/Vol] 156 mg/dL Normal 0 - 2 00 mg/dL [facility].; [place] [employer]. Cholesterol in HDL [Mass or moles/Vol] 51 mg/dL Normal 40 - 60 mg/dL [facility].; [employer]. Cholesterol in LDL [Mass/Vol] 87 mg/dL Normal 0 - 129 mg/dL [facility].; [place] [employer], [employer]. Cholesterol.total/Tiff sterol in HDL [Mass ratio] 3.1 {ratio} Normal 0.0 - 5.0 [facility].; [place] [employer], [employer]. Glucose [Mass/Vol] 92 mg/dL Normal 74 - 106 mg/dL [facility].; [employer]. Lipid 1996 panel LIPID PROFILE Normal [facility].; [place] [employer] [facility]. Triglyceride [Mass/Vol] 88 mg/dL Normal 0 - 150 mg/dL [facility].; [place] [employer]. Laboratory - Chemistry and C hemistry - challengeon 01-22-2017 Cholesterol [Mass/Vol] 156 mg/dL Normal 0 - 2 00 mg/dL [facility].; [place] [employer], [employer]. Cholesterol in HDL [Mass or moles/Vol] 41 mg/dL Normal 40 - 60 mg/dL [facility].; [place] [employer]. Cholesterol in LDL [Mass/Vol] 98 mg/dL Normal 0 - 129 mg/dL [facility].; [place] [employer], [employer]. Cholesterol.total/Tiff sterol in HDL [Mass ratio] 3.8 {ratio} Normal 0.0 - 5.0 [facility].; [place] [employer]. Glucose [Mass/Vol] 90 mg/dL Normal 74 - 106 mg/dL [facility].; [employer]. Lipid 1996 panel LIPID PROFILE Normal [facility].; [place] [employer]. Triglyceride [Mass/Vol] 87 mg/dL Normal 0 - 150 mg/dL [place] [employer].To [employer] Pages [facility].; [employer], [employer]. Laboratory - Chemistry and C hemistry - challengeon 08-08-2016 Albumin [Mass/Vol] 4.7 g/dL Normal 3.4 - 4.8 g/dL [facility].; [place] [employer], [employer]. Albumin [Mass/Vol] 1.7 g/dL Abnormal 0.9 - 1.6 [place] [employer] [facility].; [employer]. ALP [Catalytic activity/Vol] 52 U/L Normal 38 - 126 U/L [facility].; [place] [employer], [employer]. ALT [Catalytic activity/Vol] 61 U/L Abnormal 10 - 40 U/L [facility].; [employer], [employer]. Anion gap [Moles/Vol] 11 mmol/L Normal 10 - 2 0 mmol/L [facility].; [employer], [employer]. AST [Catalytic activity/Vol] 30 U/L Normal 13 - 39 U/L [facility].; [facility], [facility]. Bilirubin [Mass/Vol] 0.3 mg/dL Normal 0.0 - 1 .5 mg/dL [facility].; [facility], [facility]. Calcium [Mass/Vol] 9.8 mg/dL Normal 8.6 - 10. 2 mg/dL [facility].; [facility], [facility] Chloride [Moles/Vol] 102 mmol/L Normal 98 - 10 7 mmol/L [facility].; [facility], [facility] Cholesterol [Mass/Vol] 179 mg/dL Normal 0 - 2 00 mg/dL [facility].; [facility], [facility] Cholesterol in HDL [Mass or moles/Vol] 37 mg/dL Abnormal 40 - 60 mg/dL [facility].; [facility], [facility] Cholesterol in LDL [Mass/Vol] 105 mg/dL Normal 0 - 129 mg/dL [facility].; [facility], [facility] Cholesterol.total/Tiff sterol in HDL [Mass ratio] 4.8 {ratio} Normal 0.0 - 5.0 [facility]; [facility], [facility]. CO2 [Moles/Vol] 31.0 mmol/L Normal 21.0 - 31.0 mmol/L [facility].; [facility], [facility]. Comprehensive metabolic 2000 panel CMP with eGFR Normal [facility]; [facility], [facility] Creatinine [Mass/Vol] 0.9 mg/dL Normal 0.7 - 1.3 mg/dL [facility], [facility].; [facility], [facility]. GFR/1.73 sq M.predicted among blacks MDRD (S/P/Bld) [Vol rate/Area] mL/min/{1.73_m2} Normal 60 - 999 {ML/MINUTE} [facility], [facility].; [facility], [facility]. GFR/1.73 sq M.predicted MDRD (S/P/Bld) [Vol rate/Area] mL/min/{1.73_m2} Normal 60 - 999 {ML/MINUTE} [facility], [facility].; [facility], [facility]. Globulin (S) [Mass/Vol] 2.7 g/dL Normal 1.5 - 3.8 g/dL [facility]; [facility] Glucose [Mass/Vol] 103 mg/dL Normal 74 - 106 mg/dL [facility].; [facility], [facility] Lipid 1996 panel LIPID PROFILE Normal [facility]; [facility], [facility] Potassium [Moles/Vol] 5.1 mmol/L Normal 3.5 - 5.1 mmol/L [facility]; [facility] Prostate specific Ag [Mass/Vol] 0.8 ng/mL Normal 0.0 - 4.0 ng/mL [facility]; [facility], [facility] Protein [Mass/Vol] 7.4 g/dL Normal 6.4 - 8.3 g/dL [facility]; [facility], [facility] Sodium [Moles/Vol] 139 mmol/L Normal 136 - 145 mmol/L [facility]; [facility] Triglyceride [Mass/Vol] 185 mg/dL Abnormal 0 - 150 mg/dL [facility]; [place] [employer] [facility] Urea nitrogen [Mass/Vol] 14 mg/dL Normal 6 - 20 mg/dL [facility]; [facility], [facility] Urea nitrogen/Creatinine [Mass ratio] 16 {ratio} Normal 0 - 30 {ratio} [facility].; [place] [employer] [facility] No Panel Informationon 08-08 AGE 45 {years} Normal [facility]; [place] [employer] [facility] Laboratory - Hematology and Cell countson 2015 HbA1c (Bld) [Mass fraction] 5.5 % Normal 4.6 - 7.1 % [facility]; [place] [employer] [facility], [facility] Laboratory - Chemistry and C hemistry - challengeon 07-11-2015 Albumin [Mass/Vol] 4.4 g/dL Normal 3.4 - 4.8 g/dL [facility]; [facility], [facility] Albumin [Mass/Vol] 1.4 g/dL Normal 0.9 - 1.6 [facility]; [facility]. ALP [Catalytic activity/Vol] 46 U/L Normal 38 - 126 U/L [facility].; [facility]. ALT [Catalytic activity/Vol] 40 U/L Normal 10 - 40 U/L [facility].; [facility], [facility]. Anion gap [Moles/Vol] 10 mmol/L Normal 10 - 2 0 mmol/L [facility].; [facility]. AST [Catalytic activity/Vol] 21 U/L Normal 13 - 39 U/L [facility].; [facility], [facility]. Bilirubin [Mass/Vol] 0.5 mg/dL Normal 0.0 - 1 .5 mg/dL [facility]; [facility], [facility]. Calcium [Mass/Vol] 9.8 mg/dL Normal 8.6 - 10. 2 mg/dL [facility].; [facility]. Chloride [Moles/Vol] 103 mmol/L Normal 98 - 10 7 mmol/L [facility]; [facility], [facility]. Cholesterol [Mass/Vol] 162 mg/dL Normal 0 - 2 00 mg/dL [facility].; [facility], [facility]. Cholesterol in HDL [Mass or moles/Vol] 34 mg/dL Abnormal 40 - 60 mg/dL [facility].; [facility]. Cholesterol in LDL [Mass/Vol] 89 mg/dL Normal 0 - 129 mg/dL [facility].; [facility], [facility]. Cholesterol.total/Tiff sterol in HDL [Mass ratio] 4.8 {ratio} Normal 0.0 - 5.0 [facility].; [facility]. CO2 [Moles/Vol] 27.0 mmol/L Normal 13.0 - 29.0 mmol/L [facility]; [facility], [facility]. Cobalamin (Vitamin B12) [Mass/Vol] 396 pg/mL Normal 180 - 914 pg/mL [facility].; [facility], [facility] Comprehensive metabolic 2000 panel CMP with eGFR Normal [facility]; [facility] Creatinine [Mass/Vol] 0.9 mg/dL Normal 0.7 - 1.3 mg/dL [facility].; [facility] Folate (RBC) [Mass/Vol] 23.4 ng/mL Abnormal 3.5 - 20.0 ng/mL [facility].; [facility], [facility]. GFR/1.73 sq M.predicted among blacks MDRD (S/P/Bld) [Vol rate/Area] mL/min/{1.73_m2} Normal 60 - 999 {ML/MINUTE} [facility].; [facility], [facility]. GFR/1.73 sq M.predicted MDRD (S/P/Bld) [Vol rate/Area] mL/min/{1.73_m2} Normal 60 - 999 {ML/MINUTE} [facility].; [facility], [facility]. Globulin (S) [Mass/Vol] 3.1 g/dL Normal 1.5 - 3.8 g/dL [facility].; [facility], [facility]. Glucose [Mass/Vol] 96 mg/dL Normal 74 - 106 mg/dL [facility].; [place] [employer] [facility], [facility]. Lipid 1996 panel LIPID PROFILE Normal [facility]; [facility], [facility]. Potassium [Moles/Vol] 4.0 mmol/L Normal 3.5 - 5.1 mmol/L [facility].; [facility], [facility]. Prostate specific Ag [Mass/Vol] 0.7 ng/mL Normal 0.0 - 4.0 ng/mL [facility].; [facility], [facility]. Protein [Mass/Vol] 7.5 g/dL Normal 6.4 - 8.3 g/dL [facility], [facility].; [facility], [facility]. Sodium [Moles/Vol] 136 mmol/L Normal 136 - 145 mmol/L [facility].; [facility], [facility]. Triglyceride [Mass/Vol] 194 mg/dL Abnormal 0 - 150 mg/dL [facility], [facility].; [place] [employer] [facility], [facility]. TSH Qn 2.13 m[IU]/L Normal 0.34 - 5.60 {uIU/ml} [facility].; [place] [employer] [facility] Urea nitrogen [Mass/Vol] 16 mg/dL Normal 6 - 20 mg/dL [facility].; [place] [employer] [facility] Urea nitrogen/Creatinine [Mass ratio] 18 {ratio} Normal 0 - 30 {ratio} [facility].; [place] [employer] Laboratory - Hematology and Cell countson 07-11-2015 Basophils (Bld) [#/Vol] 0.10 {3/UL} Normal 0.00 - 0.10 {3/UL} [facility].; [place] [employer] [facility] Basophils/100 WBC (Bld) 0.4 % Normal 0.0 - 2.0 % [place] [employer] [facility].; [place] [employer] [facility]. CBC W Auto Differential panel (Bld) CBC Normal [facility].; [place] [employer] Eosinophils (Bld) [#/Vol] 0.20 {3/UL} Normal 0.00 - 0.50 {3/UL} [place] [employer] [facility].; [employer]. Eosinophils/100 WBC (Bld) 1.7 % Normal 0.0 - 7.0 % [place] [employer] [facility].; [place] [employer] Erythrocyte distribution width (RBC) [Ratio] 12.9 % Normal 12.0 - 15.6 % [place] [employer] [facility].; [place] [employer], [employer]. Hematocrit (Bld) [Volume fraction] 45.8 % Normal 40.0 - 52.0 % [place] [employer] [facility].; [employer], [employer]. Hemoglobin (Bld) [Mass/Vol] 15.2 g/dL Normal 13.0 - 17.5 g/dL [place] [employer] [facility].; [place] [employer], [facility]. Lymphocytes (Bld) [#/Vol] 2.20 {3/UL} Normal 0.80 - 2.80 {3/UL} [place] [employer] [facility].; [place] [employer], [employer]. Lymphocytes/100 WBC (Bld) 19.3 % Abnormal 20.0 - 45.0 % [place] [employer].; [employer]. MCH (RBC) [Entitic mass] 29 pg Normal 27 - 33 pg [facility] [employer], [employer]. MCHC (RBC) [Mass/Vol] 33 {X10_3} Normal 32 - 3 6 {X10_3} [employer].; [employer] MCV (RBC) [Entitic vol] 87 fL Normal 81 - 98 fL H [facility], [employer].; [employer], [employer]. Monocytes (Bld) [#/Vol] 1.00 {3/UL} Normal 0.20 - 1.00 {3/UL} [employer].; [employer], [employer]. Monocytes/100 WBC (Bld) 8.8 % Normal 0.0 - 10.0 % [employer].; [employer], [employer]. Morphology Jesus Manuel (Bld) [Interp] N/A Normal [employer].; [employer], [employer]. Neutrophils (Bld) [#/Vol] 7.80 {3/UL} Abnormal 1.50 - 7.10 {3/UL} [employer], [employer].; [employer], [employer]. Neutrophils/100 WBC (Bld) 69.8 % Normal 46.0 - 76.0 % [employer], [employer].; [employer], [employer]. Platelet mean volume (Bld) [Entitic vol] 10.2 fL Normal 6.4 - 10.5 fL [employer], [employer].; [employer], [employer]. Platelets (Bld) [#/Vol] 189 {3/UL} Normal 150 - 450 {3/UL} [employer].; [employer], [employer]. RBC (Bld) [#/Vol] 5.25 {6/UL} Normal 4.50 - 6.0 0 {6/UL} [employer], [employer].; [employer], [employer]. WBC (Bld) [#/Vol] 11.2 {3/UL} Abnormal 4.5 - 10.8 {3/UL} [employer], [employer].; [employer], [employer]. No Panel Informationon 07-11 AGE 44 {years} Normal [employer].; [place]. MANUAL DIFF N/A Normal [employer].; [employer]. Laboratory - Chemistry and C hemistry - challengeon 07-06-2015 Glucose Glucometer (BldC) [Moles/Vol] 91 Normal 60 - 120 [facility].; [place] [employer]. Laboratory - Chemistry and C hemistry - challengeon 05-06-2014 Albumin [Mass/Vol] 4.7 g/dL Normal 3.4 - 4.8 g/dL [facility].; [place] [employer]. Albumin [Mass/Vol] 1.6 g/dL Normal 0.9 - 1.6 [facility].; [place] [employer]. ALP [Catalytic activity/Vol] 46 U/L Normal 38 - 126 U/L [facility].; [place] [employer] [facility]. ALT [Catalytic activity/Vol] 59 U/L Abnormal 10 - 40 U/L [facility].; [place] [employer]. AST [Catalytic activity/Vol] 28 U/L Normal 13 - 39 U/L [facility].; [place] [employer]. Bilirubin [Mass/Vol] 0.6 mg/dL Normal 0.0 - 1 .5 mg/dL [place] [employer] [facility].; [place] [employer]. Calcium [Mass/Vol] 9.9 mg/dL Normal 8.6 - 10. 2 mg/dL [facility].; [place] [employer]. Chloride [Moles/Vol] 103 mmol/L Normal 98 - 10 7 mmol/L [facility].; [place] [employer]. Cholesterol [Mass/Vol] 181 mg/dL Normal 0 - 2 00 mg/dL [facility].; [place] [employer] [facility]. Cholesterol in HDL [Mass or moles/Vol] 32 mg/dL Abnormal 40 - 60 mg/dL [facility] [employer] [facility].; [place] [employer]. Cholesterol in LDL [Mass/Vol] 108 mg/dL Normal 0 - 129 mg/dL [facility].; [place] [employer], [employer]. Cholesterol.total/Tiff sterol in HDL [Mass ratio] 5.7 {ratio} Abnormal 0.0 - 5.0 [facility].; [place] [facility]. CO2 [Moles/Vol] 30.0 mmol/L Abnormal 13.0 - 29.0 mmol/L [facility].; [facility], [facility] Comprehensive metabolic 2000 panel CMP with eGFR Normal [facility]; [facility], [facility] Creatinine [Mass/Vol] 0.9 mg/dL Normal 0.7 - 1.3 mg/dL [facility].; [facility], [facility] GFR/1.73 sq M.predicted among blacks MDRD (S/P/Bld) [Vol rate/Area] mL/min/{1.73_m2} Normal 60 - 999 {ML/MINUTE} [facility].; [facility], [facility]. GFR/1.73 sq M.predicted MDRD (S/P/Bld) [Vol rate/Area] mL/min/{1.73_m2} Normal 60 - 999 {ML/MINUTE} [facility], [facility].; [facility], [facility] Globulin (S) [Mass/Vol] 3.0 g/dL Normal 1.5 - 3.8 g/dL [facility].; [facility], [facility]. Glucose [Mass/Vol] 83 mg/dL Normal 74 - 106 mg/dL [facility], [facility].; [facility], [facility]. Lipid 1996 panel LIPID PROFILE Normal [facility].; [facility], [facility] Potassium [Moles/Vol] 4.2 mmol/L Normal 3.5 - 5.1 mmol/L [facility].; [facility], [facility]. Prostate specific Ag [Mass/Vol] 0.7 ng/mL Normal 0.0 - 4.0 ng/mL [facility], [facility].; [facility], [facility] Protein [Mass/Vol] 7.7 g/dL Normal 6.4 - 8.3 g/dL [facility], [facility].; [facility], [facility]. Sodium [Moles/Vol] 136 mmol/L Normal 136 - 145 mmol/L [facility], [facility].; [facility], [facility]. Triglyceride [Mass/Vol] 205 mg/dL Abnormal 0 - 150 mg/dL [facility], [facility].; [facility] Urea nitrogen [Mass/Vol] 13 mg/dL Normal 6 - 20 mg/dL [employer].; [place]. Urea nitrogen/Creatinine [Mass ratio] 14 {ratio} Normal 0 - 30 {ratio} [employer].; [employer], [employer]. No Panel Informationon 05-06 AGE 43 {years} Normal [employer].; [place]. Laboratory - Chemistry and C hemistry - challengeon 04-28-2013 Calcium [Mass/Vol] 9.9 mg/dL Normal 8.6 - 10. 3 mg/dL [employer].; [place], [employer]. Chloride [Moles/Vol] 103 mmol/L Normal 98 - 11 0 mmol/L [place] [employer].; [employer], [employer]. Cholesterol [Mass/Vol] 198 mg/dL Normal 125 - 200 mg/dL [employer].; [employer], [employer]. Cholesterol in HDL [Mass/Vol] 38 mg/dL Abnormal [employer].; [place]. Cholesterol in LDL [Mass/Vol] 105 mg/dL Normal [employer].; [place]. Cholesterol non HDL [Mass/Vol] 160 mg/dL Abnormal [employer].; [employer], [employer]. Cholesterol.total/Tiff sterol in HDL [Mass ratio] 5.2 {ratio} Abnormal [employer].; [employer], [employer]. CO2 [Moles/Vol] 26 mmol/L Normal 19 - 30 mmol/L [employer].; [employer], [employer]. Creatinine [Mass/Vol] 0.92 mg/dL Normal 0.60 - 1.35 mg/dL [employer].; [employer], [employer]. GFR/1.73 sq M.predicted among blacks MDRD (S/P/Bld) [Vol rate/Area] 118 {ML/MIN/1.73M2} Normal [employer] GFR/1.73 sq M.predicted MDRD (S/P/Bld) [Vol rate/Area] 102 {ML/MIN/1.73M2} Normal [facility], [facility] Glucose [Mass/Vol] 88 mg/dL Normal 65 - 99 mg/dL [facility]; [facility], [facility] Potassium [Moles/Vol] 4.6 mmol/L Normal 3.5 - 5.3 mmol/L [facility]; [facility], [facility] Prostate specific Ag [Mass/Vol] 0.6 ng/mL Normal 0.0 - 4.0 ng/mL [facility]; [facility], [facility] Sodium [Moles/Vol] 137 mmol/L Normal 135 - 146 mmol/L [facility]; [facility], [facility] Triglyceride [Mass/Vol] 274 mg/dL Abnormal H [facility]; [facility], [facility] Urea nitrogen [Mass/Vol] 15 mg/dL Normal 7 - 25 mg/dL [facility]; [facility], [facility] Urea nitrogen/Creatinine [Mass ratio] 16.0 mg/mg Normal 6 - 22 [facility]; [facility], [facility] Laboratory - Microbiology an d Antimicrobial susceptibilityon 04-28-2013 H. pylori IgG IA Ql Positive Abnormal [facility]; [facility], [facility] Vital Signs Date Time Vital Sign Value Performing Clinician Facility 02-18-2025 09:56-0400 Body height 177.8 cm David Lopes LPN [facility].; [facility], [facility] 02-18-2025 09:56-0400 Body mass index (BMI) [Ratio] 38.88 kg/m2 David Lopes [facility]; [facility], [facility] 02-18-2025 09:56-0400 Body surface area Derived from formula 2.38 m2 David Lopes [facility]; [facility], [facility] 02-18-2025 09:56-0400 Body weight 122.93 kg David Lopes [employer] [facility], [facility].; [facility], [facility] 02-18-2025 09:56-0400 Diastolic blood pressure 70 mm[Hg] [facility] Comment on above: Patient Position: Sitting; Cuff Location : Left Arm; Cuff Size: Standard 02-18-2025 09:56-0400 Heart rate 65 /min David [facility]opes LPN [facility].; [employer]. Comment on above: Pattern: Regular 02-18-2025 09:56-0400 Systolic blood pressure 131 mm[Hg] David Lopes LPN [facility].; [employer]. Comment on above: Patient Position: Sitting; Cuff Location : Left Arm; Cuff Size: Standard 01-11-2025 13:00-0400 Body height 177.8 cm Geno Bah RN [facility].; [employer]. 01-11-2025 13:00-0400 Body mass index (BMI) [Ratio] 39.17 kg/m2 Geno Bah RN [facility].; [place] [employer] [facility]. 01-11-2025 13:00-0400 Body surface area Derived from formula 2.38 m2 Geno Bah RN [place] [employer].To [employer] [facility].; [employer]. 01-11-2025 13:00-0400 Body temperature 98.2 [degF] Geno Bah RN [place] [employer].To [employer] [facility].; [employer]. Comment on above: Method: Tympanic 01-11-2025 13:00-0400 Body weight 123.83 kg Geno Bah RN [facility].; [employer]. 01-11-2025 13:00-0400 Diastolic blood pressure 77 mm[Hg] Gneo Bah RN [employer].; [employer]. Comment on above: Patient Position: Sitting; Cuff Location : Left Arm; Cuff Size: Large 01-11-2025 13:00-0400 Heart rate 64 /min Geno Bah RN [place] [employer]To [employer] [facility].; [employer]. Comment on above: Pattern: Regular 01-11-2025 13:00-0400 Systolic blood pressure 116 mm[Hg] Geno Bah [facility].; [facility]. Comment on above: Patient Position: Sitting; Cuff Location : Left Arm; Cuff Size: Large 11-01-2024 08:56-0500 Body height 177.8 cm Kanchan Reese LPN [facility], [facility].; [facility], [employer]. 11-01-2024 08:56-0500 Body mass index (BMI) [Ratio] 39.31 kg/m2 Kanchan Reese LPN [facility], [facility].; [facility], [facility]. 11-01-2024 08:56-0500 Body surface area Derived from formula 2.39 m2 Kanchan Reese LPN [facility], [facility].; [facility], [facility]. 11-01-2024 08:56-0500 Body temperature 97.7 [degF] Kanchan Reese LPN [facility], [facility].; [place] [employer].To [employer] [facility], [employer]. Comment on above: Method: Tympanic 11-01-2024 08:56-0500 Body weight 124.29 kg Kanchan Reese LPN [facility], [facility].; [place] [employer].To [employer] [facility], [facility]. 11-01-2024 08:56-0500 Diastolic blood pressure 5 mm[Hg] Kanchan Reese LPN [facility], [facility].; [place] [employer], [employer]. Comment on above: Patient Position: Sitting; Cuff Location : Left Arm; Cuff Size: Standard 11-01-2024 08:56-0500 Heart rate 73 /min Kanchan Reese LPN [facility], [facility].; [place] [employer]. Comment on above: Pattern: Regular 11-01-2024 08:56-0500 Inhaled oxygen concentration 21 % Kanchan Reese LPN [facility], [facility].; [employer]. Comment on above: Room air 11-01-2024 08:56-0500 SaO2% (BldA) [Mass fraction] 97 % Kanchan Reese LPN [facility], [facility].; [place] [employer] 11-01-2024 08:56-0500 Systolic blood pressure 122 mm[Hg] Kanchan Reese LPN [facility], [facility].; [employer]. Comment on above: Patient Position: Sitting; Cuff Location : Left Arm; Cuff Size: Standard 09-28-2024 08:48-0500 Diastolic blood pressure 84 mm[Hg] Kanchan Reese LPN [facility], [facility].; [employer], [employer]. Comment on above: Patient Position: Sitting; Cuff Location : Left Arm; Cuff Size: Standard 09-28-2024 08:48-0500 Heart rate 67 /min Kanchan Reese LPN [facility], [facility] [employer], [employer]. Comment on above: Pattern: Regular 09-28-2024 08:48-0500 Systolic blood pressure 122 mm[Hg] Kanchan Reese LPN [facility], [facility].; [employer], [employer]. Comment on above: Patient Position: Sitting; Cuff Location : Left Arm; Cuff Size: Standard 09-28-2024 08:47-0500 Body height 177.8 cm Kanchan Reese LPN [facility], [facility].; [place] [employer] 09-28-2024 08:47-0500 Body mass index (BMI) [Ratio] 38.31 kg/m2 Kanchan Reese LPN [facility], [facility].; [employer] 09-28-2024 08:47-0500 Body surface area Derived from formula 2.36 m2 Kanchan Reese LPN [facility], [facility].; [employer] 09-28-2024 08:47-0500 Body temperature 96.4 [degF] Kanchan Reese LPN [facility], [facility].; [employer] Comment on above: Method: Tympanic 09-28-2024 08:47-0500 Body weight 121.11 kg Kanchan Reese LPN [facility], [facility].; [employer] 09-28-2024 08:47-0500 Diastolic blood pressure 94 mm[Hg] Kanchan Reese LPN [facility], [facility].; [employer] Comment on above: Patient Position: Sitting; Cuff Location : Left Arm; Cuff Size: Standard 09-28-2024 08:47-0500 Heart rate 71 /min Kanchan Reese LPN [facility], [facility] [employer], [employer]. Comment on above: Pattern: Regular 09-28-2024 08:47-0500 Systolic blood pressure 146 mm[Hg] Kanchan Reese [facility], [facility].; [facility], [facility]. Comment on above: Patient Position: Sitting; Cuff Location : Left Arm; Cuff Size: Standard 09-17-2024 10:45-0500 Body height 177.8 cm [facility], [facility].; [facility], [facility]. 09-17-2024 10:45-0500 Body mass index (BMI) [Ratio] 38.17 kg/m2 [facility], [facility].; [facility], [facility]. 09-17-2024 10:45-0500 Body surface area Derived from formula 2.36 m2 [facility], [facility].; [facility], [facility]. 09-17-2024 10:45-0500 Body weight 120.66 kg [facility], [facility].; [facility], [facility]. 09-17-2024 10:45-0500 Diastolic blood pressure 82 mm[Hg] [facility].; [place] [employer].To [employer] [facility]. Comment on above: Patient Position: Sitting; Cuff Location : Left Arm; Cuff Size: Standard 09-17-2024 10:45-0500 Heart rate 80 /min [facility].; [place] [employer].To [employer] [facility]. Comment on above: Pattern: Regular 09-17-2024 10:45-0500 Systolic blood pressure 131 mm[Hg] [facility], [facility].; [place] [employer].To [employer] [facility]. Comment on above: Patient Position: Sitting; Cuff Location : Left Arm; Cuff Size: Standard 09-07-2024 11:18-0500 Body height 177.8 cm David Lopes [employer] [facility], [facility].; [place] [employer].To [employer] [facility], [facility]. 09-07-2024 11:18-0500 Body mass index (BMI) [Ratio] 38.45 kg/m2 David Lopes LPN [facility], [facility].; [place] [employer], [employer]. 09-07-2024 11:18-0500 Body surface area Derived from formula 2.36 m2 David Lopes [employer] [facility].; [facility], [facility]. 09-07-2024 11:18-0500 Body weight 121.56 kg David Lopes [employer] [facility], [facility].; [facility], [facility]. 09-07-2024 11:18-0500 Diastolic blood pressure 71 mm[Hg] David Lopes [employer] [facility], [facility].; [place] [employer].To [employer] [facility] Comment on above: Patient Position: Sitting; Cuff Location : Left Arm; Cuff Size: Standard 09-07-2024 11:18-0500 Heart rate 60 /min David Lopes [employer] [facility], [facility].; [place] [employer].To [employer] [facility] Comment on above: Pattern: Regular 09-07-2024 11:18-0500 Systolic blood pressure 110 mm[Hg] David Lopes [employer] [facility], [facility].; [facility], [facility] Comment on above: Patient Position: Sitting; Cuff Location : Left Arm; Cuff Size: Standard 05-20-2024 08:15-0400 Body height 177.8 cm Radha Matias [facility], [facility].; [place] [employer].To [employer] [facility], [facility]. 05-20-2024 08:15-0400 Body mass index (BMI) [Ratio] 38.17 kg/m2 Radha Matias [facility], [facility].; [facility], [facility]. 05-20-2024 08:15-0400 Body surface area Derived from formula 2.36 m2 Radha Matias [employer] [facility], [facility].; [facility], [facility]. 05-20-2024 08:15-0400 Body weight 120.66 kg Radha Matias [employer] [facility], [facility].; [place] [employer].To [employer] [facility], [facility]. 05-20-2024 08:15-0400 Diastolic blood pressure 79 mm[Hg] Radha Matias [facility], [facility].; [place] [employer].To [employer] [facility], [facility]. Comment on above: Patient Position: Sitting; Cuff Location : Left Arm; Cuff Size: Standard 05-20-2024 08:15-0400 Heart rate 64 /min Radha Matias [facility], [facility].; [place] [employer].To [employer] [facility], [employer]. Comment on above: Pattern: Regular 05-20-2024 08:15-0400 Systolic blood pressure 112 mm[Hg] Radha Matias LPN [facility].; [facility]. Comment on above: Patient Position: Sitting; Cuff Location : Left Arm; Cuff Size: Standard 12-12-2023 09:18-0400 Body height 177.8 cm Nellie Solis [facility].; [place] [employer] [facility]. 12-12-2023 09:18-0400 Body mass index (BMI) [Ratio] 37.88 kg/m2 Nellie Solis [facility].; [place] [employer].To [employer] [facility]. 12-12-2023 09:18040 Body surface area Derived from formula 2.35 m2 Nellie Solis [facility].; [place] [employer].To [employer] [facility]. 12-12-2023 09:18040 Body temperature 97.2 [degF] Nell[facility].; [place] [employer]. Comment on above: Method: Tympanic 12-12-2023 09:18040 Body weight 119.75 kg Nellie Solis [facility].; [employer]. 12-12-2023 09:180400 Diastolic blood pressure 98 mm[Hg] Nellie Solis [facility].; [employer]. Comment on above: Patient Position: Sitting; Cuff Location : Left Arm; Cuff Size: Standard 12-12-2023 09:18-0400 Heart rate 64 /min Nellie Solis [facility].; [employer]. Comment on above: Pattern: Regular 12-12-2023 09:18-0400 Inhaled oxygen concentration 21 % Nellie Solis [facility].; [employer]. Comment on above: Room air 12-12-2023 09:18-0400 SaO2% (BldA) [Mass fraction] 95 % Nellie Solis [facility].; [employer]. 12-12-2023 09:18-0400 Systolic blood pressure 143 mm[Hg] Nellie Solis [facility].; [employer]. Comment on above: Patient Position: Sitting; Cuff Location : Left Arm; Cuff Size: Standard 08-06-2023 09:45-0500 Body temperature 97.81 [degF] Jey Birch MD Work Phone: [facility] 08-06-2023 09:45-0500 Body weight 111.58 kg Jey Birch MD Work Phone: [facility] 08-06-2023 09:45-0500 Diastolic blood pressure 88 mm[Hg] Jey Birch MD Work Phone: [facility] 08-06-2023 09:45-0500 Heart rate 57 /min Jey Birch MD Work Phone: [facility] 08-06-2023 09:45-0500 Respiratory rate 15 /min Jey Birch MD Work Phone: [facility] 08-06-2023 09:45-0500 SaO2% (BldA) [Mass fraction] 99 % Jey Birch MD Work Phone: [facility] 08-06-2023 09:45-0500 Systolic blood pressure 123 mm[Hg] Jey Birch MD Work Phone: [facility] 07-07-2023 14:19-0400 Body height 177.8 cm Nellie Solis MA [facility], [facility].; [employer].To [employer] [facility]. 07-07-2023 14:19-0400 Body mass index (BMI) [Ratio] 35.3 kg/m2 Nellie Solis MA [facility], [facility].; [place] [employer].To [employer] [facility]. 07-07-2023 14:19-0400 Body surface area Derived from formula 2.28 m2 Nellie Solis MA [facility], [facility].; [place] [employer].To [employer] [facility]. 07-07-2023 14:190400 Body weight 111.59 kg Nellie Solis MA [facility], [facility].; [place] [employer].To [employer] [facility]. 07-07-2023 14:19-0400 Diastolic blood pressure 77 mm[Hg] Nellie Solis MA [facility].; [employer] [facility]. Comment on above: Patient Position: Sitting; Cuff Location : Left Arm; Cuff Size: Standard 07-07-2023 14:19-0400 Heart rate 71 /min Nellie Solis MA [facility], [facility].; [facility], [facility]. Comment on above: Pattern: Regular 07-07-2023 14:19-0400 Systolic blood pressure 128 mm[Hg] Nellie Solis MA [facility], [facility].; [facility], [facility]. Comment on above: Patient Position: Sitting; Cuff Location : Left Arm; Cuff Size: Standard 06-17-2023 13:18-0400 Body weight 112.49 kg David Lopes LPN [facility], [facility].; [facility], [facility]. 06-17-2023 13:18-0400 Diastolic blood pressure 49 mm[Hg] David Lopes LPN [facility], [facility].; [facility], [employer]. Comment on above: Patient Position: Sitting; Cuff Location : Left Arm; Cuff Size: Standard 06-17-2023 13:18-0400 Heart rate 70 /min David Lopes LPN [facility], [facility].; [place] [employer].To [employer] [facility], [employer]. Comment on above: Pattern: Regular 06-17-2023 13:18-0400 Systolic blood pressure 94 mm[Hg] David Mosesalondra ESCAMILLA [facility], [facility].; [facility], [facility]. Comment on above: Patient Position: Sitting; Cuff Location : Left Arm; Cuff Size: Standard 01-14-2023 13:34-0400 Body height 177.8 cm Kanchan Miller MA [facility], [facility].; [facility]. 01-14-2023 13:34-0400 Body mass index (BMI) [Ratio] 32.57 kg/m2 Kanchan Miller MA [facility], [facility].; [facility], [facility]. 01-14-2023 13:34-0400 Body surface area Derived from formula 2.2 m2 Kanchan Miller MA [facility], [facility].; [facility], [facility]. 01-14-2023 13:34-0400 Body weight 102.97 kg Kanchan Miller MA [facility], [facility].; [facility], [facility]. 01-14-2023 13:34-0400 Diastolic blood pressure 64 mm[Hg] Kanchan Miller MA [facility].; [facility]. Comment on above: Patient Position: Sitting; Cuff Location : Left Arm; Cuff Size: Standard 01-14-2023 13:34-0400 Heart rate 71 /min Kanchan Miller MA [facility].; [place] [employer]. Comment on above: Pattern: Regular 01-14-2023 13:34-0400 Systolic blood pressure 98 mm[Hg] Kanchan Miller MA [facility].; [facility]. Comment on above: Patient Position: Sitting; Cuff Location : Left Arm; Cuff Size: Standard 11-07-2022 15:45-0500 Body height 177.8 cm Kanchan Miller MA [facility].; [facility], [facility]. 11-07-2022 15:45-0500 Body mass index (BMI) [Ratio] 32.28 kg/m2 Kanchan Miller MA [facility].; [facility], [facility]. 11-07-2022 15:45-0500 Body surface area Derived from formula 2.19 m2 Kanchan Miller MA [facility].; [facility], [facility]. 11-07-2022 15:45-0500 Body temperature 98.7 [degF] Kanchan Miller [facility].; [place] [employer].To [employer] [facility]. Comment on above: Method: Tympanic 11-07-2022 15:45-0500 Body weight 102.06 kg Kanchan Miller MA [facility].; [facility]. 11-07-2022 15:45-0500 Diastolic blood pressure 84 mm[Hg] Kanchan Miller MA [facility].; [place] [employer].To [employer] [facility]. Comment on above: Patient Position: Sitting; Cuff Location : Left Arm; Cuff Size: Standard 11-07-2022 15:45-0500 Heart rate 67 /min Kanchan Miller MA [facility].; [employer]. Comment on above: Pattern: Regular 11-07-2022 15:45-0500 Inhaled oxygen concentration 21 % Kanchan Miller MA [facility].; [facility]. Comment on above: Room air 11-07-2022 15:45-0500 SaO2% (BldA) [Mass fraction] 95 % Kanchan Miller MA [facility].; [facility]. 11-07-2022 15:45-0500 Systolic blood pressure 125 mm[Hg] Kanchan Miller MA [facility].; [place] [employer] [facility]. Comment on above: Patient Position: Sitting; Cuff Location : Left Arm; Cuff Size: Standard 01-04-2022 10:16-0400 Body height 177.8 cm [facility].; [facility]. 01-04-2022 10:16-0400 Body mass index (BMI) [Ratio] 34.01 kg/m2 Madeline Jiménez LPN [facility].; [place] [employer].To [employer] [facility]. 01-04-2022 10:16-0400 Body surface area Derived from formula 2.24 m2 Madeline Jiménez LPN [facility].; [place] [employer].To [employer] [facility]. 01-04-2022 10:16-0400 Body temperature 99.1 [degF] Madeline Jiménez [facility].; [place] [employer].To [employer] [facility]. Comment on above: Method: Tympanic 01-04-2022 10:16-0400 Body weight 107.5 kg Madeline Jiménez LPN [facility].; [place] [employer].To [employer] [facility]. 01-04-2022 10:16-0400 Diastolic blood pressure 89 mm[Hg] Madeline Jiménez LPN [facility].; [employer].To [employer] [facility]. Comment on above: Patient Position: Sitting; Cuff Location : Left Arm; Cuff Size: Standard 01-04-2022 10:16-0400 Heart rate 75 /min Madeline Jiménez LPN [facility].; [place] [employer]. Comment on above: Pattern: Regular 01-04-2022 10:16-0400 Inhaled oxygen concentration 21 % Madeline Jiménez LPN [facility].; [employer]. Comment on above: Room air 01-04-2022 10:16-0400 SaO2% (BldA) [Mass fraction] 97 % Madeline Jiménez LPN [facility], [facility].; [employer] [facility]. 01-04-2022 10:16-0400 Systolic blood pressure 134 mm[Hg] [facility], [facility].; [employer]. Comment on above: Patient Position: Sitting; Cuff Location : Left Arm; Cuff Size: Standard 12-20-2021 09:02-0400 Body height 177.8 cm Carlyn Claudio [facility], [facility].; [employer]. 12-20-2021 09:02-0400 Body mass index (BMI) [Ratio] 34.01 kg/m2 Carlyn Claudio [facility] [employer].To [employer] [facility].; [employer]. 12-20-2021 09:02-0400 Body surface area Derived from formula 2.24 m2 Carlyn Claudio [facility] [employer].To [employer] [facility].; [employer]. 12-20-2021 09:02-0400 Body weight 107.5 kg Carlyn Claudio [facility] [employer].To [employer] [facility].; [employer]. 12-20-2021 09:02-0400 Diastolic blood pressure 84 mm[Hg] Carlyn Claudio [facility] [employer].To [employer] [facility].; [employer]. Comment on above: Patient Position: Sitting; Cuff Location : Left Arm; Cuff Size: Standard 12-20-2021 09:02-0400 Heart rate 71 /min Carlyn Claudio LPN [place] [employer].To [employer] [facility], [facility].; [employer]. Comment on above: Pattern: Regular 12-20-2021 09:02-0400 Systolic blood pressure 132 mm[Hg] Carlyn Claudio [employer] [place] [employer].To [employer] [facility].; [employer]. Comment on above: Patient Position: Sitting; Cuff Location : Left Arm; Cuff Size: Standard 12-17-2021 11:09-0400 Body height 177.8 cm Carlyn Claudio [employer] [place] [employer].To [employer] [facility], [facility].; [employer]. 12-17-2021 11:09-0400 Body mass index (BMI) [Ratio] 34.44 kg/m2 Carlyn Brownjosé luis ESCAMILLA [facility], [facility].; [employer].To [employer] [facility]. 12-17-2021 11:09-0400 Body surface area Derived from formula 2.26 m2 Carlyn Brownlabach [employer] [facility], [facility].; [employer].To [employer] [facility]. 12-17-2021 11:09-0400 Body temperature 98.1 [degF] [facility].; [employer]. Comment on above: Method: Tympanic 12-17-2021 11:09-0400 Body weight 108.86 kg Carlyn Brownjosé luis ESCAMILLA [facility], [employer]. 12-17-2021 11:09-0400 Diastolic blood pressure 86 mm[Hg] Carlyn Brownjosé luis ESCAMILLA [facility].; [employer]. Comment on above: Patient Position: Sitting; Cuff Location : Left Arm; Cuff Size: Standard 12-17-2021 11:09-0400 Heart rate 69 /min Carlyn Hubbardsixto ESCAMILLA [facility], [facility].; [place]. Comment on above: Pattern: Regular 12-17-2021 11:09-0400 Inhaled oxygen concentration 21 % [facility].; [employer]. Comment on above: Room air 12-17-2021 11:09-0400 SaO2% (BldA) [Mass fraction] 98 % Carlyn Brownlabach [employer] [facility], [employer]. 12-17-2021 11:09-0400 Systolic blood pressure 133 mm[Hg] Carlyn Moon González ESCAMILLA [facility] [employer]. Comment on above: Patient Position: Sitting; Cuff Location : Left Arm; Cuff Size: Standard 02-12-2019 07:20-0400 Body height 177.8 cm Geno Bah RN [facility] [employer]. 02-12-2019 07:20-0400 Body mass index (BMI) [Ratio] 30.56 kg/m2 Geno Bah RN [place] [employer] [facility] [employer]. 02-12-2019 07:20-0400 Body surface area Derived from formula 2.14 m2 Geno Bah RN [place] [employer] [facility] [employer]. 02-12-2019 07:20-0400 Body weight 96.62 kg Geno Bah RN [place] [employer] [facility] [employer]. 02-12-2019 07:20-0400 Diastolic blood pressure 75 mm[Hg] Geno Bah RN [place] [employer] [facility] [place]. Comment on above: Patient Position: Sitting; Cuff Location : Right Arm; Cuff Size: Standard 02-12-2019 07:20-0400 Heart rate 63 /min Geno Bah RN [place] [employer] [facility] [place]. Comment on above: Pattern: Regular 02-12-2019 07:20-0400 Systolic blood pressure 112 mm[Hg] Geno Bah RN [place] [employer] [facility] [employer]. Comment on above: Patient Position: Sitting; Cuff Location : Right Arm; Cuff Size: Standard 01-21-2018 08:03-0400 Body height 177.8 cm Carlyn Claudio LPN [place] [employer]To [employer] Pages [facility], [employer].; [employer] 01-21-2018 08:03-0400 Body mass index (BMI) [Ratio] 29.47 kg/m2 Carlyn Claudio LPN [employer] 01-21-2018 08:03-0400 Body surface area Derived from formula 2.11 m2 Carlyn Claudio LPN [employer].; [place]. 01-21-2018 08:03-0400 Body weight 93.17 kg Carlyn Claudio LPN [employer].; [employer] 01-21-2018 08:03-0400 Diastolic blood pressure 77 mm[Hg] Carlyn Claudio LPN [employer].; [place]. Comment on above: Patient Position: Sitting; Cuff Location : Right Arm; Cuff Size: Standard 01-21-2018 08:03-0400 Heart rate 68 /min Carlynfranklyn Claudio [facility] [place].; [place]. Comment on above: Pattern: Regular 01-21-2018 08:03-0400 Systolic blood pressure 123 mm[Hg] Carlyn Red Claudio LPN [employer].; [place]. Comment on above: Patient Position: Sitting; Cuff Location : Right Arm; Cuff Size: Standard 10-22-2017 08:09-0500 Body height 177.8 cm Maryam Stratton MD Work Phone: [employer].; [place]. 10-22-2017 08:09-0500 Body mass index (BMI) [Ratio] 29.54 kg/m2 Maryam Stratton MD Work Phone: [place].; [place]. 10-22-2017 08:09-0500 Body surface area Derived from formula 2.11 m2 Maryam Stratton MD Work Phone: [place].; [place]. 10-22-2017 08:09-0500 Body weight 93.4 kg Maryam Stratton MD Work Phone: [place].; [place]. 10-22-2017 08:09-0500 Diastolic blood pressure 64 mm[Hg] Maryam Stratton MD Work Phone: [place].; [place]. Comment on above: Patient Position: Sitting; Cuff Location : Left Arm; Cuff Size: Standard 10-22-2017 08:09-0500 Heart rate 72 /min Maryam Stratton MD Work Phone: [place].; [place]. Comment on above: Pattern: Regular 10-22-2017 08:09-0500 Systolic blood pressure 117 mm[Hg] Maryam Stratton MD Work Phone: [place].; [place]. Comment on above: Patient Position: Sitting; Cuff Location : Left Arm; Cuff Size: Standard 09-22-2017 08:20-0500 Body height 177.8 cm Juanjo Robles (Scribe) [facility] [employer] 09-22-2017 08:20-0500 Body mass index (BMI) [Ratio] 29.56 kg/m2 Juanjonick Robles (Scribe) [facility] [employer] 09-22-2017 08:20-0500 Body surface area Derived from formula 2.11 m2 Juanjonick Robles (Scribe) [facility] [employer]. 09-22-2017 08:20-0500 Body temperature 97.8 [degF] Juanjonick Robles ([facility] [place] [employer]To [employer] [facility].; [employer]. Comment on above: Method: Tympanic 09-22-2017 08:20-0500 Body weight 93.44 kg Juanjonick Robles ([facility]) [place] [employer].To [employer] [facility].; [employer]. 09-22-2017 08:20-0500 Diastolic blood pressure 70 mm[Hg] Juanjo Robles (Scribe) [place] [employer].; [place]. Comment on above: Patient Position: Sitting; Cuff Location : Left Arm; Cuff Size: Standard 09-22-2017 08:20-0500 Heart rate 59 /min Juanjonick Robles (Scribe) [place] [employer] [facility].; [place]. Comment on above: Pattern: Regular 09-22-2017 08:20-0500 Inhaled oxygen concentration 21 % Juanjonick Robles (Scribe) [place] [employer].To [employer] [facility] [place]. Comment on above: Room air 09-22-2017 08:20-0500 SaO2% (BldA) [Mass fraction] 99 % Juanjo Travis (Scribe) [place] [employer] [facility].; [employer]. 09-22-2017 08:20-0500 Systolic blood pressure 118 mm[Hg] Juanjo Travis (Scribe) [place] [employer] [facility].; [place]. Comment on above: Patient Position: Sitting; Cuff Location : Left Arm; Cuff Size: Standard 07-23-2017 09:03-0500 Body height 177.8 cm Carlyn Claudio LPN [employer] 07-23-2017 09:03-0500 Body mass index (BMI) [Ratio] 28.27 kg/m2 Carlyn Claudio [employer] 07-23-2017 09:03-0500 Body surface area Derived from formula 2.07 m2 Carlyn Hubbardach [employer] 07-23-2017 09:03-0500 Body weight 89.36 kg Carlyn Claudio [employer] [place]. 07-23-2017 09:03-0500 Diastolic blood pressure 69 mm[Hg] Carlyn Claudio [facility].; [employer] Comment on above: Patient Position: Sitting; Cuff Location : Left Arm; Cuff Size: Standard 07-23-2017 09:03-0500 Heart rate 57 /min Carlyn Claudio [employer] Comment on above: Pattern: Regular 07-23-2017 09:03-0500 Systolic blood pressure 116 mm[Hg] Carlyn Claudio [employer] [place]. Comment on above: Patient Position: Sitting; Cuff Location : Left Arm; Cuff Size: Standard 04-30-2017 09:07-0400 Body height 177.8 cm Carlyn Hubbardach [employer] [place]. 04-30-2017 09:07-0400 Body mass index (BMI) [Ratio] 29.24 kg/m2 Carlyn Claudio [employer] [place]. 04-30-2017 09:07-0400 Body surface area Derived from formula 2.1 m2 Carlyn Hubbardach [facility].; [place]. 04-30-2017 09:07-0400 Body weight 92.44 kg Carlyn Claudio [employer] [place]. 04-30-2017 09:07-0400 Diastolic blood pressure 65 mm[Hg] Carlyn Claudio [employer] [place] [employer], [employer]. Comment on above: Patient Position: Sitting; Cuff Location : Left Arm; Cuff Size: Standard 04-30-2017 09:07-0400 Heart rate 66 /min Carlyn Claudio [employer] [place] [employer] Comment on above: Pattern: Regular 04-30-2017 09:07-0400 Systolic blood pressure 109 mm[Hg] Carlyn Claudio [employer] [place] [employer], [employer]. Comment on above: Patient Position: Sitting; Cuff Location : Left Arm; Cuff Size: Standard 04-08-2017 11:18-0400 Body height 177.8 cm Kelly Kristi Velascobaugh [employer] [place] [employer]To [employer] Pages [facility], Inc.; [employer] 04-08-2017 11:18-0400 Body mass index (BMI) [Ratio] 29.13 kg/m2 Kelly Kristi Mutersbaugh [employer] [place] [employer], [employer]. 04-08-2017 11:18-0400 Body surface area Derived from formula 2.1 m2 Kelly K Mutersbaugh [employer] [place] [employer], [employer]. 04-08-2017 11:18-0400 Body weight 92.08 kg Kelly Kristi Mutersbaugh [employer] [place] [employer], [employer]. 04-08-2017 11:18-0400 Diastolic blood pressure 69 mm[Hg] Kelly K Mutersbaugh [employer], [employer]. Comment on above: Patient Position: Sitting; Cuff Location : Left Arm; Cuff Size: Standard 04-08-2017 11:18-0400 Heart rate 65 /min Kelly K Mutersbaugh [employer], [employer]. Comment on above: Pattern: Regular 04-08-2017 11:18-0400 Systolic blood pressure 120 mm[Hg] Kelly K Mutersbaugh [employer], [employer].; [place]. Comment on above: Patient Position: Sitting; Cuff Location : Left Arm; Cuff Size: Standard 03-05-2017 08:06-0400 Body height 177.8 cm Carlyn Claudio [facility] Inc.; [place]. 03-05-2017 08:06-0400 Body mass index (BMI) [Ratio] 29.13 kg/m2 Carlyn Hubbardach [employer].; [place]. 03-05-2017 08:06-0400 Body surface area Derived from formula 2.1 m2 Carlyn Hubbardach [employer].; [place]. 03-05-2017 08:06-0400 Body weight 92.08 kg Carlyn Claudio [facility].; [place]. 03-05-2017 08:06-0400 Diastolic blood pressure 70 mm[Hg] Carlyn Moon González [facility].; [place]. Comment on above: Patient Position: Sitting; Cuff Location : Right Arm; Cuff Size: Standard 03-05-2017 08:06-0400 Heart rate 76 /min Carlyn Claudio [facility].; [place]. Comment on above: Pattern: Regular 03-05-2017 08:06-0400 Systolic blood pressure 114 mm[Hg] Carlyn Hubbardach [employer].; [place]. Comment on above: Patient Position: Sitting; Cuff Location : Right Arm; Cuff Size: Standard 01-22-2017 08:53-0400 Body height 177.8 cm Carlyn Claudio [employer] [place]. 01-22-2017 08:53-0400 Body mass index (BMI) [Ratio] 30.5 kg/m2 Carlyn Hubbardach [employer].; [place]. 01-22-2017 08:53-0400 Body surface area Derived from formula 2.14 m2 Carlyn Moon González [facility].; [place]. 01-22-2017 08:53-0400 Body weight 96.44 kg Carlyn Claudio LPN [employer] [place]. 01-22-2017 08:53-0400 Diastolic blood pressure 72 mm[Hg] Carlyn Claudio LPN [employer] [place]. Comment on above: Patient Position: Sitting; Cuff Location : Right Arm; Cuff Size: Standard 01-22-2017 08:53-0400 Heart rate 71 /min Carlyn Claudio LPN [employer] Comment on above: Pattern: Regular 01-22-2017 08:53-0400 Systolic blood pressure 123 mm[Hg] Carlyn Claudio LPN [employer].; [place]. Comment on above: Patient Position: Sitting; Cuff Location : Right Arm; Cuff Size: Standard 12-11-2016 08:58-0400 Body height 177.8 cm Corinne Farr RN Work Phone: [employer].; [employer] 12-11-2016 08:58-0400 Body mass index (BMI) [Ratio] 32.57 kg/m2 Corinne Farr RN Work Phone: [place].; [employer] 12-11-2016 08:58-0400 Body surface area Derived from formula 2.2 m2 Corinne Farr RN Work Phone: [place].; [place]. 12-11-2016 08:58-0400 Body weight 102.97 kg Corinne Farr RN Work Phone: [employer].; [place]. 12-11-2016 08:58-0400 Diastolic blood pressure 74 mm[Hg] Corinne Farr RN Work Phone: [employer].; [place]. Comment on above: Patient Position: Sitting; Cuff Location : Right Arm; Cuff Size: Large 12-11-2016 08:58-0400 Heart rate 58 /min Corinne Farr RN Work Phone: [place].; [place]. Comment on above: Pattern: Regular 12-11-2016 08:58-0400 Systolic blood pressure 119 mm[Hg] Corinne Farr RN Work Phone: [facility].; [place]. Comment on above: Patient Position: Sitting; Cuff Location : Right Arm; Cuff Size: Large 11-13-2016 09:06-0500 Body height 177.8 cm Carlyn Brownlabach [facility] [employer].To [employer] Pages [facility].; [place]. 11-13-2016 09:06-0500 Body mass index (BMI) [Ratio] 34.64 kg/m2 Carlyn Moon González [facility] [employer].; [employer]. 11-13-2016 09:06-0500 Body surface area Derived from formula 2.26 m2 Carlyn Brownlabach [facility] [employer] [facility].; [employer]. 11-13-2016 09:06-0500 Body temperature 98 [degF] Carlyn Hubbardach [facility] [employer].; [place]. Comment on above: Method: Tympanic 11-13-2016 09:06-0500 Body weight 109.5 kg Carlyn Hubbardach [facility] [employer] [facility], [employer].; [place]. 11-13-2016 09:06-0500 Diastolic blood pressure 72 mm[Hg] Carlyn Brownlabach [facility].; [place]. Comment on above: Patient Position: Sitting; Cuff Location : Left Arm; Cuff Size: Standard 11-13-2016 09:06-0500 Heart rate 64 /min Carlyn Hubbardach [employer].; [place]. Comment on above: Pattern: Regular 11-13-2016 09:06-0500 Systolic blood pressure 107 mm[Hg] Carlyn Hubbardach [employer].; [place]. Comment on above: Patient Position: Sitting; Cuff Location : Left Arm; Cuff Size: Standard 10-16-2016 10:54-0500 Body height 177.8 cm Carlyn Claudio LPN [employer] [facility], [facility].; [employer] 10-16-2016 10:54-0500 Body mass index (BMI) [Ratio] 36.79 kg/m2 Carlyn Moon González ESCAMILLA [place] [employer] [facility], [facility].; [employer] 10-16-2016 10:54-0500 Body surface area Derived from formula 2.32 m2 Carlyn Red Claudio LPN [employer] [facility], [employer].; [place]. 10-16-2016 10:54-0500 Body weight 116.3 kg Carlyn M González ESCAMILLA [employer] [facility], [employer].; [place]. 10-16-2016 10:54-0500 Diastolic blood pressure 80 mm[Hg] Carlyn Red Claudio LPN [employer] [facility], [facility].; [place]. Comment on above: Patient Position: Sitting; Cuff Location : Left Arm; Cuff Size: Standard 10-16-2016 10:54-0500 Heart rate 60 /min Carlyn Claudio [employer] [facility], [facility].; [place]. Comment on above: Pattern: Regular 10-16-2016 10:54-0500 Systolic blood pressure 131 mm[Hg] Carlyn Moon González [employer] [place]. Comment on above: Patient Position: Sitting; Cuff Location : Left Arm; Cuff Size: Standard 08-28-2016 10:57-0500 Body height 177.8 cm Elvia Merlos LPN [employer] [facility], [facility].; [place]. 08-28-2016 10:57-0500 Body mass index (BMI) [Ratio] 41.28 kg/m2 Elvia Merlos LPN [employer] [place]. 08-28-2016 10:57-0500 Body surface area Derived from formula 2.44 m2 Elvia Merlos LPN [employer] [place]. 08-28-2016 10:57-0500 Body weight 130.5 kg Elvia Merlos LPN [employer] [place]. 08-28-2016 10:57-0500 Diastolic blood pressure 87 mm[Hg] Elvia Garza Gaurang [employer] [place]. Comment on above: Patient Position: Sitting; Cuff Location : Right Arm; Cuff Size: Large 08-28-2016 10:57-0500 Heart rate 65 /min Elvia Garza Gaurang [employer] Comment on above: Pattern: Regular 08-28-2016 10:57-0500 Systolic blood pressure 131 mm[Hg] Elvia Hernandezmore [employer] [place]. Comment on above: Patient Position: Sitting; Cuff Location : Right Arm; Cuff Size: Large 08-21-2016 11:03-0500 Body height 177.8 cm Maryam Stratton MD Work Phone: [employer].; [place]. 08-21-2016 11:03-0500 Body mass index (BMI) [Ratio] 41.73 kg/m2 Maryam Stratton MD Work Phone: [employer].; [place]. 08-21-2016 11:03-0500 Body surface area Derived from formula 2.45 m2 Maryam Stratton MD Work Phone: [place].; [place]. 08-21-2016 11:03-0500 Body weight 131.91 kg Maryam Stratton MD Work Phone: [place].; [place]. 08-21-2016 11:03-0500 Diastolic blood pressure 91 mm[Hg] Maryam Stratton MD Work Phone: [place].; [place]. Comment on above: Patient Position: Sitting; Cuff Location : Right Arm; Cuff Size: Standard 08-21-2016 11:03-0500 Heart rate 61 /min Maryam Stratton MD Work Phone: [place].; [place]. Comment on above: Pattern: Regular 08-21-2016 11:03-0500 Systolic blood pressure 143 mm[Hg] Maryam Stratton MD Work Phone: [employer].; [place]. Comment on above: Patient Position: Sitting; Cuff Location : Right Arm; Cuff Size: Standard 08-16-2016 08:55-0500 Body height 177.8 cm Geno Bah RN [employer].; [place]. 08-16-2016 08:55-0500 Body mass index (BMI) [Ratio] 41.61 kg/m2 Geno Bah RN [employer].; [place]. 08-16-2016 08:55-0500 Body surface area Derived from formula 2.44 m2 Geno Bah RN [employer].; [place]. 08-16-2016 08:55-0500 Body weight 131.54 kg Geno Bah RN [employer].; [place]. 08-16-2016 08:55-0500 Diastolic blood pressure 81 mm[Hg] Geno Bah RN [employer].; [place]. Comment on above: Patient Position: Sitting; Cuff Location : Right Arm; Cuff Size: Large 08-16-2016 08:55-0500 Heart rate 75 /min Geno Bah RN [employer].; [place]. Comment on above: Pattern: Regular 08-16-2016 08:55-0500 Inhaled oxygen concentration 21 % Geno Bah RN [place] [place]. Comment on above: Room air 08-16-2016 08:55-0500 SaO2% (BldA) [Mass fraction] 95 % Geno Bah RN [place] [place]. 08-16-2016 08:55-0500 Systolic blood pressure 124 mm[Hg] Geno Bah RN [place].; [place]. Comment on above: Patient Position: Sitting; Cuff Location : Right Arm; Cuff Size: Large 03-21-2016 13:31-0400 Body temperature 97 [degF] Luke Maynor PA-C Work Phone: [employer].; [place]. Comment on above: Method: Tympanic 03-21-2016 13:31-0400 Body weight 125.65 kg Luke Maynor PA-C Work Phone: [place].; [place]. 03-21-2016 13:31-0400 Diastolic blood pressure 82 mm[Hg] Luke Maynor PA-C Work Phone: [place].; [place]. Comment on above: Patient Position: Sitting; Cuff Location : Right Arm; Cuff Size: Standard 03-21-2016 13:31-0400 Heart rate 72 /min Luke Maynor PA-C Work Phone: [place].; [place]. Comment on above: Pattern: Regular 03-21-2016 13:31-0400 Systolic blood pressure 128 mm[Hg] Luke Maynor PA-C Work Phone: [place].; [place]. Comment on above: Patient Position: Sitting; Cuff Location : Right Arm; Cuff Size: Standard 2015 08:44-0500 Body height 177.8 cm Geno Bah RN [employer].; [place]. 2015 08:44-0500 Body mass index (BMI) [Ratio] 39.17 kg/m2 Geno Bah RN [employer].; [place]. 2015 08:44-0500 Body surface area Derived from formula 2.38 m2 Geno Bah RN [employer].; [place]. 2015 08:44-0500 Body weight 123.83 kg Geno Bah RN [employer].; [place]. 2015 08:44-0500 Diastolic blood pressure 86 mm[Hg] Geno Bah RN [place] [employer].; [employer]. Comment on above: Patient Position: Sitting; Cuff Location : Left Arm; Cuff Size: Large 2015 08:44-0500 Heart rate 71 /min Geno Bah RN [facility] [employer]. Comment on above: Pattern: Regular 2015 08:44-0500 Systolic blood pressure 141 mm[Hg] Geno Bah RN [place] [employer].; [employer]. Comment on above: Patient Position: Sitting; Cuff Location : Left Arm; Cuff Size: Large 08-15-2015 15:09-0500 Body height 177.8 cm Charley Mulu [employer] Work Phone: [employer].; [place]. 08-15-2015 15:09-0500 Body mass index (BMI) [Ratio] 39.31 kg/m2 [facility] [employer] Work Phone: [employer] [place]. 08-15-2015 15:09-0500 Body surface area Derived from formula 2.39 m2 [facility] [employer] [employer] Work Phone: [employer].; [employer]. 08-15-2015 15:09-0500 Body weight 124.29 kg [facility] [employer] [employer] Work Phone: [employer].; [place]. 08-15-2015 15:09-0500 Diastolic blood pressure 82 mm[Hg] Charley Mulu [employer] Work Phone: [employer].; [place]. Comment on above: Patient Position: Sitting; Cuff Location : Left Arm; Cuff Size: Large 08-15-2015 15:09-0500 Heart rate 80 /min Charley Mulu [employer] Work Phone: [employer].; [place]. Comment on above: Pattern: Regular 08-15-2015 15:09-0500 Systolic blood pressure 132 mm[Hg] Charley Mulu [employer] Work Phone: [place] [employer].; [place]. Comment on above: Patient Position: Sitting; Cuff Location : Left Arm; Cuff Size: Large 07-06-2015 11:50-0400 Body height 177.8 cm Carlyn Maddox MD Work Phone: [employer].; [place]. 07-06-2015 11:50-0400 Body mass index (BMI) [Ratio] 39.6 kg/m2 Carlyn Maddox MD Work Phone: [employer].; [place]. 07-06-2015 11:50-0400 Body surface area Derived from formula 2.39 m2 Carlyn Maddox MD Work Phone: [employer].; [place]. 07-06-2015 11:50-0400 Body temperature 97.8 [degF] Carlyn Maddox MD Work Phone: [employer]; [place]. Comment on above: Method: Tympanic 07-06-2015 11:50-0400 Body weight 125.19 kg Carlyn Maddox MD Work Phone: [employer]; [place]. 07-06-2015 11:50-0400 Diastolic blood pressure 95 mm[Hg] Carlyn Maddox MD Work Phone: [employer].; [place]. Comment on above: Patient Position: Sitting; Cuff Location : Right Arm; Cuff Size: Standard 07-06-2015 11:50-0400 Heart rate 66 /min Carlyn Maddox MD Work Phone: [employer]; [place]. Comment on above: Pattern: Regular 07-06-2015 11:50-0400 Systolic blood pressure 138 mm[Hg] Carlyn Maddox MD Work Phone: [employer].; [place]. Comment on above: Patient Position: Sitting; Cuff Location : Right Arm; Cuff Size: Standard 05-13-2014 09:50-0400 Body height 177.8 cm Corinne Farr RN Work Phone: [employer].; [place]. 05-13-2014 09:50-0400 Body mass index (BMI) [Ratio] 39.74 kg/m2 Corinne Farr RN Work Phone: [employer].; [place]. 05-13-2014 09:50-0400 Body surface area Derived from formula 2.4 m2 Corinne Farr RN Work Phone: [employer].; [place]. 05-13-2014 09:50-0400 Body weight 125.65 kg Corinne Farr RN Work Phone: [employer].; [place]. 05-13-2014 09:50-0400 Diastolic blood pressure 75 mm[Hg] Corinne Farr RN Work Phone: [employer].; [place]. Comment on above: Patient Position: Sitting; Cuff Location : Left Arm; Cuff Size: Large 05-13-2014 09:50-0400 Heart rate 78 /min Corinne Farr RN Work Phone: [place].; [place]. Comment on above: Pattern: Regular 05-13-2014 09:50-0400 Systolic blood pressure 136 mm[Hg] Corinne Farr RN Work Phone: [employer].; [place]. Comment on above: Patient Position: Sitting; Cuff Location : Left Arm; Cuff Size: Large 02-02-2014 11:00-0400 Body weight 123.83 kg Kyrake Maynor PA-C Work Phone: [place].; [place]. 02-02-2014 11:00-0400 Diastolic blood pressure 87 mm[Hg] Luke Maynor PA-C Work Phone: [employer].; [place]. Comment on above: Patient Position: Sitting; Cuff Location : Left Arm; Cuff Size: Large 02-02-2014 11:00-0400 Heart rate 75 /min Wisam BELLAMY-C Work Phone: [place] [employer] [place]. Comment on above: Pattern: Regular 02-02-2014 11:00-0400 Systolic blood pressure 133 mm[Hg] Wisam Atkinsonetler PA-C Work Phone: [employer] [place]. Comment on above: Patient Position: Sitting; Cuff Location : Left Arm; Cuff Size: Large 10-22-2013 13:28-0500 Body height 177.8 cm Corinne Farr RN Work Phone: [employer] [place]. 10-22-2013 13:28-0500 Body mass index (BMI) [Ratio] 39.17 kg/m2 Corinne Farr RN Work Phone: [employer] [place]. 10-22-2013 13:28-0500 Body surface area Derived from formula 2.38 m2 Corinne Farr RN Work Phone: [employer] [place]. 10-22-2013 13:28-0500 Body temperature 97 [degF] Corinne Farr RN Work Phone: [employer] [place]. Comment on above: Method: Tympanic 10-22-2013 13:28-0500 Body weight 123.83 kg Corinne Farr RN Work Phone: [employer] [place]. 10-22-2013 13:28-0500 Diastolic blood pressure 89 mm[Hg] Corinne Farr RN Work Phone: [employer] [place]. Comment on above: Patient Position: Sitting; Cuff Location : Left Arm; Cuff Size: Large 10-22-2013 13:28-0500 Heart rate 68 /min Corinne Farr RN Work Phone: [place] [employer]; [place]. Comment on above: Pattern: Regular 10-22-2013 13:28-0500 Systolic blood pressure 136 mm[Hg] Corinne Farr RN [facility]: [facility] [place]. Comment on above: Patient Position: Sitting; Cuff Location : Left Arm; Cuff Size: Large 10-04-2013 14:20-0500 Body height 177.8 cm Carlyn Maddox MD Work Phone: [place] [employer] [facility] [employer] 10-04-2013 14:20-0500 Body mass index (BMI) [Ratio] 38.74 kg/m2 Carlyn Maddox MD Work Phone: [place] [employer]; [employer] 10-04-2013 14:20-0500 Body surface area Derived from formula 2.37 m2 Carlyn Maddox MD Work Phone: [place] [employer] [place]. 10-04-2013 14:20-0500 Body temperature 97.8 [degF] Carlyn Maddox MD Work Phone: [employer]; [place]. Comment on above: Method: Tympanic 10-04-2013 14:20-0500 Body weight 122.47 kg Carlyn Maddox MD Work Phone: [place] [employer] [place]. 10-04-2013 14:20-0500 Diastolic blood pressure 82 mm[Hg] Carlyn Maddox MD Work Phone: [employer] [place]. Comment on above: Patient Position: Sitting; Cuff Location : Left Arm; Cuff Size: Standard 10-04-2013 14:20-0500 Heart rate 73 /min Carlyn Maddox MD Work Phone: [place] [employer]; [place]. Comment on above: Pattern: Regular 10-04-2013 14:20-0500 Systolic blood pressure 135 mm[Hg] Carlyn Maddox MD Work Phone: [employer] [place]. Comment on above: Patient Position: Sitting; Cuff Location : Left Arm; Cuff Size: Standard 06-23-2013 10:51-0400 Body height 177.8 cm Luke Maynor PA-C Work Phone: [employer] [place]. 06-23-2013 10:51-0400 Body mass index (BMI) [Ratio] 38.31 kg/m2 Luke Maynor PA-C Work Phone: [employer] 06-23-2013 10:51-0400 Body surface area Derived from formula 2.36 m2 Luke Maynor PA-C Work Phone: [employer] 06-23-2013 10:51-0400 Body weight 121.11 kg Luke Maynor PA-C Work Phone: [employer] [place]. 06-23-2013 10:51-0400 Diastolic blood pressure 87 mm[Hg] Luke Maynor PA-C Work Phone: [employer] [place]. Comment on above: Patient Position: Sitting; Cuff Location : Left Arm; Cuff Size: Large 06-23-2013 10:51-0400 Heart rate 65 /min Luke Maynor PA-C Work Phone: [employer] [place]. Comment on above: Pattern: Regular 06-23-2013 10:51-0400 Systolic blood pressure 121 mm[Hg] Luke Maynor PA-C Work Phone: [employer] [place]. Comment on above: Patient Position: Sitting; Cuff Location : Left Arm; Cuff Size: Large 06-01-2013 15:19-0400 Body height 177.8 cm Corinne Farr RN Work Phone: [place] [place] 04-30-2013 10:48-0400 Body height 177.8 cm Corinne Farr RN Work Phone: [employer] [place]. 04-30-2013 10:48-0400 Body mass index (BMI) [Ratio] 38.6 kg/m2 Corinne Farr RN Work Phone: [employer] [place]. 04-30-2013 10:48-0400 Body surface area Derived from formula 2.37 m2 Corinne Farr RN Work Phone: [employer] [place] 04-30-2013 10:48-0400 Body weight 122.02 kg Corinne Farr RN Work Phone: [place] [place] 04-30-2013 10:48-0400 Diastolic blood pressure 82 mm[Hg] Corinne Farr RN Work Phone: [place] [place]. Comment on above: Patient Position: Sitting; Cuff Location : Right Arm; Cuff Size: Large 04-30-2013 10:48-0400 Heart rate 70 /min Corinne Farr RN Work Phone: [address]; [place]. Comment on above: Pattern: Regular 04-30-2013 10:48-0400 Systolic blood pressure 116 mm[Hg] Corinne Farr RN Work Phone: [employer] [place]. Comment on above: Patient Position: Sitting; Cuff Location : Right Arm; Cuff Size: Large Encounters Encounter Date Encounter Type Care Provider Facility Start: 08-02-2025 [facility] Start: 07-20-2025 ambulatory Wisam Maynor Facili ty:[facility] Start: 07-15-2025 End: 07-15-2025 ambulatory dina Maynor Facility:[facility] Start: 07-01-2025 ambulatory Shruthi Ureña Facili ty:[facility] Start: 06-23-2025 Patient encounter procedure Shruthi BELLAMY -Laboratory Work Phone: Start: 06-23-2025 End: 06-23-2025 Patient encounter procedure Shruthi BELLAMY -[facility] Work Phone: Start: 06-23-2025 End: 06-23-2025 ambulatory Wisam BELLAMY Work Phone: -[facility] Start: 06-23-2025 End: 06-23-2025 ambulatory Shruthi Ureña Facility:[facility] Start: 05-23-2025 ambulatory ZARINA MCDANIEL [facility] Start: 05-20-2025 End: 05-20-2025 ambulatory WISAM MCGUIRE [facility] Start: 02-18-2025 End: 02-18-2025 Patient encounter status Wisam Mcguire PA-C Work Phone: [place] [place] Start: 02-18-2025 End: 02-18-2025 Periodic preventive med est patient 40-64yrs Wisam Leungler PA-C Work Phone: [place]. Start: 01-11-2025 End: 01-11-2025 Office outpatient visit 15 minutes Wisam CosmeMaynor PA-C Work Phone: [place]. Start: 01-11-2025 Review Wisam Cosmestetl er PA-C Work Phone: [place]. Start: 11-01-2024 End: 11-01-2024 Office outpatient visit 15 minutes Kyrake Maynor PA-C Work Phone: [place]. Start: 11-01-2024 Review Kyrake Hochstetl er PA-C Work Phone: [place]. Start: 09-28-2024 End: 09-28-2024 Office outpatient visit 15 minutes Luke Maynor PA-C Work Phone: [place]. Start: 09-28-2024 Evaluation and management of inpatient Luke Maynor PA-C Work Phone: [place]. Start: 09-17-2024 End: 09-17-2024 Office outpatient visit 15 minutes Luke Maynor PA-C Work Phone: [place]. Start: 09-09-2024 End: 09-09-2024 Telephone follow-up Luke Maynor PA-C Work Phone: [place]. Start: 09-07-2024 End: 09-07-2024 Office outpatient visit 25 minutes Luke Maynor PA-C Work Phone: [address] Start: 09-06-2024 End: 09-06-2024 Emergency department patient visit [facility] Start: 06-21-2024 End: 06-21-2024 ambulatory [facility] Start: 05-20-2024 End: 05-20-2024 Patient encounter status Wisam Cosmestetler PA-C Work Phone: [place] [place] Start: 05-20-2024 End: 05-20-2024 Periodic preventive med est patient 40-64yrs Wisam CosmeMaynor PA-C Work Phone: [place]. Start: 12-12-2023 End: 12-12-2023 Office outpatient visit 15 minutes Luke Maynor PA-C Work Phone: [place]. Start: 12-12-2023 Review Wisam Mcdowell er PA-C Work Phone: [place]. Start: 09-05-2023 End: 09-06-2023 ambulatory [facility] Facility:[facility] Start: 08-06-2023 Telephone encounter Jey hansen MD Work Phone: Neurology Comment on above: Patient Update Start: 08-06-2023 End: 08-06-2023 ambulatory GINO BORJA Facility:[facility] Start: 08-06-2023 End: 08-06-2023 Patient encounter procedure Jey Birch MD Work Phone: NEROLOGY Comment on above: Benign fasciculation s (Primary Dx); Cesar syndrome of left eye Start: 07-10-2023 End: 07-10-2023 Orders Luke Maynor PA-C Work Phone: [address] Start: 07-07-2023 End: 07-07-2023 Office outpatient visit 15 minutes Luke Maynor PA-C Work Phone: [address] Start: 06-17-2023 End: 06-17-2023 Office outpatient visit 15 minutes Luke Maynor PA-C Work Phone: [address] Start: 01-14-2023 End: 01-14-2023 Procedure Luke Maynor PA-C Work Phone: [address] Start: 11-07-2022 End: 11-07-2022 Office outpatient visit 15 minutes Luke Maynor PA-C Work Phone: [place]. Start: 04-09-2022 End: 04-09-2022 Telephone follow-up Luke Maynor PA-C Work Phone: [address] Start: 01-16-2022 End: 01-16-2022 Orders Luke Maynor PA-C Work Phone: [address] Start: 01-07-2022 End: 01-07-2022 Orders Luke Maynor PA-C Work Phone: [address] Start: 01-04-2022 End: 01-04-2022 Office outpatient visit 15 minutes Luke Maynor PA-C Work Phone: [place]. Start: 12-20-2021 End: 12-20-2021 Office outpatient visit 15 minutes Luke Maynor PA-C Work Phone: [place]. Start: 12-17-2021 End: 12-17-2021 Office outpatient visit 15 minutes Luke Maynor PA-C Work Phone: [place]. Start: 05-18-2021 End: 05-18-2021 Patient encounter procedure Luke Maynor PA-C Work Phone: [place]. Start: 02-12-2019 End: 02-12-2019 Office outpatient visit 15 minutes Luke Maynor PA-C Work Phone: [place]. Start: 01-21-2018 End: 01-23-2018 Office outpatient visit 15 minutes Luke Maynor PA-C Work Phone: [place]. Start: 01-21-2018 End: 01-23-2018 Patient encounter status Maryam Stratton MD Work Phone: [place] [place]. Start: 12-15-2017 End: 12-15-2017 Medication Luke Maynor PA-C Work Phone: [place]. Start: 10-22-2017 End: 10-23-2017 Office outpatient visit 15 minutes Luke Maynor PA-C Work Phone: [place]. Start: 09-22-2017 End: 09-22-2017 Office outpatient visit 15 minutes Luke Maynor PA-C Work Phone: [place]. Start: 07-23-2017 End: 07-24-2017 Patient encounter procedure Luke Maynor PA-C Work Phone: [place]. Start: 04-30-2017 End: 05-01-2017 Office outpatient visit 15 minutes Luke Maynor PA-C Work Phone: [place]. Start: 04-08-2017 End: 04-08-2017 Office outpatient visit 15 minutes Luke Maynor PA-C Work Phone: [place]. Start: 03-05-2017 End: 03-05-2017 Office outpatient visit 15 minutes Luke Maynor PA-C Work Phone: [place]. Start: 01-22-2017 End: 01-22-2017 Office outpatient visit 15 minutes Luke Maynor PA-C Work Phone: [place]. Start: 12-11-2016 End: 12-12-2016 Patient encounter procedure Luke Maynor PA-C Work Phone: [place]. Start: 11-13-2016 End: 11-13-2016 Office outpatient visit 15 minutes Luke Maynor PA-C Work Phone: [place]. Start: 10-16-2016 End: 10-17-2016 Patient encounter procedure Luke Maynor PA-C Work Phone: [place]. Start: 08-28-2016 End: 08-28-2016 Patient encounter procedure Luke Maynor PA-C Work Phone: [place]. Start: 08-21-2016 End: 08-22-2016 Patient encounter procedure Luke Maynor PA-C Work Phone: [place]. Start: 08-16-2016 End: 08-16-2016 Patient encounter procedure Luke Maynor PA-C Work Phone: [place]. Start: 08-16-2016 End: 08-16-2016 Patient encounter status Luke Maynor PA-C Work Phone: [place] [place]. Work Phone: Start: 08-08-2016 End: 08-08-2016 Orders Kyrake Maynor PA-C Work Phone: [place]. Start: 07-03-2016 End: 07-03-2016 Orders Luke Maynor PA-C Work Phone: [place]. Start: 03-21-2016 End: 03-21-2016 Patient encounter procedure Luke Maynor PA-C Work Phone: [place]. Start: 01-25-2016 End: 01-25-2016 Medication Luke Maynor PA-C Work Phone: [place]. Start: 10-23-2015 End: 10-23-2015 Orders Luke Maynor PA-C Work Phone: [place]. Start: 2015 End: 2015 Office outpatient visit 25 minutes Luke Maynor PA-C Work Phone: [place]. Start: 10-05-2015 End: 10-05-2015 Historical Summary Wisam Atkinsonetler PA-C Work Phone: [place]. Start: 08-15-2015 End: 08-15-2015 Patient encounter status Luke Maynor PA-C Work Phone: [place] [place]. Start: 08-15-2015 End: 08-15-2015 Periodic preventive med est patient 40-64yrs Luke Maynor PA-C Work Phone: [place]. Start: 07-10-2015 End: 07-10-2015 Orders Luke Maynor PA-C Work Phone: [place]. Start: 07-10-2015 End: 07-10-2015 Orders Luke Maynor PA-C Work Phone: [place]. Start: 07-06-2015 End: 07-06-2015 Office outpatient visit 25 minutes Luke Maynor PA-C Work Phone: [place]. Start: 06-29-2014 End: 06-29-2014 Nursing evaluation of patient and report Luke Maynor PA-C Work Phone: [place]. Start: 05-13-2014 End: 05-13-2014 Patient encounter status Luke Maynor PA-C Work Phone: [place] [place]. Start: 05-13-2014 End: 05-13-2014 Periodic preventive med est patient 40-64yrs Luke Maynor PA-C Work Phone: [employer] Start: 05-12-2014 End: 05-12-2014 Historical Summary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
== END | disposition home or self-care (01) ==
PROVIDERS: PCP Physician Assistant; Referring Provider Internal Medicine Gastroenterology; Visit Provider Internal Medicine Gastroenterology
DX: K76.89 Other specified diseases of liver (principal)
CPT/HCPCS: 76705; 76981